=== PATIENT | male | born 1995 | race African-American/Black ===

== ENCOUNTER 2017-10-15 11:07 | Emergency (ER) | payer MEDICAID, SELFPAY ==
[2017-10-15 11:08] VITALS: BP 137/75; PULSE 69; RESP 17; TEMP 36.4; O2SAT 93; BMI 18.7
[2017-10-15] MEDS: 0.9% Normal Saline 1,000 ML 1000 ML IV (11:41)
[2017-10-15] MEDS: Ketorolac 30 MG/ML Syringe IV (11:41)
[2017-10-15] MEDS: Ondansetron 4 MG/2 ML Vial IV (11:42)
--- NOTE | 2017-10-15 13:01 | ED.VISSUMM ---
- ER Visit Summary Date of Service: 10/15/17 Chief Complaint: Vomiting and diarrhea History of Present Illness: The patient is a 22 M who does not remember his primary care physician's name. He reports he has vomiting and diarrhea that began 4-1/2 hours ago. Is vomited multiple times. No blood in his emesis. He has had 2-3 episodes of diarrhea. No blood in his stools or black tarry stools. He has sharp diffuse abdominal pain is 10 out of 10 at worst and currently. Is worsened by nothing relieved by nothing. He denies any dysuria frequency. Patient denies sick contacts. Has not been camping out of the country. No possible bad food exposure. Does drink well water. No recent antibiotic use. Physical Examination: Vitals: Stable. Afebrile. General: Well-nourished and well-developed. Head: Normocephalic atraumatic. Neck: Supple, no lymphadenopathy. No JVD. Nontender. Cardiovascular: Regular rate and rhythm. No murmurs. Respiratory: No respiratory distress. Clear to auscultation bilaterally. Abdominal: Soft, nontender, nondistended, normal bowel sounds. No guarding, rebound, or peritoneal signs. Back: Nontender. Extremities: Nontender, no edema. Skin: Normal color, no rash. Neurologic: Alert and oriented ?3. Cranial nerves II through XII are intact. Normal strength and sensation. Psych: Normal affect. Emergency Department Course and Treatment: Patient had an IV placed. He was given Toradol, Zofran, and Phenergan IV. He then developed hiccups and continued to complain of nausea. Because of this he was given a dose of Thorazine and Benadryl IV. His hiccups have resolved as has his nausea. He is resting comfortably. Treatment Plan: The patient will be discharged with Zofran. Instructed to follow-up with his primary care physician in 1-2 days if not improving. Return to the emergency department for any worsening symptoms. Disposition: To home in improved and stable condition. Impression:. Vomiting/diarrhea. This note was generated with [employer] dictation software. It may contain incorrect words, spelling, and punctuation that were not noted in review of the chart prior to signing ED Disposition - Plan for ED Patient: Chief Complaint: Abd Pain Instructions: ED Vomiting Diarrhea Nonspecific Ad Prescriptions: Ondansetron [Zofran Odt] 4 mg PO Q8H PRN PRN #10 tablet PRN Reason: Nausea Referrals: Doctor,Your [STAFF PHYSICIAN] - 1-2 Days if not improving
[2017-10-15] MEDS: Dicyclomine 20 MG/2 ML Vial IM (13:24)
[2017-10-15 13:52] VITALS: PULSE 80; RESP 14
== END 2017-10-15 13:53 | disposition home or self-care (01) ==
PROVIDERS: Emergency Provider Emergency Medicine
DX: R11.10 Vomiting, unspecified (principal); R19.7 Diarrhea, unspecified; R06.6 Hiccough
CPT/HCPCS: 96361; 96365; 96372; 96375; 99283; J7030; A4216; J2405; J3490

== ENCOUNTER 2018-12-26 15:17 | Emergency (ER) | payer MEDICAID, SELFPAY ==
[2018-12-26 15:17] VITALS: BP 141/91; PULSE 80; RESP 16; TEMP 36.6; O2SAT 100; BMI 18.5
[2018-12-26] MEDS: Ketorolac 30 MG/ML Syringe IV (15:48)
[2018-12-26] MEDS: 0.9% Normal Saline 1,000 ML 1000 ML IV ×2 (15:48→19:48)
[2018-12-26] MEDS: Ondansetron 4 MG/2 ML Vial IV ×2 (15:48→18:10)
--- NOTE | 2018-12-26 15:52 | ED.VISSUMM ---
- ER Visit Summary Date of Service: 12/26/18 Chief Complaint: Vomiting and diarrhea History of Present Illness: The patient is a 23 M with no primary care physician. He reports that he had vomiting and diarrhea since 830 this morning. He is vomited multiple times. No blood in his emesis. He said 5-6 episodes of diarrhea. No blood in his stools or black tarry stools. Reports that he has epigastric abdominal pain that he describes as nausea states is 9 out of 10 at worst and 7-10 currently. Is worsened by movement relieved by remaining still. Patient denies sick contacts. Has not been camping out of the country. Thinks this may be due to chicken nuggets that he ate at [employer] last night. He does drink well water, but others at home do as well and they are not ill. No recent antibiotic use. Physical Examination: Vitals: Stable. Afebrile. General: Well-nourished and well-developed. Head: Normocephalic atraumatic. Neck: Supple, no lymphadenopathy. No JVD. Nontender. Cardiovascular: Regular rate and rhythm. No murmurs. Respiratory: No respiratory distress. Clear to auscultation bilaterally. Abdominal: Soft, mild epigastric tenderness to palpation Er, nondistended, normal bowel sounds. No guarding, rebound, or peritoneal signs. Back: Nontender. Extremities: Nontender, no edema. Skin: Normal color, no rash. Neurologic: Alert and oriented ?3. Cranial nerves II through XII are intact. Normal strength and sensation. Psych: Normal affect. Test results: CBC shows a white count 21.6 with segmented neutrophils and 19 lymphocytes 3. Chem-7 shows potassium 3.4, glucose 170, creatinine 1.48. LFTs show total protein of 8.6, AST 13, lipase is 75. Hemoglobin A1c is normal. Clinical Impression(s) from Imaging Studies Abdomen/Pelvis CT 12/26/18 20:38 IMPRESSION: Evidence of diarrheal illness with prominent fluid in the bowel and little formed stool. Mild prominence of the colonic wall might represent a mild infectious or inflammatory colitis although this might also be due to underdistention. Individualized dose optimization techniques were used for this CT. at 2121 Reported and signed by: Brian Weir MD Electronically Signed: Brian Weir, at 21:19 EDT Tel , Service support , Emergency Department Course and Treatment: Patient had an IV placed. He was given 3 L of normal saline IV. He was given Toradol, Zofran, and morphine IV. He feels much improved. Treatment Plan: Patient will be discharged with Zofran. Instructed to follow-up with the [facility] in 1-2 days if not improving. Return to the emergency department for any worsening symptoms. Disposition: To home in improved and stable condition. Impression: 1. Vomiting/diarrhea. This note was generated with [employer] dictation software. It may contain incorrect words, spelling, and punctuation that were not noted in review of the chart prior to signing ED Disposition - Plan for ED Patient: Disposition: Home or Assisted Living Instructions: ED Vomiting Diarrhea Nonspecific Ad Prescriptions: Ondansetron [Zofran Odt] 4 mg PO Q8H PRN PRN #10 tablet PRN Reason: Nausea Referrals: Mariama Bernal [NON-STAFF] - 1-2 Days if not improving
[2018-12-26] MEDS: proMETHazine 25 MG/ML Syringe 6.25 MG IV ×2 (17:40→19:49)
[2018-12-26] MEDS: 0.9% Normal Saline 1,000 ML 999 ML IV (18:10)
[2018-12-26 18:53] VITALS: BP 134/78; PULSE 73; RESP 16; O2SAT 99
[2018-12-26] MEDS: Morphine 4 MG/ML Syringe IV (19:48)
[2018-12-26 19:55] LABS: Absolute Lymphocyte Count 0.57 X10^3/ul (0.83-4.51); Absolute Neutrophil Count 19.8 X10^3/uL (2.0-7.7); Basophil# 0.01 X10^3/uL; Differential Indicated SCAN CRITERIA MET; Hemoglobin 16.2 g/dl (13.0-16.5); Lymphocyte # 0.57 X10^3/ul (4.0); Lymphocyte % 2.6 % (19-41); Mean Corp Hgb Conc 35.2 g/gl (32-36); Mean Corpuscular Hgb 29.9 pg (27.0-32.0); Mean Corpuscular Volume 84.9 fL (80-94); Mean Platelet Vol. 11.5 fl (6.2-12.0); Monocyte# 1.19 X10^3/uL; Monocyte% 5.5 % (0-10); Neutrophil # 19.77 X10^3/uL (2.7-7.7); Neutrophil % 91.6 % (47-70); POSITIVE COUNT NO; POSITIVE DIFFERENTIAL YES; POSITIVE MORPHOLOGY NO; Platelet Count 213 K/mm3 (150-450); RBC Distribution Width CV 11.6 % (11.6-14.6); RBC Distribution Width SD 35.7 fl (35.1-43.9); Red Blood Count 5.42 M/mm3 (4.6-6.2); White Blood Count 21.6 K/mm3 (4.4-11.0)
[2018-12-26 20:15] LABS: Platelet Estimate ADEQUATE (ADEQ); Red Cell Morphology NORM C+C NORMAL (NORM C&C)
[2018-12-26 20:16] LABS: ALB/GLOB Ratio 1.4 RATIO (0.9-2.4); AST(SGOT) 13 U/L (15-37); Alanine Aminotransfer ALT/SGPT 24 U/L (16-61); Alkaline Phosphatase 58 U/L (45-117); Anion Gap 11 (5-15); BUN 10 mg/dL (7-18); BUN/Creat Ratio 6.8 RATIO (10-20); Calcium,Total 9.7 mg/dL (8.5-10.1); Chloride 101 mmol/L (98-107); Creatinine, Serum 1.48 mg/dL (0.70-1.30); EST Glomerular Filtration Rate 62 mL/min (>60); Est Glom Filt Rate - Afr Amer 75 mL/min (>60); Estimated Creatinine Clearance 61.92 ml/min; Globulin 3.6 g/dL (2.2-4.2); Glucose 170 mg/dL (74-106); Lipase 75 U/L (73-393); Potassium 3.4 mmol/L (3.5-5.1); Protein, Total 8.6 g/dL (6.4-8.2); Sodium Level 136 mmol/L (136-145)
--- NOTE | 2018-12-26 20:38 | CT_ITS ---
HISTORY: nausea,vomiting and diarrhea since 8 am today EXAMINATION: CT Abdomen And Pelvis W/O Contrast TECHNIQUE: Helically acquired images were obtained of the abdomen and pelvis without oral or IV contrast as per renal stone protocol. A radiation dose optimization technique was used for this scan. IV Contrast dosage and agent: None. Oral contrast: None. COMPARISON: None FINDINGS: LOWER CHEST: Lung bases are clear. No cardiomegaly or pericardial effusion observed. LIVER: Homogeneous. No focal mass. GALLBLADDER AND BILIARY TREE: No calcified gallstones. There is no gallbladder distension or wall edema. No intra- or extrahepatic biliary ductal dilation. KIDNEYS AND URETERS: Normal renal size and position. There is no hydronephrosis or nephrolithiasis. ADRENAL GLANDS: Non-enlarged. SPLEEN: Normal size without focal cystic or solid mass. PANCREAS: No focal cystic or solid mass. BOWEL: Partially visible appendix noninflamed. No evidence of acute appendicitis. No obstruction of the bowel. Little formed stool, and fluid in the bowel. Large bowel is mostly decompressed with mild prominence of its wall. LYMPH NODES: No enlarged mesenteric or retroperitoneal lymph nodes. PERITONEUM: No ascites or free air. No other fluid collection. VESSELS: Aorta is non-dilated. URINARY BLADDER: Unremarkable. REPRODUCTIVE ORGANS: No pelvic masses. ABDOMINAL WALL: No discrete abdominal or pelvic wall hernia observed. BONES: No lytic or blastic abnormality observed. Mild left scoliosis. Transitional lumbosacral anatomy with partial sacralization of the left transverse process of S1. CT/Abdomen/Pelvis without Cont IMPRESSION: Evidence of diarrheal illness with prominent fluid in the bowel and little formed stool. Mild prominence of the colonic wall might represent a mild infectious or inflammatory colitis although this might also be due to underdistention. Individualized dose optimization techniques were used for this CT. at 2121 Reported and signed by: Brian Weir MD Electronically Signed: Brian Weir, at 21:19 EDT Tel , Service support ,
[2018-12-26 21:17] LABS: Hemoglobin A1c 5.6 % (4.2-6.3)
[2018-12-26] MEDS: Ondansetron ODT 4 MG Tablet PO (22:18)
[2018-12-26 22:19] VITALS: BP 153/91; PULSE 83; RESP 16; O2SAT 100
[2018-12-27 12:17] LABS: Pathologist Review Reviewed
== END 2018-12-26 22:24 | disposition home or self-care (01) ==
PROVIDERS: Emergency Provider Emergency Medicine
DX: R11.10 Vomiting, unspecified (principal); R19.7 Diarrhea, unspecified
CPT/HCPCS: 74176; 80053; 83036; 83690; 85025; 96361; 96374; 96375; 96376; 99284; J7030; J2405

== ENCOUNTER → 2019-09-17 15:43 | Outpatient (CLI) | payer MEDICAID, SELFPAY ==
--- NOTE | 2019-09-17 13:30 | PHA_PTH ---
PATIENT: RD ANG LOC: [facility] U#:[id number] AGE/SX: 29/M ROOM: RE09/17/[address]: Dr. Margarito Etienne MD : 1995 BED: DIS: SPEC #: [id number] RECD: 09/17/19 15:17 STATUS: ALYSHA MARCIANO #: [id number] LUL: 09/17/19 13:[address]: Margarito Etienne DEPT: SURGICAL PATHOLOGY RECD BY: Douglas Sweeney ENTERED: 09/18/19 11:02 SP TYPE: PHARYNX BX OTHR DR: No Primary Care Phys [facility] Tissues: Pharynx, NOS Procedures: Surgery Specimen Level IV HEADER OPERATION: Excision oropharyngeal lesion PRE-OP DIAGNOSIS: Benign neoplasm of oropharynx TISSUE SUBMITTED: Oropharyngeal neoplasm MICROSCOPIC DIAGNOSIS Oropharyngeal neoplasm, excisional biopsy: Squamous papilloma. TAYLOR:lisa 09/20/19 MICROSCOPIC DESCRIPTION Slides are reviewed. GROSS DESCRIPTION Received is one container labeled with the patient's name and not further designated. The specimen consists of an irregular fragment of raisinoid light pink-giron tissue measuring 1 x 0.8 x 0.3 cm. The specimen is bisected and totally submitted in one cassette. / AM:lisa 09/18/19 TC:1 CPT: 55684
== END ==
PROVIDERS: Referring Provider Otolaryngology; Visit Provider Otolaryngology
DX: D10.5 Benign neoplasm of other parts of oropharynx (principal)
CPT/HCPCS: 88305

== ENCOUNTER 2020-02-11 01:48 | Emergency (ER) | payer MEDICAID, SELFPAY ==
[2020-02-11 01:50] VITALS: BP 126/110; PULSE 87; RESP 18; TEMP -17.7; TEMP 0; O2SAT 99; BMI 22.6
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
[2020-02-11 04:00] VITALS: BP 115/82; PULSE 102; RESP 15; O2SAT 100
[2020-02-11 04:28] VITALS: BP 115/82; PULSE 99; RESP 15; O2SAT 100
--- NOTE | 2020-02-11 04:32 | DCINST.ED_ITS ---
ED Disposition - Plan for ED Patient: Disposition: Home or Assisted Living Instructions: ED Head Injury Adult, ED Laceration Scalp Sutures or [place], ED INTOXICATION Alcohol Referrals: Michael Navas MD [STAFF PHYSICIAN] - Additional Instructions: Tylenol for any pain. Keep scalp clean. Tony can come out in 7 to 10 days. We can do it or you can do it at home. There are [address]
== END 2020-02-11 04:37 | disposition home or self-care (01) ==
PROVIDERS: Emergency Provider Emergency Medicine
DX: S01.01XA Laceration without foreign body of scalp, initial encounter (principal); F10.129 Alcohol abuse with intoxication, unspecified; W19.XXXA Unspecified fall, initial encounter
CPT/HCPCS: 12001; 70450; 72125; 80320; 99285; A4216; G0480

== ENCOUNTER 2020-08-04 16:22 | Emergency (ER) | payer MEDICAID, SELFPAY ==
[2020-08-04 16:23] VITALS: BP 134/85; PULSE 75; RESP 16; TEMP 36.2; O2SAT 99; BMI 19.9
[2020-08-04 16:51] LABS: Bacteria 0 SEEN /hpf (None Seen); Mucous, Urine 0 SEEN /hpf (<or=2+); Red Blood Cells-Urine 0 SEEN /hpf (0-5); Squamous Epithelial Cells - UA 0 SEEN /hpf (0-5); White Blood Cells 0 SEEN /hpf (0-5)
[2020-08-04 17:10] LABS: Color, Urine Straw (Yellow); Glucose, Dipstick Normal (Normal); Ketone-Dipstick Negative (Negative); Leukocyte Esterase-Dipstick Negative /ul (Negative); Nitrite-Dipstick Negative (Negative); Occult Blood-Urine Negative /ul (Negative); Protein-Dipstick Negative (Negative); Specific Gravity, Urine 1.005 (1.002-1.030); Urine Bilirubin Dipstick Negative (Negative); Urine Clarity Clear (Clear); Urine Urobilinogen Normal (Normal)
--- NOTE | 2020-08-04 17:43 | ED.VISSUMM ---
- ER Visit Summary Date of Service: 08/04/20 Chief Complaint: Exposure to gonorrhea History of Present Illness: The patient is a [address] Mills. He reports that 2 days ago he had unprotected intercourse with a woman and was told today that she had tested positive for gonorrhea. He denies any symptoms. No dysuria or frequency. No penile discharge. No fever or chills. He denies any lesions on his genitals. Physical Examination: Vitals: Stable. Afebrile. General: Well-nourished and well-developed. Head: Normocephalic atraumatic. Neck: Supple, no lymphadenopathy. No JVD. Nontender. Cardiovascular: Regular rate and rhythm. No murmurs. Respiratory: No respiratory distress. Clear to auscultation bilaterally. Abdominal: Soft, nontender, nondistended, normal bowel sounds. No guarding, rebound, or peritoneal signs. : Normal circumcised male. There is no discharge. No lesions on his penis. He does have a varicocele on the left. There is no testicular tenderness or masses. He has no hernia. He was examined while standing. Back: Nontender. Extremities: Nontender, no edema. Skin: Normal color, no rash. Neurologic: Alert and oriented ?3. Cranial nerves II through XII are intact. Normal strength and sensation. Psych: Normal affect. Test Results: Urinalysis is negative. Gonorrhea is positive. Emergency Department Course and Treatment: Patient was treated with Rocephin IM and Zithromax p.o. Treatment Plan: Patient is instructed not to have sexual activity with her again until she is treated. Follow-up with his primary care physician 1 week if not improving. Return to the emergency department for any worsening symptoms. Disposition: To home in improved and stable condition. Impression: 1. STD exposure. 2. Gonorrhea infection. This note was generated with [employer] dictation software. It may contain incorrect words, spelling, and punctuation that were not noted in review of the chart prior to signing ED Disposition - Plan for ED Patient: Disposition: Home or Assisted Living Instructions: ED STI Male Treated Referrals: Clayton Augustine NP, PRIVACY COMPLIANCE MANAGER-C [Primary Care Provider] - 1 Week if not improving
[2020-08-04] MEDS: Ceftriaxone 500 MG Vial 250 MG IM (18:02)
[2020-08-04] MEDS: Azithromycin 250 MG Tablet 1000 MG PO (18:02)
[2020-08-04 18:51] LABS: Chlamydia Trachomatis by PCR Negative (Negative); Probe Check PASS
[2020-08-04 18:54] LABS: Neisserai gonorrhoeae by PCR Positive (Negative)
== END 2020-08-04 18:09 | disposition home or self-care (01) ==
LOC: ED 17:40
PROVIDERS: Emergency Provider Emergency Medicine; PCP Nurse Practitioner Family
DX: Z20.2 Contact with and (suspected) exposure to infections with a predominantly sexual mode of transmission (principal); A54.9 Gonococcal infection, unspecified
CPT/HCPCS: 81001; 87491; 87591; 96372; 99282

== ENCOUNTER 2020-08-27 06:27 | Emergency (ER) | payer MEDICAID, SELFPAY ==
[2020-08-27 06:27] VITALS: BP 133/87; PULSE 77; RESP 15; TEMP 36.8; O2SAT 99; BMI 22.7
--- NOTE | 2020-08-27 07:13 | ED.DCSUM_ITS ---
History of Present Illness Chief Complaint: Male Pain/Injury Informant: Patient Onset: - - Overnight, about 10 hours ago Context: Gradual Onset Timing: Continuous Quality: Aching Location: Right testicle Current Severity: Resolved now Maximum Severity: Severe - While in the shower this morning Worsened by: Nothing in particular that he noticed Relieved by: Nothing in particular Associated Symptoms: None Narrative: Patient last had intercourse a month ago, and then he was told by that female to go get checked for STDs. He came to the ER, was treated for both gonorrhea and chlamydia, he tested positive for gonorrhea and negative for chlamydia according to his records. He has had no intercourse since. Overnight while sleeping his right testicle started hurting mildly, he has never had this before, while he was in the shower this morning it became severe. On the way to the hospital he quit hurting altogether. He had no other symptoms. Past Medical History - Allergies and Home Meds Allergies/Adverse Reactions: Allergies No Known Allergies Allergy (Verified 08/27/20 06:31) Primary Care Physician: Clayton Augustine NP, MEAT AND SEAFOOD CLERK-C [Primary Care Provider] - Smoking Status: Never smoker Review of Systems General: Denies: Chills, Fever, Sweats Gastrointestinal: Denies: Abdominal pain, Nausea, Vomiting, Diarrhea, Melena, Hematochezia Genitourinary: Reports: - - R testic pain. Denies: Dysuria, Hematuria, Frequen cy Musculoskeletal: Denies: Myalgias, Back pain, Extremity Pain Skin: Denies: Rash, Wounds Neurological: Denies: Headache, Weakness, Numbness Physical Exam Vital Signs/Narrative: Vital Signs Temp Pulse Resp BP Pulse Ox 08/27/20 06:27 98.2 F 77 15 133/87 H 99 Inital Vital Signs reviewed: Yes General: Well nourished, Well developed, No Acute Distress Head: Normocephalic, Atraumatic Abdomen: Soft, Nontender, Nondistended, Normal bowel sounds : - - Normal penis and testicles, no rash or lesions. Examined while standing, no hernia. Mild tenderness posterior aspect of the right hemiscrotum consistent with epididymis tenderness. Normal symmetric testicular lie. Intact cremasterics. No testicular tenderness. No blue dot sign. Extremities: Nontender, No edema Skin: Normal color, No rash, No Trauma Neurological: Alert, Oriented x3, Cranial nerves II-XII grossly intact, Normal Strength, Normal Sensation Psychological: Normal affect, Normal Mood Diagnostic/Tx/Re-eval - Medical Decision Making At this time he does have mild right epididymal tenderness with none on the left. This is consistent with epididymitis. At this time he does not have torsion, however I am not able to rule out the possibility of him having torsion earlier which is possible but unlikely. We discussed reasons to return to the hospital including an acute onset severe unilateral testicular pain. Right now he does not have torsion, will treat him for bacterial epididymitis and also cover gonorrhea again with Rocephin IM. Prescribe doxycycline given ibuprofen. ED Disposition - Plan for ED Patient: Disposition: Home or Assisted Living Diagnosis: Epididymitis, right Instructions: ED Epididymitis Prescriptions: Doxycycline 100 mg PO BID #20 cap Transmission Status: Pending to [id number] Referrals: Clayton Augustine NP, MEAT AND SEAFOOD CLERK-C [Primary Care Provider] - Shakeel Vega MD [STAFF PHYSICIAN] - 1 Week if not improving
[2020-08-27] MEDS: Ibuprofen 600 MG Tablet PO (07:55)
[2020-08-27] MEDS: Ceftriaxone 500 MG Vial 250 MG IM (08:46)
[2020-08-27 08:52] VITALS: BP 127/81; PULSE 81; RESP 16; O2SAT 99
== END 2020-08-27 08:52 | disposition home or self-care (01) ==
PROVIDERS: Emergency Provider Emergency Medicine; PCP Nurse Practitioner Family
DX: N45.1 Epididymitis (principal)
CPT/HCPCS: 96372; 99283

== ENCOUNTER 2020-11-03 07:08 | Emergency (ER) | payer BC, MEDICAID, SELFPAY ==
[2020-11-03 07:10] VITALS: BP 116/60; PULSE 79; RESP 17; TEMP 35; O2SAT 99; BMI 20.7
--- NOTE | 2020-11-03 07:42 | ED.VISSUMM ---
- ER Visit Summary Date of Service: 11/03/20 Chief Complaint: Vomiting History of Present Illness: The patient is a 25 M presenting with vomiting. Patient states this started this morning. He also complains of diarrhea. He denies bad food exposure or recent travel. Denies exposure to Covid. He does state he may have drank too much alcohol last night. Denies blood in his emesis. He complains of diffuse abdominal cramping. Denies other complaints. Physical Examination: Vitals are stable. Patient is afebrile. Alert no acute distress. HEENT exam is unremarkable. Neck is supple. Lungs are clear and equal bilaterally. Heart is regular rate and rhythm. Abdomen is soft mild epigastric tenderness with no guarding or rebound Extremities are unremarkable. Skin is warm and dry. Remainder of exam is unremarkable. Emergency Department Course and Treatment: Patient was given IV fluids, Zofran, morphine. CBC shows white count 14.9. Chemistries show potassium 3.1, glucose 182, creatinine 1.34. Liver lipase are normal. Patient continues to be nauseated and was given Reglan IV. He did have improvement on reevaluation. Patient then began to have vomiting and abdominal pain again. CT abdomen was obtained and shows no acute abnormality is seen. He was given Phenergan IM. Following fluids and medication patient is feeling improved. He is requesting discharge home. Advised to follow-up with his primary care physician. Advised return to ED for worsening complaints. Disposition: Discharge home Impression: Vomiting and diarrhea This note was generated with [employer] dictation software. It may contain incorrect words, spelling, and punctuation that were not noted in review of the chart prior to signing ED Disposition - Plan for ED Patient: Disposition: Home or Assisted Living Instructions: ED Diet for Vomiting or Diarrhea Adult Prescriptions: Ondansetron [Zofran Odt] 4 mg PO Q8H PRN PRN #10 tab PRN Reason: Nausea Prescription Printed Referrals: Clayton Augustine DIRECTOR OF ENVIRONMENTAL SERVICES, DIRECTOR OF ENVIRONMENTAL SERVICES-C [Primary Care Provider] -
[2020-11-03] MEDS: Ondansetron 4 MG/2 ML Vial IV (07:48)
[2020-11-03] MEDS: 0.9% Normal Saline 1,000 ML 1000 ML IV ×2 (07:49→08:46)
[2020-11-03 07:56] LABS: Absolute Lymphocyte Count 1.97 X10^3/uL (0.83-4.51); Absolute Neutrophil Count 11.9 X10^3/uL (2.0-7.7); Basophil# 0.05 X10^3/uL; Basophil% 0.3 % (0-1); Eosinophil# 0.18 X10^3/uL; Eosinophils% 1.2 % (0-5); Hematocrit 43.9 % (40-54); Lymphocyte # 1.97 X10^3/ul (4.0); Lymphocyte % 13.2 % (19-41); Mean Corp Hgb Conc 34.2 g/dL (32-36); Mean Corpuscular Hgb 29.8 pg (27.0-32.0); Mean Corpuscular Volume 87.1 fL (80-94); Mean Platelet Vol. 10.9 fl (6.2-12.0); Monocyte# 0.75 X10^3/uL; NRBC Flagged by Analyzer 0 % (0-5); Neutrophil # 11.85 X10^3/uL (2.7-7.7); Neutrophil % 79.6 % (47-70); Platelet Count 234 K/mm3 (150-450); RBC Distribution Width CV 11.5 % (11.6-14.6); Red Blood Count 5.04 M/mm3 (4.6-6.2); White Blood Count 14.9 K/mm3 (4.4-11.0)
[2020-11-03 08:11] LABS: ALB/GLOB Ratio 1.2 RATIO (0.9-2.4); AST(SGOT) 19 U/L (15-37); Alanine Aminotransfer ALT/SGPT 32 U/L (16-61); Albumin, Serum 4.2 g/dL (3.2-5.0); Alkaline Phosphatase 57 U/L (45-117); Anion Gap 11 (5-15); BUN 9 mg/dL (7-18); BUN/Creat Ratio 6.7 RATIO (10-20); Chloride 106 mmol/L (98-107); Creatinine, Serum 1.34 mg/dL (0.70-1.30); EST Glomerular Filtration Rate 68 mL/min (>60); Est Glom Filt Rate - Afr Amer 83 mL/min (>60); Estimated Creatinine Clearance 75.27 ml/min; Globulin 3.6 g/dL (2.2-4.2); Glucose 182 mg/dL (74-106); Lipase 253 U/L (73-393); Potassium 3.1 mmol/L (3.5-5.1); Protein, Total 7.8 g/dL (6.4-8.2); Sodium Level 139 mmol/L (136-145)
[2020-11-03] MEDS: Morphine 4 MG/ML Syringe IV ×2 (08:12→10:11)
[2020-11-03] MEDS: Metoclopramide 10 MG/2 ML Vial 5 MG IV (08:51)
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
[2020-11-03] MEDS: proMETHazine 25 MG/ML Syringe 12.5 MG IM (10:11)
--- NOTE | 2020-11-03 11:34 | ED.DEP ---
ED Disposition - Plan for ED Patient: Instructions: ED Diet for Vomiting or Diarrhea Adult Prescriptions: Ondansetron [Zofran Odt] 4 mg PO Q8H PRN PRN #10 tab PRN Reason: Nausea Prescription Printed Referrals: Clayton Augustine NP, ALLERGY NURSE-C [Primary Care Provider] -
== END 2020-11-03 11:52 | disposition home or self-care (01) ==
LOC: ED 08:19
PROVIDERS: Emergency Provider Emergency Medicine; PCP Nurse Practitioner Family
DX: R11.10 Vomiting, unspecified (principal); R19.7 Diarrhea, unspecified
CPT/HCPCS: 74177; 80053; 83690; 85025; 96361; 96372; 96374; 96375; 96376; 99285; J7030; A4216; J2405

== ENCOUNTER 2021-08-02 02:35 | Emergency (ER) | payer BC, MEDICAID, SELFPAY ==
[2021-08-02 02:36] VITALS: BP 118/74; PULSE 76; PULSE 77; RESP 18; TEMP 35.1; O2SAT 98; O2SAT 99; BMI 20.1
--- NOTE | 2021-08-02 02:50 | CT_ITS ---
STUDY: CT BRAIN WITHOUT CONTRAST REASON FOR EXAM: Male, 25 years old. Pain after trauma RADIATION DOSAGE (If Supplied By Facility): CTDIvol = ( 44.99 ) mGy, DLP = ( 779.24 ) mGycm TECHNIQUE: Transaxial CT imaging of the brain was performed without administration of intravenous contrast material. Individualized dose optimization techniques were used for this CT. COMPARISON: No relevant priors. FINDINGS: There is no intra-/extra-axial fluid collection, mass effect, or midline shift. The cowan/white matter junction is preserved. The basal cisterns are patent. Visualized paranasal sinuses and mastoid air cells are clear. The calvarium is intact. CT/Brain/Head without Contrast IMPRESSION: No acute intracranial finding. Electronically Signed: Roger De Jesus MD at 3:45 EST Tel , Service support ,
--- NOTE | 2021-08-02 02:50 | CT_ITS ---
STUDY: CT CERVICAL SPINE WITHOUT CONTRAST REASON FOR EXAM: Male, 25 years old. fall/injury RADIATION DOSAGE (If Supplied By Facility): CTDIvol = ( 20.66 ) mGy, DLP = ( 416.55 ) mGycm TECHNIQUE: High resolution transaxial imaging was performed without contrast material. Sagittal and coronal images were reconstructed. Individualized dose optimization techniques were used for this CT. COMPARISON: None FINDINGS: Normal craniovertebral junction. Normal anterior atlantoaxial articulation. Normal odontoid process. There is straightening of the normal cervical lordosis. Normal vertebral bodies and posterior osseous elements. C2-3: Normal endplates. Normal disc height and morphology. Normal central canal and intervertebral neuroforamina. C3-4: Normal endplates. Normal disc height and morphology. Normal central canal and intervertebral neuroforamina. C4-5: Normal endplates. Normal disc height and morphology. Normal central canal and intervertebral neuroforamina. C5-6: Normal endplates. Normal disc height and morphology. Normal central canal and intervertebral neuroforamina. C6-7: Normal endplates. Normal disc height and morphology. Normal central canal and intervertebral neuroforamina. C7-T1: Normal endplates. Normal disc height and morphology. Normal central canal and intervertebral neuroforamina. Normal visualized soft tissue structures. CT/Spine Cervical without Contras IMPRESSION: No acute traumatic findings of the C-spine Electronically Signed: Juan Ramon Smith DO at 3:49 EST Tel , Service support ,
--- NOTE | 2021-08-02 03:02 | EX.ED.DYSGE1 ---
HPI History of Present Illness Chief Complaint: ETOH Intox Narrative Narrative: Patient is a 25-year-old male who reports he was drinking tequila this evening. Reportedly mother found him on the ground and there was vomit around him. Reportedly he told his mother that he also fell and struck his head and she had concerned that his altered mental status and vomiting was from trauma and not the alcohol and therefore brings him in for evaluation. PFSH PFSH Home Medications fluoxetine 20 mg PO DAILY 02/11/20 [History Last Taken Unknown] doxycycline monohydrate 100 mg PO BID #20 cap 08/27/20 [Rx Last Taken Unknown] ondansetron 4 mg PO Q8H PRN PRN #10 tab 11/03/20 [Rx Last Taken Unknown] Allergy/AdvReac Type Severity Reaction Status Date / Time No Known Allergies Allergy Verified 08/27/20 06:31 Social History Smoking Status: Never smoker ROS ROS ED Review of Systems ROS Unobtainable: due to mental status EXAM Physical Exam Const Vital Signs: 08/02/21 02:36 08/02/21 04:57 08/02/21 05:51 Temperature 95.2 F L Temperature Source Temporal Pulse Rate 76 78 78 Respiratory Rate 18 16 Blood Pressure 118/74 107/56 L 126/71 H Blood Pressure Mean 88 73 89 Pulse Ox 98 98 97 Oxygen Delivery Method Room Air Room Air Room Air Positive well nourished and well developed General Appearance ED: well developed HEENT HEENT Narrative: No signs of depressed or basilar skull fracture Eyes Eyes Narrative: Pupils are dilated and slightly sluggish to respond with mild scleral injection consistent with alcohol use Neck supple Neck Narrative: No bony deformity or step-off of the cervical spine Chest Wall palpation of chest normal Chest Narrative: No bony deformity or crepitance Resp normal respiratory effort and clear to auscultation bilaterally Cardio regular rate and regular rhythm GI non-tender and non-distended GI Narrative: Bowel sounds are hyperactive Palpation: soft Back/Spine Back/Spine Narrative: No bony deformity or step-off of the thoracic or lumbar spine no midline pain with palpation Extremity normal to inspection Neuro CN's II-XII intact bilaterally Neuro Narrative: Patient's mental status is obtunded but he awakes to loud voice and is otherwise protecting his airway. Motor Exam: strength 5/5 throughout Psych Psych Narrative: Patient has a depressed/flat affect Skin no rashes or lesions noted Skin Narrative: No abrasions or ecchymosis noted MDM MDM MDM Narrative Medical decision making narrative: Patient presented to the ER with history and exam consistent with acute alcohol intoxication. However as there was report that he did strike his head and has been having bouts of vomiting there was concern for underlying intracranial injury. CTs of the head and cervical spine were obtained. These showed no acute traumatic finding. Patient was watched in the ER for multiple hours and his mental status did improve. He was able to ambulate to and from the bathroom and had improvement of his mental status. Therefore at this time as imaging reveals no acute traumatic finding and he has had improvement in his mental status he is safe for discharge. He will be in the care of his mother who agrees to accept responsibility for the patient at this time because he still has alcohol intoxication changes Radiography Diagnostic Testing: Clinical Impression(s) from Imaging Studies Brain CT 08/02/21 02:50 IMPRESSION: No acute intracranial finding. Electronically Signed: Roger De Jesus MD at 3:45 EST Tel , Service support , Cervical Spine CT 08/02/21 02:50 IMPRESSION: No acute traumatic findings of the C-spine Electronically Signed: Juan Ramon Smith DO at 3:49 EST Tel , Service support , Discharge Plan Triage Chief Complaint: ETOH Intox ED Provider: Charlie Harmon Dx/Rx/DC Orders Clinical Impression: Alcohol intoxication, Closed head injury Instructions: ED Alcohol Intoxication Prescriptions: No Action fluoxetine 20 MG capsule 20 mg PO DAILY RF: 0 doxycycline monohydrate 100 MG capsule 100 mg PO BID Qty: 20 RF: 0 ondansetron 4 MG tablet 4 mg PO Q8H PRN PRN (Reason: Nausea) Qty: 10 RF: 0 Primary Care Provider: Sallie Crowley NP Referrals: Sallie Crowley NP, [employer] [Primary Care Provider] - Disposition Disposition: Home, Self Care
[2021-08-02] MEDS: Ondansetron ODT 4 MG Tablet PO (03:13)
[2021-08-02 04:57] VITALS: BP 107/56; PULSE 78; O2SAT 98
[2021-08-02 05:51] VITALS: BP 126/71; PULSE 78; RESP 16; O2SAT 97
== END 2021-08-02 06:18 | disposition home or self-care (01) ==
PROVIDERS: Emergency Provider Emergency Medicine; PCP Registered Nurse
DX: F10.129 Alcohol abuse with intoxication, unspecified (principal); S09.90XA Unspecified injury of head, initial encounter; W19.XXXA Unspecified fall, initial encounter
CPT/HCPCS: 70450; 72125; 99283

== ENCOUNTER 2022-12-19 10:20 | Emergency (ER) | payer BC, MEDICAID, SELFPAY ==
[2022-12-19 10:21] VITALS: BP 143/87; PULSE 66; RESP 18; TEMP 35.5; O2SAT 96; BMI 20.7
--- NOTE | 2022-12-19 10:42 | EX.ED.DYSGE1 ---
HPI <TEJ Sousa - Last Filed: 12/19/22 16:10> History of Present Illness Chief Complaint: Abd Pain Narrative Narrative: Presenting today with nausea, vomiting, diarrhea that started around 8 AM this morning. He states he has had several episodes of vomiting and diarrhea. He is having generalized abdominal pain. His girlfriend, daughter, and mother have all had the same thing within the last week. He denies any fever, blood in his stool, hematemesis, urinary symptoms, history of abdominal surgery. PFSH <TEJ Sousa - Last Filed: 12/19/22 16:10> PFSH Medical History no medical history Home Medications fluoxetine 20 mg capsule 20 mg PO DAILY 02/11/20 [History Last Taken Unknown] doxycycline monohydrate 100 mg capsule 100 mg PO BID #20 caps 08/27/20 [Rx Last Taken Unknown] ondansetron 4 mg disintegrating tablet 4 mg PO Q8H PRN PRN Nausea #10 tabs 11/03/20 [Rx Last Taken Unknown] dicyclomine 20 mg tablet 20 mg PO BID #10 tabs 12/19/22 [Rx Last Taken Unknown] loperamide 2 mg capsule (Imodium A-D) 2 mg PO Q6H PRN loose stool #10 caps 12/19/22 [Rx Last Taken Unknown] ondansetron 4 mg disintegrating tablet 4 mg PO Q8H PRN PRN Nausea #12 tabs 12/19/22 [Rx Last Taken Unknown] Allergy/AdvReac Type Severity Reaction Status Date / Time No Known Allergies Allergy Verified 12/19/22 10:22 Surgical History no surgical history Social History Smoking Status: Never smoker ROS <TEJ Sousa - Last Filed: 12/19/22 16:10> ROS ED Constitutional Constitutional ED: Denies chills or fever(s) Cardiovascular Cardiovascular: Denies chest pain or palpitations Respiratory/Chest Respiratory/Chest: Denies cough or dyspnea Gastrointestinal Gastrointestinal: Reports abdominal pain, diarrhea, nausea and vomiting; Denies melena Genitourinary Genitourinary ED: Denies dysuria, hematuria or urinary urgency Musculoskeletal Musculoskeletal: Denies arthralgias or myalgias Integumentary Denies abscess, Abrasions or rash Neurologic Neurologic: Denies dizziness or weakness Psychiatric Psychiatric: Denies anxiety, depression, suicidal ideation or suicidal thoughts EXAM <TEJ Sousa - Last Filed: 12/19/22 16:10> Physical Exam Const Vital Signs: 12/19/22 10:21 12/19/22 12:53 12/19/22 15:11 Temperature 96 F L Temperature Source Temporal Pulse Rate 66 Respiratory Rate 18 Blood Pressure 143/87 H 176/107 H 140/90 H Blood Pressure Mean 105 130 106 Pulse Ox 96 Oxygen Delivery Method Room Air Positive well nourished, well developed and no apparent distress General Appearance ED: well developed HEENT Reports normocephalic and head/scalp atraumatic Mouth ED: Yes moist mucous membranes normal Eyes PERRL and EOMs intact bilaterally Neck full ROM and supple Chest Wall inspection of chest normal Resp normal respiratory effort and clear to auscultation bilaterally Cardio regular rate and regular rhythm GI soft to palpation, non-tender, non-distended and no masses Back/Spine normal ROM and normal to inspection Extremity normal to inspection and full ROM Neuro oriented x3, CN's II-XII intact bilaterally, moves all extremities, no focal motor deficits and no sensory deficits noted Sensorium / Orientation: awake and alert Psych mental status grossly normal and thought process normal Skin no rashes or lesions noted and no wounds <Dr. Silver Flores MD - Last Filed: 12/19/22 12:32> Physical Exam Const Vital Signs: 12/19/22 10:21 12/19/22 12:53 12/19/22 15:11 Temperature 96 F L Temperature Source Temporal Pulse Rate 66 Respiratory Rate 18 Blood Pressure 143/87 H 176/107 H 140/90 H Blood Pressure Mean 105 130 106 Pulse Ox 96 Oxygen Delivery Method Room Air MDM <TEJ Sousa - Last Filed: 12/19/22 16:10> [facility] Narrative Medical decision making narrative: Patient presenting today with nausea, vomiting, diarrhea, generalized abdominal pain that started this morning. 3 other members of his household have been sick with the same thing within the last week. Patient's symptoms are consistent with gastroenteritis. He has been given fluids, Zofran, Bentyl, Imodium. I do not feel that any labs are necessary. Patient's abdomen is soft and nontender I do not feel that any imaging is necessary. Reexamination patient states he still feeling nauseous has generalized abdominal pain. He has been given Phenergan and Toradol. Reexamination patient states he is still not any better and is actively vomiting. He does have heavy daily marijuana use, the cyclic vomiting protocol was used. Reexamination patient is feeling better and has not had any more vomiting. He has been given a p.o. challenge and was able to keep his fluids down. I have given him a prescription for Bentyl, Zofran, and Imodium. I have encouraged him to hold off on the marijuana use for the next few days as it might make his nausea and vomiting more difficult to control. Suspect that patient has gastroenteritis given his family has been sick with the same symptoms within the last week. Patient will be discharged home in stable condition and is comfortable with plan. He has been given return instructions. I have personally performed a face to face assessment of the patient and have reviewed the RUSSEL Note. I performed a substantive portion of the visit including all aspects of the following. My [place] findings include: History is remarkable for significant vomiting with diarrhea. Patient does smoke marijuana daily. He has no history of cyclic vomiting. He also presents with generalized abdominal pain. His symptoms started at 800 this morning. 3 other members are ill with similar symptoms. Their illness was last week. He does endorse dry mouth, thirst and lightheadedness. He does endorse decreased urine output. He denies history of diabetes. He denies blurred vision. He denies fever or chills. Exam is remarkable patient not appearing well. He is slightly pale. HEENT exam is remarkable dry mucosa and tongue. Heart is regular. There is no murmur, gallop or rub. Rate is normal. Lungs are clear to auscultation with symmetric breath sounds. Patient has mild diffuse generalized tenderness with slightly increased bowel sounds. There is no guarding or peritoneal findings. Neuro exam is nonfocal. Medical Decision Making since patient is 27 years of age with no history of kidney disease, diabetes, hypertension laboratory studies were not obtained nor they indicated per the literature. He received IV fluids. He reports no improvement after Zofran or Bentyl. He refused the Imodium. He was then given Phenergan. He is still actively vomiting. Because of his daily significant marijuana use we will use cyclic vomiting protocol since I suspect this is making his symptoms worse. Other additions or changes: [None] <Dr. Silver Flores MD - Last Filed: 12/19/22 12:32> [facility] Narrative Medical decision making narrative: Patient presenting today with nausea, vomiting, diarrhea, generalized abdominal pain that started this morning. 3 other members of his household have been sick with the same thing within the last week. Patient's symptoms are consistent with gastroenteritis. He has been given fluids, Zofran, Bentyl, Imodium. I do not feel that any labs are necessary. Patient's abdomen is soft and nontender I do not feel that any imaging is necessary. Reexamination patient states he still feeling nauseous has generalized abdominal pain. He has been given Phenergan and Toradol. I have personally performed a face to face assessment of the patient and have reviewed the RUSSEL Note. I performed a substantive portion of the visit including all aspects of the following. My [place] findings include: History is remarkable for significant vomiting with diarrhea. Patient does smoke marijuana daily. He has no history of cyclic vomiting. He also presents with generalized abdominal pain. His symptoms started at 800 this morning. 3 other members are ill with similar symptoms. Their illness was last week. He does endorse dry mouth, thirst and lightheadedness. He does endorse decreased urine output. He denies history of diabetes. He denies blurred vision. He denies fever or chills. Exam is remarkable patient not appearing well. He is slightly pale. HEENT exam is remarkable dry mucosa and tongue. Heart is regular. There is no murmur, gallop or rub. Rate is normal. Lungs are clear to auscultation with symmetric breath sounds. Patient has mild diffuse generalized tenderness with slightly increased bowel sounds. There is no guarding or peritoneal findings. Neuro exam is nonfocal. Medical Decision Making since patient is 27 years of age with no history of kidney disease, diabetes, hypertension laboratory studies were not obtained nor they indicated per the literature. He received IV fluids. He reports no improvement after Zofran or Bentyl. He refused the Imodium. He was then given Phenergan. He is still actively vomiting. Because of his daily significant marijuana use we will use cyclic vomiting protocol since I suspect this is making his symptoms worse. Other additions or changes: [None] Discharge Plan Triage Chief Complaint: Abd Pain ED Midlevel Provider: Michelle Vallejo ED Provider: Silver Flores Dx/Rx/DC Orders Clinical Impression: Gastroenteritis Instructions: ED Gastroenteritis, Viral (Adult) Prescriptions: New ondansetron 4 mg tablet,disintegrating 4 mg PO Q8H PRN PRN (Reason: Nausea) Qty: 12 0RF dicyclomine 20 mg tablet 20 mg PO BID Qty: 10 0RF loperamide [Imodium A-D] 2 mg capsule 2 mg PO Q6H PRN (Reason: loose stool) Qty: 10 0RF No Action fluoxetine 20 MG capsule 20 mg PO DAILY doxycycline monohydrate 100 MG capsule 100 mg PO BID Qty: 20 0RF ondansetron 4 MG tablet 4 mg PO Q8H PRN PRN (Reason: Nausea) Qty: 10 0RF Primary Care Provider: Sallie Crowley NP Referrals: Sallie Crowley NP, WELFARE DIRECTOR-C [Primary Care Provider] - 3-5 Days Activity Restrictions/Additional Instructions: Stay well-hydrated. Return for any worsening of symptoms. Disposition Disposition: Home, Self Care
[2022-12-19] MEDS: Ondansetron 4 MG/2 ML Vial IV ×2 (10:57→12:41)
[2022-12-19] MEDS: 0.9% Normal Saline 1,000 ML 999 ML IV (10:57)
[2022-12-19] MEDS: Dicyclomine 20 MG/2 ML Vial IM (10:58)
[2022-12-19] MEDS: Ketorolac 15 MG/ML Vial IV (11:38)
[2022-12-19] MEDS: proMETHazine 25 MG/ML Syringe 12.5 MG IM (11:38)
[2022-12-19] MEDS: LORazepam 2 MG/ML Syringe 0.5 MG IV (12:41)
[2022-12-19] MEDS: Famotidine 200 MG/20 ML MDV 20 MG in 0.9% Normal Saline (Pres. free 8 ML 300 MG IV (12:48)
[2022-12-19 12:53] VITALS: BP 176/107
[2022-12-19 15:11] VITALS: BP 140/90
[2022-12-19 16:10] VITALS: BP 138/84; PULSE 68; RESP 16; O2SAT 99
== END 2022-12-19 16:11 | disposition home or self-care (01) ==
PROVIDERS: Emergency Provider Emergency Medicine; PCP Registered Nurse; Visit Provider Emergency Medicine
DX: K52.9 Noninfective gastroenteritis and colitis, unspecified (principal); F12.90 Cannabis use, unspecified, uncomplicated
CPT/HCPCS: 96365; 96372; 96375; 96376; 99283; J7030; A4216; J2405; J3490

== ENCOUNTER 2025-04-01 16:13 | Emergency (ER) | payer OTHER, SELFPAY ==
[2025-04-01 16:14] VITALS: BP 128/62; PULSE 82; RESP 18; TEMP 36.9; O2SAT 99; BMI 18.4
--- NOTE | 2025-04-01 17:50 | ED.VIS.GI ---
HPI HPI - GI History of Present Illness Chief Complaint: Nausea/Vomiting/Diarrhea Informant: patient Abdominal Pain/Flank Pain Onset: Days (4) Context: Gradual Onset Timing: Continuous Location: RLQ and LLQ Worsened by: Nothing Relieved by: - (Capsaicin) Nausea/Vomiting/Emesis GI Symptom: Positive for Nausea and Vomiting Onset: Days (4) Quality: Positive for Nonbilious; Negative for Blood streaks, Coffee ground or Hematemesis Diarrhea/Melena/Hematochezia GI Symptom: Positive for Diarrhea; Negative for Melena or Hematochezia Associated Symptoms Associated Symptoms: Negative for Dysuria, Frequency or Hematuria Narrative Narrative: Patient presents with abdominal pain, nausea, vomiting, and diarrhea that has been constant for the past 4 days. Patient denies any hematemesis or coffee-ground emesis. Patient denies any melena or hematochezia. Patient states his pain is mainly over the lower abdomen. Patient describes as aching. Patient states it has been constant. Patient denies any dysuria, frequency, or hematuria. Patient states he started using capsaicin cream yesterday which has been helping. Patient denies any fevers or chills. Patient admits to a sore throat due to the vomiting. Patient also admits to using marijuana [address] [facility] Home Medications ?Medication ?Instructions ?Recorded ?Last Taken ?Type fluoxetine 20 mg capsule 20 mg PO DAILY 02/11/20 Unknown History doxycycline monohydrate 100 mg 100 mg PO BID #20 caps 08/27/20 Unknown Rx capsule ondansetron 4 mg disintegrating 4 mg PO Q8H PRN PRN Nausea #10 tabs 11/03/20 Unknown Rx tablet dicyclomine 20 mg tablet 20 mg PO BID #10 tabs 12/19/22 Unknown Rx loperamide 2 mg capsule (Imodium 2 mg PO Q6H PRN loose stool #10 12/19/22 Unknown Rx A-D) caps ondansetron 4 mg disintegrating 4 mg PO Q8H PRN PRN Nausea #12 tabs 04/01/25 Unknown Rx tablet Allergy/AdvReac Type Severity Reaction Status Date / Time No Known Allergies Allergy Verified 04/01/25 16:15 Surgical History no surgical history no surgical history Social History Smoking Status: Never smoker ROS ROS ED Constitutional Constitutional ED: Denies chills or fever(s) Eyes Eyes: Denies blurry vision or change in vision ENT ENT ED: Reports sore throat; Denies rhinorrhea Cardiovascular Cardiovascular: Denies chest pain or palpitations Respiratory/Chest Respiratory/Chest: Denies cough or dyspnea Gastrointestinal Gastrointestinal: Reports abdominal pain, diarrhea, nausea and vomiting; Denies melena Genitourinary Genitourinary ED: Denies dysuria or hematuria Musculoskeletal Musculoskeletal: Denies back pain or neck pain Integumentary Denies abscess or rash Neurologic Neurologic: Denies headache(s) or weakness Allergic/Immunologic Allergic/Immunologic ED: Denies mouth swelling or urticaria EXAM Physical Exam Const Vital Signs: 04/01/25 16:14 04/01/25 18:14 Temperature 98.4 F Temperature Source Oral Pulse Rate 82 92 Respiratory Rate 18 16 Blood Pressure 128/62 H 126/87 H Blood Pressure Mean 84 100 Pulse Ox 99 100 Oxygen Delivery Method Room Air Positive well nourished and well developed General Appearance ED: well developed and NAD HEENT Reports moist mucous membranes Neck supple and no JVD Resp normal respiratory effort and clear to auscultation bilaterally Cardio regular rate and regular rhythm GI non-distended Palpation: soft and tender LLQ, RLQ and suprapubic; Negative for guarding or rebound tenderness present Neuro CN's II-XII intact bilaterally, moves all extremities and no sensory deficits noted Sensorium / Orientation: alert Motor Exam: strength 5/5 throughout Psych mental status grossly normal MDM MDM MDM Narrative Medical decision making narrative: Differential diagnosis includes cannabis hyperemesis syndrome, gastroenteritis, dehydration, electrolyte abnormality, gastroesophageal reflux disease, and anxiety. CBC will be obtained to assess for leukocytosis and anemia. Comprehensive metabolic profile will be obtained to assess for hepatic function, renal function, and electrolyte abnormality. Lipase will be obtained to assess for pancreatitis. History & Record Review Additional record(s) reviewed:: Prior labs Lab Data Attestation: I reviewed the patient's lab results. Lab results narrative: CBC was reviewed. There is a mild leukocytosis of 16.6. This is consistent with previous results. Hemoglobin was concentrated at 19.3. Platelets were normal. Comprehensive metabolic profile was reviewed. BUN was slightly elevated at 22 and creatinine was slightly elevated at 1.35. These are consistent with previous results. CO2 was normal at 25.6. Chloride was slightly low at 86. Total bilirubin was mildly elevated at 2.59. The remainder was within normal limits. Lipase was reviewed and was normal at 41. Labs: Laboratory Results - last 24 hr 04/01/25 17:25 WBC 16.6 H RBC 6.38 H Hgb 19.3 H* Hct 54.0 MCV 84.6 MCH 30.3 MCHC 35.7 RDW Std Deviation 33.9 L RDW Coeff of Loulou 11.0 L Plt Count 256 MPV 11.8 Immature Gran % (Auto) 0.400 Neut % (Auto) 87.3 H Lymph % (Auto) 6.2 L [place] % (Auto) 5.9 Eos % (Auto) 0.0 Baso % (Auto) 0.2 Absolute Neuts (auto) 14.4 H Absolute Lymphs (auto) 1.03 Nucleated RBC % 0 Sodium 133 Potassium 3.7 Chloride 86 L Carbon Dioxide 25.6 Anion Gap 22 H BUN 22 H Creatinine 1.35 H Estim Creat Clear Calc 64.23 Est GFR (MDRD) Non-Af 72 BUN/Creatinine Ratio 16.6 Glucose 90 Calcium 10.6 Total Bilirubin 2.59 H AST 26 ALT 25 Alkaline Phosphatase 61 Total Protein 9.5 H Albumin 5.5 H Globulin 4.0 Albumin/Globulin Ratio 1.4 Lipase 41 Radiography Diagnostic Testing: Clinical Impression(s) from Imaging Studies Abdomen/Pelvis CT 04/01/25 19:06 IMPRESSION: No acute or active inflammatory intra-abdominal pathology. Reading Location: [facility] CT scan of the abdomen and pelvis was obtained. There is no acute intra-abdominal abnormality. There is no free air or free fluid. There is no evidence of cholelithiasis or cholecystitis. This was interpreted by the radiologist and was also independently reviewed by myself. Treatment and Re-Evaluation :: Patient was given IV fluids. Patient was given Pepcid and Zofran. Patient was given a GI cocktail. Patient was feeling somewhat better on reevaluation. Patient was given a dose of Benadryl and Thorazine. Patient feeling better after this. Patient was advised that this is most likely due to cannabis hyperemesis syndrome. Patient was instructed to start with a liquid diet and advance as tolerated. Patient was instructed to follow-up with his primary care physician in 5 to 7 days. Patient understood and was agreeable with the plan. All questions were answered. Discharge Plan Triage Chief Complaint: Nausea/Vomiting/Diarrhea ED Provider: Lyndon Leo Dx/Rx/DC Orders Clinical Impression: Nausea and vomiting, Dehydration, Marijuana use Instructions: Cannabis Hyperemesis Syndrome, ED Dehydration (Adult), ED Vomiting (Adult) Prescriptions: Continued ondansetron 4 mg tablet,disintegrating 4 mg PO Q8H PRN PRN (Reason: Nausea) Qty: 12 0RF No Action fluoxetine 20 MG capsule 20 mg PO DAILY doxycycline monohydrate 100 MG capsule 100 mg PO BID Qty: 20 0RF ondansetron 4 MG tablet 4 mg PO Q8H PRN PRN (Reason: Nausea) Qty: 10 0RF dicyclomine 20 mg tablet 20 mg PO BID Qty: 10 0RF loperamide [Imodium A-D] 2 mg capsule 2 mg PO Q6H PRN (Reason: loose stool) Qty: 10 0RF Primary Care Provider: Sallie Crowley NP Referrals: Sallie Crowley NP, PRODUCE SPECIALIST-C [Primary Care Provider] - 5-7 Days Print Language: Israeli Disposition Disposition: Home, Self Care
[2025-04-01] MEDS: Lorazepam 2 MG/ML WCH Syringe 0.5 MG IV (18:11)
[2025-04-01] MEDS: Lidocaine 2% Viscous15 ML UDC 15 ML PO (18:11)
[2025-04-01] MEDS: Famotidine 200 MG/20 ML MDV 20 MG in 0.9% Normal Saline (Pres. free 8 ML 300 MG IV (18:12)
[2025-04-01 18:14] VITALS: BP 126/87; PULSE 92; RESP 16; O2SAT 100
[2025-04-01 18:17] LABS: Hematocrit 54.0 % (40-54); Immature Granulocytes Count 0.070 X10^3/uL (0.0-0.0); Mean Corp Hgb Conc 35.7 g/dL (32-36); Mean Corpuscular Volume 84.6 fL (80-94); Mean Platelet Vol. 11.8 fl (6.2-12.0); NRBC Flagged by Analyzer 0 % (0-5); Platelet Count 256 K/mm3 (150-450); RBC Distribution Width CV 11.0 % (11.6-14.6); RBC Distribution Width SD 33.9 fl (35.1-43.9); Red Blood Count 6.38 M/mm3 (4.6-6.2); White Blood Count 16.6 K/mm3 (4.4-11.0)
[2025-04-01 18:28] LABS: Hemoglobin 19.3 g/dL (13.0-16.5)
[2025-04-01 18:37] LABS: Lipase 41 U/L (13-75)
[2025-04-01 18:40] LABS: AST(SGOT) 26 U/L (<=37); Alanine Aminotransfer ALT/SGPT 25 U/L (<=46); Albumin, Serum 5.5 g/dL (3.5-5.0); Alkaline Phosphatase 61 U/L (40-129); Anion Gap 22 (5-15); BUN 22 mg/dL (4-19); BUN/Creat Ratio 16.6 RATIO (10-20); Calcium,Total 10.6 mg/dL (7.6-11.0); Carbon Dioxide 25.6 mmol/L (21.0-32.0); Chloride 86 mmol/L (98-108); Estimated Creatinine Clearance 64.23 ml/min (50-250); Globulin 4.0 g/dL (2.2-4.2); Glucose 90 mg/dL (70-99); Potassium 3.7 mmol/L (3.3-5.1)
--- NOTE | 2025-04-01 19:06 | CT_ITS ---
PROCEDURE: ABDOMEN/PELVIS W IV CONT ONLY 04/01/2025 REASON FOR EXAM: NAUSEA AND VOMITING TECHNIQUE: ABDOMEN/PELVIS W IV CONT ONLY Coronal and Sagittal reconstruction series were provided. CONTRAST: Isovue 370 VOLUME: 95 mL One or more dose reduction techniques were used (e.g., Automated exposure control, adjustment of the mA and/or kV according to patient size, use of iterative reconstruction technique. RADIATION DOSE SUMMARY: CTDlvol: 25 mGy DLP: 277.4 mGycm COMPARISON: Abdominal CTs dated 11/03/2020, 12/26/2018. FINDINGS: Lung bases: Clear. Liver: No significant abnormality. Unchanged subcentimeter benign-appearing probable cyst or hemangioma in the right hepatic lobe (S2 image 22). Gallbladder: Unremarkable, no biliary ductal dilatation. Spleen: Normal size and morphology. Pancreas: Unremarkable. Adrenals: Unremarkable. Kidneys: Normal, symmetric enhancement. No urolithiasis or hydronephrosis. Bladder: Unremarkable. Reproductive Organs: Unremarkable, nonenlarged prostate. Bowel: Unremarkable, no obstruction or active inflammatory process. Normal appendix. Lymph nodes: No suspicious lymph node enlargement. Vasculature: The abdominal aorta and IVC are normal. Peritoneum / Retroperitoneum: No ascites or free air. Bones: Within normal limits. CT/Abdomen/Pelvis W IV Cont ONLY IMPRESSION: No acute or active inflammatory intra-abdominal pathology. Reading Location: [id number]
[2025-04-01] MEDS: DiphenhydrAMINE 25 MG, ChlorproMAZINE 25 MG in 0.9% Normal Saline (100mL Bag) 100 ML 203 MG IV (19:31)
[2025-04-01 21:25] VITALS: BP 127/74; PULSE 78; RESP 16; TEMP 37.2; O2SAT 100
== END 2025-04-01 21:27 | disposition home or self-care (01) ==
PROVIDERS: Emergency Provider Emergency Medicine; PCP Registered Nurse; Visit Provider Emergency Medicine
DX: E86.0 Dehydration (principal); R11.2 Nausea with vomiting, unspecified; R10.9 Unspecified abdominal pain; R19.7 Diarrhea, unspecified; F12.90 Cannabis use, unspecified, uncomplicated
CPT/HCPCS: 74177; 80053; 83690; 85025; 96365; 96366; 96375; 99283; Q9967; A4216; J2405

== ENCOUNTER 2025-04-02 12:05 | Emergency (ER) | payer OTHER, SELFPAY ==
[2025-04-02 12:05] VITALS: BP 136/97; PULSE 67; RESP 16; TEMP 36.6; O2SAT 97; BMI 18.4
[2025-04-02] MEDS: 0.9% Normal Saline (1000mL) 1,000 ML 1000 ML IV (13:22)
[2025-04-02 13:25] LABS: Mucous, Urine 0 SEEN /hpf (<or=2+); Red Blood Cells-Urine 0 SEEN /hpf (0-5)
[2025-04-02 13:31] LABS: Hematocrit 50.2 % (40-54); Hemoglobin 17.9 g/dL (13.0-16.5); Immature Granulocytes Count 0.040 X10^3/uL (0.0-0.0); Mean Corp Hgb Conc 35.7 g/dL (32-36); Mean Corpuscular Volume 85.2 fL (80-94); Mean Platelet Vol. 11.8 fl (6.2-12.0); NRBC Flagged by Analyzer 0 % (0-5); Platelet Count 223 K/mm3 (150-450); RBC Distribution Width CV 11.0 % (11.6-14.6); RBC Distribution Width SD 34.1 fl (35.1-43.9); Red Blood Count 5.89 M/mm3 (4.6-6.2); White Blood Count 10.0 K/mm3 (4.4-11.0)
[2025-04-02 13:32] LABS: Color, Urine Yellow (Yellow); Glucose, Dipstick Normal (Normal); Ketone-Dipstick 50 mg/dl (Negative); Leukocyte Esterase-Dipstick 25 /ul (Negative); Nitrite-Dipstick Negative (Negative); Occult Blood-Urine 10 /ul (Negative); Protein-Dipstick 30 mg/dl (Negative); Specific Gravity, Urine 1.015 (1.002-1.030); Urine Bilirubin Dipstick Negative (Negative)
[2025-04-02 13:40] LABS: Squamous Epithelial Cells - UA 0-5 SEEN /hpf (0-5)
[2025-04-02 13:43] LABS: AST(SGOT) 16 U/L (<=37); Alanine Aminotransfer ALT/SGPT 14 U/L (<=46); Albumin, Serum 4.5 g/dL (3.5-5.0); Alkaline Phosphatase 51 U/L (40-129); Anion Gap 18 (5-15); BUN 19 mg/dL (4-19); BUN/Creat Ratio 15.0 RATIO (10-20); Calcium,Total 9.4 mg/dL (7.6-11.0); Carbon Dioxide 23.3 mmol/L (21.0-32.0); Chloride 91 mmol/L (98-108); Estimated Creatinine Clearance 68.21 ml/min (50-250); Globulin 3.5 g/dL (2.2-4.2); Glucose 144 mg/dL (70-99); Lipase 33 U/L (13-75); Magnesium 2.9 mg/dL (1.5-2.2); Potassium 3.2 mmol/L (3.3-5.1)
[2025-04-02 14:05] VITALS: BP 120/70; PULSE 89; O2SAT 99
[2025-04-02 14:14] LABS: Barbiturate Urine NEGATIVE (< 200 ng/mL); Benzodiazepine Urine NEGATIVE (< 200 ng/mL); PCP Urine NEGATIVE (< 25 ng/mL); THC Urine PRESUMPTIVE POSITIVE (< 50 ng/mL)
--- NOTE | 2025-04-02 14:36 | EX.ED.GENINJ ---
HPI History of Present Illness Chief Complaint: Nausea/Vomiting Narrative Narrative: Chief complaint and HPI: Nausea, vomiting, abdominal pain. 29-year-old male with past medical history of GERD and marijuana abuse presents for evaluation of nausea, vomiting, abdominal pain. Onset of symptoms approximately 4 to 5 days. Patient was seen in our emergency department yesterday evening for same complaint. He states his symptoms improved in the emergency department but reoccurred at home. He denies any hematemesis or coffee-ground emesis. Denies any melena or hematochezia. Denies any fever, chills, shortness of breath, chest pain, URI symptoms, dysuria, hematuria. Has used some capsaicin cream which has helped. States that he has not used marijuana in the past 5 to 6 days. Endorses some mild diffuse abdominal pain due to the vomiting. Review of systems: See HPI Medications: As listed on the chart Allergies: As listed on the chart PFSH: Per chart Vital signs: As listed on the chart. Reviewed. Physical exam: Gen: A&O x3, NAD Head: Normocephalic, atraumatic Eyes: No sclera icterus, conjunctiva clear ENT: Mildly dry mucous membranes Neck: Trachea midline, No JVD CV: RRR, no murmurs, no peripheral edema Resp: Lungs CTA BL, no w/r/c GI: Abd soft, non-distended, non-tender, no r/r/g : No CVA tenderness Musc: Full ROM, no deformity Skin: Warm, dry Neuro: Alert, oriented, grossly intact, sensation intact Psych: Cooperative, appropriate mood and affect PFSH PFS Home Medications ?Medication ?Instructions ?Recorded ?Last Taken ?Type fluoxetine 20 mg capsule 20 mg PO DAILY 02/11/20 Unknown History doxycycline monohydrate 100 mg 100 mg PO BID #20 caps 08/27/20 Unknown Rx capsule dicyclomine 20 mg tablet 20 mg PO BID #10 tabs 12/19/22 Unknown Rx loperamide 2 mg capsule (Imodium 2 mg PO Q6H PRN loose stool #10 12/19/22 Unknown Rx A-D) caps metoclopramide HCl 5 mg tablet 5 mg PO Q8H PRN nausea and 04/02/25 Unknown Rx (Reglan) vomiting 3 days #9 tabs Allergy/AdvReac Type Severity Reaction Status Date / Time No Known Allergies Allergy Verified 04/01/25 16:15 Social History Smoking Status: Never smoker EXAM Physical Exam Const Vital Signs: 04/02/25 12:05 04/02/25 14:05 Temperature 97.9 F Temperature Source Temporal Pulse Rate 67 89 Respiratory Rate 16 Blood Pressure 136/97 H 120/70 Blood Pressure Mean 110 86 Pulse Ox 97 99 Oxygen Delivery Method Room Air MDM MDM MDM Narrative Medical decision making narrative: 29-year-old male with past medical history of GERD and marijuana abuse presents for evaluation of nausea, vomiting, abdominal pain. History taken by patient as well as medical record. Patient was seen in our emergency department yesterday for the same complaint. At that time he had basic labs performed consistent with dehydration. He did have a CT abdomen pelvis that showed no acute intra-abdominal abnormality. Patient was given Pepcid, Zofran, GI cocktail, Benadryl and Thorazine with improvement of symptoms. Concern was for cannabis hyperemesis syndrome. He was discharged home with a prescription for Zofran. Patient states that his nausea and vomiting has recurred. On presentation, patient no acute distress. His vitals are stable. Physical exam unremarkable except for mild dehydration. Differential diagnosis includes but is not limited to cannabis hyperemesis syndrome, viral illness, electrolyte abnormality, YARA, UTI, substance abuse. NS bolus, Reglan ordered for symptoms. Laboratory workup ordered. I do not think CT abdomen pelvis is at this time given patient had one performed yesterday and is nontender on physical exam. CBC unremarkable except for hemoconcentration of 17.9. Likely secondary to his mild dehydration. This is improving from 19.3 yesterday. Patient did have a leukocytosis yesterday that has resolved. CMP consistent with dehydration. Mild hyponatremia at 132 and hypokalemia of 3.2. P.o. potassium ordered. His creatinine is 1.27. However this is downtrending from yesterday at 1.35. Patient has had renal insufficiency on previous labs. His gap is improving from 22 to 18. Again suspect this is secondary to dehydration from nausea and vomiting. Total bilirubin 2.11, downtrending from yesterday at 2.59. No transaminitis. Lipase unremarkable. UA positive for ketones consistent with his dehydration. No UTI. Urine drug screen positive for cannabis. On reevaluation, patient is still nauseous. Concern is for cannabis hyperemesis syndrome. Benadryl and Thorazine ordered. Patient currently getting his medication. Patient signed out to oncoming provider. If symptoms improved and patient tolerates p.o. intake. Plan will be to discharge home. Patient feels that Zofran is not working and therefore will prescribe Reglan instead. Impression: 1. Nausea and vomiting, suspect cannabis hyperemesis syndrome 2. Dehydration Lab Data Labs: Laboratory Results - last 24 hr 04/02/25 04/02/25 12:17 13:14 WBC 10.0 RBC 5.89 Hgb 17.9 H Hct 50.2 MCV 85.2 MCH 30.4 MCHC 35.7 RDW Std Deviation 34.1 L RDW Coeff of Loulou 11.0 L Plt Count 223 MPV 11.8 Immature Gran % (Auto) 0.400 Neut % (Auto) 70.3 H Lymph % (Auto) 19.7 [place] % (Auto) 9.2 Eos % (Auto) 0.1 Baso % (Auto) 0.3 Absolute Neuts (auto) 7.0 Absolute Lymphs (auto) 1.96 Nucleated RBC % 0 Sodium 132 L Potassium 3.2 L Chloride 91 L Carbon Dioxide 23.3 Anion Gap 18 H BUN 19 Creatinine 1.27 H Estim Creat Clear Calc 68.21 Est GFR (MDRD) Non-Af 78 BUN/Creatinine Ratio 15.0 Glucose 144 H Calcium 9.4 Magnesium 2.9 H Total Bilirubin 2.11 H AST 16 ALT 14 Alkaline Phosphatase 51 Total Protein 8.0 Albumin 4.5 Globulin 3.5 Albumin/Globulin Ratio 1.3 Lipase 33 Urine Color Yellow Urine Clarity Clear Urine pH 6.0 Ur Specific [place] 1.015 Urine Protein 30 H Urine Glucose (UA) Normal Urine Ketones 50 H Urine Occult Blood 10 H Urine Nitrite Negative Urine Bilirubin Negative Urine Urobilinogen Normal Ur Leukocyte Esterase 25 H Urine RBC 0 SEEN Urine WBC 0-5 SEEN Ur Squamous Epith Cells 0-5 SEEN Urine Bacteria 0 SEEN Urine Mucus 0 SEEN Urine Opiates Screen NEGATIVE U Buprenorphine Qual NEGATIVE Ur Oxycodone Screen NEGATIVE Urine Methadone Screen NEGATIVE Urine Fentanyl Screen NEGATIVE Ur Barbiturates Screen NEGATIVE Ur Phencyclidine Scrn NEGATIVE Ur Amphetamines Screen NEGATIVE U Benzodiazepines Scrn NEGATIVE Urine Cocaine Screen NEGATIVE U Cannabinoids Screen PRESUMPTIVE POSITIVE Discharge Plan Triage Chief Complaint: Nausea/Vomiting Other Complaint: Abd Pain ED Provider: Js Perez Dx/Rx/DC Orders Clinical Impression: Cannabis hyperemesis syndrome concurrent with and due to cannabis abuse Instructions: ED Cyclic Vomiting Syndrome, ED Vomiting (Adult) Prescriptions: New metoclopramide HCl [Reglan] 5 mg tablet 5 mg PO Q8H PRN (Reason: nausea and vomiting) 3 Days Qty: 9 0RF Discontinued ondansetron 4 MG tablet 4 mg PO Q8H PRN PRN (Reason: Nausea) Qty: 10 0RF ondansetron 4 mg tablet,disintegrating 4 mg PO Q8H PRN PRN (Reason: Nausea) Qty: 12 0RF No Action fluoxetine 20 MG capsule 20 mg PO DAILY doxycycline monohydrate 100 MG capsule 100 mg PO BID Qty: 20 0RF dicyclomine 20 mg tablet 20 mg PO BID Qty: 10 0RF loperamide [Imodium A-D] 2 mg capsule 2 mg PO Q6H PRN (Reason: loose stool) Qty: 10 0RF Primary Care Provider: Sallie Crowley NP Referrals: Sallie Crowley NP, OPERATIONAL RISK CONSULTANT-C [Primary Care Provider] - 3-5 Days Activity Restrictions/Additional Instructions: Given that you felt that the Zofran was not working. Recommend stop taking Zofran. Will write for Reglan. Refrain from marijuana. Continue your capsaicin cream. Follow-up with your primary care physician. Return back to the ED if symptoms change or worsen. Recommend liquid diet for the next 24 to 48 hours. Print Language: Chinese Disposition Disposition: Home, Self Care
[2025-04-02] MEDS: DiphenhydrAMINE 25 MG, ChlorproMAZINE 25 MG in 0.9% Normal Saline (100mL Bag) 100 ML 203 MG IV (14:56)
[2025-04-02] MEDS: Potassium Chloride Oral Soln 20 MEQ/15 ML UDC 40 MEQ PO (15:05)
[2025-04-02 16:00] VITALS: BP 121/81
[2025-04-02 17:00] VITALS: BP 121/81; PULSE 80; RESP 19; TEMP 36.8; O2SAT 99
== END 2025-04-02 17:01 | disposition home or self-care (01) ==
PROVIDERS: Emergency Provider Surgery; PCP Registered Nurse; Visit Provider Surgery
DX: R11.2 Nausea with vomiting, unspecified (principal); F12.10 Cannabis abuse, uncomplicated; E86.0 Dehydration; E87.1 Hypo-osmolality and hyponatremia; E87.6 Hypokalemia; K21.9 Gastro-esophageal reflux disease without esophagitis
CPT/HCPCS: 80053; 80307; 81001; 83690; 83735; 85025; 87631; 96361; 96365; 96375; 99283; A4216; J2405

== ENCOUNTER 2025-04-03 05:55 | Emergency (ER) | payer OTHER, SELFPAY ==
[2025-04-03 05:57] VITALS: BP 130/87; PULSE 77; RESP 18; TEMP 36.4; O2SAT 100
--- OUTSIDE RECORDS SUMMARY | 2025-04-03 06:33 | XMS RPT_ITS | CCD ---
Author Organization [facility] Care Team Providers Care Branch Services Manager Name Role Phone ADAMARISYOSELINKACEY LACEY Unavailable Unavailable HAYDONHAN QUSACarmen Unavailable Unavailable Haagen APPLICATION PACKAGING SPECIALIST.HERMAN, Sallie Primary Care Provider Haagen APPLICATION PACKAGING SPECIALIST.HERMAN, Sallie Primary Care Provider Haagen APPLICATION PACKAGING SPECIALIST.HERMAN, Sallie Primary Care Provider Silver Flores Attending Unavailable Haagen LOW PRESSURE FIRER, Sallie Primary Care Unavailable Haagen APPLICATION PACKAGING SPECIALIST.HERMAN, Sallie Primary Care Provider Haagen APPLICATION PACKAGING SPECIALIST.HERMAN, Sallie Primary Care Provider Suppan APPLICATION PACKAGING SPECIALIST.Elena SUTTONline A Unavailable [phone] Messi Barry MD Unavailable Suppan APPLICATION PACKAGING SPECIALIST.HERMAN Janna A Unavailable Suppan APPLICATION PACKAGING SPECIALIST.HERMAN Janna A Unavailable [phone] GUILLERMOAGEN, SALLIE Primary Care Unavailable JANNA EASON Attending Unavailable SALLIE CROWLEY Referring Unavailable MESSI BARRY Referring Unavailable BRIAN, SALLIE Primary Care Unavailable BRIAN SALLIE Primary Care Unavailable MESSI BARRY Attending Unavailable Haagen LOW PRESSURE FIRER-C, Sallie Primary Care Provider [phone] Dr. Lyndon Leo DO Emergency Provider [phone] Dr. Js Perez DO Emergency Provider Medications Current Medications Medication Drug Class(es) Dates Sig (Normalized) Sig (Original) 24 hr desvenlafaxine succinate 50 mg extended release oral tablet (5 sources) Serotonin and Norepinephrine Reuptake Inhibitor Start: 10-01-2024 End: 11-02-2025 take 1 tablet by mouth once daily desvenlafaxine ER (PRISTIQ) 50 mg 24 hr tablet Indications: Anxiety , Chronic insomnia Take 1 tablet by mouth once daily. 90 tablet 3 11/02/2024 11/02/2025 Active dicyclomine hydrochloride 20 mg oral tablet (2 sources) Anticholinergic Start: 12-19-2022 take 1 tablet by mouth twice daily Dicyclomine 20 mg tablet Active 20 mg PO TWICE A DAY 10 December 19, 2022 12:00am doxycycline monohydrate 100 mg oral capsule (2 sources) Tetracycline-class Drug Start: 08-27-2020 take 1 capsule by mouth twice daily Doxycycline Monohydrate 100 MG capsule Active 100 mg PO TWICE A DAY August 27, 2020 1:00am FLUoxetine 20 mg oral capsule (10 sources) Serotonin Reuptake Inhibitor Start: 02-11-2020 End: 10-01-2024 take 1 capsule by mouth once daily Fluoxetine 20 MG capsule Active 20 mg PO DAILY February 11, 2020 12:00am Comment on above: Take 1 capsule by [facility] once daily. take 1 capsule by [facility] once daily loperamide hydrochloride 2 mg oral capsule (2 sources) Opioid Agonist Start: 12-19-2022 take 1 capsule by mouth every six hours as needed Loperamide (Imodium A-D) 2 mg capsule Active 2 mg PO EVERY 6 HOURS as needed for loose stool 10 December 19, 2022 12:00am metoclopramide 5 mg oral tablet (1 source) Dopamine-2 Receptor Antagonist Start: 04-02-2025 take 1 tablet by mouth every eight hours as needed for nausea and vomiting Metoclopramide Hcl (Reglan) 5 mg tablet Active 5 mg PO Q8H as needed for nausea and vomiting 9 3 April 02, 2025 3:02pm pantoprazole 40 mg delayed release oral tablet (8 sources) Proton Pump Inhibitor Start: 12-23-2020 take 1 tablet by mouth once daily, then take 6 tablets by mouth in the morning pantoprazole DR (PROTONIX) 40 mg tablet Take 1 tablet by mouth DAILY (6 AM). 30 tablet 2 12/23/2020 Active Comment on above: Take 1 tablet by [facility] DAILY (6 AM). Completed/Discontinued Medications Medication Drug Class(es) Dates Sig (Normalized) Sig (Original) cholecalciferol 1.25 mg oral capsule (4 sources) Vitamin D Start: 10-13-2018 End: 11-04-2023 take 1 capsule by mouth every week cholecalciferol, Vitamin D3, (VITAMIN D3) 50,000 unit cap capsule Indications: Vitamin D deficiency Take 1 capsule by mouth once each week. 12 capsule 0 10/13/2018 11/04/2023 Discontinued Comment on above: Take 1 capsule by [facility] once each week. ondansetron 4 mg disintegrating oral tablet (6 sources) Serotonin-3 Receptor Antagonist Start: 11-03-2020 End: 04-02-2025 take 1 tablet by mouth every eight hours as needed for nausea Ondansetron 4 mg tablet,disintegrat ing Discontinued 4 mg PO EVERY 8 HOURS NEEDED as needed for Nausea 12 0 April 01, 2025 9:10pm April 02, 2025 3:04pm Problems Active Problems Problem Classification Problem Date Documented Date Episodic/Chronic Alcohol-related disorders (2 sources) Alcohol intoxication; Translations: [Alcohol use, unspecified with intoxication, unspecified] 08-10-2021 Episodic Anxiety disorders (6 sources) Generalized anxiety disorder; Translations: [Generalized anxiety disorder] Onset: 10-01-2024 Chronic Attention-deficit, conduct, and disruptive behavior disorders (3 sources) Attention-deficit hyperactivity disorder, unspecified type; Translations: [Attention deficit disorder with hyperactivity] Onset: 09-15-2005 09-15-2005 Chronic Attention-deficit, conduct, and disruptive behavior disorders (6 sources) Attention deficit hyperactivity disorder; Translations: [Attention-deficit hyperactivity disorder, unspecified type] Onset: 09-15-2005 11-04-2023 Chronic Esophageal disorders (2 sources) Gastroesophageal reflux disease; Translations: [Gastro-esophageal reflux disease without esophagitis] 04-01-2025 Chronic Fluid and electrolyte disorders (19 sources) Hypokalemia; Translations: [Metabolic acidosis, increased anion gap (IAG)] Onset: 07-21-2017 07-21-2017 Episodic Immunizations and screening for infectious disease (1 source) Viral screening status; Translations: [Encounter for screening for other viral diseases] 11-04-2023 Episodic Inflammatory conditions of male genital organs (2 sources) Epididymitis; Translations: [Epididymitis] 08-28-2020 Episodic Miscellaneous mental health disorders (3 sources) Chronic insomnia; Translations: [Psychophysiologic insomnia] Onset: 10-01-2024 10-01-2024 Chronic Nausea and vomiting (20 sources) Intractable nausea and vomiting; Translations: [Nausea with vomiting, unspecified] Onset: 12-19-2020 12-22-2020 Episodic Noninfectious gastroenteritis (2 sources) Gastroenteritis; Translations: [Noninfective gastroenteritis and colitis, unspecified] 12-27-2022 Episodic Nutritional deficiencies (9 sources) Vitamin D deficiency; Translations: [Vitamin D deficiency, unspecified] 10-13-2018 Chronic Other injuries and conditions due to external causes (2 sources) Closed injury of head; Translations: [Unspecified injury of head, initial encounter] 08-10-2021 Episodic Substance-related disorders (1 source) Cannabis hyperemesis syndrome co-occurrent and due to cannabis abuse; Translations: [Cannabis abuse with other cannabis-induced disorder] 04-02-2025 Chronic Substance-related disorders (2 sources) Marijuana user; Translations: [Cannabis use, unspecified, uncomplicated] 04-01-2025 Episodic Unclassified (1 source) Unknown / UNK(Unknown) Onset: 07-21-2017 Past or Other Problems Problem Classification Problem Date Documented Da te Episodic/Chronic Abdominal pain (8 sources) Abdominal pain; Translations: [Unspecified abdominal pain] Onset: 07-22-2017 07-22-2017 Episodic Other lower respiratory disease (9 sources) Multiple nodules of lung; Translations: [Other nonspecific abnormal finding of lung field] Onset: 12-22-2020 12-22-2020 Episodic Other screening for suspected conditions (not mental disorders or infectious disease) (8 sources) Increased lactic acid level; Translations: [Other specified abnormal findings of blood chemistry] Onset: 07-22-2017 07-22-2017 Episodic Other skin disorders (8 sources) Acne; Translations: [Acne, unspecified] Onset: 08-27-2011 08-27-2011 Episodic Results Test Name Value Interpretation Reference Range Facility Absolute lymphocyte countOrd ered By: Js Perez on 04-02-2025 Lymphocytes Auto (Unsp spec) [#/Vol] 1.96 10*3/uL 0.83-4.51 [facility] Absolute neutrophil countOrd ered By: Js Perez on 04-02-2025 Neutrophils (Bld) [#/Vol] 7.0 10*3/uL 2.0-7.7 [facility] Amphetamine detection with 1 000 ng/mL as cutoffOrdered By: Js Perez on 04-02-2025 Amphetamines Screen method >1000 ng/mL Ql (U) Negative < 200 ng/mL [facility] Anion gap in Serum or Plasma Ordered By: Js Perez on 04-02-2025 Anion gap [Moles/Vol] 18 mmol/L High 5-15 [facility] Automated lymphocyte count a s percentage of total leukocytesOrdered By: Js Perez on 04-02-2025 Lymphocytes/100 WBC Auto (Unsp spec) 19.7 % 19-41 [facility] BUN/creatinine ratioOrdered By: Js Perez on 04-02-2025 Urea nitrogen/Creatinine [Mass ratio] 15.0 mg/mg 10-20 [facility] Basophil percentageOrdered B y: Js Perez on 04-02-2025 Basophils/100 WBC (Bld) 0.3 % 0-1 [facility] Bilirubin Test strip Ql (U)O rdered By: Js Perez on 04-02-2025 Bilirubin Ql (U) Negative Negative [facility] Bilirubin, totalOrdered By: Js Perez on 04-02-2025 Bilirubin [Mass/Vol] 2.11 mg/dL High 0.00-1.30 [facility] Carbon dioxide, total [Moles /volume] in Central venous bloodOrdered By: Js Perez on 04-02-2025 CO2 [Moles/Vol] 23.3 mmol/L 21.0-32.0 [facility] Chloride assayOrdered By: Sim Perez on 04-02-2025 Chloride [Moles/Vol] 91 mmol/L Low 98-108 [facility] Eosinophil percentageOrdered By: Js Perez on 04-02-2025 Eosinophils/100 WBC (Bld) 0.1 % 0-5 [facility] Erythrocyte distribution wid th ratioOrdered By: Js Perez on 04-02-2025 Erythrocyte distribution width (RBC) [Ratio] 11.0 % Low 11.6-14.6 [facility] Erythrocyte distribution wid th standard deviationOrdered By: Js Carreno on 04-02-2025 Erythrocyte distribution width (RBC) [Ratio] 34.1 fl Low 35.1-43.9 [facility] Glomerular filtration rate ( GFR) estimation/1.73 sq m using serum, plasma, or whole bOrdered By: Jsvito Perez on 04-02-2025 GFR/1.73 sq M.predicted among non-blacks MDRD (S/P/Bld) [Vol rate/Area] 78 mL/min/{1.73_m2} >60 [facility] Comment on above: mL/min/1.73m2 CKD-EP I Creatinine Equation (2020) Hematocrit Auto (Bld) [Volum e fraction]Ordered By: Js Chris on 04-02-2025 Hematocrit (Bld) [Volume fraction] 50.2 % 40-54 [facility] Hemoglobin measurementOrdere d By: Shenandoah Chris on 04-02-2025 Hemoglobin (Bld) [Mass/Vol] 17.9 g/dL High 13.0-16.5 [facility] Immature granulocytes/100 WB C Auto (Bld)Ordered By: Js Chris on 04-02-2025 Immature granulocytes/100 WBC (Bld) 0.400 % 0.0-0.9 [facility] Comment on above: IG% - Immature Granu locytes (promyelocytes, myelocytes and metamyelocytes) > 1% indicates that a LEFT SHIFT is Present. Influenza virus A and B and SARS-CoV-2 (COVID-19) and Respiratory syncytial virus RNAOrdered By: Js Perez on 04-02-2025 SARS-CoV-2 (COVID-19) RNA RADHA+probe Ql (Unsp spec) [facility] Ketones Test strip Ql (U)Ord ered By: Jsvito Perze on 04-02-2025 Ketones Ql (U) 50 mg/dl High Negative [facility] Laboratory - Chemistry and C hemistry - challengeOrdered By: Js Perez on 04-02-2025 AST [Catalytic activity/Vol] 16 U/L <38 [facility] Lipase measurementOrdered By : [place]ando[place] Chris on 04-02-2025 Lipase [Catalytic activity/Vol] 33 U/L 13-75 [facility] Comment on above: Please note:LIPASE r evised reference range effective 22. New Lipase methodology. Expected to produce lower values than the previous assay method. NEW Reference Range: 13 - 75 U/L MCV (mean corpuscular volume ) determinationOrdered By: Js Perez on 04-02-2025 MCV (RBC) [Entitic vol] 85.2 fL 80-94 [facility] Magnesium measurement (mass/ volume)Ordered By: Js Perez on 04-02-2025 Magnesium (Unsp spec) [Mass/Vol] 2.9 mg/dL High 1.5-2.2 [facility] Mean corpuscular hemoglobin (MCH) determinationOrdered By: [place]andoah Chris on 04-02-2025 MCH (RBC) [Entitic mass] 30.4 pg 27.0-32.0 [facility] Mean corpuscular hemoglobin concentration (MCHC) determinationOrdered By: Js Chris on 04-02-2025 MCHC (RBC) [Mass/Vol] 35.7 g/dL 32-36 [facility] Mean platelet volume determi nationOrdered By: Js Perez on 04-02-2025 Platelet mean volume (Bld) [Entitic vol] 11.8 fL 6.2-12.0 [facility] Microscopic analysis of urin e for red blood cells (RBC)Ordered By: Js Perez on 04-02-2025 Microscopic analysis of urine for red blood cells (RBC) 0 SEEN /hpf 0-5 [facility] Monocyte percentageOrdered B y: Js Perez on 04-02-2025 Monocytes/100 WBC (Bld) 9.2 % 0-10 [facility] Mucus LM Ql (Urine sed)Order ed By: Js Perez on 04-02-2025 Mucus Ql (Urine sed) 0 SEEN /hpf [facility] Neutrophil percentageOrdered By: Js Perez on 04-02-2025 Neutrophils/100 WBC (Bld) 70.3 % High 47-70 [facility] Nitrite Test strip Ql (U)Ord ered By: Js Perez on 04-02-2025 Nitrite Ql (U) Negative Negative [facility] No Panel InformationOrdered By: Js Perez on 04-02-2025 Urine Buprenorphine Qualitative Negative < 200 ng/mL [facility] Urine Oxycodone Screen Negative < 100 ng/mL [facility] Nucleated red blood cell per centageOrdered By: Js Perez on 04-02-2025 Nucleated RBC/100 WBC (Bld) [Ratio] 0 % 0-5 [facility] Platelet countOrdered By: Sim Perez on 04-02-2025 Platelets (Bld) [#/Vol] 223 10*3/uL 150-450 [facility] Potassium measurement (mass/ volume)Ordered By: Js Perez on 04-02-2025 Potassium (Unsp spec) [Mass/Vol] 3.2 mmol/L Low 3.3-5.1 [facility] Protein Test strip Ql (U)Ord ered By: Js Perez on 04-02-2025 Protein Ql (U) 30 mg/dl High Negative [facility] Quantitative urine opiates m easurementOrdered By: Js Perez on 04-02-2025 Opiates Ql (U) Negative < 300 ng/mL [facility] RBC Auto (Bld) [#/Vol]Ordere d By: Js Perez on 04-02-2025 RBC (Bld) [#/Vol] 5.89 10*6/uL 4.6-6.2 [facility] fentanyl brandy surementOrdered By: Js Perez on 04-02-2025 fentaNYL Screen Ql (U) Negative [facility] Serum creatinine measurement (mass/volume)Ordered By: Js Perez on 04-02-2025 Creatinine [Mass/Vol] 1.27 mg/dL High 0.70-1.20 [facility] Serum globulin measurementOr dered By: Js Perez on 04-02-2025 Globulin (S) [Mass/Vol] 3.5 g/dL 2.2-4.2 [facility] Serum glucose measurement (m ass/volume)Ordered By: Js Perez on 04-02-2025 Glucose [Mass/Vol] 144 mg/dL High 70-99 [facility] Serum or plasma alanine vela otransferase (ALT) measurementOrdered By: Js Perez on 04-02-2025 ALT [Catalytic activity/Vol] 14 U/L <47 [facility] Serum or plasma albumin guillermo urement (mass/volume)Ordered By: Js Carreno on 04-02-2025 Albumin [Mass/Vol] 4.5 g/dL 3.5-5.0 [facility] Serum or plasma albumin/glob ulin mass ratioOrdered By: Js Perez on 04-02-2025 Albumin/Globulin [Mass ratio] 1.3 {ratio} 0.9-2.4 [facility] Serum or plasma alkaline alan sphatase measurementOrdered By: Js Perez on 04-02-2025 ALP [Catalytic activity/Vol] 51 U/L 40-129 [facility] Serum or plasma calcium guillermo urement (mass/volume)Ordered By: Js Carreno on 04-02-2025 Calcium [Mass/Vol] 9.4 mg/dL 7.6-11.0 [facility] Serum or plasma urea nitroge n measurement (mass/volume)Ordered By: Js Perez on 04-02-2025 Urea nitrogen [Mass/Vol] 19 mg/dL 4-19 [facility] Sodium levelOrdered By: Daniel Perez on 04-02-2025 Sodium [Moles/Vol] 132 mmol/L Low 133-145 [facility] Squamous epithelial cells de tection in urine sediment by light microscopyOrdered By: Js Perez on 04-02-2025 Epithelial cells.squamous LM Ql (Urine sed) 0-5 SEEN /hpf 0-5 [facility] Total proteinOrdered By: Rafael Perez on 04-02-2025 Protein [Mass/Vol] 8.0 g/dL 5.9-8.4 [facility] Urine benzodiazepine levelOr dered By: Js Perez on 04-02-2025 Benzodiazepines Ql (U) Negative < 200 ng/mL [facility] Urine clarityOrdered By: Rafael Perez on 04-02-2025 Clarity (U) Clear Clear [facility] Urine cocaine levelOrdered B y: Js Perez on 04-02-2025 Cocaine Ql (U) Negative < 300 ng/mL [facility] Urine color determinationOrd ered By: Js Perez on 04-02-2025 Color (U) Yellow Yellow [facility] Urine [id number] abinol (THC) measurementOrdered By: Js Carreno on 04-02-2025 Cannabinoids Screen Ql (U) Positive < 50 ng/mL [facility] Comment on above: If confirmation test ing is needed, a separate order will be required to send out testing to the reference laboratory. Urine glucose detectionOrder ed By: Js Perez on 04-02-2025 Glucose Ql (U) Normal mg/dl Normal [facility] Urine leukocyte esterase det ection by dipstickOrdered By: Js Perez on 04-02-2025 Leukocyte esterase Test strip Ql (U) 25 /ul High Negative [facility] Urine pHOrdered By: Js Ayoub on 04-02-2025 pH (U) 6.0 [pH] 5.0 - 8.0 [facility] Urine phencyclidine (PCP) de tectionOrdered By: Js Perez on 04-02-2025 Phencyclidine Ql (U) Negative < 25 ng/mL [facility] Urine sediment bacteria coun t by microscopy (number/high power field)Ordered By: Js Perez on 04-02-2025 Bacteria LM.HPF (Urine sed) [#/Area] 0 /[HPF] None Seen [facility] Urine specific gravity measu rementOrdered By: [facility] Specific gravity (U) [Rel density] 1.015 1.002-1.030 [facility] Urine urobilinogen measureme ntOrdered By: [facility] on 04-02-2025 Urobilinogen Ql (U) Normal mg/dl Normal [facility] White blood cell (WBC) count Ordered By: Js DaveWai on 04-02-2025 WBC (Bld) [#/Vol] 10.0 10*3/uL 4.4-11.0 [facility] White blood cell countOrdere d By: Js Perez on 04-02-2025 White blood cell count 0-5 SEEN /hpf 0-5 [facility] Absolute lymphocyte countOrd ered By: Lyndon Leo on 04-01-2025 Lymphocytes Auto (Unsp spec) [#/Vol] 1.03 10*3/uL 0.83-4.51 [facility] Absolute neutrophil countOrd ered By: Lyndon Leo on 04-01-2025 Neutrophils (Bld) [#/Vol] 14.4 10*3/uL High 2.0-7.7 [facility] Anion gap in Serum or Plasma Ordered By: Lyndon Leo on 04-01-2025 Anion gap [Moles/Vol] 22 mmol/L High 5-15 [facility] Automated lymphocyte count a s percentage of total leukocytesOrdered By: Lyndon Leo on 04-01-2025 Lymphocytes/100 WBC Auto (Unsp spec) 6.2 % Low 19-41 [facility] BUN/creatinine ratioOrdered By: Lyndon Leo on 04-01-2025 Urea nitrogen/Creatinine [Mass ratio] 16.6 mg/mg 10-20 [facility] Basophil percentageOrdered B y: Lyndon Leo on 04-01-2025 Basophils/100 WBC (Bld) 0.2 % 0-1 [facility] Bilirubin, totalOrdered By: Lyndon Leo on 04-01-2025 Bilirubin [Mass/Vol] 2.59 mg/dL High 0.00-1.30 [facility] Carbon dioxide, total [Moles /volume] in Central venous bloodOrdered By: Lyndon Leo on 04-01-2025 CO2 [Moles/Vol] 25.6 mmol/L 21.0-32.0 [facility] Chloride assayOrdered By: Reyes Loe on 04-01-2025 Chloride [Moles/Vol] 86 mmol/L Low 98-108 [facility] Eosinophil percentageOrdered By: Lyndon Leo on 04-01-2025 Eosinophils/100 WBC (Bld) 0.0 % 0-5 [facility] Erythrocyte distribution wid th ratioOrdered By: Lyndon Leo on 04-01-2025 Erythrocyte distribution width (RBC) [Ratio] 11.0 % Low 11.6-14.6 [facility] Erythrocyte distribution wid th standard deviationOrdered By: Lyndon Leo on 04-01-2025 Erythrocyte distribution width (RBC) [Ratio] 33.9 fl Low 35.1-43.9 [facility] Glomerular filtration rate ( GFR) estimation/1.73 sq m using serum, plasma, or whole bOrdered By: Lyndon Leo on 04-01-2025 GFR/1.73 sq M.predicted among non-blacks MDRD (S/P/Bld) [Vol rate/Area] 72 mL/min/{1.73_m2} >60 [facility] Comment on above: mL/min/1.73m2 CKD-EP I Creatinine Equation (2020) Hematocrit Auto (Bld) [Volum e fraction]Ordered By: Lyndon Leo on 04-01-2025 Hematocrit (Bld) [Volume fraction] 54.0 % 40-54 [facility] Hemoglobin measurementOrdere d By: Lyndon Leo on 04-01-2025 Hemoglobin (Bld) [Mass/Vol] 19.3 g/dL High 13.0-16.5 [facility] Comment on above: CRITICAL VALUE MCMANUS D TO NUVIA CULLEN04/[id number] [place].RESULTS READ BACK BY SAME. Immature granulocytes/100 WB C Auto (Bld)Ordered By: Lyndon Leo on 04-01-2025 Immature granulocytes/100 WBC (Bld) 0.400 % 0.0-0.9 [facility] Comment on above: IG% - Immature Granu locytes (promyelocytes, myelocytes and metamyelocytes) > 1% indicates that a LEFT SHIFT is Present. Laboratory - Chemistry and C hemistry - challengeOrdered By: Lyndon Leo on 04-01-2025 AST [Catalytic activity/Vol] 26 U/L <38 [facility] Comment on above: Hemolysis present, R esults could be affected. Lipase measurementOrdered By : Lyndon Leo on 04-01-2025 Lipase [Catalytic activity/Vol] 41 U/L 13-75 [facility] Comment on above: Please note:LIPASE r evised reference range effective 22. New Lipase methodology. Expected to produce lower values than the previous assay method. NEW Reference Range: 13 - 75 U/L MCV (mean corpuscular volume ) determinationOrdered By: Lyndon Leo on 04-01-2025 MCV (RBC) [Entitic vol] 84.6 fL 80-94 [facility] Mean corpuscular hemoglobin (MCH) determinationOrdered By: Lyndon Leo on 04-01-2025 MCH (RBC) [Entitic mass] 30.3 pg 27.0-32.0 [facility] Mean corpuscular hemoglobin concentration (MCHC) determinationOrdered By: Lyndon Leo on 04-01-2025 MCHC (RBC) [Mass/Vol] 35.7 g/dL 32-36 [facility] Mean platelet volume determi nationOrdered By: Lyndon Leo on 04-01-2025 Platelet mean volume (Bld) [Entitic vol] 11.8 fL 6.2-12.0 [facility] Monocyte percentageOrdered B y: Lyndon Leo on 04-01-2025 Monocytes/100 WBC (Bld) 5.9 % 0-10 [facility] Neutrophil percentageOrdered By: Lyndon Leo on 04-01-2025 Neutrophils/100 WBC (Bld) 87.3 % High 47-70 [facility] Nucleated red blood cell per centageOrdered By: Lyndon Leo on 04-01-2025 Nucleated RBC/100 WBC (Bld) [Ratio] 0 % 0-5 [facility] Platelet countOrdered By: Reyes Leo on 04-01-2025 Platelets (Bld) [#/Vol] 256 10*3/uL 150-450 [facility] Potassium measurement (mass/ volume)Ordered By: Lyndon Leo on 04-01-2025 Potassium (Unsp spec) [Mass/Vol] 3.7 mmol/L 3.3-5.1 [facility] Comment on above: Hemolysis present, R esults could be affected. RBC Auto (Bld) [#/Vol]Ordere d By: Lyndon Leo on 04-01-2025 RBC (Bld) [#/Vol] 6.38 10*6/uL High 4.6-6.2 [facility] Serum creatinine measurement (mass/volume)Ordered By: Lyndon Leo on 04-01-2025 Creatinine [Mass/Vol] 1.35 mg/dL High 0.70-1.20 [facility] Serum globulin measurementOr dered By: Lyndon Leo on 04-01-2025 Globulin (S) [Mass/Vol] 4.0 g/dL 2.2-4.2 [facility] Serum glucose measurement (m ass/volume)Ordered By: Lyndon Leo on 04-01-2025 Glucose [Mass/Vol] 90 mg/dL 70-99 [facility] Serum or plasma alanine vela otransferase (ALT) measurementOrdered By: Lyndon Leo on 04-01-2025 ALT [Catalytic activity/Vol] 25 U/L <47 [facility] Serum or plasma albumin guillermo urement (mass/volume)Ordered By: Lyndon Leo on 04-01-2025 Albumin [Mass/Vol] 5.5 g/dL High 3.5-5.0 [facility] Serum or plasma albumin/glob ulin mass ratioOrdered By: Lyndon Leo on 04-01-2025 Albumin/Globulin [Mass ratio] 1.4 {ratio} 0.9-2.4 [facility] Serum or plasma alkaline alan sphatase measurementOrdered By: Lyndon Leo on 04-01-2025 ALP [Catalytic activity/Vol] 61 U/L 40-129 [facility] Serum or plasma calcium guillermo urement (mass/volume)Ordered By: Lyndon Leo on 04-01-2025 Calcium [Mass/Vol] 10.6 mg/dL 7.6-11.0 [facility] Serum or plasma urea nitroge n measurement (mass/volume)Ordered By: Lyndon Leo on 04-01-2025 Urea nitrogen [Mass/Vol] 22 mg/dL High 4-19 [facility] Sodium levelOrdered By: Lyndon Leo on 04-01-2025 Sodium [Moles/Vol] 133 mmol/L 133-145 [facility] Total proteinOrdered By: Keara Leo on 04-01-2025 Protein [Mass/Vol] 9.5 g/dL High 5.9-8.4 [facility] White blood cell (WBC) count Ordered By: Lyndon Leo on 04-01-2025 WBC (Bld) [#/Vol] 16.6 10*3/uL High 4.4-11.0 [facility] CNOVon 11-02-2024 CNOV Office Visit (FAMPWS ) -------- PHUONG GARCIA ([id number]) 1995 Date Time Provider Department 11/02/24 3:40 PM [facility]ANNA EASON [facility] During your visit today, we recorded the following information about you: Temperature Pulse Respiration Blood pressure 97.5 degrees 86/minute 16/minute 110/62 Weight 65.3 kg Janna Eason APRN.CAUSTIC OPERATOR 11/02/2024 4:33 PM Signed This is a 29 year old male who presents today with: Patient presents with: Anxiety: 4 week medication follow up HISTORY OF PRESENT ILLNESS: Lesliecarmen Jose is a 29 year old male. Patient presents with: Anxiety: 4 week medication follow up Anxiety medication is working well Sleep- using melatonin 5 mg - fals asleep and doesn't stay asleep Takes it only on the days he works. PAST MEDICAL HISTORY: PAST MEDICAL HISTORY Diagnosis Date ADD (attention deficit disorder) Asthma as child GERD (gastroesophageal reflux disease) PMH - PAST MEDICAL HISTORY OF Color Vision - Pass Varicella without mention of complication around age 2-4 years Vitamin D deficiency PAST SURGICAL HISTORY Procedure Laterality Date CIRCUMCISION ALLERGIES Patient has no known allergies. MEDICATIONS Current Outpatient Medications Medication Sig desvenlafaxine ER (PRISTIQ) 50 mg 24 hr tablet Take 1 tablet by mouth once daily. pantoprazole DR (PROTONIX) 40 mg tablet Take 1 tablet by mouth DAILY (6 AM). No current facility-administered medications for this visit. FAMILY HISTORY Problem Relation Age of Onset other (ADHD) Mother Asthma Father Diabetes Maternal Grandfather Hypertension Maternal Grandfather other (schizophrenia) Maternal Aunt other (depression) Maternal Aunt Mental illness Half-sister Social History Tobacco Use Smoking status: Never Smokeless tobacco: Never Vaping Use Vaping status: Former Start date: 09/03/2020 Quit date: 12/12/2020 Substances: THC, Purchased out of state. Devices: Disposable Substance Use Topics Alcohol use: Yes Comment: rarely Drug use: Yes Types: Marijuana Comment: Active smoker of 1 joint per day. Has been using since he was 17.. EXAM: BP 110/62 Pulse 86 Temp 36.4 ?C (97.5 ?F) (Right Tympanic) Resp 16 Wt 65.3 kg (144 lb) SpO2 98% BMI 21.27 kg/m? PHYSICAL EXAM: Physical Exam Vitals reviewed. Constitutional: Appearance: Normal appearance. Cardiovascular: Rate and Rhythm: Normal rate and regular rhythm. Pulses: Normal pulses. Heart sounds: Normal heart sounds. Pulmonary: Effort: Pulmonary effort is normal. Breath sounds: Normal breath sounds. Musculoskeletal: General: Normal range of motion. Comments: Moves all ext. Without difficulty Skin: General: Skin is warm and dry. Neurological: Mental Status: He is alert and oriented to person, place, and time. Psychiatric: Mood and Affect: Mood normal. Behavior: Behavior normal. LABS: ASSESSMENT/PLAN: 1. Anxiety - ICD9: 300.00, ICD10: F41.9 Stable on Pristiq - DESVENLAFAXINE SUCCINATE ER 50 MG TABLET,EXTENDED RELEASE 24 HR renewed 2. Chronic insomnia - ICD9: 780.52, ICD10: F51.04 Uses Melatonin - DESVENLAFAXINE SUCCINATE ER 50 MG TABLET,EXTENDED RELEASE 24 HR Discussed treatment plan and patient voices understanding. Patient's questions answered appropriately. Medications and potential side effects were discussed and patient voices understanding. Return to the office as scheduled or as needed for worsening/no improvement. LILY Singh Jacqueline A, APRN.CNP 11/02/2024 4:33 PM Signed 1) No change in medications 2) Physical in a year Referring Provider: SALLIE CROWLEY [[id number]] Allergies As of Date: 11/02/2024 (No Known Allergies) Date Reviewed: 11/02/2024 Reviewed by: Wendie Gallegos MA - Fully Assessed Reason for Visit: Anxiety [9] Cmt: 4 week medication follow up Visit Diagnoses:Anxiety [F41.9] Chronic insomnia [F51.04] Order(s):desvenlafaxine ER (PRISTIQ) 50 mg 24 hr tabletTake 1 tablet by mouth once daily.Disp: 90 tabletRfl: 3 Prescriptions as of 11/02/2024 - desvenlafaxine ER (PRISTIQ) 50 mg 24 hr tablet Take 1 tablet by mouth once daily. - pantoprazole DR (PROTONIX) 40 mg tablet Take 1 tablet by mouth DAILY (6 AM). Meds Comments as of 07/21/2017: Pt. states he currently isnt on any medications Problem List As Of Date 11/02/2024 Noted Resolved Attention deficit hyperactivity disorder (ADHD)*09/15/2005 Acne [L70.9] 08/27/2011 High anion gap metabolic acidosis [E87.29] 07/21/2017 Hypokalemia [E87.6] 07/22/2017 Abdominal pain [R10.9] 07/22/2017 Elevated lactic acid level [R79.89] 07/22/2017 Vitamin D deficiency [E55.9] Intractable nausea and vomiting [R11.2] 12/19/2020 Cannabinoid hyperemesis syndrome [R11.2, F12.90]12/19/2020 Pulmonary nodules [R91.8] 12/22/2020 Other instructions from your clinician: 1) No change in medicatio (more content not included)... Normal [facility] -------- PHUONG GARCIA ([id number]) 1995 M Date Time Provider Department 10/05/24 SALLIE CROWLEY [facility] During your visit today, we recorded the following information about you: Jennifer Mike LPN 10/05/2024 9:19 AM Signed Mother calling to let you know pt was seen on 10-01-24 for anxiety and put on Preistiq. Pt waited to start till last night because not sure how he was going to react to medication and he does not work the next couple days. Pt does not like the way he feels from the medication. It is making him nauseated. Mother asking if pt should try cutting this in half or switch to something else. Pt was on Prozac and in the past and did not like that medication. Please advise pt. MEGAN Fuchs William J, MD 10/05/2024 9:31 AM Signed Make sure taking with food. Usually will go away if continues on it. If continues, can cut in half for one week and then increase. Sergo Kohler LPN 10/05/2024 9:36 AM Signed Patient notified of results, verbalizes understanding of instructions. Sergo Kohler LPN Allergies As of Date: 10/05/2024 (No Known Allergies) Date Reviewed: 10/01/2024 Reviewed by: Mary Ann Galeas LPN - Fully Assessed Prescriptions as of 10/05/2024 - desvenlafaxine ER (PRISTIQ) 50 mg 24 hr tablet Take 1 tablet by mouth once daily. - pantoprazole DR (PROTONIX) 40 mg tablet Take 1 tablet by mouth DAILY (6 AM). Meds Comments as of 07/21/2017: Pt. states he currently isnt on any medications Problem List As Of Date 10/05/2024 Noted Resolved Attention deficit hyperactivity disorder (ADHD)*09/15/2005 Acne [L70.9] 08/27/2011 High anion gap metabolic acidosis [E87.29] 07/21/2017 Hypokalemia [E87.6] 07/22/2017 Abdominal pain [R10.9] 07/22/2017 Elevated lactic acid level [R79.89] 07/22/2017 Vitamin D deficiency [E55.9] Intractable nausea and vomiting [R11.2] 12/19/2020 Cannabinoid hyperemesis syndrome [R11.2, F12.90]12/19/2020 Pulmonary nodules [R91.8] 12/22/2020 Encounter Status:Closed by SERGO KOHLER on 10/05/24 Normal [facility] CBC W Auto Differential pane l (Bld)on 10-01-2024 Basophils (Bld) [#/Vol] 0.05 10*3/uL [facility] Basophils/100 WBC (Bld) 0.9 % [place] Differential cell count method Nom (Bld) Auto [facility] Eosinophils (Bld) [#/Vol] 0.17 10*3/uL [facility] Eosinophils/100 WBC (Bld) 2.9 % [facility] Erythrocyte distribution width (RBC) [Ratio] 11.5 % 11.5 - 15.0 % [facility] Hematocrit (Bld) [Volume fraction] 43.5 % 39.0 - 51.0 % [facility] Hemoglobin (Bld) [Mass/Vol] 14.8 g/dL 13.0 - 17.0 g/dL [facility] Immature granulocytes (Bld) [#/Vol] [facility] Immature granulocytes/100 WBC (Bld) 0.3 % [facility] Lymphocytes (Bld) [#/Vol] 1.89 10*3/uL [facility] Lymphocytes/100 WBC (Bld) 32.4 % [facility] MCH (RBC) [Entitic mass] 30.3 pg 26.0 - 34.0 pg [facility] MCHC (RBC) [Mass/Vol] 34.0 g/dL 30.5 - 36.0 g/dL [facility] MCV (RBC) [Entitic vol] 89.0 fL 80.0 - 100.0 fL [facility] Monocytes (Bld) [#/Vol] 0.34 10*3/uL [facility] Monocytes/100 WBC (Bld) 5.8 % [facility] Neutrophils (Bld) [#/Vol] 3.36 10*3/uL [facility] Neutrophils/100 WBC (Bld) 57.7 % [facility] Nucleated RBC (Bld) [#/Vol] NINF [facility] Nucleated RBC/100 WBC (Bld) [Ratio] 0.0 % /100 WBC [facility] Platelet mean volume (Bld) [Entitic vol] 11.3 fL 9.0 - 12.7 fL [facility] Platelets (Bld) [#/Vol] 214 10*3/uL [facility] RBC (Bld) [#/Vol] 4.89 10*6/uL 4.20 - 6.0 0 m/uL [facility] WBC (Bld) [#/Vol] 5.83 10*3/uL [facility] Basophils (Bld) [#/Vol] 0.05 10*3/uL Normal <0.11 [facility] Comment on above: Order Comment: Speci men Type: BLOOD SPECIMEN Ordering Facility: [facility] Address: [address] [place] [address] Performed By: #### 5 7021-8 #### [facility] CLIA [id number] [address] [place] [address] [place] Basophils/100 WBC (Bld) 0.9 % Normal C [facility] Comment on above: Order Comment: Speci men Type: BLOOD SPECIMEN Ordering Facility: [facility] Address: [address] [place] [address] Performed By: #### 5 7021-8 #### [facility] CLIA [id number] [address] [place] [address] [place] Differential cell count method Nom (Bld) Auto Normal [facility] Comment on above: Order Comment: Speci men Type: BLOOD SPECIMEN Ordering Facility: [facility] Address: [address] [place] [address] Performed By: #### 5 7021-8 #### [facility] CLIA [id number] [address] [place] [address] [place] Eosinophils (Bld) [#/Vol] 0.17 10*3/uL Normal <0.46 [facility] Comment on above: Order Comment: Speci men Type: BLOOD SPECIMEN Ordering Facility: [facility] Address: [address] [place] [address] Performed By: #### 5 7021-8 #### [facility] CLIA [id number] [address] [place] [address] [place] Eosinophils/100 WBC (Bld) 2.9 % Normal [facility] Comment on above: Order Comment: Speci men Type: BLOOD SPECIMEN Ordering Facility: [facility] Address: [address] [place] [address] Performed By: #### 5 7021-8 #### [facility] CLIA [id number] [address] [place] [address] [place] Erythrocyte distribution width (RBC) [Ratio] 11.5 % Normal 11.5-15.0 [facility] Comment on above: Order Comment: Speci men Type: BLOOD SPECIMEN Ordering Facility: [facility] Address: [address] [place] [address] Performed By: #### 5 7021-8 #### [facility] CLIA [id number] [address] [place] [address] [place] Hematocrit (Bld) [Volume fraction] 43.5 % Normal 39.0-51.0 [facility] Comment on above: Order Comment: Speci men Type: BLOOD SPECIMEN Ordering Facility: [facility] Address: [address] [place] [address] Performed By: #### 5 7021-8 #### [facility] CLIA [id number] [address] [id number] [address] [place] Hemoglobin (Bld) [Mass/Vol] 14.8 g/dL Normal 13.0-17.0 [facility] Comment on above: Order Comment: Speci men Type: BLOOD SPECIMEN Ordering Facility: [facility] Address: [address] [place] [address] Performed By: #### 5 7021-8 #### [facility] CLIA [id number] [address] [place] [address] [place] Immature granulocytes (Bld) [#/Vol] 10*3/uL Normal <0.10 [facility] Comment on above: Order Comment: Speci men Type: BLOOD SPECIMEN Ordering Facility: [facility] Address: [address] [place] [address] Performed By: #### 5 7021-8 #### [facility] CLIA [id number] [address] [place] [address] [place] Immature granulocytes/100 WBC (Bld) 0.3 % Normal [facility] Comment on above: Order Comment: Speci men Type: BLOOD SPECIMEN Ordering Facility: [facility] Address: [address] [place] [address] Performed By: #### 5 7021-8 #### [facility] CLIA [id number] [address] [place] [address] [place] Lymphocytes (Bld) [#/Vol] 1.89 10*3/uL Normal 1.00-4.00 [facility] Comment on above: Order Comment: Speci men Type: BLOOD SPECIMEN Ordering Facility: [facility] Address: [address] [place] [address] Performed By: #### 5 7021-8 #### [facility] CLIA [id number] [address] [place] [address] [place] Lymphocytes/100 WBC (Bld) 32.4 % Normal [facility] Comment on above: Order Comment: Speci men Type: BLOOD SPECIMEN Ordering Facility: [facility] Address: [address] [place] [address] Performed By: #### 5 7021-8 #### [facility] CLIA [id number] [address] [place] [address] [place] MCH (RBC) [Entitic mass] 30.3 pg Normal 26.0-34.0 [facility] Comment on above: Order Comment: Speci men Type: BLOOD SPECIMEN Ordering Facility: [facility] Address: [address] [place] [address] Performed By: #### 5 7021-8 #### [facility] CLIA [id number] [address] [place] [address] [place] MCHC (RBC) [Mass/Vol] 34.0 g/dL Normal 30.5-36.0 [facility] Comment on above: Order Comment: Speci men Type: BLOOD SPECIMEN Ordering Facility: [facility] Address: [address] [place] [address] Performed By: #### 5 7021-8 #### [facility] CLIA [id number] [address] [place] [address] [place] MCV (RBC) [Entitic vol] 89.0 fL Normal 80.0-100.0 C [facility] Comment on above: Order Comment: Speci men Type: BLOOD SPECIMEN Ordering Facility: [facility] Address: [address] [place] [address] Performed By: #### 5 7021-8 #### [facility] CLIA [id number] [address] [place] [address] [place] Monocytes (Bld) [#/Vol] 0.34 10*3/uL Normal <0.87 [facility] Comment on above: Order Comment: Speci men Type: BLOOD SPECIMEN Ordering Facility: [facility] Address: [address] [place] [address] Performed By: #### 5 7021-8 #### [facility] CLIA [id number] [address] [place] [address] [place] Monocytes/100 WBC (Bld) 5.8 % Normal [facility] Comment on above: Order Comment: Speci men Type: BLOOD SPECIMEN Ordering Facility: [facility] Address: [address] [place] [address] Performed By: #### 5 7021-8 #### [facility] CLIA [id number] [address] [place] [address] [place] Neutrophils (Bld) [#/Vol] 3.36 10*3/uL Normal 1.45-7.50 [facility] Comment on above: Order Comment: Speci men Type: BLOOD SPECIMEN Ordering Facility: [facility] Address: [address] [place] [address] Performed By: #### 5 7021-8 #### [facility] CLIA [id number] [address] [place] [address] [place] Neutrophils/100 WBC (Bld) 57.7 % Normal [facility] Comment on above: Order Comment: Speci men Type: BLOOD SPECIMEN Ordering Facility: [facility] Address: [address] [place] [address] Performed By: #### 5 7021-8 #### [facility] CLIA [id number] [address] [place] [address] [place] Nucleated RBC (Bld) [#/Vol] 10*3/uL Normal <0.01 [facility] Comment on above: Order Comment: Speci men Type: BLOOD SPECIMEN Ordering Facility: [facility] Address: [address] [place] [address] Performed By: #### 5 7021-8 #### [facility] CLIA [id number] [address] [place] [address] [place] Nucleated RBC/100 WBC (Bld) [Ratio] 0.0 /100 WBC Normal [facility] Comment on above: Order Comment: Speci men Type: BLOOD SPECIMEN Ordering Facility: [facility] Address: [address] [place] [address] Performed By: #### 5 7021-8 #### [facility] CLIA [id number] [address] [place] [address] [place] Platelet mean volume (Bld) [Entitic vol] 11.3 fL Normal 9.0-12.7 [facility] Comment on above: Order Comment: Speci men Type: BLOOD SPECIMEN Ordering Facility: [facility] Address: [address] [place] [address] Performed By: #### 5 7021-8 #### [facility] CLIA [id number] [address] [place] [address] [place] Platelets (Bld) [#/Vol] 214 10*3/uL Normal 150-400 [facility] Comment on above: Order Comment: Speci men Type: BLOOD SPECIMEN Ordering Facility: [facility] Address: [address] [place] [address] Performed By: #### 5 7021-8 #### [facility] CLIA [id number] [address] [place] [address] [place] RBC (Bld) [#/Vol] 4.89 10*6/uL Normal 4.20-6.00 [facility] Comment on above: Order Comment: Speci men Type: BLOOD SPECIMEN Ordering Facility: [facility] Address: [address] [place] [address] Performed By: #### 5 7021-8 #### [facility] CLIA [id number] [address] [place] [address] [place] WBC (Bld) [#/Vol] 5.83 10*3/uL Normal 3.70-11.00 [facility] Comment on above: Order Comment: Speci men Type: BLOOD SPECIMEN Ordering Facility: [facility] Address: [address] [place] [address] Performed By: #### 5 7021-8 #### [facility] JULIANNAIA [id number] [address] [place] [address] [place] CNOVon 10-01-2024 CNOV Office Visit (FAMPWS ) -------- PHUONG GARCIA ([id number]) 1995 M Date Time Provider Department 10/01/24 2:00 PM MESSI BARRYWS During your visit today, we recorded the following information about you: Pulse Blood pressure Weight 88/minute 112/82 67.1 kg Messi Barry MD 10/01/2024 2:53 PM Signed No chief complaint on file. HPI: Patient presents today for office visit for follow up. Trouble with sleep for about 6 months. Feels like maybe 2 hours of good sleep. Goes to bed 7:30-8:00 then will wake up 12:30-1:30 and can't go back to sleep. Effecting his work. Hasn't tried any OTC sleep aids. Uses the TV when trying to fall asleep. Has been told he snores but not all the time or terrible. No witnessed apnea. Not taking prozac regularly. Only taking it once or twice a week. Wakes up thinking about things. Discussed med compliance as part of the issues. Does admit to some anxiety. Wanted to try something else. No suicidal ideation. No chest pain or shortness of breath. No weight loss or changes in hair or skin. MEDICATIONS: Current Outpatient Medications Medication Sig FLUoxetine (PROZAC) 20 mg capsule Take 1 capsule by mouth once daily. pantoprazole DR (PROTONIX) 40 mg tablet Take 1 tablet by mouth DAILY (6 AM). (Patient taking differently: Take 40 mg by mouth. Taking as needed) No current facility-administered medications for this visit. ALLERGIES: ALLERGIES No Known Allergies PAST MEDICAL HISTORY Diagnosis Date ADD (attention deficit disorder) Asthma as child GERD (gastroesophageal reflux disease) PMH - PAST MEDICAL HISTORY OF Color Vision - Pass Varicella without mention of complication around age 2-4 years Vitamin D deficiency PAST SURGICAL HISTORY Procedure Laterality Date CIRCUMCISION FAMILY HISTORY Problem Relation Age of Onset other (ADHD) Mother Asthma Father Diabetes Maternal Grandfather Hypertension Maternal Grandfather other (schizophrenia) Maternal Aunt other (depression) Maternal Aunt Mental illness Half-sister Social History Tobacco Use Smoking status: Never Smokeless tobacco: Never Vaping Use Vaping status: Former Start date: 09/03/2020 Quit date: 12/12/2020 Substances: THC, Purchased out of state. Devices: Disposable Substance Use Topics Alcohol use: Yes Comment: rarely Drug use: Yes Types: Marijuana Comment: Active smoker of 1 joint per day. Has been using since he was 17.. Reviewed current medications, allergies, past medical history, surgical history, family history and social history today. REVIEW OF SYSTEMS All other reviewed and negative other than HPI. VITALS: BP 112/82 Pulse 88 Wt 67.1 kg (148 lb) SpO2 97% BMI 21.86 kg/m? Last 4 Encounter Wt Readings: Date: Wt: 11/04/2023 62.6 kg (138 lb) 09/25/2021 64.4 kg (142 lb) 06/22/2021 64.4 kg (142 lb) 01/09/2021 59 kg (130 lb) PHYSICAL EXAMINATION: General appearance: Well appearing, alert, in no acute distress, well-hydrated, well nourished. Skin: Skin color, texture, turgor normal, no suspicious rashes or lesions Lungs: Lungs clear to auscultation. No wheezing, rhonchi, rales Heart: RRR without murmur, gallop, or rubs. No ectopy Abdomen: Normal abdominal exam, Abdomen soft, non-tender. Bowel sounds normal. No masses, organomegaly Extremities: No deformities, edema, skin discoloration, clubbing or cyanosis. Good capillary refill. ASSESSMENT/PLAN: 1. Anxiety - ICD9: 300.00, ICD10: F41.9 (primary diagnosis) - discussed med compliance. Stop prozac. Discussed risks and benefits of new medication with the patient. Advised them to call if any side effects or questions. - can use melatonin prn. - DESVENLAFAXINE SUCCINATE ER 50 MG TABLET,EXTENDED RELEASE 24 HR - COMPLETE BLOOD COUNT AND DIFFERENTIAL - COMPREHENSIVE METABOLIC PANEL - THYROID STIMULATING HORMONE 2. Chronic insomnia - ICD9: 780.52, ICD10: F51.04 - DESVENLAFAXINE SUCCINATE ER 50 MG TABLET,EXTENDED RELEASE 24 HR - COMPLETE BLOOD COUNT AND DIFFERENTIAL - COMPREHENSIVE METABOLIC PANEL - THYROID STIMULATING HORMONE Messi Barry MD RTO in four weeks or Messi Dinero MD 10/01/2024 2:26 PM Signed Melatonin 3 mg at bedtime as needed for sleep. Allergies As of Date: 10/01/2024 (No Known Allergies) Date Reviewed: 10/01/2024 Reviewed by: Mary Ann Galeas LPN - Fully Assessed Reason for Visit: Sleep Problem [100] Primary Visit Diagnosis:Anxiety [F41.9] Other Visit Diagnosis:Chronic insomnia [F51.04] Order(s):desvenlafaxine ER (PRISTIQ) 50 mg 24 hr tabletTake 1 tablet by mouth once daily.Disp: 30 tabletRfl: 11 COMPLETE BLOOD COUNT AND DIFFERENTIAL [SQCBCDIF] Order #: [id number] FUTURE COMPREHENSIVE METABOLIC PANEL [SQCMP] Order #: [id number] FUTURE THYROID STIMULATING HORMONE [SQTSH] Order #: [id number] FUTURE Prescriptions as of 10/01/2024 - de (more content not included)... Normal [facility] 10-01-20[facility] -------- PHUONG GARCIA ([id number]) 1995 M Date Time Provider Department 10/01[facility] During your visit today, we recorded the following information about you: Nilson Rasmussen RN 10/01/2024 3:16 PM Signed Patient calls to request PA for [employer]. Prior Auth is pending. JUDD Handley [place], MA 10/02/2024 4:28 PM Signed PA approved: Authorized from September 02, 2024 to October 02, 2025 Information received electronically from payer Patient was notified Xuan Skinner MA Allergies As of Date: 10/01/2024 (No Known Allergies) Date Reviewed: 10/01/2024 Reviewed by: Mary Ann Galeas LPN - Fully Assessed Reason for Visit: Insurance Authorization [[id number]] Prescriptions as of 10/02/2024 - desvenlafaxine ER (PRISTIQ) 50 mg 24 hr tablet Take 1 tablet by mouth once daily. - pantoprazole DR (PROTONIX) 40 mg tablet Take 1 tablet by mouth DAILY (6 AM). Meds Comments as of 07/21/2017: Pt. states he currently isnt on any medications Problem List As Of Date 10/01/2024 Noted Resolved Attention deficit hyperactivity disorder (ADHD)*09/15/2005 Acne [L70.9] 08/27/2011 High anion gap metabolic acidosis [E87.29] 07/21/2017 Hypokalemia [E87.6] 07/22/2017 Abdominal pain [R10.9] 07/22/2017 Elevated lactic acid level [R79.89] 07/22/2017 Vitamin D deficiency [E55.9] Intractable nausea and vomiting [R11.2] 12/19/2020 Cannabinoid hyperemesis syndrome [R11.2, F12.90]12/19/2020 Pulmonary nodules [R91.8] 12/22/2020 Encounter Status:Closed by NILSON RASMUSSEN on 10/01/24 Normal [facility] Comprehensive metabolic 2000 panelon 10-01-2024 Albumin [Mass/Vol] 4.5 g/dL Normal 3.9-4.9 [facility] [place] Comment on above: Order Comment: Speci men Type: BLOOD SPECIMEN Ordering Facility: [facility] Address: [address] [place] [address] Performed By: #### 3 016-3, 35424-7 #### [facility] CLIA [id number] [address] [place] [address] [place] [address] [place] ALP [Catalytic activity/Vol] 49 U/L Normal 38-113 [facility] Comment on above: Order Comment: Speci men Type: BLOOD SPECIMEN Ordering Facility: [facility] Address: [address] [place] [address] Performed By: #### 3 016-3, 89651-9 #### [facility] CLIA [id number] [address] [place] [address] [place] ALT [Catalytic activity/Vol] 19 U/L Normal 10-54 [facility] Comment on above: Order Comment: Speci men Type: BLOOD SPECIMEN Ordering Facility: [facility] Address: [address] [place] [address] Performed By: #### 3 016-3, 44817-7 #### [facility] CLIA [id number] [address] [place] [address] [place] Anion gap [Moles/Vol] 12 mmol/L Normal 8-15 [facility] Comment on above: Order Comment: Speci men Type: BLOOD SPECIMEN Ordering Facility: [facility] Address: [address] [place] [address] Performed By: #### 3 016-3, 31897-6 #### [facility] CLIA [id number] [address] [place] [address] [place] AST [Catalytic activity/Vol] 17 U/L Normal 14-40 [facility] Comment on above: Order Comment: Speci men Type: BLOOD SPECIMEN Ordering Facility: [facility] Address: [address] [place] [address] Performed By: #### 3 016-3, 46284-3 #### [facility] CLIA [id number] [address] [place] [address] [place] Bilirubin [Mass/Vol] 0.6 mg/dL Normal 0.2-1.3 [facility] Comment on above: Order Comment: Speci men Type: BLOOD SPECIMEN Ordering Facility: [facility] Address: [address] [place] [address] Performed By: #### 3 0163, #### [facility] CLIA [id number] [address] [place] [address] [place] Calcium [Mass/Vol] 9.4 mg/dL Normal 8.5-10.2 [facility] [place] Comment on above: Order Comment: Speci men Type: BLOOD SPECIMEN Ordering Facility: [facility] Address: [address] [place] [address] Performed By: #### 3 016-3, #### [facility] CLIA [id number] [address] [place] [address] [place] Chloride [Moles/Vol] 106 mmol/L Normal 98-107 [facility] Comment on above: Order Comment: Speci men Type: BLOOD SPECIMEN Ordering Facility: [facility] Address: [address] [place] [address] Performed By: #### 3 , #### [facility] CLIA [id number] [address] [place] [address] [place] CO2 [Moles/Vol] 22 mmol/L Normal 22-30 [facility] Comment on above: Order Comment: Speci men Type: BLOOD SPECIMEN Ordering Facility: [facility] Address: [address] [place] [address] Performed By: #### 3 0163, #### [facility] CLIA [id number] [address] [place] [address] [place] Creatinine [Mass/Vol] 1.01 mg/dL Normal 0.73-1.22 [facility] Comment on above: Order Comment: Speci men Type: BLOOD SPECIMEN Ordering Facility: [facility] Address: [address] [place] [address] Performed By: #### 3 016-3, #### [facility] CLIA [id number] [address] [place] [address] [place] Creatinine and Glomerular filtration rate.predicted panel (S/P/Bld) 103 mL/min/1.73m??? Normal >=60 [facility] Comment on above: Order Comment: [place] nuñez Type: BLOOD SPECIMEN Ordering Facility: [facility] Address: [address] [place] [address] Result Comment: Thea mated Glomerular Filtration Rate (eGFR) is calculated using the 2020 CKD-EPI creatinine equation. This equation utilizes serum creatinine, sex, and age as parameters. The creatinine assay has traceable calibration to isotope dilution-mass spectrometry. Refer to KDIGO guidelines for clinical interpretation. In patients with unstable renal function, e.g. those with acute kidney injury, the eGFR may not accurately reflect actual GFR. Performed By: #### 3 016-3, 81463-3 #### [facility] CLIA [id number] [address] [place] [address] [place] Glucose [Mass/Vol] 95 mg/dL Normal 74-99 [facility] Comment on above: Order Comment: [place] nuñez Type: BLOOD SPECIMEN Ordering Facility: [facility] Address: [address] [place] [address] Result Comment: The [place] Diabetes Association (ADA) provides guidance for cutoff values for fasting glucose and random glucose. The ADA defines fasting as no caloric intake for at least 8 hours. Fasting plasma glucose results between 100 to 125 mg/dL indicate increased risk for diabetes (prediabetes). Fasting plasma glucose results greater than or equal to 126 mg/dL meet the criteria for diagnosis of diabetes. In the absence of unequivocal hyperglycemia, results should be confirmed by repeat testing. In a patient with classic symptoms of hyperglycemia or hyperglycemic crisis, random plasma glucose results greater than or equal to 200 mg/dL meet the criteria for diagnosis of diabetes. Reference: Standards of Medical Care in Diabetes 2016, [place] [employer] Association. Diabetes Care. 2016.39(Suppl 1). Performed By: #### 3 016-3, 16593-8 #### [facility] CLIA [id number] [address] [place] [address] [place] Potassium [Moles/Vol] 4.0 mmol/L Normal 3.7-5.1 [facility] Comment on above: Order Comment: Speci men Type: BLOOD SPECIMEN Ordering Facility: [facility] Address: [address] [place] [address] Performed By: #### 3 016-3, 00790-4 #### [facility] CLIA [id number] [address] [place] [address] [place] Protein [Mass/Vol] 7.3 g/dL Normal 6.3-8.0 [facility] Comment on above: Order Comment: Speci men Type: BLOOD SPECIMEN Ordering Facility: [facility] Address: [address] [place] [address] Performed By: #### 3 016-3, 86555-6 #### [facility] CLIA [id number] [address] [place] [address] [place] Sodium [Moles/Vol] 140 mmol/L Normal 136-144 [facility] Comment on above: Order Comment: Speci men Type: BLOOD SPECIMEN Ordering Facility: [facility] Address: [address] [place] [address] Performed By: #### 3 016-3, 03602-2 #### [facility] CLIA [id number] [address] [place] [address] [place] Urea nitrogen [Mass/Vol] 6 mg/dL Low 9-24 [facility] Comment on above: Order Comment: Speci men Type: BLOOD SPECIMEN Ordering Facility: [facility] Address: [address] [place] [address] Performed By: #### 3 016-3, 40384-3 #### [facility] CLIA [id number] [address] [place] [address] [place] TSH SerPl-aCncon 10-01-2024 TSH Qn 1.090 m[IU]/L Normal 0.270-4.200 [facility] Comment on above: Order Comment: Speci men Type: BLOOD SPECIMEN Ordering Facility: [facility] Address: [address] [place] [id number] Performed By: #### 3 016-3, 23249-5 #### [facility] CLIA [id number] [address] [place] [address] [id number] [id number] [place] Emergency Department Summary on 12-19-2022 Emergency Department Summary [facility] Medical Records Department [address] [place] [address] Emergency Department Summary 12/19/22 MR#: [id number] Acct: [id number] Name: PHUONG GARCIA Rep #: [id number] : 1995 27 From: Michelle BURNHAM PCP: VIVIANA Loomis Status:REG ER Location: ED HPI History of Present Illness Chief Complaint: Abd Pain Narrative Narrative: Presenting today with nausea, vomiting, diarrhea that started around 8 AM this morning. He states he has had several episodes of vomiting and diarrhea. He is having generalized abdominal pain. His girlfriend, daughter, and mother have all had the same thing within the last week. He denies any fever, blood in his stool, hematemesis, urinary symptoms, history of abdominal surgery. PFSH PFSH Medical History no medical history Home Medications fluoxetine 20 mg capsule 20 mg PO DAILY 02/11/20 [History Last Taken Unknown] doxycycline monohydrate 100 mg capsule 100 mg PO BID #20 caps 08/27/20 [Rx Last Taken Unknown] ondansetron 4 mg disintegrating tablet 4 mg PO Q8H PRN PRN Nausea #10 tabs 11/03/20 [Rx Last Taken Unknown] dicyclomine 20 mg tablet 20 mg PO BID #10 tabs 12/19/22 [Rx Last Taken Unknown] loperamide 2 mg capsule (Imodium A-D) 2 mg PO Q6H PRN loose stool #10 caps 12/19/22 [Rx Last Taken Unknown] ondansetron 4 mg disintegrating tablet 4 mg PO Q8H PRN PRN Nausea #12 tabs 12/19/22 [Rx Last Taken Unknown] Allergy/AdvReac Type Severity Reaction Status Date / Time No Known Allergies Allergy Verified 12/19/22 10:22 Surgical History no surgical history Social History Smoking Status: Never smoker ROS ROS ED Constitutional Constitutional ED: Denies chills or fever(s) Cardiovascular Cardiovascular: Denies chest pain or palpitations Respiratory/Chest Respiratory/Chest: Denies cough or dyspnea Gastrointestinal Gastrointestinal: Reports abdominal pain, diarrhea, nausea and vomiting; Denies melena Genitourinary Genitourinary ED: Denies dysuria, hematuria or urinary urgency Musculoskeletal Musculoskeletal: Denies arthralgias or myalgias Integumentary Denies abscess, Abrasions or rash Neurologic Neurologic: Denies dizziness or weakness Psychiatric Psychiatric: Denies anxiety, depression, suicidal ideation or suicidal thoughts EXAM Physical Exam Const Vital Signs: 12/19/22 10:21 12/19/22 12:53 12/19/22 15:11 Temperature 96 F L Temperature Source Temporal Pulse Rate 66 Respiratory Rate 18 Blood Pressure 143/87 H 176/107 H 140/90 H Blood Pressure Mean 105 130 106 Pulse Ox 96 Oxygen Delivery Method Room Air Positive well nourished, well developed and no apparent distress General Appearance ED: well developed HEENT Reports normocephalic and head/scalp atraumatic Mouth ED: Yes moist mucous membranes normal Eyes PERRL and EOMs intact bilaterally Neck full ROM and supple Chest Wall inspection of chest normal Resp normal respiratory effort and clear to auscultation bilaterally Cardio regular rate and regular rhythm GI soft to palpation, non-tender, non-distended and no masses Back/Spine normal ROM and normal to inspection Extremity normal to inspection and full ROM Neuro oriented x3, CN's II-XII intact bilaterally, moves all extremities, no focal motor deficits and no sensory deficits noted Sensorium / Orientation: awake and alert Psych mental status grossly normal and thought process normal Skin no rashes or lesions noted and no wounds Physical Exam Const Vital Signs: 12/19/22 10:21 12/19/22 12:53 12/19/22 15:11 Temperature 96 F L Temperature Source Temporal Pulse Rate 66 Respiratory Rate 18 Blood Pressure 143/87 H 176/107 H 140/90 H Blood Pressure Mean 105 130 106 Pulse Ox 96 Oxygen Delivery Method Room Air MDM MDM MDM Narrative Medical decision making narrative: Patient presenting today with nausea, vomiting, diarrhea, generalized abdominal pain that started this morning. 3 other members of his household have been sick with the same thing within the last week. Patient's symptoms are consistent with gastroenteritis. He has been given fluids, Zofran, Bentyl, Imodium. I do not feel that any labs are necessary. Patient's abdomen is soft and nontender I do not feel that any imaging is necessary. Reexamination patient states he still feeling nauseous has generalized abdominal pain. He has been given Phenergan and Toradol. Reexamination patient states he is still not any better and is actively vomiting. He does have heavy daily marijuana use, the cyclic vomiting protocol was used. Reexamination patient is feeling better and has not had any more vomiting. He has been given a p.o. challenge and was (more content not included)... Normal [facility] CBCon 12-22-2020 Absolute nRBC <0.01 Normal <0.01 [facility] Comment on above: Performed By: #### C SRUTHI ROWLEY MG1 #### [facility] [address] [place], [place] [id number] Erythrocyte distribution width (RBC) [Ratio] 11.5 % Normal 11.5-15.0 [facility] Comment on above: Performed By: #### C SRUTHI ROWLEY, MG1 #### [facility] [address] [place], [place] [id number] Hematocrit (Bld) [Volume fraction] 39.3 % Normal 39.0-51.0 [facility] Comment on above: Performed By: #### C SRUTHI ROWLEY, MG1 #### [facility] [address] [place], [place] [phone] Hemoglobin (Bld) [Mass/Vol] 13.3 g/dL Normal 13.0-17.0 [facility] Comment on above: Performed By: #### C SRUTHI ROWLEY, MG1 #### [facility] [address] [place], [place] [phone] MCH 29.6 pG Normal 26.0-34.0 [facility] Comment on above: Performed By: #### C SRUTHI ROWLEY, MG1 #### [facility] [address] [place], [place] [phone] MCHC (RBC) [Mass/Vol] 33.8 g/dL Normal 30.5-36.0 [facility] Comment on above: Performed By: #### C SRUTHI ROWLEY, MG1 #### [facility] [address] [place], [place] [phone] MCV (RBC) [Entitic vol] 87.3 fL Normal 80.0-100.0 M [facility] Comment on above: Performed By: #### Vargas ROWLEY CMP, MG1 #### [facility] [address] [facility] [phone] Platelet mean volume (Bld) [Entitic vol] 11.6 fL Normal 9.0-12.7 [facility] Comment on above: Performed By: #### Vargas ROWLEY CMP, MG1 #### [facility] [address] [facility] [phone] Platelets (Bld) [#/Vol] 177 10*3/uL Normal 150-400 [facility] Comment on above: Performed By: #### Vargas ROWLEY CMP MG1 #### [facility] [address] [facility] [phone] RBC (Bld) [#/Vol] 4.50 10*6/uL Normal 4.20-6.00 [facility] Comment on above: Performed By: #### Vargas ROWLEY CMP, MG1 #### [facility] [address] [place] [address] WBC (Bld) [#/Vol] 8.68 10*3/uL Normal 3.70-11.00 [facility] Comment on above: Performed By: #### Vargas ROWLEY CMP, MG1 #### [facility] [address] [place] [phone] CNCOon 12-22-2020 CNCO Letter Text Normal [facility] CNDSon 12-22-2020 CNDS HNO ID: [id number] Author: Tess Espino Service: Hospital Medicine Author Type: Nurse Practitioner Type: Discharge Summary Filed: 12/22/2020 3:53 PM Note Text: -------- Attestation signed by Champ Irizarry at 01/06/2021 4:43 PM I reviewed the plan of care and reviewed the note. Plan of care discussed with the LOW PRESSURE FIRER in detail and I agree with it. Champ Irizarry MD -------- DISCHARGE SUMMARY PATIENT NAME: Phuong Garcia ADMISSION DATE: 12/18/2020 DISCHARGE DATE: 12/22/2020 ATTENDING PHYSICIAN: Champ Irizarry Code Status: Not on file Highest Readmission Risk Score: 9 The 30 day readmissions risk score is derived from an internally validated risk model which evaluates patient level characteristics, utilization history, medication orders and lab results up until the day of discharge. Patients with a score of 40 or above are considered highest risk for readmission. Specific patient level drivers will be listed at the bottom of the summary. Treatment Team: [facility]ending [facility] Nurse Practitioner: Tess Lino) [facility] medicine Consulting: Aashish Rincon- Gastroenterology REASON FOR HOSPITALIZATION: Intractable nausea and vomiting DIAGNOSIS: Active Problems: Intractable nausea and vomiting Cannabinoid hyperemesis syndrome Pulmonary nodules OPERATIONS DURING HOSPITALIZATION: None PROCEDURES DURING HOSPITALIZATION: HIDA scan, RUQ US HOSPITAL COURSE: Phuong Garcia is a 25 year old male with a past medical history of cannabinoid hyperemesis syndrome, GERD and ADD who presented on 12/19 for evaluation of intractable nausea and vomiting. Last usage of THC was on 12/17. CT A+P completed on admission showing no acute abnormality. CT chest also completed showing incidental pulmonary nodules measuring less that 6mm but otherwise unremarkable. Patient admitted and placed on bowel rest, IVF, electrolyte replacement, and PRN antiemetics. Diet was advanced and nausea and vomiting persisted. RUQ US obtained showing a gallbladder polyp but otherwise unremarkable. GI consulted for further evaluation. He underwent HIDA scan on 12/22 that was normal. Diet advanced and he was able to tolerate GI soft diet without nausea nausea, vomiting or abdominal discomfort. Suspect symptoms are related to cannabinoid hyperemesis syndrome. Counseled on absolute cessation of THC. He remained hemodynamically stable on room air and was eager for discharge home. Advised to follow up with GI office in 2 weeks. HIV test obtained due to weight loss and results are pending, will call patient with results when they return. He was also noted to have pulmonary nodules incidentally for which he should have repeat CT chest in 2-3 months as outpatient for further evaluation. Transitions of Care Critical Issues: PCP in 1-2 weeks, GI clinic in 2 weeks, CT chest in 2-3 months LABS AND PROCEDURES PENDING AT DISCHARGE: No pending results. INCIDENTAL OR ACTIONABLE FINDING: Pulmonary nodules on CT chest, needs f/u CT chest in 2-3 months PATIENT CONDITION AT DISCHARGE: Stable DISCHARGE DISPOSITION: Home/Self Care Discharge Physical Exam: VITAL SIGNS: BP 116/87 Pulse (!) 54 Temp 36.7 ?C (98.1 ?F) (Oral) Resp 18 Ht 175.3 cm (5' 9) Wt 58.9 kg (129 lb 12.8 oz) SpO2 98% BMI 19.17 kg/m? GENERAL: Alert, no distress, cooperative. He is thin SKIN: Skin color, texture, turgor normal. No rashes or lesions. HEAD/SINUSES: No significant findings. AT/NC EYES: Anicteric, EOMI OROPHARYNX: MMM no oral thrush noted LUNGS: Lungs clear to auscultation, good diaphragmatic excursion CARDIAC: Normal S1 and S2; no rubs, murmurs, or gallops ABDOMEN: Abdomen soft, non-tender, BS present EXTREMITIES: Extremities normal, no deformities, edema, clubbing or skin discoloration. WOUND/SURGICAL SITE CARE: None DIET: Resume pre-hospital diet ACTIVITY: Resume pre-hospital activity ALLERGIES No Known Allergies DISCHARGE MEDICATION: Current Discharge Medication List START taking these medications pantoprazole DR (PROTONIX) 40 mg Take 40 mg by mouth DAILY (6 AM). Qty: 30 tablet Refills: 2 CONTINUE these medications which have NOT CHANGED ondansetron orally disintegrating (ZOFRAN ODT) 4 mg Take 4 mg by mouth every 4 hours as needed for Nausea/Vomiting. Qty: 8 tablet Refills: 0 ondansetron (ZOFRAN) 4 mg Take 4 mg by mouth every 8 hours as needed. cholecalciferol (Vitamin D3) (VITAMIN D3) 50,000 Units Take 50,000 Units by mouth one time a week. Qty: 12 capsule Refills: 0 Associated Diagnoses:Vitamin D deficiency FLUoxetine (PROzac) 20 mg Take 20 mg by mouth once daily. For anxiety Qty: 90 capsule Refills: 1 Associated Diagnoses:АЛЕКСАНДР (generalized anxiety disorder) STOP taking these medications famot (more content not included)... Normal [facility] CONSULT PROGon 12-22-2020 CONSULT PROG HNO ID: [id number] Author: Faye Jain Service: Gastroenterology Author Type: Physician Type: Consult Progress Note Filed: 12/22/2020 3:20 PM Note Text: GASTROENTEROLOGY CONSULT PROGRESS NOTE Patient Name: Phuong Garcia SERVICE DATE: December 22, 2020 SERVICE TIME: 12:58 PM ASSESSMENT 1. Recurrent nausea and vomiting - possible causes would include cannabinoid hyperemesis syndrome, biliary versus other 2. Leukocytosis -?resolved. Possibly reactive. 3.?Abnormal weight loss 4.?Small hiatal hernia ? PLAN - Advance to low fat, GI soft diet - F/U results of HIDA scan w/ CCK completed this am - Protonix 40 mg po daily - Discussed continued THC cessation - Monitor CBC, CMP - F/U HIV - Await EGD path?from?outpatient?EGD Patient seen and examined. Discussed with mid level provider. [place] findings confirmed. Plan as outlined. Doing ok. Has been ambulating hallway. Ate 10 [place] without any abd pain, nausea or vomiting. HIDA scan was normal with EF 92%. Feels wells to go home. Again advised complete THC cessation. F/up in office. Faye Jain MD December 22, 2020 3:17 PM INTERVAL HPI: States is hungry for rwandan fries this am. Denies abdominal pain, n/v. Last emesis was on Tuesday. Tolerating [place]. Passed mushy stool this am. Had HIDA scan this am- results pending. PHYSICAL EXAM: Patient Vitals for the past 24 hrs: BP Temp Temp src Pulse Resp SpO2 12/22/20 0725 116/87 36.7 ?C (98.1 ?F) Oral (!) 54 18 98 % 12/22/20 0133 127/81 36.7 ?C (98.1 ?F) Oral 66 18 99 % 12/21/20 1513 122/73 36.3 ?C (97.3 ?F) Oral 67 16 98 % GENERAL: Alert and oriented x 3. Appears comfortable. NAD HEENT: No pallor. No scleral icterus LUNGS: Clear to auscultation anteriorly CARDIAC: RRR ABDOMEN: Soft. Non distended. Non tender. Bowel sounds normal. No guarding or rebound tenderness. EXTREMITIES: No edema to HEATHER lower extremities ? LABS: CBC, Coags, BMP, Mg, Phos Recent Labs 12/22/2051112/21/2052312/20/20 0642 WBC 8.68 10.98 8.99 HB 13.3 13.0 12.9* HCT 39.3 38.3* 38.1* PLT 177 180 185 NA 141 138 140 K 3.9 3.2* 3.6* CHLOR 106* 104 107* CO2 27 22 24 BUN 7* 8* 11 CREAT 1.12 1.04 1.07 GLUC 89 84 85 CA 8.7 8.7 8.8 MG 1.8 1.7 1.8 Liver Function, Amylase, AND Lipase Recent Labs 12/22/20 0512/21/20 0512/20/20 0642 TPROT 6.3 6.3 6.5 ALB 4.0 4.1 4.2 ALT 8* 10 11 AST 8* 10* 12* ALKPHOS 38 33* 36* TBILI 1.3 1.1 1.0 MEDICATIONS: Current Facility-Administered Medications Medication Dose Route Frequency - FLUoxetine 20 mg cap(s) (PROzac) 20 mg ORAL DAILY - sodium chloride 0.9 % (flush) 3-5 mL (BD POSIFLUSH) 3-5 mL INTRAVENOUS q 12 H - pantoprazole DR 40 mg tab(s) (PROTONIX) 40 mg ORAL DAILY (6 AM) - melatonin 6 mg tab(s) 6 mg ORAL HS PRN - prochlorperazine 10 mg injection (COMPAZINE) 10 mg INTRAVENOUS q 6 H PRN - diphenhydrAMINE 25 mg injection (BENADRYL) 25 mg INTRAVENOUS q 6 H PRN - NaCl 0.9% iv infusion 75 mL/hr INTRAVENOUS CONTINUOUS ? MISC LABS Component Latest Ref Rng AND Units 11/05/2020 Phencyclidine Negative Negative Benzodiazepines Urine Negative Negative Cocaine Urine Negative Negative Amphetamines Negative Negative THC Negative Preliminary positive. (A) Opiates Negative Negative Barbiturates Negative Negative Oxycodone, Urine Negative Negative Hemoglobin A1C 4.3 - 5.6 % 5.5 Estimated Average Glucose mg/dL 111 Troponin T 0.000 - 0.029 ng/mL <0.010 NT Pro BNP <125 pg/mL 29 ? Component Latest Ref Rng AND Units 12/20/2020 Phencyclidine Negative Negative Benzodiazepines Urine Negative Negative Cocaine Urine Negative Negative Amphetamines Negative Negative THC Negative Preliminary positive. (A) Opiates Negative Negative Barbiturates Negative Negative Oxycodone, Urine Negative Negative ? RADIOLOGY? 11/05/20 CT A/P IMPRESSION:? 1. No?acute process within the abdomen or pelvis.? 2.?Note is made of prominent vessels within the inguinal canals extending into the scrotum, varicoceles considered. Further evaluation with ultrasound may be obtained as clinically indicated. 3.?Low-attenuation lesion within the liver measuring 3 mm, benign etiology suspected. 4.?Small hiatal hernia.? ? 12/19/20 CT A/P IMPRESSION: No acute abnormality ? 12/19/20 RUQ US 1. 2 mm gallbladder polyp 2. Otherwise normal GB, biliary tree, liver ? MOST RECENT EGD: 12/18/20 (Becka Jain MD). N/V, weight loss, early satiety 1. 1 cm hiatal hernia 2. Irregular Z-line Bx: pending ? MOST RECENT COLONOSCOPY No previous ? SIGNATURE: Chacha Smith APRN.CAUSTIC OPERATOR DATE: December 22, 2020 TIME: 12:58 PM Normal [facility] Comp Metabolic Panelon 12-22 Albumin [Mass/Vol] 4.0 g/dL Normal 3.9-4.9 [facility] Comment on above: Performed By: #### C BC, CMP, MG1 #### [facility] [address] [place] [address] ALP [Catalytic activity/Vol] 38 U/L Normal 38-113 [facility] Comment on above: Performed By: #### C BC, CMP, MG1 #### [facility] [address] ALT [Catalytic activity/Vol] 8 U/L Low 10-54 [facility] Comment on above: Performed By: #### C BC, CMP, MG1 #### [facility] [address] [place] [address] Anion gap [Moles/Vol] 8 mmol/L Low 9-18 [facility] Comment on above: Performed By: #### C BC, CMP, MG1 #### [facility] [address] [place] [address] AST [Catalytic activity/Vol] 8 U/L Low 14-40 [facility] Comment on above: Performed By: #### C BC, CMP, MG1 #### [facility] [address] [place] [address] Bilirubin [Mass/Vol] 1.3 mg/dL Normal 0.2-1.3 [facility] Comment on above: Performed By: #### C BC, CMP, MG1 #### [facility] [address] [place] [address] Calcium [Mass/Vol] 8.7 mg/dL Normal 8.5-10.2 [facility] Comment on above: Performed By: #### C BC, CMP, MG1 #### [facility] [address] [place] [address] Chloride [Moles/Vol] 106 mmol/L High 97-105 [facility] Comment on above: Performed By: #### C BC, CMP, MG1 #### [facility] [address] [place] [address] CO2 [Moles/Vol] 27 mmol/L Normal 22-30 [facility] Comment on above: Performed By: #### C BC, CMP, MG1 #### [facility] [address] [place] [address] Creatinine [Mass/Vol] 1.12 mg/dL Normal 0.73-1.22 [facility] Comment on above: Performed By: #### C BC, CMP, MG1 #### [facility] [address] [place] [address] eGFR- Amer. >60 Normal [facility] Comment on above: Performed By: #### C BC, CMP, MG1 #### [facility] [address] [facility] [phone] eGFR-All Other Races >[address] [facility] Comment on above: Result Comment: eGFR (Estimated GFR) Units of measure: mL/min/1.73 meters squared eGFR is derived from the reexpressed MDRD Study equation using the following parameters: serum creatinine, age, gender and race. The creatinine assay has been calibrated to be traceable to IDMS. An eGFR <60 mL/min/1.73m2 for >3 months is consistent with chronic kidney disease. Refer to KDOQI guidelines for clinical interpretation. In patients with unstable renal function, e.g. those with acute kidney injury, the eGFR may not accurately reflect actual GFR. Performed By: #### C SRUTHI ROWLEY MG1 #### [facility] [address] [facility] [phone] Glucose [Mass/Vol] 89 mg/dL Normal 74-99 [facility] Comment on above: Result Comment: The [place] Diabetes [employer] (ADA) provides guidance for cutoff values for fasting glucose and random glucose. The ADA defines fasting as no caloric intake for at least 8 hours. Fasting plasma glucose results between 100 to 125 mg/dL indicate increased risk for diabetes (prediabetes). Fasting plasma glucose results greater than or equal to 126 mg/dL meet the criteria for diagnosis of diabetes. In the absence of unequivocal hyperglycemia, results should be confirmed by repeat testing. In a patient with classic symptoms of hyperglycemia or hyperglycemic crisis, random plasma glucose results greater than or equal to 200 mg/dL meet the criteria for diagnosis of diabetes. Reference: Standards of Medical Care in Diabetes 2016, [place] [employer]. Diabetes Care. 2016.39(Suppl 1). Performed By: #### C SRUTHI ROWLEY, MG1 #### [facility] [address] [facility] [phone] Potassium [Moles/Vol] 3.9 mmol/L Normal 3.7-5.1 [facility] Comment on above: Performed By: #### C SRUTHI ROWLEY, MG1 #### [facility] [address] [facility] [phone] Protein [Mass/Vol] 6.3 g/dL Normal 6.3-8.0 [facility] Comment on above: Performed By: #### C BC, CMP, MG1 #### [facility] [address] [facility] [phone] Sodium [Moles/Vol] 141 mmol/L Normal 136-144 [facility] Comment on above: Performed By: #### C AMRIK CMP, MG1 #### [facility] [address] [place] [phone] Urea nitrogen [Mass/Vol] 7 mg/dL Low 9-24 [facility] Comment on above: Performed By: #### Vargas ROWLEY CMP, MG1 #### [facility] [address] [place] [phone] [id number] Ag +[id number] Abon 12-22 HIV 12 Ag/Ab Non-Reactive Normal Non Reactive [facility] Comment on above: Performed By: #### C SRUTHI ROWLEY, MG1 #### [facility] [address] [place] [phone] HIV-1/2 Antibody Normal [facility] Comment on above: Result Comment: Test Not Indicated Negative No evidence of HIV-1 or HIV-2 infection. Should recent infection be suspected, repeat testing may be considered 2-3 weeks after this draw. HIV Information: [place] Rev. Code 3701.243(E): This information has been disclosed to you from confidential records protected from disclosure by state law. You shall make no further disclosure of this information without the specific, written, and informed release of the individual to whom it pertains or as otherwise permitted by state law. A general authorization for the release of medical or other information is not sufficient for the purpose of the release of HIV test results or diagnoses. Performed By: #### C SRUTHI ROWLEY, MG1 #### [facility] [address] [place] [phone] Magnesiumon 12-22-2020 Magnesium [Mass/Vol] 1.8 mg/dL Normal 1.7-2.3 [facility] Comment on above: Performed By: #### C AMRIK CMP, MG1 #### [facility] [address] [place] [phone] NM HEPATOBILIARY W EF AND/OR RXon 12-22-2020 NM HEPATOBILIARY W EF AND/OR RX * * *Final Report* * * DATE OF EXAM: Dec 22 2020 12:50PM MDN [id number] - NM HEPATOBILIARY W EF AND/OR RX / PROCEDURE REASON: Nausea, vomiting * * * * Physician Interpretation * * * * HEPATOBILIARY SCAN WITH POST-CCK GALLBLADDER EJECTION FRACTION: HISTORY: Nausea. Vomiting. TECHNIQUE: 5.7 mCi Tc-99m Choletec IV, followed by 60 minutes of dynamic imaging of the abdomen. 60 minutes after the radiotracer injection, the patient received 1.18 micrograms Sincalide (CCK) IV, followed by approximately 30 minutes of additional dynamic imaging. RESULT: There is prompt uptake and clearance of activity by the liver, which is normal in configuration. Major intra- and extrahepatic biliary ducts are visualized. Gallbladder activity is visualized by 21 minutes post injection, indicating cystic duct patency. Proximal small bowel activity is noted by 5 minutes post injection, indicating biliary patency. After CCK was administered IV, the calculated gallbladder ejection fraction was 92% (normal range, >35%). There is no evidence for duodenogastric reflux of biliary activity. IMPRESSION: Normal gallbladder response to CCK. No scintigraphic evidence to support the diagnosis of either acute or chronic cholecystitis. No evidence for duodenogastric biliary reflux. Wad Blanking Press Adjuster: [facility] Transcribe Date/Time: Dec 22 2020 1:53P Dictated by : FLORES HANLEY MD This examination was interpreted and the report reviewed and electronically signed by: FLORES HANLEY MD on Dec 22 2020 1:54PM EST [id number] Normal [facility] CBCon 12-21-2020 Absolute nRBC <0.01 Normal <0.01 [facility] Comment on above: Performed By: #### C SRUTHI ROWLEY MG1 #### [facility] [address] [place], [place] [phone] Erythrocyte distribution width (RBC) [Ratio] 11.5 % Normal 11.5-15.0 [facility] Comment on above: Performed By: #### C SRUTHI ROWLEY MG1 #### [facility] [address] [place] [address] Hematocrit (Bld) [Volume fraction] 38.3 % Low 39.0-51.0 [facility] Comment on above: Performed By: #### C SRUTHI ROWLEY MG1 #### [facility] [address] [place] [phone] Hemoglobin (Bld) [Mass/Vol] 13.0 g/dL Normal 13.0-17.0 [facility] Comment on above: Performed By: #### Vargas BC CMP, MG1 #### [facility] [address] [place] [phone] MCH 29.6 pG Normal 26.0-34.0 [facility] Comment on above: Performed By: #### Vargas BC CMP, MG1 #### [facility] [address] [place] [phone] MCHC (RBC) [Mass/Vol] 33.9 g/dL Normal 30.5-36.0 [facility] Comment on above: Performed By: #### Vargas BC CMP, MG1 #### [facility] [address] [place] [address] MCV (RBC) [Entitic vol] 87.2 fL Normal 80.0-100.0 [facility] Comment on above: Performed By: #### Vargas BC CMP, MG1 #### [facility] [address] [place] [address] Platelet mean volume (Bld) [Entitic vol] 11.3 fL Normal 9.0-12.7 [facility] Comment on above: Performed By: #### Vargas BC CMP, MG1 #### [facility] [address] [place], [place] [phone] Platelets (Bld) [#/Vol] 180 10*3/uL Normal 150-400 [facility] Comment on above: Performed By: #### Vargas BC, CMP, MG1 #### [facility] [address] [place] [phone] RBC (Bld) [#/Vol] 4.39 10*6/uL Normal 4.20-6.00 [facility] Comment on above: Performed By: #### Vargas BC, CMP, MG1 #### [facility] [address] [place], [place] [phone] WBC (Bld) [#/Vol] 10.98 10*3/uL Normal 3.70-11.00 [facility] Comment on above: Performed By: #### Vargas BC, CMP, MG1 #### [facility] [address] CONSULT PROGon 12-21-2020 CONSULT PROG HNO ID: [id number] Author: Faye Jain Service: Gastroenterology Author Type: Physician Type: Consult Progress Note Filed: 12/21/2020 6:30 PM Note Text: GASTROENTEROLOGY CONSULT PROGRESS NOTE Patient Name: Phuong Garcia SERVICE DATE: December 21, 2020 SERVICE TIME: 12:18 PM ASSESSMENT 1. Recurrent nausea and vomiting - possible causes would include cannabinoid hyperemesis syndrome, biliary versus other 2. Leukocytosis - resolved. Possibly reactive 3.?Abnormal weight loss 4.?Small hiatal hernia ? PLAN - Protonix 40 mg po daily - Advance to full liquids - HIDA scan w/ CCK in am - Discussed continued THC cessation - Monitor CBC, CMP - Check HIV - Await EGD path?from?outpatient?EGD Discussed with mid level provider. [place] findings confirmed. Plan as outlined. Faye Jain MD December 21, 2020 6:30 PM INTERVAL HPI: Mother at bedside. Patient with recurrent vomiting with chicken noodle soup yesterday for lunch and had issues with N/V, diffuse abdominal cramping for at least 4-5 hours thereafter. It finally subsided and he hasn't had any more N/V since that time. Is tolerating clears at this point. He now admits to having marijuana this past Tuesday and mother does confirm he smokes it daily. PHYSICAL EXAM: Patient Vitals for the past 24 hrs: BP Temp Temp src Pulse Resp SpO2 12/21/20 0756 124/78 36.9 ?C (98.4 ?F) Oral 60 16 97 % 12/21/20 0458 122/74 37.1 ?C (98.8 ?F) Oral 77 17 97 % 12/20/20 2325 109/66 37.2 ?C (99 ?F) Oral 72 18 98 % GENERAL: Alert and oriented x 3. Appears comfortable. NAD HEENT: No pallor. No scleral icterus LUNGS: Clear to auscultation anteriorly CARDIAC: RRR ABDOMEN: Soft. Non distended. Non tender. Bowel sounds normal. No guarding or rebound tenderness. EXTREMITIES: No edema to HEATHER lower extremities MEDICATIONS: Current Facility-Administered Medications Medication Dose Route Frequency - FLUoxetine 20 mg cap(s) (PROzac) 20 mg ORAL DAILY - sodium chloride 0.9 % (flush) 3-5 mL (BD POSIFLUSH) 3-5 mL INTRAVENOUS q 12 H - pantoprazole DR 40 mg tab(s) (PROTONIX) 40 mg ORAL DAILY (6 AM) - melatonin 6 mg tab(s) 6 mg ORAL HS PRN - prochlorperazine 10 mg injection (COMPAZINE) 10 mg INTRAVENOUS q 6 H PRN - diphenhydrAMINE 25 mg injection (BENADRYL) 25 mg INTRAVENOUS q 6 H PRN - NaCl 0.9% iv infusion 75 mL/hr INTRAVENOUS CONTINUOUS - potassium chloride iv piggyback 20 mEq/100 mL 20 mEq INTRAVENOUS ONCE LABS: CBC, Coags, BMP, Mg, Phos Recent Labs 12/21/20 0524 12/20/20 0642 12/19/20 0434 WBC 10.98 8.99 11.68* HB 13.0 12.9* 13.7 HCT 38.3* 38.1* 39.8 PLT 180 185 192 NA 138 140 138 K 3.2* 3.6* 3.6* CHLOR 104 107* 104 CO2 22 24 23 BUN 8* 11 8* CREAT 1.04 1.07 0.99 GLUC 84 85 108* CA 8.7 8.8 8.9 MG 1.7 1.8 1.7 Liver Function, Amylase, AND Lipase Recent Labs 12/21/20 0524 12/20/20 0642 12/19/20 0434 12/18/20 2330 12/18/20 2330 TPROT 6.3 6.5 7.2 < > 8.3* ALB 4.1 4.2 4.5 < > 5.4* ALT 10 11 12 < > 14 AST 10* 12* 11* < > 14 ALKPHOS 33* 36* 40 < > 45 TBILI 1.1 1.0 1.0 < > 1.1 LIPASE -- -- -- -- 23 < > = values in this interval not displayed. MISC LABS Component Latest Ref Rng AND Units 11/05/2020 Phencyclidine Negative Negative Benzodiazepines Urine Negative Negative Cocaine Urine Negative Negative Amphetamines Negative Negative THC Negative Preliminary positive. (A) Opiates Negative Negative Barbiturates Negative Negative Oxycodone, Urine Negative Negative Hemoglobin A1C 4.3 - 5.6 % 5.5 Estimated Average Glucose mg/dL 111 Troponin T 0.000 - 0.029 ng/mL <0.010 NT Pro BNP <125 pg/mL 29 ? Component Latest Ref Rng AND Units 12/20/2020 Phencyclidine Negative Negative Benzodiazepines Urine Negative Negative Cocaine Urine Negative Negative Amphetamines Negative Negative THC Negative Preliminary positive. (A) Opiates Negative Negative Barbiturates Negative Negative Oxycodone, Urine Negative Negative ? RADIOLOGY? 11/05/20 CT A/P IMPRESSION:? 1. No?acute process within the abdomen or pelvis.? 2.?Note is made of prominent vessels within the inguinal canals extending into the scrotum, varicoceles considered. Further evaluation with ultrasound may be obtained as clinically indicated. 3.?Low-attenuation lesion within the liver measuring 3 mm, benign etiology suspected. 4.?Small hiatal hernia.? ? 12/19/20 CT A/P IMPRESSION: No acute abnormality ? 12/19/20 RUQ US 1. 2 mm gallbladder polyp 2. Otherwise normal GB, biliary tree, liver ? MOST RECENT EGD: 12/18/20 (Becka Jain MD). N/V, weight loss, early satiety 1. 1 cm hiatal hernia 2. Irregular Z-line ? MOST RECENT COLONOSCOPY No previous SIGNATURE: Peggy Mayes, APPLICATION PACKAGING SPECIALIST DATE: December 21, 2020 TIME: 12:18 PM [facility] CONSULT PROG HNO ID: [id number] Author: Tess Espino Service: Hospital Medicine Author Type: Nurse Practitioner Type: Consult Progress Note Filed: 12/21/2020 10:47 AM Note Text: DEPARTMENT OF HOSPITAL MEDICINE PROGRESS NOTE SERVICE DATE: 12/21/2020 SERVICE TIME: 10:42 AM Hospital Medicine/Primary Attending: Zenia Ch NIGHT AND WEEKEND COVERAGE: [place] COVERAGE: Days: [phone], please page attending physician. Nights: [phone], please page [place] Hospitalist Night coverage pager [phone]. Subjective CC: Intractable nausea and vomiting INTERVAL HPI: Reports nausea this morning without emesis. Nausea resolved after antiemetics administered. Denies any abdominal pain. Has not had anything to eat or drink yet today. Encouraged to try clear liquids and will advance diet as tolerated. Denies any fever or chills. No chest pain or shortness of breath. Current Facility-Administered Medications Medication Dose Route Frequency - FLUoxetine 20 mg cap(s) (PROzac) 20 mg ORAL DAILY - sodium chloride 0.9 % (flush) 3-5 mL (BD POSIFLUSH) 3-5 mL INTRAVENOUS q 12 H - pantoprazole DR 40 mg tab(s) (PROTONIX) 40 mg ORAL DAILY (6 AM) - melatonin 6 mg tab(s) 6 mg ORAL HS PRN - prochlorperazine 10 mg injection (COMPAZINE) 10 mg INTRAVENOUS q 6 H PRN - diphenhydrAMINE 25 mg injection (BENADRYL) 25 mg INTRAVENOUS q 6 H PRN - NaCl 0.9% iv infusion 75 mL/hr INTRAVENOUS CONTINUOUS - potassium chloride iv piggyback 20 mEq/100 mL 20 mEq INTRAVENOUS ONCE - potassium chloride ER 40 mEq tab(s) (K-DUR, KLOR-CON) 40 mEq ORAL ONCE Objective PHYSICAL EXAM: BP 124/78 Pulse 60 Temp (Src) 98.4 (Oral) Resp 16 Ht 5' 9 (1.75m) Wt 129 lb 12.8 oz (58.9kg) SpO2 97% BMI 19.16 kg/(m2). O2 Therapy: Room Air Physical Exam Performed GENERAL: Alert, no distress, cooperative. He is thin SKIN: Skin color, texture, turgor normal. No rashes or lesions. HEAD/SINUSES: No significant findings. AT/NC EYES: Anicteric sclera, EOMI OROPHARYNX: MMM, no oral thrush or lesions noted LUNGS: Lungs clear to auscultation, good diaphragmatic excursion CARDIAC: Normal S1 and S2; no rubs, murmurs, or gallops ABDOMEN: Abdomen soft, non-tender, BS present EXTREMITIES: Extremities normal, no deformities, edema, clubbing or skin discoloration. Lines, Drains, and Airways Line Peripheral 12/19/20 1530 Left Forearm 20 Gauge 1 day Reviewed lines and needs to be continued: REASONS: Intravenous fluids DATA: Diagnostic tests reviewed for today's visit: Most recent labs Most recent imaging Most recent EKG Recent Labs 12/21/20 0524 12/20/20 0642 12/19/20 0434 WBC 10.98 8.99 11.68* HB 13.0 12.9* 13.7 PLT 180 185 192 NA 138 140 138 K 3.2* 3.6* 3.6* CO2 22 24 23 BUN 8* 11 8* CREAT 1.04 1.07 0.99 AST 10* 12* 11* ALT 10 11 12 TBILI 1.1 1.0 1.0 ALKPHOS 33* 36* 40 Problem List: Intractable nausea and vomiting Cannabinoid hyperemesis syndrome -- Presented for evaluation of intractable nausea and vomiting over the past few weeks -- Evaluated by GI as outpatient, underwent EGD 12/17 that was unremarkable -- Had CT A+P on admission that showed no acute abnormality -- RUQ US done showing tiny gallbladder polyp -- Known history of smoking/vaping THC -- Suspect intractable N/V is secondary to CHS -- PRN antiemetics -- Gentle IVF -- Did not tolerate GI soft diet yesterday, continue CLD and advance as tolerated -- GI team following, appreciate input and recommendations -- Continue PPI -- If symptoms persist, will obtain HIDA scan w/ CKK Hypokalemia -- K 3.2, secondary to GI losses -- Replaced orally and IV -- Check potassium level in am Solid lung nodules -- CT chest showing solid pulmonary nodules measuring less that 6mm -- Needs repeat CT chest in 2-3 months as outpatient either by PCP or Pulm clinic -- Counseled regarding vaping and THC cessation Medication and Non-Pharmacologic VTE Prophylaxis/Anticoagulan ts 12/19/20 0430 pneumatic compression stockings (ms,nh) 12/19/20 0430 activity - mobilize patient ([place]) VTE Prophylaxis: VTE prophylaxis appropriate Disposition: To be determined Plan of care discussed with Provider, RN, Patient, and Dr. Ch Plan communicated to: Documentation from previous visit 12/20 has been copied from myself and pasted. Documentation has been reviewed and edited as necessary for today's visit. SIGNATURE: Tess Espino APRN.CNP PATIENT NAME: Phuong Garcia DATE: December 21, 2020 TIME: 10:47 AM [facility] Comp Metabolic Panelon 12-21 Albumin [Mass/Vol] 4.1 g/dL Normal 3.9-4.9 [facility] Comment on above: Performed By: #### C BC, CMP, MG1 #### [facility] [address] [place] [address] ALP [Catalytic activity/Vol] 33 U/L Low 38-113 [facility] Comment on above: Performed By: #### C BC, CMP, MG1 #### [facility] [address] [place] [address] ALT [Catalytic activity/Vol] 10 U/L Normal 10-54 [facility] Comment on above: Performed By: #### C BC, CMP, MG1 #### [facility] [address] [place] [address] Anion gap [Moles/Vol] 12 mmol/L Normal 9-18 [facility] Comment on above: Performed By: #### C BC, CMP, MG1 #### [facility] [address] [place] [address] AST [Catalytic activity/Vol] 10 U/L Low 14-40 [facility] Comment on above: Performed By: #### C BC, CMP, MG1 #### [facility] [address] [place] [address] Bilirubin [Mass/Vol] 1.1 mg/dL Normal 0.2-1.3 [facility] Comment on above: Performed By: #### C BC, CMP, MG1 #### [facility] [address] [place] [address] Calcium [Mass/Vol] 8.7 mg/dL Normal 8.5-10.2 [facility] Comment on above: Performed By: #### C BC, CMP, MG1 #### [facility] [address] [place] [address] Chloride [Moles/Vol] 104 mmol/L Normal 97-105 [facility] Comment on above: Performed By: #### C BC, CMP, MG1 #### [facility] [address] [place] [address] CO2 [Moles/Vol] 22 mmol/L Normal 22-30 [facility] Comment on above: Performed By: #### C BC, CMP, MG1 #### [facility] [address] [facility] [phone] Creatinine [Mass/Vol] 1.04 mg/dL Normal 0.73-1.22 [facility] Comment on above: Performed By: #### C SRUTHI ROWLEY, MG1 #### [facility] [address] [place] [phone] eGFR- Amer. >60 Normal [facility] Comment on above: Performed By: #### C SRUTHI ROWLEY, MG1 #### [facility] [address] eGFR-All Other Races >[address] [facility] Comment on above: Result Comment: eGFR (Estimated GFR) Units of measure: mL/min/1.73 meters squared eGFR is derived from the reexpressed MDRD Study equation using the following parameters: serum creatinine, age, gender and race. The creatinine assay has been calibrated to be traceable to IDMS. An eGFR <60 mL/min/1.73m2 for >3 months is consistent with chronic kidney disease. Refer to KDOQI guidelines for clinical interpretation. In patients with unstable renal function, e.g. those with acute kidney injury, the eGFR may not accurately reflect actual GFR. Performed By: #### C SRUTHI ROWLEY, MG1 #### [facility] [address] [place] [phone] Glucose [Mass/Vol] 84 mg/dL Normal 74-99 [facility] Comment on above: Result Comment: The [place] Diabetes Association (ADA) provides guidance for cutoff values for fasting glucose and random glucose. The ADA defines fasting as no caloric intake for at least 8 hours. Fasting plasma glucose results between 100 to 125 mg/dL indicate increased risk for diabetes (prediabetes). Fasting plasma glucose results greater than or equal to 126 mg/dL meet the criteria for diagnosis of diabetes. In the absence of unequivocal hyperglycemia, results should be confirmed by repeat testing. In a patient with classic symptoms of hyperglycemia or hyperglycemic crisis, random plasma glucose results greater than or equal to 200 mg/dL meet the criteria for diagnosis of diabetes. Reference: Standards of Medical Care in Diabetes 2016, [place] [employer] Association. Diabetes Care. 2016.39(Suppl 1). Performed By: #### C SRUTHI ROWLEY, MG1 #### [facility] [address] [place] [address] Potassium [Moles/Vol] 3.2 mmol/L Low 3.7-5.1 [facility] Comment on above: Performed By: #### C BC CMP, MG1 #### [facility] [address] [place] [address] Protein [Mass/Vol] 6.3 g/dL Normal 6.3-8.0 [facility] Comment on above: Performed By: #### C BC CMP, MG1 #### [facility] [address] [place] [address] Sodium [Moles/Vol] 138 mmol/L Normal 136-144 [facility] Comment on above: Performed By: #### C BC CMP, MG1 #### [facility] [address] [place] [address] Urea nitrogen [Mass/Vol] 8 mg/dL Low 9-24 [facility] Comment on above: Performed By: #### C BC CMP, MG1 #### [facility] [address] [place] [address] Magnesiumon 12-21-2020 Magnesium [Mass/Vol] 1.7 mg/dL Normal 1.7-2.3 [facility] Comment on above: Performed By: #### C BC CMP, MG1 #### [facility] [address] [place] [address] CBCon 12-20-2020 Absolute nRBC <0.01 Normal <0.01 [facility] Comment on above: Performed By: #### C BC CMP, MG1 #### [facility] [address] [place] [address] Erythrocyte distribution width (RBC) [Ratio] 11.6 % Normal 11.5-15.0 [facility] Comment on above: Performed By: #### C BC, CMP, MG1 #### [facility] [address] [place] [address] Hematocrit (Bld) [Volume fraction] 38.1 % Low 39.0-51.0 [facility] Comment on above: Performed By: #### C BC, CMP, MG1 #### [facility] [address] [place] [address] Hemoglobin (Bld) [Mass/Vol] 12.9 g/dL Low 13.0-17.0 [facility] Comment on above: Performed By: #### C BC, CMP, MG1 #### [facility] [address] [facility] [phone] MCH 30.1 pG Normal 26.0-34.0 [facility] Comment on above: Performed By: #### C BC, CMP, MG1 #### [facility] [address] [facility] [phone] MCHC (RBC) [Mass/Vol] 33.9 g/dL Normal 30.5-36.0 [facility] Comment on above: Performed By: #### C BC, CMP, MG1 #### [facility] [address] [place] [phone] MCV (RBC) [Entitic vol] 89.0 fL Normal 80.0-100.0 [facility] Comment on above: Performed By: #### C BC, CMP, MG1 #### [facility] [address] [place] [phone] Platelet mean volume (Bld) [Entitic vol] 11.1 fL Normal 9.0-12.7 [facility] Comment on above: Performed By: #### C BC, CMP, MG1 #### [facility] [address] [place] [phone] Platelets (Bld) [#/Vol] 185 10*3/uL Normal 150-400 [facility] Comment on above: Performed By: #### C BC, CMP, MG1 #### [facility] [address] [facility] [phone] RBC (Bld) [#/Vol] 4.28 10*6/uL Normal 4.20-6.00 [facility] Comment on above: Performed By: #### C BC, CMP, MG1 #### [facility] [address] [facility] [phone] WBC (Bld) [#/Vol] 8.99 10*3/uL Normal 3.70-11.00 [facility] Comment on above: Performed By: #### C BC, CMP, MG1 #### [facility] [address] [facility] [phone] CONSULT PROGon 12-20-2020 CONSULT PROG HNO ID: [id number] Author: Tess Espino Service: Hospital Medicine Author Type: Nurse Practitioner Type: Consult Progress Note Filed: 12/20/2020 3:32 PM Note Text: -------- Attestation signed by Zenia Ch at 12/20/2020 11:01 PM [facility] STAFF PHYSICIAN NOTE OF PERSONAL INVOLVEMENT IN CARE I have reviewed the progress note obtained and documented by the nurse practitioner and I personally participated in the walton components. I have discussed the case and management of the patient's care. The following comments revise or confirm relevant walton components of the note. Patient and mother were explained patient will need close follow up with PCP/Pulmonary for Pulmonary nodules. PCP/Pulmonary will need to repeat CT chest outpatient in 2-3 months. STAFF SIGNATURE: [place] [phone] 12/20/2020 11:01 PM -------- DEPARTMENT OF HOSPITAL MEDICINE PROGRESS NOTE SERVICE DATE: 12/20/2020 SERVICE TIME: 10:58 AM Hospital Medicine/Primary Attending: Zenia Ch NIGHT AND WEEKEND COVERAGE: [place] COVERAGE: Days: [phone], please page attending physician. Nights: [phone], please page [place] Hospitalist Night coverage pager [phone]. Subjective CC: Intractable nausea and vomiting INTERVAL HPI: Patient seen and evaluated around 11am, he was feeling well without any nausea, vomiting or abdominal discomfort. Hoping for discharge later this afternoon. Diet was advanced from full liquids to GI soft and unfortunately around 1:00pm he began to experience nausea with large volume bilious emesis witnessed by myself. Discussed with GI team, will revert back to clear liquid diet and monitor overnight. PRN antiemetics placed (Compazine + diphenhydramine) as patient states zofran does not work for him. Current Facility-Administered Medications Medication Dose Route Frequency - FLUoxetine 20 mg cap(s) (PROzac) 20 mg ORAL DAILY - sodium chloride 0.9 % (flush) 3-5 mL (BD POSIFLUSH) 3-5 mL INTRAVENOUS q 12 H - pantoprazole DR 40 mg tab(s) (PROTONIX) 40 mg ORAL DAILY (6 AM) - melatonin 6 mg tab(s) 6 mg ORAL HS PRN - prochlorperazine 10 mg injection (COMPAZINE) 10 mg INTRAVENOUS q 6 H PRN - diphenhydrAMINE 25 mg injection (BENADRYL) 25 mg INTRAVENOUS q 6 H PRN - NaCl 0.9% iv infusion 75 mL/hr INTRAVENOUS CONTINUOUS Objective PHYSICAL EXAM: BP 138/88 Pulse 63 Temp (Src) 98.4 (Oral) Resp 18 Ht 5' 9 (1.75m) Wt 129 lb 12.8 oz (58.9kg) SpO2 97% BMI 19.16 kg/(m2). O2 Therapy: Room Air Physical Exam Performed GENERAL: Alert, no distress, cooperative on initial exam. Heaving/vomiting on re-evaluation. He is thin SKIN: Skin color, texture, turgor normal. No rashes or lesions. HEAD/SINUSES: No significant findings. AT/NC EYES: Anicteric sclera, EOMI OROPHARYNX: MMM, no oral thrush or lesions noted LUNGS: Lungs clear to auscultation, good diaphragmatic excursion CARDIAC: Normal S1 and S2; no rubs, murmurs, or gallops ABDOMEN: Abdomen soft, non-tender, BS present EXTREMITIES: Extremities normal, no deformities, edema, clubbing or skin discoloration. Lines, Drains, and Airways Line Peripheral 12/19/20 1530 Left Forearm 20 Gauge <1 day Reviewed lines and needs to be continued: REASONS: Intravenous fluids DATA: Diagnostic tests reviewed for today's visit: Most recent labs Most recent imaging Most recent EKG Recent Labs 12/20/20 0642 12/19/20 0434 12/18/20 2330 WBC 8.99 11.68* 13.45* HB 12.9* 13.7 14.7 PLT 185 192 212 NA 140 138 136 K 3.6* 3.6* 3.7 CO2 24 23 22 BUN 11 8* 10 CREAT 1.07 0.99 0.93 AST 12* 11* 14 ALT 11 12 14 TBILI 1.0 1.0 1.1 ALKPHOS 36* 40 45 Problem List: Intractable nausea and vomiting Cannabinoid hyperemesis syndrome -- Presented for evaluation of intractable nausea and vomiting over the past few weeks -- Evaluated by GI as outpatient, underwent EGD 12/17 that was unremarkable -- Had CT A+P on admission that showed no acute abnormality -- Known history of smoking/vaping THC -- Suspect intractable N/V is secondary to CHS -- PRN antiemetics -- Gentle IVF -- Did not tolerate GI soft diet, will revert back to clear liquids -- Monitor overnight -- GI team following, appreciate input and recommendations -- Continue PPI Solid lung nodules -- CT chest showing solid pulmonary nodules measuring less that 6mm -- Needs repeat CT chest in 12 months -- Counseled regarding vaping and THC cessation Medication and Non-Pharmacologic VTE Prophylaxis/Anticoagulan ts 12/19/20 0430 pneumatic compression stockings ([place] 12/19/20 0430 activity - mobilize patient ([place] VTE Prophylaxis: VTE prophylaxis appropriate Disposition: To be determined Plan of care discussed with Provider, RN, Patient, Consultants: GI team and Dr. Ch Plan communicated to: Famil (more content not included)... [facility] CONSULT PROG HNO ID: [id number] Author: Faye Jain Service: Gastroenterology Author Type: Physician Type: Consult Progress Note Filed: 12/20/2020 1:08 PM Note Text: GASTROENTEROLOGY CONSULT PROGRESS NOTE Patient Name: Phuong Garcia SERVICE DATE: December 20, 2020 SERVICE TIME: 10:52 AM ASSESSMENT 1. Recurrent nausea and vomiting - possible causes would include cannabinoid hyperemesis syndrome, biliary versus other 2. Leukocytosis - resolved. Possibly reactive 3. Abnormal weight loss 4. Small hiatal hernia ? PLAN - Protonix 40 mg po daily - Re-trial GI soft diet - Discussed continued THC cessation - If symptoms fail to resolve despite cessation of THC then should undertake HIDA scan w/ CCK - Monitor CBC, CMP - Check HIV - Await EGD path from outpatient EGD Patient seen and examined. Discussed with mid level provider. Walton findings confirmed. Plan as outlined. Reports feeling much better. Tolerating diet without any difficulties. Mother at bedside. Feels well to go home. F/up in office as outpatient. Strongly encouraged marijuana cessation. Faye Jain MD December 20, 2020 1:07 PM INTERVAL HPI: RUQ US with tiny GB polyp but o/w normal. Patient had episode of N/V after eating eggs yesterday am so was reverted to full liquids. Since that time he has had no further N/V. Has been tolerating full liquids w/o issue. Denies abdominal pain. Had a normal BM this am. PHYSICAL EXAM: Patient Vitals for the past 24 hrs: BP Temp Temp src Pulse Resp SpO2 12/20/20 0714 125/79 37.2 ?C (99 ?F) Oral (!) 55 18 100 % 12/20/20 0415 123/70 36.9 ?C (98.4 ?F) Oral (!) 57 18 96 % 12/20/20 0040 123/67 36.6 ?C (97.9 ?F) Oral (!) 55 16 98 % 12/19/20 2107 128/80 37 ?C (98.6 ?F) Oral (!) 55 18 99 % 12/19/20 1408 122/71 37.2 ?C (99 ?F) Oral 75 16 95 % GENERAL: Alert and oriented x 3. Appears comfortable. NAD HEENT: No pallor. No scleral icterus LUNGS: Clear to auscultation anteriorly CARDIAC: RRR ABDOMEN: Soft. Non distended. Non tender. Bowel sounds normal. No guarding or rebound tenderness. EXTREMITIES: No edema to HEATHER lower extremities MEDICATIONS: Current Facility-Administered Medications Medication Dose Route Frequency - FLUoxetine 20 mg cap(s) (PROzac) 20 mg ORAL DAILY - sodium chloride 0.9 % (flush) 3-5 mL (BD POSIFLUSH) 3-5 mL INTRAVENOUS q 12 H - pantoprazole DR 40 mg tab(s) (PROTONIX) 40 mg ORAL DAILY (6 AM) - NaCl 0.9% iv infusion 75 mL/hr INTRAVENOUS CONTINUOUS - melatonin 6 mg tab(s) 6 mg ORAL HS PRN LABS: CBC, Coags, BMP, Mg, Phos Recent Labs 12/20/20 0642 12/19/2043312/18/20 2330 WBC 8.99 11.68* 13.45* HB 12.9* 13.7 14.7 HCT 38.1* 39.8 41.8 PLT 185 192 212 NA 140 138 136 K 3.6* 3.6* 3.7 CHLOR 107* 104 96* CO2 24 23 22 BUN 11 8* 10 CREAT 1.07 0.99 0.93 GLUC 85 108* 126* CA 8.8 8.9 9.8 MG 1.8 1.7 -- Liver Function, Amylase, AND Lipase Recent Labs 12/20/2064112/19/2043312/18/20 2330 TPROT 6.5 7.2 8.3* ALB 4.2 4.5 5.4* ALT 11 12 14 AST 12* 11* 14 ALKPHOS 36* 40 45 TBILI 1.0 1.0 1.1 LIPASE -- -- 23 MISC LABS Component Latest Ref Rng AND Units 11/05/2020 Phencyclidine Negative Negative Benzodiazepines Urine Negative Negative Cocaine Urine Negative Negative Amphetamines Negative Negative THC Negative Preliminary positive. (A) Opiates Negative Negative Barbiturates Negative Negative Oxycodone, Urine Negative Negative Hemoglobin A1C 4.3 - 5.6 % 5.5 Estimated Average Glucose mg/dL 111 Troponin T 0.000 - 0.029 ng/mL <0.010 NT Pro BNP <125 pg/mL 29 ? Component Latest Ref Rng AND Units 12/20/2020 Phencyclidine Negative Negative Benzodiazepines Urine Negative Negative Cocaine Urine Negative Negative Amphetamines Negative Negative THC Negative Preliminary positive. (A) Opiates Negative Negative Barbiturates Negative Negative Oxycodone, Urine Negative Negative RADIOLOGY 11/05/20 CT A/P IMPRESSION: 1. No acute process within the abdomen or pelvis. 2. Note is made of prominent vessels within the inguinal canals extending into the scrotum, varicoceles considered. Further evaluation with ultrasound may be obtained as clinically indicated. 3. Low-attenuation lesion within the liver measuring 3 mm, benign etiology suspected. 4. Small hiatal hernia. ? 12/19/20 CT A/P IMPRESSION: No acute abnormality 12/19/20 RUQ US 1. 2 mm gallbladder polyp 2. Otherwise normal GB, biliary tree, liver ? MOST RECENT EGD: 12/18/20 (Becka Jain MD). N/V, weight loss, early satiety 1. 1 cm hiatal hernia 2. Irregular Z-line ? MOST RECENT COLONOSCOPY No previous SIGNATURE: Peggy Mayes, APPLICATION PACKAGING SPECIALIST DATE: December 20, 2020 TIME: 10:52 AM Normal [facility] Metabolic Panelon 12-20 Albumin [Mass/Vol] 4.2 g/dL Normal 3.9-4.9 [facility] Comment on above: Performed By: #### C BC, CMP, MG1 #### [facility] [address] [place] [address] ALP [Catalytic activity/Vol] 36 U/L Low 38-113 [facility] Comment on above: Performed By: #### C BC, CMP, MG1 #### [facility] [address] [place] [address] ALT [Catalytic activity/Vol] 11 U/L Normal 10-54 [facility] Comment on above: Performed By: #### C BC, CMP, MG1 #### [facility] [address] [place] [address] Anion gap [Moles/Vol] 9 mmol/L Normal 9-18 [facility] Comment on above: Performed By: #### C BC, CMP, MG1 #### [facility] [address] [place] [address] AST [Catalytic activity/Vol] 12 U/L Low 14-40 [facility] Comment on above: Performed By: #### C BC, CMP, MG1 #### [facility] [address] [place] [address] Bilirubin [Mass/Vol] 1.0 mg/dL Normal 0.2-1.3 [facility] Comment on above: Performed By: #### C BC, CMP, MG1 #### [facility] [address] [place] [address] Calcium [Mass/Vol] 8.8 mg/dL Normal 8.5-10.2 [facility] Comment on above: Performed By: #### C BC, CMP, MG1 #### [facility] [address] [place] [phone] Chloride [Moles/Vol] 107 mmol/L High 97-105 [facility] Comment on above: Performed By: #### C BC, CMP, MG1 #### [facility] [address] CO2 [Moles/Vol] 24 mmol/L Normal 22-30 [facility] Comment on above: Performed By: #### C BC, CMP, MG1 #### [facility] [address] Creatinine [Mass/Vol] 1.07 mg/dL Normal 0.73-1.22 [facility] Comment on above: Performed By: #### C BC, CMP, MG1 #### [facility] [address] [place] [address] eGFR- Amer. >60 Normal [facility] Comment on above: Performed By: #### C BC, CMP, MG1 #### [facility] [address] [place] [address] eGFR-All Other Races >[address] [facility] Comment on above: Result Comment: eGFR (Estimated GFR) Units of measure: mL/min/1.73 meters squared eGFR is derived from the reexpressed MDRD Study equation using the following parameters: serum creatinine, age, gender and race. The creatinine assay has been calibrated to be traceable to IDMS. An eGFR <60 mL/min/1.73m2 for >3 months is consistent with chronic kidney disease. Refer to KDOQI guidelines for clinical interpretation. In patients with unstable renal function, e.g. those with acute kidney injury, the eGFR may not accurately reflect actual GFR. Performed By: #### C BC, CMP, MG1 #### [facility] [address] [place] [phone] Glucose [Mass/Vol] 85 mg/dL Normal 74-99 [facility] Comment on above: Result Comment: The [place] Diabetes Association (ADA) provides guidance for cutoff values for fasting glucose and random glucose. The ADA defines fasting as no caloric intake for at least 8 hours. Fasting plasma glucose results between 100 to 125 mg/dL indicate increased risk for diabetes (prediabetes). Fasting plasma glucose results greater than or equal to 126 mg/dL meet the criteria for diagnosis of diabetes. In the absence of unequivocal hyperglycemia, results should be confirmed by repeat testing. In a patient with classic symptoms of hyperglycemia or hyperglycemic crisis, random plasma glucose results greater than or equal to 200 mg/dL meet the criteria for diagnosis of diabetes. Reference: Standards of Medical Care in Diabetes 2016, [place] [employer]. Diabetes Care. 2016.39(Suppl 1). Performed By: #### C AMRIK CMP, MG1 #### [facility] [address] [place] [address] Potassium [Moles/Vol] 3.6 mmol/L Low 3.7-5.1 [facility] Comment on above: Performed By: #### C AMRIK CMP, MG1 #### [facility] [address] [place] [address] Protein [Mass/Vol] 6.5 g/dL Normal 6.3-8.0 [facility] Comment on above: Performed By: #### C AMRIK CMP, MG1 #### [facility] [address] [place] [address] Sodium [Moles/Vol] 140 mmol/L Normal 136-144 [facility] Comment on above: Performed By: #### C AMRIK CMP, MG1 #### [facility] [address] [place] [address] Urea nitrogen [Mass/Vol] 11 mg/dL Normal 9-24 [facility] Comment on above: Performed By: #### Vargas ROWLEY CMP, MG1 #### [facility] [address] [place] [address] Magnesiumon 12-20-2020 Magnesium [Mass/Vol] 1.8 mg/dL Normal 1.7-2.3 [facility] Comment on above: Performed By: #### Vargas ROWLEY CMP, MG1 #### [facility] [address] [place] [address] Toxicology Screen,Uron 12-20 Amphetamines, Urine Negative Normal Negative [facility] Comment on above: Result Comment: Cuto ff threshold at 1000 ng/mL. Performed By: #### C BC, CMP, MG1 #### [facility] [address] [facility] [phone] Barbiturates, Urine Negative Normal Negative [facility] Comment on above: Result Comment: Cuto ff threshold at 200 ng/mL. Performed By: #### C BC, CMP, MG1 #### [facility] [address] [facility] [phone] Benzodiazepines, Ur Negative Normal Negative [facility] Comment on above: Result Comment: Cuto ff threshold at 200 ng/mL. Performed By: #### C BC, CMP, MG1 #### [facility] [address] [facility] [phone] Cannabinoids, Urine Positive Critically abnormal Negative [facility] Comment on above: Result Comment: Cuto ff threshold at 50 ng/mL. Performed By: #### C BC, CMP, MG1 #### [facility] [address] [facility] [phone] Cocaine, Urine Negative Normal Negative [facility] Comment on above: Result Comment: Cuto ff threshold at 300 ng/mL. Performed By: #### C BC, CMP, MG1 #### [facility] [address] [facility] [phone] Opiates, Urine Negative Normal Negative [facility] Comment on above: Result Comment: Cuto ff threshold at 300 ng/mL. Performed By: #### C BC, CMP, MG1 #### [facility] [address] [facility] [phone] Oxycodone, Urine Negative Normal Negative [facility] Comment on above: Result Comment: Cuto ff threshold at 100 ng/mL. Comment: Immunoassay screen only. Cross reactivity with other substances can occur with immunoassay screening. Detection of any drug(s) in this urine toxicology panel is presumptive only. These tests are for medical purposes only and should not be used for compliance monitoring, legal, or forensic use. Samples should be within normal physiological conditions (e.g. pH). This assay does not include adulteration/specimen validity testing. In clinical settings, confirmatory testing is at the practitioner's discretion [1]. If clinically indicated, confirmation by high specificity, quantitative methodology, which includes adulteration/specimen validity testing, may be requested on the same specimen through Client Services ([phone]) if contacted within 48 hours of initial testing. [1]Substance Abuse and Mental Health Services Administration (2012). Clinical Drug Testing in Primary Care Technical Assistance Publication Series 32. Department of Health and Human Services, [place], p.10. Performed By: #### C SRUTHI ROWLEY, MG1 #### [facility] [address] [facility] [phone] Phencyclidine, Urine Negative Normal Negative [facility] Comment on above: Result Comment: Cuto ff threshold at 25 ng/mL. Performed By: #### C SRUTHI ROWLEY, MG1 #### [facility] [address] [facility] [phone] ALLIED HEALTHon 12-19-2020 ALLIED HEALTH HNO ID: [id number] Author: Sammi Medina) SORAYA Clay Service: Radiology Author Type: Clinical Bioinformatics Research Technician Type: Allied Health Filed: 12/19/2020 12:02 AM Note Text: Radiology Service Progress Note DATE OF SERVICE: December 19, 2020 TIME: 12:01 AM PATIENT IDENTITY VERIFICATION COMPLETED USING TWO (2) STANDARD IDENTIFIERS: Name and Date of confirmed by patient verbally and Name and Date of confirmed by identification band. FALL SCREENING: Has the patient had 2 falls in the last year or 1 fall with injury or currently using an Ambulatory Assistive Device (Walker, Cane, Wheelchair, Crutches, etc.)? Inpatient: Screened on floor PATIENT GENDER DATA: Male PATIENT RELEVANT IMPLANT DATA REVIEWED: Not Applicable ALLERGIES: Reviewed and unchanged CONTRAST ALLERGY: NO. EXAM: CT -CONTRAST INDUCED NEPHROPATHY RISK FACTORS: Not applicable CREATININE: Creatinine Date Value Ref Range Status 12/18/2020 0.93 0.73 - 1.22 mg/dL Final 12/17/2020 1.06 0.73 - 1.22 mg/dL Final 11/05/2020 1.05 0.73 - 1.22 mg/dL Final eGFR-All Other Races Date Value Ref Range Status 12/18/2020 >60 . Final Comment: eGFR (Estimated GFR) Units of measure: mL/min/1.73 meters squared eGFR is derived from the reexpressed MDRD Study equation using the following parameters: serum creatinine, age, gender and race. The creatinine assay has been calibrated to be traceable to IDMS. An eGFR <60 mL/min/1.73m2 for >3 months is consistent with chronic kidney disease. Refer to KDOQI guidelines for clinical interpretation. In patients with unstable renal function, e.g. those with acute kidney injury, the eGFR may not accurately reflect actual GFR. eGFR- Date Value Ref Range Status 12/18/2020 >60 Final P.O.C.T. RESULTS: POC done: Yes, See Lab Tab December 19, 2020 TREATMENT: N/A PERIPHERAL IV DATA: Inpatient - refer to LDA documentation RADIOLOGY DEPARTMENT: CT; Exam(s) Completed: Chest Abdomen Pelvis SIGNATURE: Sammi Clay, SORAYA PATIENT NAME: Phuong Garcia DATE: December 19, 2020 TIME: 12:01 AM [facility] CASE MGT INIT [facility] 2020 CASE MGT INIT [facility] HNO ID: [id number] Author: Shaina Woodruff ([place]) Service: Case Management Author Type: Window Clerk Type: Care Mgt Initial Assessment Filed: 12/19/2020 12:45 PM Note Text: CARE MANAGEMENT: ASSESSMENT AND DISCHARGE PLAN SERVICE DATE: December 19, 2020 SERVICE TIME: 12:44 PM PRIMARY CARE PHYSICIAN: Sallie Crowley APRN.CAUSTIC OPERATOR ADMISSION STATUS: Observation Needs Prior to Discharge: To Be Determined MEDICAL: BLUE CARD PPO Patient/Orthopedics Pediatric Physician Stated Goals: To return home to life as it was Health Insurance: [employer] Issues Impacting Discharge Plan: Chronic Chronic: marijuana use, GERD Last Discharge Date: 11/05/20 Is this Within the Past 30 days? Last discharge within 30 days: No Advance Directive: Current Advance Directive: None Sales And Marketing Assistant Attempted to Assist with AD Completion: Yes Action: Education Provided Health LiteracyHow often do you need to have someone help you when you read instructions, pamphlets, or other written material from your doctor or pharmacy? : 1 - Never How confident are you filling out medical forms by yourself?: 1 - Extremely Baseline Mental Status Prior to this Illness what was the patient's Baseline Mental Status?: Alert AND Oriented Prior to this illness, has anyone described the patient having any of the following behaviors?: Not Applicable Relationship of the informant to the patient:: Self Functional Status: Independent Does Patient Currently Receive Any Community Services or Home Care?: None Equipment Prior to Admission: None Has the Patient Been in a Snf Facility in the Past 30 days?: No SOCIAL: Living Arrangements: Home Lives With: Parent(s) Financial Resources: Employed Primary Contact: Extended Emergency Contact Information Primary Emergency Contact: Mell Kebede Address: [address] [place] [address] [place] [address] [facility] Mobile Relation: Grandparent Secondary Emergency Contact: Simran Disla Address: [address] [place] [address] [place] [address] [facility] Mobile Relation: Mother Caregiver AssessmentCaregiver is ready, willing and able to meet the patient's needs as recommended by the inter-professional team:: No Caregiver needed Does the patient have an acute stroke diagnosis, or has the patient had a stroke during this admission?: No Patient's perception of need for this admission: Medication Adherance I am convinced of the importance of my prescription medication: 0 - Agree Completely I worry that my prescription medication will do more harm than good to me : 0 - Disagree Completely I feel financially burdened by my [id number] expenses for my prescription medication:: 0 - Disagree Completely Risk Score: 0 Patient is categorized as: Low risk < 2 Are you interested in bedside delivery of your medications? No Is Patient Psychosocially Complex?: Yes, refer to Social Work ASSESSMENT AND PLAN: Medical Needs: Medical Needs: None Psychosocial Needs: Psychosocial Needs: Chemical Dependency Drug of Choice: marijuana FREEDOM OF CHOICE EXPLAINED: [place] of Choice Given: No Reason Not Given: No placements necessary POTENTIAL TRANSITION PLANS Home;To Be Determined CM met with patient to complete assessment. EGD outpatient on 12/18. Still vomiting. GI on consult. Declines resources for marijuana use. From home with mom. IPTA. Anticipate HNN. Mom to transport. CM to follow. SIGNATURE: ARACELI Castro PATIENT NAME: Phuong Garcia DATE: December 19, 2020 TIME: 12:44 PM PAGER/CONTACT #: [phone] Normal [facility] CBCon 12-19-2020 Absolute nRBC <0.01 Normal <0.01 [facility] Comment on above: Performed By: #### C BC, CMP, MG1 #### [facility] [address] [place] [address] Erythrocyte distribution width (RBC) [Ratio] 11.3 % Low 11.5-15.0 [facility] Comment on above: Performed By: #### C BC, CMP, MG1 #### [facility] [address] [address] Hematocrit (Bld) [Volume fraction] 39.8 % Normal 39.0-51.0 [facility] Comment on above: Performed By: #### C BC, CMP, MG1 #### [facility] [address] Hemoglobin (Bld) [Mass/Vol] 13.7 g/dL Normal 13.0-17.0 [facility] Comment on above: Performed By: #### C BC, CMP, MG1 #### [facility] [address] [address] MCH 30.0 pG Normal 26.0-34.0 [facility] Comment on above: Performed By: #### C BC, CMP, MG1 #### [facility] [address] [address] MCHC (RBC) [Mass/Vol] 34.4 g/dL Normal 30.5-36.0 [facility] Comment on above: Performed By: #### C BC, CMP, MG1 #### [facility] [address] [address] MCV (RBC) [Entitic vol] 87.1 fL Normal 80.0-100.0 [facility] Comment on above: Performed By: #### C BC, CMP, MG1 #### [facility] [address] [phone] Platelet mean volume (Bld) [Entitic vol] 11.6 fL Normal 9.0-12.7 [facility] Comment on above: Performed By: #### C BC, CMP, MG1 #### [facility] [address] [address] [phone] Platelets (Bld) [#/Vol] 192 10*3/uL Normal 150-400 [facility] Comment on above: Performed By: #### C BC, CMP, MG1 #### [facility] [address] [phone] RBC (Bld) [#/Vol] 4.57 10*6/uL Normal 4.20-6.00 [facility] Comment on above: Performed By: #### C BC, CMP, MG1 #### [facility] [address] [address] WBC (Bld) [#/Vol] 11.68 10*3/uL High 3.70-11.00 [facility] Comment on above: Performed By: #### C BC, CMP, MG1 #### [facility] [address] [address] CBC and Differentialon 12-19 Abs Baso <0.03 Normal <0.11 [facility] Comment on above: Performed By: #### C BC, CMP, MG1 #### [facility] [address] [place] [address] Abs Eosin <0.03 Normal <0.46 [facility] Comment on above: Performed By: #### C BC, CMP, MG1 #### [facility] [address] [place] [address] Abs [place] 0.39 k/uL Normal <0.87 [facility] Comment on above: Performed By: #### C BC, CMP, MG1 #### [facility] [address] [address] Abs Neut 12.39 k/uL High 1.45-7.50 [facility] Comment on above: Performed By: #### C BC, CMP, MG1 #### [facility] [address] [place] [address] Absolute nRBC <0.01 Normal <0.01 [facility] Comment on above: Performed By: #### C BC, CMP, MG1 #### [facility] [address] [place] [address] Basophils/100 WBC (Bld) 0.1 % Normal [facility] Comment on above: Performed By: #### C BC, CMP, MG1 #### [facility] [address] [place] [address] DTYPE Auto Diff [facility] Comment on above: Performed By: #### C BC, CMP, MG1 #### [facility] [address] [place] [address] Eosinophils/100 WBC (Bld) 0.0 % [facility] Comment on above: Performed By: #### C BC, CMP, MG1 #### [facility] [address] [place] [phone] Erythrocyte distribution width (RBC) [Ratio] 11.0 % Low 11.5-15.0 [facility] Comment on above: Performed By: #### C BC, CMP, MG1 #### [facility] [address] [phone] Hematocrit (Bld) [Volume fraction] 41.8 % Normal 39.0-51.0 [facility] Comment on above: Performed By: #### C BC, CMP, MG1 #### [facility] [address] [phone] Hemoglobin (Bld) [Mass/Vol] 14.7 g/dL Normal 13.0-17.0 [facility] Comment on above: Performed By: #### C BC, CMP, MG1 #### [facility] [address] [phone] Lymphocytes (Bld) [#/Vol] 0.65 10*3/uL Low 1.00-4.00 [facility] Comment on above: Performed By: #### C BC, CMP, MG1 #### [facility] [address] [address] Lymphocytes/100 WBC (Bld) 4.8 % Normal [facility] Comment on above: Performed By: #### C BC, CMP, MG1 #### [facility] [address] [place] [phone] MCH 30.2 pG Normal 26.0-34.0 [facility] Comment on above: Performed By: #### C BC, CMP, MG1 #### [facility] [address] [place] [phone] MCHC (RBC) [Mass/Vol] 35.2 g/dL Normal 30.5-36.0 [facility] Comment on above: Performed By: #### C BC, CMP, MG1 #### [facility] [address] [place] [address] MCV (RBC) [Entitic vol] 86.0 fL Normal 80.0-100.0 [facility] Comment on above: Performed By: #### C BC, CMP, MG1 #### [facility] [address] [facility] [phone] Monocytes/100 WBC (Bld) 2.9 % Normal [facility] Comment on above: Performed By: #### C BC, CMP, MG1 #### [facility] [address] [phone] Neutrophils/100 WBC (Bld) 92.2 % Normal [facility] Comment on above: Performed By: #### C BC, CMP, MG1 #### [facility] [address] [facility] [phone] NRBCs 0.0 /100 WBC Normal 0 [facility] Comment on above: Performed By: #### C BC, CMP, MG1 #### [facility] [address] Platelet mean volume (Bld) [Entitic vol] 11.3 fL Normal 9.0-12.7 [facility] Comment on above: Performed By: #### C BC, CMP, MG1 #### [facility] [address] Platelets (Bld) [#/Vol] 212 10*3/uL Normal 150-400 [facility] Comment on above: Performed By: #### C BC, CMP, MG1 #### [facility] [address] RBC (Bld) [#/Vol] 4.86 10*6/uL Normal 4.20-6.00 [facility] Comment on above: Performed By: #### C BC, CMP, MG1 #### [facility] [address] [phone] WBC (Bld) [#/Vol] 13.45 10*3/uL High 3.70-11.00 [facility] Comment on above: Performed By: #### C BC, CMP, MG1 #### [facility] [address] [phone] CONSULTon 12-19-2020 CONSULT HNO ID: [id number] Author: Faye Jain Service: Gastroenterology Author Type: Physician Type: Consults Filed: 12/19/2020 11:04 AM Note Text: GASTROENTEROLOGY CONSULT NOTE PATIENT NAME: Phuong Garcia SERVICE DATE: December 19, 2020 SERVICE TIME: 8:05 AM PRIMARY CARE PHYSICIAN: Sallie Crowley APRN.CAUSTIC OPERATOR ATTENDING PHYSICIAN: Roberta Ch MD REASON FOR ADMISSION/CONSULTATION: Intractable nausea and vomiting HPI: This is a 25 year old male with a past medical history significant for GERD, ADD who presents with recurrent nausea and vomiting. Had presented to ED in mid-October for abdominal pain, nausea, vomiting. Had CT A/P at that with possible scrotal varicoceles but no acute findings. Labs with leukocytosis and electrolyte imbalance. He was treated symptomatically and referred to GI and urology for outpatient follow-up. Was seen on 12/17/20 by myself as an outpatient. He underwent EGD yesterday which was unremarkable other than small hiatal hernia. He was recommended Pepcid 20 mg twice daily which he started yesterday. He felt well when discharged but then had recurrent vomiting not controlled with Zofran and thus re-presented to ED. CT A/P/Chest with no acute findings. Labs unremarkable other than mild leukocytosis (13,000). He was given Reglan, Compazine, Benadryl, Zofran, and Haldol in ED. Patient reports > 1 month hx of progressive nausea and vomiting. No hematemesis. No abdominal pain but some early satiety. Has had issues with heartburn, acid reflux over this period of time. No dysphagia. No change in bowel habit. BM once daily. No BRB, melena. He has lost ~ 12 lbs over the last month. No aspirin, NSAIDs. No fever or chills, headaches, visual changes, dyspnea, chest pain. He was using marijuana daily over the last month but reports quitting last Tuesday. Of note patient was seen by urology and future scrotal US is planned. At this time patient's symptoms have resolved. ALLERGIES: ALLERGIES No Known Allergies PAST MEDICAL HISTORY: ADD GERD PAST SURGICAL HISTORY: None MEDICATIONS: Prior to Admission Medications: ondansetron orally disintegrating (ZOFRAN ODT) 4 mg disintegrating tablet, Take 1 tablet by mouth every 4 hours as needed for Nausea/Vomiting., Disp: 8 tablet, Rfl: 0, 12/19/2020 at Unknown time famotidine (PEPCID AC) 20 mg tablet, Take 20 mg by mouth twice daily., Disp: , Rfl: , 12/18/2020 at Unknown time ondansetron (ZOFRAN) 4 mg tablet, Take 4 mg by mouth every 8 hours as needed., Disp: , Rfl: , 12/19/2020 at Unknown time cholecalciferol, Vitamin D3, (VITAMIN D3) 50,000 unit cap capsule, Take 1 capsule by mouth once each week., Disp: 12 capsule, Rfl: 0, Past Week at Unknown time ranitidine (ZANTAC) 150 mg tablet, Take 150 mg by mouth as needed. , Disp: , Rfl: , 12/19/2020 at Unknown time FLUoxetine (PROZAC) 20 mg capsule, take 1 capsule by mouth once daily for anxiety, Disp: 90 capsule, Rfl: 1 Current Hospital Medications: Current Facility-Administered Medications Medication Dose Route Frequency - FLUoxetine 20 mg cap(s) (PROzac) 20 mg ORAL DAILY - sodium chloride 0.9 % (flush) 3-5 mL (BD POSIFLUSH) 3-5 mL INTRAVENOUS q 12 H - NaCl 0.9% iv infusion 100 mL/hr INTRAVENOUS CONTINUOUS - pantoprazole 40 mg injection (PROTONIX) 40 mg INTRAVENOUS DAILY (6 AM) FAMILY HISTORY: No GI malignancies or disorders SOCIAL HISTORY: Alcohol use: Quit last Tuesday but denied daily use Tobacco use: Smoked and vaped marijuana over the last month + but quit last Tuesday PHYSICAL EXAM: Patient Vitals for the past 24 hrs: BP Temp Temp src Pulse Resp SpO2 Height Weight 12/19/20 0718 116/58 37.2 ?C (99 ?F) Oral 71 16 97 % ? ? 12/19/20 0354 ? 175.3 cm (5' 9) ? 12/19/20 0345 107/58 36.8 ?C (98.2 ?F) Oral 75 18 98 % ? 58.9 kg (129 lb 12.8 oz) 12/19/20 0158 107/69 ? ? 86 18 98 % ? ? 12/19/20 0100 164/86 ? ? 84 ? 100 % ? ? 12/19/20 0000 137/81 ? ? 90 ? 100 % ? ? 12/18/20 2252 130/73 36.8 ?C (98.3 ?F) Oral 75 16 100 % ? 57.2 kg (126 lb) Body mass index is 19.17 kg/m?. GENERAL: Alert AND oriented x 3. Cooperative. NAD EYES: No scleral icterus SKIN: [place] in color. No jaundice LUNGS: Clear to auscultation posteriorly CARDIAC: RRR ABDOMEN: BS x 4. Abdomen soft, non tender, non distended, no palpable masses or organomegaly. No guarding or rebound tenderness elicited EXTREMITIES: No upper or lower extremity edema LABS: Diagnostic tests reviewed for today's visit: CBC, Coags, BMP, Mg, Phos Recent Labs 12/19/2043312/18/20232912/17/20 1006 WBC 11.68* 13.45* 8.13 HB 13.7 14.7 15.2 HCT 39.8 41.8 45.6 PLT 192 212 214 NA 138 136 140 K 3.6* 3.7 3.8 CHLOR 104 96* 101 CO2 23 22 26 BUN 8* 10 14 CREAT 0.99 0.93 1.06 GLUC 108* 126* 116* CA 8.9 9.8 9.8 MG 1.7 -- -- Liver Function, Amylase, AND Lipase Recent Labs 12/19/2043312/18/20232912/17/20 1006 TPROT 7.2 8.3* 7.9 ALB 4.5 5.4* 5.0* ALT 12 1 (more content not included)... Normal [facility] CT ABD/PEL W IVCONon 021 CT ABD/PEL W IVCON * * *Final Report* * * DATE OF EXAM: Dec 19 2020 12:01AM [facility] [place] ABD/PEL W IVCON / PROCEDURE REASON: Post operative complication suspected * * * * Physician Interpretation * * * * EXAMINATION: CT ABDOMEN AND PELVIS WITH IV CONTRAST CLINICAL HISTORY: Post operative complication suspected PAIN AND VOMITING/IV CONTRAST ONLY, recent endoscopy. TECHNIQUE: CT of the abdomen and pelvis was performed using standard technique, scanning from just above the dome of the diaphragm to the symphysis pubis. Technical difficulties resulted in a delayed interpretation. MQ: CTAP_3 Contrast: IV: 100 ml of Omnipaque 300 : ml of CT Radiation dose: Integrated Dose-length product (DLP) for this visit = 347 mGy*cm. CT Dose Reduction Employed: mAs-kVp adjusted based on patient size-age COMPARISON: 11/05/2020. RESULT: Lower Thorax: No consolidations Liver: Stable subcentimeter too small to characterize hypodensity. Gallbladder/Biliary: Unremarkable. No biliary ductal dilatation. Spleen: Not enlarged. Pancreas: Unremarkable. Adrenals: No nodules Kidneys: No suspicious masses. No hydronephrosis. Vasculature: Unremarkable. GI Tract: Small bowel and colon are predominantly decompressed. No evidence of wall thickening, obstruction or appendicitis. Pelvis: Reproductive organs and bladder are unremarkable. Mesentery/Peritoneum/Ret roperitoneum: No free air or fluid Lymph Nodes: No abdominopelvic lymphadenopathy. Bones and soft tissues: No suspicious bone lesions. No acute findings. Infant Toddler Lead Teacher (topogram) images: No additional findings. IMPRESSION: No acute abnormality. Wad Blanking Press Adjuster: DARLENE Transcribe Date/Time: Dec 19 2020 1:53A Dictated by : ARCENIO DAVIS MD This examination was interpreted and the report reviewed and electronically signed by: ARCENIO DAVIS MD on Dec 19 2020 2:02AM EST [id number] [facility] CT CHEST W IVCONon CT CHEST W IVCON * * *Final Report* * * DATE OF EXAM: Dec 19 2020 12:01AM [facility] [place] - CT CHEST W IVCON / PROCEDURE REASON: Post operative complication suspected * * * * Physician Interpretation * * * * EXAMINATION: CHEST CT WITH CONTRAST CLINICAL HISTORY: Adult ER patient presented with pain and vomiting. Post operative complication suspected Technique: Spiral CT acquisition of the chest from the thoracic inlet to the upper abdomen following IV contrast. MQ: CTCW_6 Contrast: 100 mL Omnipaque [address] Radiation dose: Integrated Dose-length product (DLP) for this visit = 347 mGy*cm CT Dose Reduction Employed: mAs-kVp adjusted based on patient size-age Comparison: 10/21/2016 chest x-ray. RESULT: Limitations: Mild motion artifacts. Lines, tubes, and devices: None. Lung parenchyma and airways: No consolidation. Fissure based, right lower lobe pulmonary nodule measuring 4.6 cm (image 106/series 4) pleural-based, 5.6 mm, right lower lobe, solid pulmonary nodule (image 127/series 4). Fissure based, right lower lobe, solid, 3.5 mm, pulmonary nodule (image 122/series 4). Fissure based, 3 mm, solid, right middle lobe pulmonary nodule (image 122/series 4). The central airways are patent. Pleural space: No pleural effusion. No pleural thickening. No pneumothorax. Lower neck, lymph nodes, and mediastinum: The imaged thyroid gland is normal. No lymphadenopathy in the supraclavicular, axillary, mediastinal, or hilar regions. Heart, pericardium, and thoracic vessels: The thoracic aorta and main pulmonary artery are normal in caliber. The cardiac chambers are normal in size. No coronary artery atherosclerotic calcifications are noted, although the study is not optimized for coronary assessment. No pericardial effusion or thickening. Bones and soft tissues: No destructive bone lesion. Chest wall is unremarkable. Upper abdomen: Please review the concurrent abdominal CT. Infant Toddler Lead Teacher (topogram) images: No additional findings. IMPRESSION: No CT evidence of acute abnormality in the chest. Solid pulmonary nodules measuring less than 6 mm. No stricture guidelines are available for patient's age. Study 5 years or older patients with no known cancer the recommended follow-up as below. Acuity: Incidental Finding: Solid: <6 mm (solitary or multiple) Routing Code: N/A Recommendation: No imaging follow-up is recommended Time Frame: N/A Comments: If there are risk factors for lung malignancy, a follow-up chest CT exam could be obtained in 12 months Wad Blanking Press Adjuster: DARLENE Transcribe Date/Time: Dec 19 2020 12:30A Dictated by : JABARI TOUSSAINT MD This examination was interpreted and the report reviewed and electronically signed by: JABARI TOUSSAINT MD on Dec 19 2020 12:36AM EST [id number] Normal [facility] Comp Metabolic Panelon 12-19 Albumin [Mass/Vol] 4.5 g/dL Normal 3.9-4.9 [facility] Comment on above: Performed By: #### C BC, CMP, MG1 #### [facility] [address] [place] [address] ALP [Catalytic activity/Vol] 40 U/L Normal 38-113 [facility] Comment on above: Performed By: #### C BC, CMP, MG1 #### [facility] [address] [place] [address] ALT [Catalytic activity/Vol] 12 U/L Normal 10-54 [facility] Comment on above: Performed By: #### C BC, CMP, MG1 #### [facility] [address] Anion gap [Moles/Vol] 11 mmol/L Normal 9-18 [facility] Comment on above: Performed By: #### C BC, CMP, MG1 #### [facility] [address] [address] AST [Catalytic activity/Vol] 11 U/L Low 14-40 [facility] Comment on above: Performed By: #### C BC, CMP, MG1 #### [facility] [address] Bilirubin [Mass/Vol] 1.0 mg/dL Normal 0.2-1.3 [facility] Comment on above: Performed By: #### C BC, CMP, MG1 #### [facility] [address] [address] Calcium [Mass/Vol] 8.9 mg/dL Normal 8.5-10.2 [facility] Comment on above: Performed By: #### C BC, CMP, MG1 #### [facility] [address] Chloride [Moles/Vol] 104 mmol/L Normal 97-105 [facility] Comment on above: Performed By: #### C BC, CMP, MG1 #### [facility] [address] CO2 [Moles/Vol] 23 mmol/L Normal 22-30 [facility] Comment on above: Performed By: #### C BC, CMP, MG1 #### [facility] [address] Creatinine [Mass/Vol] 0.99 mg/dL Normal 0.73-1.22 [facility] Comment on above: Performed By: #### C BC, CMP, MG1 #### [facility] [address] eGFR- Amer. >60 Normal [facility] Comment on above: Performed By: #### C BC, CMP, MG1 #### [facility] [address] eGFR-All Other Races >[address] [facility] Comment on above: Result Comment: eGFR (Estimated GFR) Units of measure: mL/min/1.73 meters squared eGFR is derived from the reexpressed MDRD Study equation using the following parameters: serum creatinine, age, gender and race. The creatinine assay has been calibrated to be traceable to IDMS. An eGFR <60 mL/min/1.73m2 for >3 months is consistent with chronic kidney disease. Refer to KDOQI guidelines for clinical interpretation. In patients with unstable renal function, e.g. those with acute kidney injury, the eGFR may not accurately reflect actual GFR. Performed By: #### C SRUTHI ROWLEY, MG1 #### [facility] [address] [place] [address] Glucose [Mass/Vol] 108 mg/dL High 74-99 [facility] Comment on above: Result Comment: The [place] Diabetes Association (ADA) provides guidance for cutoff values for fasting glucose and random glucose. The ADA defines fasting as no caloric intake for at least 8 hours. Fasting plasma glucose results between 100 to 125 mg/dL indicate increased risk for diabetes (prediabetes). Fasting plasma glucose results greater than or equal to 126 mg/dL meet the criteria for diagnosis of diabetes. In the absence of unequivocal hyperglycemia, results should be confirmed by repeat testing. In a patient with classic symptoms of hyperglycemia or hyperglycemic crisis, random plasma glucose results greater than or equal to 200 mg/dL meet the criteria for diagnosis of diabetes. Reference: Standards of Medical Care in Diabetes 2016, [place] [employer] Association. Diabetes Care. 2016.39(Suppl 1). Performed By: #### C SRUTHI ROWLEY, MG1 #### [facility] [address] [place] [address] Potassium [Moles/Vol] 3.6 mmol/L Low 3.7-5.1 [facility] Comment on above: Performed By: #### C SRUTHI ROWLEY, MG1 #### [facility] [address] [place] [address] Protein [Mass/Vol] 7.2 g/dL Normal 6.3-8.0 [facility] Comment on above: Performed By: #### C SRUTHI ROWLEY, MG1 #### [facility] [address] [place] [address] Sodium [Moles/Vol] 138 mmol/L Normal 136-144 [facility] Comment on above: Performed By: #### C BC, CMP, MG1 #### [facility] [address] [address] Urea nitrogen [Mass/Vol] 8 mg/dL Low 9-24 [facility] Comment on above: Performed By: #### C BC, CMP, MG1 #### [facility] [address] [address] Albumin [Mass/Vol] 5.4 g/dL High 3.9-4.9 [facility] Comment on above: Performed By: #### C BC, CMP, MG1 #### [facility] [address] [address] ALP [Catalytic activity/Vol] 45 U/L Normal 38-113 [facility] Comment on above: Performed By: #### C BC, CMP, MG1 #### [facility] [address] [address] ALT [Catalytic activity/Vol] 14 U/L Normal 10-54 [facility] Comment on above: Performed By: #### C BC, CMP, MG1 #### [facility] [address] [address] Anion gap [Moles/Vol] 18 mmol/L Normal 9-18 [facility] Comment on above: Performed By: #### C BC, CMP, MG1 #### [facility] [address] [place] [address] AST [Catalytic activity/Vol] 14 U/L Normal 14-40 [facility] Comment on above: Performed By: #### C BC, CMP, MG1 #### [facility] [address] Bilirubin [Mass/Vol] 1.1 mg/dL Normal 0.2-1.3 [facility] Comment on above: Performed By: #### C BC, CMP, MG1 #### [facility] [address] Calcium [Mass/Vol] 9.8 mg/dL Normal 8.5-10.2 [facility] Comment on above: Performed By: #### C BC, CMP, MG1 #### [facility] [address] [place] [address] Chloride [Moles/Vol] 96 mmol/L Low 97-105 [facility] Comment on above: Performed By: #### C BC, CMP, MG1 #### [facility] [address] [phone] CO2 [Moles/Vol] 22 mmol/L Normal 22-30 [facility] Comment on above: Performed By: #### C BC, CMP, MG1 #### [facility] [address] Creatinine [Mass/Vol] 0.93 mg/dL Normal 0.73-1.22 [facility] Comment on above: Performed By: #### C BC, CMP, MG1 #### [facility] [address] eGFR- Amer. >60 Normal [facility] Comment on above: Performed By: #### C BC, CMP, MG1 #### [facility] [address] eGFR-All Other Races >[address] [facility] Comment on above: Result Comment: eGFR (Estimated GFR) Units of measure: mL/min/1.73 meters squared eGFR is derived from the reexpressed MDRD Study equation using the following parameters: serum creatinine, age, gender and race. The creatinine assay has been calibrated to be traceable to IDMS. An eGFR <60 mL/min/1.73m2 for >3 months is consistent with chronic kidney disease. Refer to KDOQI guidelines for clinical interpretation. In patients with unstable renal function, e.g. those with acute kidney injury, the eGFR may not accurately reflect actual GFR. Performed By: #### C BC, CMP, MG1 #### [facility] [address] [facility] [phone] Glucose [Mass/Vol] 126 mg/dL High 74-99 [facility] Comment on above: Result Comment: The [place] Diabetes Association (ADA) provides guidance for cutoff values for fasting glucose and random glucose. The ADA defines fasting as no caloric intake for at least 8 hours. Fasting plasma glucose results between 100 to 125 mg/dL indicate increased risk for diabetes (prediabetes). Fasting plasma glucose results greater than or equal to 126 mg/dL meet the criteria for diagnosis of diabetes. In the absence of unequivocal hyperglycemia, results should be confirmed by repeat testing. In a patient with classic symptoms of hyperglycemia or hyperglycemic crisis, random plasma glucose results greater than or equal to 200 mg/dL meet the criteria for diagnosis of diabetes. Reference: Standards of Medical Care in Diabetes 2016, [place] [employer]. Diabetes Care. 2016.39(Suppl 1). Performed By: #### C SRUTHI ROWLEY, MG1 #### [facility] [address] [facility] [phone] Potassium [Moles/Vol] 3.7 mmol/L Normal 3.7-5.1 [facility] Comment on above: Performed By: #### C AMRIK CMP, MG1 #### [facility] [address] [place], [place] [phone] Protein [Mass/Vol] 8.3 g/dL High 6.3-8.0 [facility] Comment on above: Performed By: #### C AMRIK CMP, MG1 #### [facility] [address] [place], [place] [phone] Sodium [Moles/Vol] 136 mmol/L Normal 136-144 [facility] Comment on above: Performed By: #### C AMRIK, CMP, MG1 #### [facility] [address] [place], [place] [phone] Urea nitrogen [Mass/Vol] 10 mg/dL Normal 9-24 [facility] Comment on above: Performed By: #### C AMRIK CMP, MG1 #### [facility] [address] [place], [place] [phone] Coronavirus 2019on 1 SARS-CoV-2 (COVID-19) RNA RADHA+probe Ql (Unsp spec) UPPER RESPIRATORY TRACT SWAB Normal [facility] Comment on above: Performed By: #### C BC CMP, MG1 #### [facility] [address] [place], [place] [phone] SARS-CoV-2 (COVID-19) RNA RADHA+probe Ql (Unsp spec) Negative Normal Negative for COVID19 (SARS CoV2) by PCR. [facility] Comment on above: Result Comment: This test was developed and its performance characteristics determined by [facility]'s Yayo Sabillon [facility] [place]. This test has been authorized by FDA under an Emergency Use Authorization (EUA). This test has been validated in accordance with the FDA's Guidance Document Policy for Diagnostics Testing in Laboratories Certified to Perform High Complexity Testing under CLIA prior to Emergency use Authorization for Coronavirus Disease 2019 during the Public Health Emergency issued on November 17, 2019. Test performed by [facility], [facility] Pace [facility] [place], [address] [address]. Performed By: #### C BC, CMP, MG1 #### [facility] [address] [facility] [phone] ED NOTEon 12-19-2020 ED NOTE HNO ID: [id number] Author: Chacha CarusoRn) JUDD Overton Service: ? Author Type: Registered Nurse Type: ED Notes Filed: 12/19/2020 2:57 AM Note Text: Covid swab done and sent to lab. [facility] [place] [facility] ED NOTE HNO ID: [id number] Author: Chacha Gillespie) JUDD Overton Service: ? Author Type: Registered Nurse Type: ED Notes Filed: 12/19/2020 2:12 AM Note Text: dr in room to talk with pt. [facility] [place] [facility] ED NOTE HNO ID: [id number] Author: Chacha CarusoRn) JUDD Overton Service: ? Author Type: Registered Nurse Type: ED Notes Filed: 12/19/2020 1:46 AM Note Text: pt vomited large amt of yellow bile, bed and sheets changed, dr clark. [facility] [place] [facility] ED NOTE HNO ID: [id number] Author: Chacha Gillespie) JUDD Overton Service: ? Author Type: Registered Nurse Type: ED Notes Filed: 12/19/2020 1:40 AM Note Text: mom came up to desk saying pt is vomiting.informed her I let the dr know. [facility] [place] [facility] ED NOTE HNO ID: [id number] Author: Chacha Gillespie) JUDD Overton Service: ? Author Type: Registered Nurse Type: ED Notes Filed: 12/19/2020 1:40 AM Note Text: called to room by mom she is concerned about pt feeling nauseated. and she states pt is jumpy in bed. pt laying still in bed. dr LEO clark. [facility] [place] [facility] ED NOTE HNO ID: [id number] Author: Martina CarusoRn) JUDD Samuel Service: Nursing Author Type: Registered Nurse Type: ED Notes Filed: 12/18/2020 10:55 PM Note Text: Patient has been having abdominal pain since October. 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 Has been vaping THC (last use was last Tuesday) and has been smoking marijuana (last use last night). He had upper GI scope this morning and has been vomiting since. [facility] [place] [facility] ED PROV NOTEon 12-19-2020 ED PROV NOTE HNO ID: [id number] Author: Jimbo Choi MD Service: ? Author Type: Physician Type: ED Provider Notes Filed: 12/19/2020 2:44 AM Note Text: ED Provider Note Patient Name: Phuong Garcia SERVICE DATE: 12/18/20 History Patient presents with: Nausea AND Vomiting: has been vomiting since 10am, had endoscopy this morning Abdominal Pain 25-year-old male, with a history of hyperemesis from marijuana abuse, GERD, ADD, presents to the ED with abdominal pain and vomiting. The patient had EGD this morning due to his amount of vomiting. Per mom the EGD looked normal. However when he woke up from anesthesia he had excessive vomiting. He has tried Zofran at home several times as well without relief. He states he has lost 10 pounds in the last week or so. He has been vomiting almost daily. Nonbloody. He states that when he was only smoking marijuana he was doing okay however when he started doing a vape with marijuana in September that this is when his problem started. Last marijuana intake was last night. He has not used the vape since last week History provided by: Parent PAST MEDICAL HISTORY Diagnosis Date - ADD (attention deficit disorder) - GERD (gastroesophageal reflux disease) - PMH - PAST MEDICAL HISTORY OF Color Vision - Pass - Varicella without mention of complication around age 2-4 years - Vitamin D deficiency PAST SURGICAL HISTORY Procedure Laterality Date - CIRCUMCISION,OTHR,NEWBOR N FAMILY HISTORY Problem Relation Age of Onset - other (ADHD) Mother - Asthma Father - Diabetes Maternal Grandfather - Hypertension Maternal Grandfather - other (schizophrenia) Maternal Aunt - other (depression) Maternal Aunt Social History Tobacco Use - Smoking status: Never Smoker - Smokeless tobacco: Never Used Vaping Use - Vaping Use: Some days - Substances: THC Substance and Sexual Activity - Alcohol use: Yes Comment: rarely - Drug use: Yes Types: Marijuana - Sexual activity: Not on file ALLERGIES No Known Allergies Review of Systems Constitutional: Positive for activity change, appetite change and unexpected weight change. Negative for chills and fever. HENT: Negative. Eyes: Negative for photophobia and visual disturbance. Respiratory: Negative for cough and shortness of breath. Cardiovascular: Negative for chest pain. Gastrointestinal: Positive for abdominal pain, nausea and vomiting. Negative for constipation and diarrhea. Genitourinary: Negative for difficulty urinating and dysuria. Musculoskeletal: Negative for back pain. Skin: Negative for rash and wound. Neurological: Negative for dizziness, weakness, light-headedness, numbness and headaches. Hematological: Negative. Psychiatric/Behavioral: Negative. Physical Exam BP 130/73 Pulse 75 Temp (Src) 98.3 (Oral) Resp 16 Wt 126 lb (57.2kg) SpO2 100% O2 Therapy: Room Air Physical Exam Vitals and nursing note reviewed. Constitutional: General: He is not in acute distress. Appearance: He is ill-appearing (appears to not feel well, however non toxic). HENT: Head: Normocephalic and atraumatic. Nose: Nose normal. Mouth/Throat: Mouth: Mucous membranes are moist. Pharynx: Oropharynx is clear. Eyes: Extraocular Movements: Extraocular movements intact. Conjunctiva/sclera: Conjunctivae normal. Cardiovascular: Rate and Rhythm: Normal rate and regular rhythm. Pulmonary: Effort: Pulmonary effort is normal. No respiratory distress. Breath sounds: Normal breath sounds. No wheezing or rhonchi. Abdominal: General: There is no distension. Palpations: Abdomen is soft. Tenderness: There is no abdominal tenderness. There is no guarding. Comments: Without abdominal tenderness Musculoskeletal: General: Normal range of motion. Cervical back: Normal range of motion and neck supple. Skin: General: Skin is warm and dry. Neurological: General: No focal deficit present. Mental Status: He is alert and oriented to person, place, and time. Cranial Nerves: No cranial nerve deficit. Psychiatric: Mood and Affect: Mood normal. Diagnostic Testing ED Labs Ordered and Reviewed CBC + DIFF - Abnormal; Notable for the following components: Result Value Ref Range WBC 13.45 (*) 3.70 - 11.00 k/uL RDW-CV 11.0 (*) 11.5 - 15.0 % Abs Neut (ANC) 12.39 (*) 1.45 - 7.50 k/uL Abs Lymph 0.65 (*) 1.00 - 4.00 k/uL All other components within normal limits COMP METABOLIC PANEL - Abnormal; Notable for the following components: Protein, Total 8.3 (*) 6.3 - 8.0 g/dL Albumin 5.4 (*) 3.9 - 4.9 g/dL Glucose 126 (*) 74 - 99 mg/dL Chloride 96 (*) 97 - 105 mmol/L All other components within normal limits LIPASE BLD CT CHEST W IVCON Final Result IMPRESSION: No CT evidence of acute abnormality in the chest. Solid pulmonary nodules measuring less than 6 mm. No stricture guidelines are available for patient's age. Study 5 years or older patients with (more content not included)... Normal [facility] HISTORY PHYSICALon HISTORY PHYSICAL HNO ID: [id number] Author: Sujatha Hylton ([place]) Service: Hospital Medicine Author Type: Physician Corn Cutter Operator Type: HANDP Filed: 12/19/2020 4:13 AM Note Text: -------- Attestation signed by Champ Irizarry at 12/19/2020 5:22 AM I reviewed the plan of care and reviewed the note. Plan of care discussed with the TEJ in detail and I agree with it. Champ Irizarry MD -------- DEPARTMENT OF HOSPITAL MEDICINE HISTORY AND PHYSICAL EXAM SERVICE DATE: 12/19/2020 Code Status: Not on file SERVICE TIME: 2:42 AM Primary Care Physician: Sallie Crowley APRN.CAUSTIC OPERATOR NIGHT AND WEEKEND COVERAGE: [place] COVERAGE: Days: [phone], please page attending physician. Nights: [phone], please page [place] Hospitalist Night coverage pager [phone]. Subjective CHIEF COMPLAINT: Nausea and vomiting HPI: This is a 25 year old male with a PMH significant for Cannabinoid Hyperemesis Syndrome, GERD, and ADD who presents today for evaluation of nausea and vomiting. The patient has been having ongoing issues with nausea and vomiting for the last few weeks. He recently started smoking marijuana about a month ago and switched to vaping marijuana a few weeks ago. He reportedly quit smoking marijuana altogether last Tuesday. He was seen by a GI specialist as an outpatient and had an EGD completed yesterday which was normal per the patient and nothing was seen during the procedure. He was feeling good when he returned home after the procedure but then developed nausea and vomiting that was not controlled with Zofran at home. He has reportedly lost a total of 12 pounds over the last month secondary to his symptoms. He denies fever/chills, SOLOMON, visual changes, URI symptoms, chest pain, palpitations, SOB, wheezing, cough, abdominal pain, melena, hematochezia, diarrhea or constipation, urinary symptoms, or paresthesias/paralysis. ED Course: - Vital Signs: Temp 98.3F, BP 130/73, HR 75, RR 16, O2 100% on RA. - COVID pending - CBC: WBC 13.45, Hgb 14.7, Hct 41.7, Platelets 212, ANC 12.39 - CMP: Glucose 126, TB and LFT's normal, Na 136, K+ 3.7 - Renal Function: BUN 10 and 0.93 at baseline - Lipase within normal limits - CT Chest and AP did note stable solitary lung nodules (outpatient follow up recommended) otherwise unremarkable for acute findings. PAST MEDICAL HISTORY Diagnosis Date - ADD (attention deficit disorder) - GERD (gastroesophageal reflux disease) - PMH - PAST MEDICAL HISTORY OF Color Vision - Pass - Varicella without mention of complication around age 2-4 years - Vitamin D deficiency PAST SURGICAL HISTORY Procedure Laterality Date - CIRCUMCISION,OTHR,NEWBOR N FAMILY HISTORY Problem Relation Age of Onset - other (ADHD) Mother - Asthma Father - Diabetes Maternal Grandfather - Hypertension Maternal Grandfather - other (schizophrenia) Maternal Aunt - other (depression) Maternal Aunt Social History Tobacco Use - Smoking status: Never Smoker - Smokeless tobacco: Never Used Vaping Use - Vaping Use: Some days - Substances: THC Substance Use Topics - Alcohol use: Yes Comment: rarely - Drug use: Yes Types: Marijuana PRIOR TO ADMISSION MEDICATIONS: ondansetron orally disintegrating (ZOFRAN ODT) 4 mg disintegrating tablet, Take 1 tablet by mouth every 4 hours as needed for Nausea/Vomiting., Disp: 8 tablet, Rfl: 0, 12/19/2020 at Unknown time famotidine (PEPCID AC) 20 mg tablet, Take 20 mg by mouth twice daily., Disp: , Rfl: , 12/18/2020 at Unknown time ondansetron (ZOFRAN) 4 mg tablet, Take 4 mg by mouth every 8 hours as needed., Disp: , Rfl: , 12/19/2020 at Unknown time cholecalciferol, Vitamin D3, (VITAMIN D3) 50,000 unit cap capsule, Take 1 capsule by mouth once each week., Disp: 12 capsule, Rfl: 0, Past Week at Unknown time ranitidine (ZANTAC) 150 mg tablet, Take 150 mg by mouth as needed. , Disp: , Rfl: , 12/19/2020 at Unknown time FLUoxetine (PROZAC) 20 mg capsule, take 1 capsule by mouth once daily for anxiety, Disp: 90 capsule, Rfl: 1 ALLERGIES No Known Allergies REVIEW OF SYSTEM: GENERAL: No weight loss, malaise or fevers HEENT: Negative for frequent or significant headaches, No changes in hearing or vision, no nose bleeds or other nasal problems NECK: Negative for lumps, goiter, pain and significant neck swelling RESPIRATORY: Negative for cough, hemoptysis, wheezing, COPD, dyspnea or shortness of breath CARDIOVASCULAR: Negative for chest pain, leg swelling, hypertension, CHF or palpitations GI: See HPI : No history of dysuria, frequency or incontinence MUSCULOSKELETAL: Negative for joint pain or swelling, back pain or muscle pain SKIN: Negative for lesions, rash, and itching PSYCH: Negative for sleep disturbance, mood disorder and recent psychosocial stressors HEMATOLOGY/LYMPHOLOGY: Negative for prolonged b (more content not included)... Normal [facility] Lipaseon 12-19-2020 Lipase [Catalytic activity/Vol] 23 U/L Normal 16-61 [facility] Comment on above: Performed By: #### C BC, CMP, MG1 #### [facility] [address] [facility] [phone] Magnesiumon 12-19-2020 Magnesium [Mass/Vol] 1.7 mg/dL Normal 1.7-2.3 [facility] Comment on above: Performed By: #### C BC, CMP, MG1 #### [facility] [address] [facility] [phone] NURSING PROGon 12-19-2020 NURSING PROG HNO ID: [id number] Author: Gloria (Rn) JUDD Garg Service: Nursing Author Type: Registered Nurse Type: Nursing Progress Note Filed: 12/19/2020 5:13 AM Note Text: Nursing Progress Note Patient Name: Phuong Garcia Patient Location: [place] [id number]- admission/assessment complete and documented. VSS. Pt drowsy but responds to name, drifts back to sleep, denies c/o pain or discomfort. No nausea. Rtn safety/fall risk measures maintained, instructed to call for assist. This note was completed by: Gloria Garg RN Normal [facility] US ABD RIGHT UPPER QUADRANTo n 12-19-2020 US ABD RIGHT UPPER QUADRANT * * *Final Report* * * DATE OF EXAM: Dec 19 2020 9:46AM MDU 1032 - US ABD RIGHT UPPER QUADRANT / PROCEDURE REASON: Nausea, vomiting * * * * Physician Interpretation * * * * EXAMINATION: RIGHT UPPER QUADRANT ULTRASOUND CLINICAL HISTORY: Nausea and vomiting TECHNIQUE: Sonography of the right upper quadrant was performed. Images were obtained and stored in a permanent archive. MQ: [id number] COMPARISON: None. RESULT: Pancreas: Normal sonographic appearance. Portions obscured: tail Liver: Echotexture: Normal, homogeneous. Echogenicity: Normal Surface contour: Smooth Lesions: None. Biliary: No intrahepatic biliary duct dilation. CBD: 0.2 cm at the hilum. Gallbladder: Normal caliber -Contents: No cholelithiasis . Tiny, 2 mm gallbladder polyp -Wall: Normal -Other: No pericholecystic fluid. Right Kidney: No hydronephrosis. Ascites: None. 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 Blanking Press Adjuster: DARLENE Transcribe Date/Time: Dec 19 2020 10:29A Dictated by : DALILA MORIN MD This examination was interpreted and the report reviewed and electronically signed by: DALILA MORIN MD on Dec 19 2020 10:30AM EST [id number] Normal [facility] CBCon 12-18-2020 Absolute nRBC <0.01 Normal <0.01 [facility] Comment on above: Performed By: #### C MP, CBC #### [facility] [address] [place], [place] [address] Erythrocyte distribution width (RBC) [Ratio] 11.6 % Normal 11.5-15.0 [facility] Comment on above: Performed By: #### C MP, CBC #### [facility] [address] [place], [place] [address] Hematocrit (Bld) [Volume fraction] 45.6 % Normal 39.0-51.0 [facility] Comment on above: Performed By: #### C MP, CBC #### [facility] [address] [place], [place] [address] Hemoglobin (Bld) [Mass/Vol] 15.2 g/dL Normal 13.0-17.0 [facility] Comment on above: Performed By: #### C MP, CBC #### [facility] [address] [place], [place] [address] MCH (RBC) [Entitic mass] 29.9 pG Normal 26.0-34.0 [facility] Comment on above: Performed By: #### C MP, CBC #### [facility] [address] [place], [place] [address] MCHC (RBC) [Mass/Vol] 33.3 g/dL Normal 30.5-36.0 [facility] Comment on above: Performed By: #### C MP, CBC #### [facility] [address] [place], [place] [address] MCV (RBC) [Entitic vol] 89.8 fL Normal 80.0-100.0 [place] [facility] Comment on above: Performed By: #### C MP, CBC #### [facility] [address] [place], [place] [address] Platelet mean volume (Bld) [Entitic vol] 12.2 fL Normal 9.0-12.7 [facility] Comment on above: Performed By: #### C MP, CBC #### [facility] [address] [place], [place] [address] Platelets (Bld) [#/Vol] 214 10*3/uL Normal 150-400 [facility] Comment on above: Performed By: #### C MP, CBC #### [facility] Routine Lab [address] [place], [place] [address] RBC (Bld) [#/Vol] 5.08 10*6/uL Normal 4.20-6.00 [facility] Reference Lab Comment on above: Performed By: #### C MP, CBC #### [facility] Routine Lab [address] [place], [place] [address] WBC (Bld) [#/Vol] 8.13 10*3/uL Normal 3.70-11.00 [facility] Reference Lab Comment on above: Performed By: #### C MP, CBC #### [facility] Routine Lab [address] [place], [place] [address] Comp Metabolic Panelon 12-18 Albumin [Mass/Vol] 5.0 g/dL High 3.9-4.9 [facility] Reference Lab Comment on above: Performed By: #### C MP, CBC #### [facility] Routine Lab [address] [place], [place] [address] ALP [Catalytic activity/Vol] 39 U/L Normal 38-113 [facility] Reference Lab Comment on above: Performed By: #### C MP, CBC #### [facility] Routine Lab [address] [place], [place] [address] ALT [Catalytic activity/Vol] 16 U/L Normal 10-54 [facility] Reference Lab Comment on above: Performed By: #### C MP, CBC #### [facility] Routine Lab [address] [place], [place] [address] Anion gap [Moles/Vol] 13 mmol/L Normal 9-18 [facility] Reference Lab Comment on above: Performed By: #### C MP, CBC #### [facility] Routine Lab [address] [place], [place] [address] AST [Catalytic activity/Vol] 19 U/L Normal 14-40 [facility] Reference Lab Comment on above: Performed By: #### C MP, CBC #### [facility] Routine Lab [address] [place], [place] [address] Bilirubin Ql (U) 0.8 mg/dL Normal 0.2-1.3 [facility] Reference Lab Comment on above: Performed By: #### C MP, CBC #### [facility] Routine Lab [address] [place], [place] [address] Calcium [Mass/Vol] 9.8 mg/dL Normal 8.5-10.2 [facility] Reference Lab Comment on above: Performed By: #### C MP, CBC #### [facility] Routine Lab [address] [place], [place] [address] Chloride [Moles/Vol] 101 mmol/L Normal 97-105 [facility] Reference Lab Comment on above: Performed By: #### C MP, CBC #### [facility] Routine Lab [address] [place], [place] [address] CO2 [Moles/Vol] 26 mmol/L Normal 22-30 [facility] Reference Lab Comment on above: Performed By: #### C MP, CBC #### [facility] Routine Lab [address] [place], [place] [address] Creatinine [Mass/Vol] 1.06 mg/dL Normal 0.73-1.22 [facility] Reference Lab Comment on above: Performed By: #### C MP, CBC #### [facility] Routine Lab [address] [place], [place] [address] eGFR- Amer. >60 Normal [facility] Reference Lab Comment on above: Performed By: #### C MP, CBC #### [facility] Routine Lab [address] [place], [place] [address] GFR/1.73 sq M predicted among non-blacks MDRD (S/P/Bld) [Vol rate/Area] mL/min/{1.73_m2} Normal [facility] Reference Lab Comment on above: Performed By: #### C MP, CBC #### [facility] Routine Lab [address] [place], [place] [address] Glucose [Mass/Vol] 116 mg/dL High 74-99 [facility] Reference Lab Comment on above: Performed By: #### C MP, CBC #### [facility] Routine Lab [address] [place], [place] [address] Potassium [Moles/Vol] 3.8 mmol/L Normal 3.7-5.1 [facility] Reference Lab Comment on above: Performed By: #### C MP, CBC #### [facility] Routine Lab [address] [place], [place] [address] Protein [Mass/Vol] 7.9 g/dL Normal 6.3-8.0 [facility] Reference Lab Comment on above: Performed By: #### C MP, CBC #### [facility] Routine Lab [address] [place], [place] [address] Sodium [Moles/Vol] 140 mmol/L Normal 136-144 [facility] Reference Lab Comment on above: Performed By: #### C MP, CBC #### [facility] Routine Lab [address] [place], [place] [id number] Urea nitrogen [Mass/Vol] 14 mg/dL Normal 9-24 [facility] Reference Lab Comment on above: Performed By: #### C MP, CBC #### [facility] Routine Lab [address] [place], [place] [id number] CNPNon 11-07-2020 CNPN Telephone (AKURFL) -------- PHUONG GARCIA ([id number]) 1995 Date Time Provider Department 11/07/20 [place] SHAH AKSHRUTI During your visit today, we recorded the following information about you: Marjan Israel 11/07/2020 8:23 AM Signed Patients mom Simran called stating patient was in ER and needs to follow up with you. Please advise where to schedule. Motnana Shah MD 11/07/2020 8:33 AM Signed Anytime next few weeks Marjan Israel 11/07/2020 8:50 AM Signed Spoke to patients mother, patient is scheduled for 11-14-20 Vero Soto RN 11/07/2020 10:28 AM Signed Patient's mother calling and he has an appointment next Tuesday with you and is worried with the CT Results below, because now patient is unable to get an erection at all and wants to make sure not a blood flow issue that is OK to wait. Would you like to have him get a Scrotal US prior to appt? Pelvis: There is vascular prominence within the inguinal regions extending into the scrotum, greater on the left. Possibility of varicocele considered. Scrotal ultrasound a be obtained as clinically indicated. Focal calcification noted in the left inguinal region, possibly phleboliths. No mass, ascites or fluid collection. Laurence Clements MD 11/07/2020 10:38 AM Signed Addended by: LAURENCE CLEMENTS MD on: 11/07/2020 10:38 AM Modules accepted: Orders Laurence Clements MD 11/07/2020 10:38 AM Signed Yes, I ordered GORDON Soto RN 11/07/2020 3:14 PM Signed Patient made aware of message. Aware of plan of care. No other questions. Encounter closed. Spoke with patient and let him know that he can get this scheduled at [phone]. 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] Order(s):US SCROTUM AND CONTENTS [[id number]] Order #: [id number] FUTURE US DOPPLER COMPLETE [[id number]] Order #: [id number] FUTURE Prescriptions as of 11/07/2020 Sig: ONDANSETRON 4 MG DISINTEGRATI* Take 1 tablet by mouth every * FLUOXETINE 20 MG CAPSULE take 1 capsule by mouth once * FAMOTIDINE 20 MG TABLET Take 20 mg by mouth twice concepción* ONDANSETRON HCL 4 MG TABLET Take 4 mg by mouth every 8 ho* CHOLECALCIFEROL (VITAMIN D3) * Take 1 capsule by mouth once * RANITIDINE 150 MG TABLET Take 150 mg by mouth as neede* Problem List As Of Date 11/07/2020 Noted Resolved ATTN DEFICIT W HYPERACT [F90.9] 09/15/2005 Acne [L70.9] 08/27/2011 High anion gap metabolic acidosis [E87.2] 07/21/2017 Hypokalemia [E87.6] 07/22/2017 Abdominal pain [R10.9] 07/22/2017 Elevated lactic acid level [R79.89] 07/22/2017 Vitamin D deficiency [E55.9] Encounter Status:Closed by MARJAN MICHELE on 11/07/20 Normal [facility] Basic Panelon 07-22-2017 Creatinine 1.11 mg/dL Normal 0.67-1.17 [facility] Comment on above: Performed By: #### P 14 ####[facility] [place], [place] [address] Calcium 8.7 mg/dL Normal 8.5-10.1 [facility] Comment on above: Performed By: #### P 14 ####[facility] [place], [place] [address] Glucose mass conc 94 mg/dL Normal 70-99 [facility] Comment on above: Performed By: #### P 14 ####[facility] [place], [place] [address] Urea nitrogen 9 mg/dL Normal 7-18 [facility] Comment on above: Performed By: #### P 14 ####[address] [address] Anion gap 9 mmol/L Normal 8-16 [facility] Comment on above: Performed By: #### P 14 ####[address] [address] CO2 26 mmol/L Normal 21-32 [facility] Comment on above: Performed By: #### P 14 ####[address] [address] Chloride 110 mmol/L High 98-107 [facility] Comment on above: Performed By: #### P 14 ####[address] [address] Potassium molar conc 3.6 mmol/L Normal 3.5-5.1 [facility] Comment on above: Performed By: #### P 14 ####[address] [address] Sodium 141 mmol/L Normal 136-145 [facility] Comment on above: Performed By: #### P 14 ####[address] [address] CPKon 07-22-2017 Creatine kinase (CK) 110 U/L Normal 39-308 [facility] Comment on above: Performed By: #### P 14 ####[place] [address] Hemogramon 07-22-2017 Erythrocyte distribution width Auto Ratio (RBC) 11.8 % Normal 11.6-14.4 [facility] Comment on above: Performed By: #### P 14 ####[facility] [place] [address] Erythrocytes (RBC) 4.66 mil/cmm Normal 4.63-6.08 [facility] Comment on above: Performed By: #### P 14 ####[place] [address] Hematocrit (HCT) 40.1 % Normal 40.1-51.0 [facility] Comment on above: Performed By: #### P 14 ####[place] [address] Hemoglobin mass conc (Bld) 13.9 g/dL Normal 13.7-17.5 [facility] Comment on above: Performed By: #### P 14 ####[place] [address] MCH 29.8 pg Normal 25.7-32.2 [facility] Comment on above: Performed By: #### P 14 ####[place] [address] MCHC mass conc (RBC) 34.7 % Normal 32.3-36.5 [facility] Comment on above: Performed By: #### P 14 ####[place] [address] MCV 86.1 fL Normal 83.2-95.6 [facility] Comment on above: Performed By: #### P 14 ####[place] [address] Platelet mean volume (PMV) 11.1 fL Normal 8.7-12.0 [facility] Comment on above: Performed By: #### P 14 ####[place] [address] Platelets 159 thou/cmm Normal 141-365 [facility] Comment on above: Performed By: #### P 14 ####[place] [address] RDW SD 36.8 fl Normal 36.1-45.8 [facility] Comment on above: Performed By: #### P 14 ####[facility] [place], [place] [address] WBC (Leukocytes) 10.66 thou/cmm High 4.23-9.07 [facility] Comment on above: Performed By: #### P 14 ####[address] [address] MDRD GFRon 07-22-2017 eGFR (non-black) mL/min/{1.73_m2} Normal >60mL/m in/1 .73m2 [facility] Comment on above: Result Comment: If t he patient is , multiply the result by 1.210. Performed By: #### L IP ####[place] [address] Magnesium Bloodon 07-22-2017 Magnesium 1.8 mg/dL Normal 1.6-2.6 [facility] Comment on above: Performed By: #### P 14 ####[address] [address] Procalcitoninon 07-22-2017 Procalcitonin 0.11 ng/mL Normal [facility] Comment on above: Result Comment: Leve ls <0.50 ng/mL represent a low risk of severe sepsis and/orseptic shock, while levels >2.00 ng/mL represent an elevatedrisk of severe sepsis and/or septic shock. Levels <0.50 ng/mLdo not exclude infection, as infections or systemic infectionsin early stages (<6hrs) can be associated with lowconcentrations. Levels between 0.50-2.00 ng/mL should beinterpreted in the clinical context of the patient, as a varietyof conditions such as olivo, trauma, surgery and severecardiogenic shock can cause procalcitonin elevations. Performed By: #### P 14 ####[address] [address] Alcohol, Serumon 07-21-2017 Alcohol, Serum < 3 Normal [facility] Comment on above: Result Comment: TEST CREDITED-DUPLICATE ORDER-SEE DRUG SCREEN Performed By: #### P 14 ####[facility] [place], [place] [address] CHEST 2 VIEWSon 07-21-2017 CHEST 2 VIEWS Performed at [facility] APPROVED BY: Artemio Schuler MD EXAMINATION: CHEST RADIOGRAPH (2 VIEW FRONTAL & LATERAL) Clinical History: Vomiting, leukocytosis.M: XC2_3Comparison: None RESULT: Lines, tubes, and devices: None. Lungs and pleura: No consolidation. No lung mass. No pleural effusion. Cardiomediastinal silhouette: Normal cardiomediastinal silhouette. Other: None IMPRESSION: No acute radiographic abnormality. Normal [facility] CT ABDOMEN AND PELVIS WITH C ONTRASTon 07-21-2017 CT ABDOMEN AND PELVIS WITH CONTRAST Performed at [facility] APPROVED BY: Artemio Schuler MD EXAM TITLE:CT ABDOMEN AND PELVIS WITH CONTRAST DATE:07/21/2017 14:57 COMPARISON: None. CLINICAL INDICATION/HISTORY: Abdominal pain TECHNIQUE: CT examination of the abdomen and pelvis was performed following the administration of intravenous contrast. Sagittal and coronal reconstruction images were generated. CT Radiation dose: Integrated Dose-length product (DLP) for this visit = 151.05 mGy*cm.CT Dose Reduction Employed: 1IV contrast: [address] ABDOMEN WITH INTRAVENOUS CONTRAST:Visualized lung bases are clear. There is a normal appearance of the visceral organs. No abdominal mass, free fluid, or lymphadenopathy. The appendix is normal. No bowel dilatation or wall thickening. No free fluid is depicted. The vasculature appears normal. CT PELVIS WITH INTRAVENOUS CONTRAST:There is no pelvic mass, free fluid or lymphadenopathy. IMPRESSION:Normal CT examination of the abdomen and pelvis. Normal [facility] Comprehensive Panelon 2016 Alkaline phosphatase (ALP) 48 U/L Normal 46-116 [facility] Comment on above: Performed By: #### P 14 ####[facility] [place], [place] [address] Bilirubin Ql (U) 0.7 mg/dL Normal 0.2-1.0 [facility] Comment on above: Performed By: #### P 14 ####[facility] [place], [place] [address] Protein 7.7 g/dL Normal 6.4-8.2 [facility] Comment on above: Performed By: #### P 14 ####[facility] [place], [place] [address] Creatinine 1.02 mg/dL Normal 0.67-1.17 [facility] Comment on above: Performed By: #### P 14 ####[facility] [place], [place] [address] Alanine aminotransferase (ALT) 26 U/L Normal 12-78 [facility] Comment on above: Performed By: #### P 14 ####[facility] [place], [place] [address] Aspartate aminotransferase (AST) 13 U/L Normal 9-37 [facility] Comment on above: Performed By: #### P 14 ####[address] [address] Albumin 4.3 g/dL Normal 3.4-5.0 [facility] Comment on above: Performed By: #### P 14 ####[address] [address] Glucose mass conc 159 mg/dL High 70-99 [facility] Comment on above: Performed By: #### P 14 ####[address] [address] Urea nitrogen 11 mg/dL Normal 7-18 [facility] Comment on above: Performed By: #### P 14 ####[address] [address] Anion gap 18 mmol/L High 8-16 [facility] Comment on above: Performed By: #### P 14 ####[address] [address] Calcium 9.0 mg/dL Normal 8.5-10.1 [facility] Comment on above: Performed By: #### P 14 ####[address] [address] CO2 19 mmol/L Low 21-32 [facility] Comment on above: Performed By: #### P 14 ####[place] [address] Chloride 105 mmol/L Normal 98-107 [facility] Comment on above: Performed By: #### P 14 ####[facility] [place], [place] [address] Potassium molar conc 4.7 mmol/L Normal 3.5-5.1 [facility] Comment on above: Performed By: #### P 14 ####[facility] [place], [place] [address] Sodium 137 mmol/L Normal 136-145 [facility] Comment on above: Performed By: #### P 14 ####[facility] [place], [place] [address] Alkaline phosphatase (ALP) 55 U/L Normal 46-116 [facility] Comment on above: Performed By: #### P 14 ####[address] [address] Alanine aminotransferase (ALT) 28 U/L Normal 12-78 [facility] Comment on above: Performed By: #### P 14 ####[address] [address] Bilirubin Ql (U) 0.6 mg/dL Normal 0.2-1.0 [facility] Comment on above: Performed By: #### P 14 ####[address] [address] Protein 8.4 g/dL High 6.4-8.2 [facility] Comment on above: Performed By: #### P 14 ####[address] [address] Aspartate aminotransferase (AST) 19 U/L Normal 9-37 [facility] Comment on above: Performed By: #### P 14 ####[address] [address] Creatinine 1.11 mg/dL Normal 0.67-1.17 [facility] Comment on above: Performed By: #### P 14 ####[address] [address] Albumin 4.8 g/dL Normal 3.4-5.0 [facility] Comment on above: Performed By: #### P 14 ####[address] [address] Anion gap 19 mmol/L High 8-16 [facility] Comment on above: Performed By: #### P 14 ####[place] [address] CO2 22 mmol/L Normal 21-32 [facility] Comment on above: Performed By: #### P 14 ####[address] [address] Glucose mass conc 158 mg/dL High 70-99 [facility] Comment on above: Performed By: #### P 14 ####[place] [address] Urea nitrogen 12 mg/dL Normal 7-18 [facility] Comment on above: Performed By: #### P 14 ####[place] [address] Calcium 9.5 mg/dL Normal 8.5-10.1 [facility] Comment on above: Performed By: #### P 14 ####[place] [address] Chloride 102 mmol/L Normal 98-107 [facility] Comment on above: Performed By: #### P 14 ####[place] [address] Potassium molar conc 2.8 mmol/L Low 3.5-5.1 [facility] Comment on above: Performed By: #### P 14 ####[place] [address] Sodium 140 mmol/L Normal 136-145 [facility] Comment on above: Performed By: #### P 14 ####[address] [address] Hemogram/Diffon 07-21-2017 Basophils Auto #/vol (Bld) 0.07 thou/cmm Normal 0.01-0.08 [facility] Comment on above: Result Comment: Smea r scanned; tech agrees with automated differential Performed By: #### C BCD1 ####[place] [address] Basophils/100 WBC Auto (Bld) 0.3 % Normal [facility] Comment on above: Performed By: #### C BCD1 ####[facility] [place], [place] [address] Eosinophils 0.00 thou/cmm Low 0.04-0.54 [facility] Comment on above: Performed By: #### C BCD1 ####[address] [address] Eosinophils/100 leukocytes 0.0 % Normal [facility] Comment on above: Performed By: #### C BCD1 ####[address] [address] Immature Grans 0.80 % Normal [facility] Comment on above: Performed By: #### C BCD1 ####[address] [address] Immature Grans # 0.18 thou/cmm High 0.00-0.05 [facility] Comment on above: Performed By: #### C BCD1 ####[address] [address] Lymphocytes 1.51 thou/cmm Normal 0.84-2.85 [facility] Comment on above: Performed By: #### C BCD1 ####[address] [address] Lymphocytes/100 leukocytes 6.7 % Normal [facility] Comment on above: Performed By: #### C BCD1 ####[address] [address] Monocytes 1.28 thou/cmm High 0.30-0.82 [facility] Comment on above: Performed By: #### C BCD1 ####[address] [address] Monocytes/100 leukocytes 5.7 % Normal [facility] Comment on above: Performed By: #### C BCD1 ####[address] [address] Seg Neutrophil 86.5 % Normal [facility] Comment on above: Performed By: #### C BCD1 ####[address] [address] Seg. Neut.# 19.48 thou/cmm High 1.78-5.38 [facility] Comment on above: Performed By: #### C BCD1 ####[place] [address] Erythrocyte distribution width Auto Ratio (RBC) 11.5 % Low 11.6-14.4 [facility] Comment on above: Performed By: #### C BCD1 ####[place] [address] Erythrocytes (RBC) 5.39 mil/cmm Normal 4.63-6.08 [facility] Comment on above: Performed By: #### C BCD1 ####[place] [address] Hematocrit (HCT) 45.2 % Normal 40.1-51.0 [facility] Comment on above: Performed By: #### C BCD1 ####[place] [address] Hemoglobin mass conc (Bld) 16.2 g/dL Normal 13.7-17.5 [facility] Comment on above: Performed By: #### C BCD1 ####[place] [address] MCH 30.1 pg Normal 25.7-32.2 [facility] Comment on above: Performed By: #### C BCD1 ####[place] [address] MCHC mass conc (RBC) 35.8 % Normal 32.3-36.5 [facility] Comment on above: Performed By: #### C BCD1 ####[place] [address] MCV 83.9 fL Normal 83.2-95.6 [facility] Comment on above: Performed By: #### C BCD1 ####[place] [address] Platelet mean volume (PMV) 11.1 fL Normal 8.7-12.0 [facility] Comment on above: Performed By: #### C BCD1 ####[facility] [place] [address] Platelets 247 thou/cmm Normal 141-365 [facility] Comment on above: Performed By: #### C BCD1 ####[address] [address] RDW SD 34.9 fl Low 36.1-45.8 [facility] Comment on above: Performed By: #### C BCD1 ####[place] [address] WBC (Leukocytes) 22.52 thou/cmm High 4.23-9.07 [facility] Comment on above: Performed By: #### C BCD1 ####[place] [address] Lactic Acidon 07-21-2017 Lactate 2.2 mmol/L Critically high 0.4-2.0 [facility] Comment on above: Performed By: #### P 14 ####[place] [address] Lactate 5.8 mmol/L Critically high 0.4-2.0 [facility] Comment on above: Performed By: #### P 14 ####[place] [address] Lactate 7.5 mmol/L Critically high 0.4-2.0 [facility] Comment on above: Performed By: #### L AC ####[address] [address] Lipase Bloodon 07-21-2017 Lipase Blood 175 U/L Normal 73-393 [facility] Comment on above: Performed By: #### L IP ####[address] [address] MDRD GFRon 07-21-2017 eGFR (non-black) mL/min/{1.73_m2} Normal >60mL/m in/1 .73m2 [facility] Comment on above: Result Comment: If t he patient is , multiply the result by 1.210. Performed By: #### G FR ####[place] [address] eGFR (non-black) mL/min/{1.73_m2} Normal >60mL/m in/1 .73m2 [facility] Comment on above: Result Comment: If t he patient is , multiply the result by 1.210. Performed By: #### G FR ####[address] [address] Osmolality Serumon 7 Osmolality 300 mOsm/kg High 276-298 [facility] Comment on above: Performed By: #### P 14 ####[place] [address] Ur/Serum Drug Screenon 07-21 Acetaminophen mass conc <2.0 Low 10.0-30.0 [facility] Comment on above: Performed By: #### P 14 ####[place] [address] Serum Alcohol < 3 Normal [facility] Comment on above: Performed By: #### P 14 ####[place] [address] Serum Salicylate < 1.7 Low 2.8-20.0 [facility] Comment on above: Performed By: #### P 14 ####[place] [address] Urine Amphetamine Non-detected Normal Non-Detect e d [facility] Comment on above: Performed By: #### P 14 ####[place] [address] Urine Barbiturates Non-detected Normal Non-Detec te d [facility] Comment on above: Performed By: #### P 14 ####[place] [address] Urine Benzodiazepine Non-detected Normal Non-Det ecte d [facility] Comment on above: Performed By: #### P 14 ####[place] [address] Urine Cocaine Metab Non-detected Normal Non-Dete cte d [facility] Comment on above: Performed By: #### P 14 ####[address] [place] [address] Urine Opiate see below Normal Non-Detecte d [facility] Comment on above: Result Comment: Dete cted (unconfirmed) Performed By: #### P 14 ####[address] [address] Urine PCP Non-detected Normal Non-Detecte d [facility] Comment on above: Performed By: #### P 14 ####[place] [address] Urine THC see below Normal Non-Detecte d [facility] Comment on above: Result Comment: Dete cted (unconfirmed) Urine Drug Cutoff LevelsUrine Amphetamine 500 ng/mLUrine Barbituate 200 ng/mLUrine Benzodiazepines 200 ng/mLUrine Cocaine 150 ng/mLUrine Phencyclidine (PCP) 25 ng/mLUrine Opiates 300 ng/mLUrine THC 50 ng/mLThe results of these analytes are unconfirmed and reportedqualitatively as detected or non-detected relative to the cutoff value.Detected results indicate the sample is likely to contain the analyte.Non-detected results indicate that either the sample does notcontain the analyte or it is present in concentrations belowthe cutoff level. This drug screen should be used for medical diagnosticpurposes only. Performed By: #### P 14 ####[place] [address] Urinalysis Routineon 017 Bilirubin Urine Negative Normal Negative [facility] Comment on above: Performed By: #### U RIN2 ####[place] [address] Ep Cells Urine 0.3 /hpf Normal 0.0-5.0 [facility] Comment on above: Performed By: #### U RIN2 ####[place] [address] Hemoglobin,Urine Negative Normal Negative [facility] Comment on above: Performed By: #### U RIN2 ####[address] [address] Hyaline Cast 0.0 /lpf Normal 0.0-1.0 [facility] Comment on above: Performed By: #### U RIN2 ####[facility] [place], [place] [address] Ketone Urine 15 mg/dL Abnormal Negative [facility] Comment on above: Performed By: #### U RIN2 ####[facility] [place], [place] [address] Nitrites Urine Negative Normal Negative [facility] Comment on above: Performed By: #### U RIN2 ####[place] [address] Protein Urine TRACE Abnormal Negative [facility] Comment on above: Performed By: #### U RIN2 ####[place] [address] Specific [place], Ur >1.045 Abnormal 1.005-1.030 [facility] Comment on above: Performed By: #### U RIN2 ####[place] [address] Urine, appearance CLEAR Normal [facility] Comment on above: Performed By: #### U RIN2 ####[place] [address] Urine, bacteria in sediment NONE Normal None [facility] Comment on above: Performed By: #### U RIN2 ####[address] [address] Urine, color YELLOW Normal [facility] Comment on above: Performed By: #### U RIN2 ####[address] [address] Urine, erythrocytes in sediment by area 0.5 /[HPF] Normal 0.0-5.0 [facility] Comment on above: Performed By: #### U RIN2 ####[address] [address] Urine, glucose presence 100 mg/dL Abnormal Negative [facility] Comment on above: Performed By: #### U RIN2 ####[place] [address] Urine, leukocytes in sedmiment 1.0 /[HPF] Normal 0.0-5.0 [facility] Comment on above: Performed By: #### U RIN2 ####[facility] [place], [place] [address] Urine, pH 7.5 [pH] Normal 5.0-8.0 [facility] Comment on above: Performed By: #### U RIN2 ####[facility] [place], [place] [address] Urobilinogen,Ur 0.2 EU/dL Normal 0.0-1.0 [facility] Comment on above: Performed By: #### U RIN2 ####[facility] [place], [place] [address] WBC (Leukocytes) Negative Normal Negative [facility] Comment on above: Performed By: #### U RIN2 ####[address] [address] Vital Signs Date Time Vital Sign Value Performing Clinician Zehrai shelley 04-02-2025 17:00-0400 Body temperature 98.3 [degF] Sallie Crowley LOW PRESSURE FIRER-C Work Phone: 5(378)[phone] [place] [address] 04-02-2025 17:00-0400 Diastolic blood pressure 81 mm[Hg] Sallie Crowley LOW PRESSURE FIRER-C Work Phone: 3(787)655-787201 [place] [address] 04-02-2025 17:00-0400 Heart rate 80 /min Sallie Crowley L[employer] PRESSURE FIRER-C Work Phone: 5(350)927-249101 [place] [address] 04-02-2025 17:00-0400 Respiratory rate 19 /min Sallie Crowley LOW PRESSURE FIRER-C Work Phone: 1(388)848-828901 [place] [address] 04-02-2025 17:00-0400 SaO2% (BldA) [Mass fraction] 99 % Sallie Crowley LOW PRESSURE FIRER-C Work Phone: 7(451)795-617301 [place] [address] 04-02-2025 17:00-0400 Systolic blood pressure 121 mm[Hg] Sallie Crowley LOW PRESSURE FIRER-C Work Phone: 0(010)972-231201 [place] [address] 04-02-2025 12:05-0400 Body height 175.26 cm Sallie Crowley LOW PRESSURE FIRER-C Work Phone: 5(193)997-254404 [place] [address] 04-02-2025 12:05-0400 Body mass index (BMI) [Ratio] 18.4 kg/m2 Sallie Haagen LOW PRESSURE FIRER-C Work Phone: 5(668)585-811601 [place] [address] 04-02-2025 12:05-0400 Body weight 56.69 kg Sallie Haagen LOW PRESSURE FIRER-C Work Phone: 5(530)773-427601 [place] [address] 04-01-2025 21:25-0400 Body temperature 98.9 [degF] Sallie Haagen LOW PRESSURE FIRER-C Work Phone: 8(698)732-274101 [place] [address] 04-01-2025 21:25-0400 Diastolic blood pressure 74 mm[Hg] Sallie Haagen LOW PRESSURE FIRER-C Work Phone: 6(156)310-956301 [place] [address] 04-01-2025 21:25-0400 Heart rate 78 /min Sallie Haagen LOW PRESSURE FIRER-C Work Phone: 8(949)226-748901 [place] [address] 04-01-2025 21:25-0400 Respiratory rate 16 /min Sallie Haagen LOW PRESSURE FIRER-C Work Phone: 1(446)793-558901 [place] [address] 04-01-2025 21:25-0400 SaO2% (BldA) [Mass fraction] 100 % Sallie Haagen LOW PRESSURE FIRER-C Work Phone: 4(581)666-143101 [place] [address] 04-01-2025 21:25-0400 Systolic blood pressure 127 mm[Hg] Sallie Haagen LOW PRESSURE FIRER-C Work Phone: 4(481)822-421701 [place] [address] 04-01-2025 16:14-0400 Body height 175.26 cm Sallie Haagen LOW PRESSURE FIRER-C Work Phone: 1(599)856-768701 [place] [address] 04-01-2025 16:14-0400 Body mass index (BMI) [Ratio] 18.4 kg/m2 Sallie Haagen LOW PRESSURE FIRER-C Work Phone: 3(303)954-176504 [place] [address] 04-01-2025 16:14-0400 Body weight 56.75 kg Sallie Haagen LOW PRESSURE FIRER-C Work Phone: 4(634)335-089101 [place] [address] 11-02-2024 16:05-0500 Body mass index (BMI) [Ratio] 21.27 kg/m2 Janna Eason APRN.CAUSTIC OPERATOR Work Phone: 2(244)944-478612 [place] [address] 11-02-2024 16:05-0500 Body temperature 97.5 [degF] Janna Suppan APPLICATION PACKAGING SPECIALIST.CAUSTIC OPERATOR Work Phone: [facility] 11-02-2024 16:05-0500 Body weight 65.32 kg Janna Suppan APPLICATION PACKAGING SPECIALIST.CAUSTIC OPERATOR Work Phone: [facility] 11-02-2024 16:05-0500 Diastolic blood pressure 62 mm[Hg] Janna Suppan APPLICATION PACKAGING SPECIALIST.CAUSTIC OPERATOR Work Phone: [facility] 11-02-2024 16:05-0500 Heart rate 86 /min Janna Suppan APPLICATION PACKAGING SPECIALIST.CAUSTIC OPERATOR Work Phone: [facility] 11-02-2024 16:05-0500 Respiratory rate 16 /min Janna Suppan APPLICATION PACKAGING SPECIALIST.CAUSTIC OPERATOR Work Phone: [facility] 11-02-2024 16:05-0500 SaO2% (BldA) [Mass fraction] 98 % Janna Suppan APPLICATION PACKAGING SPECIALIST.CAUSTIC OPERATOR Work Phone: [facility] 11-02-2024 16:05-0500 Systolic blood pressure 110 mm[Hg] Janna Suppan APPLICATION PACKAGING SPECIALIST.CAUSTIC OPERATOR Work Phone: [facility] 10-01-2024 14:06-0500 Body mass index (BMI) [Ratio] 21.86 kg/m2 Messi Barry MD Work Phone: [facility] 10-01-2024 14:06-0500 Body weight 67.13 kg Messi Barry MD Work Phone: [facility] 10-01-2024 14:06-0500 Diastolic blood pressure 82 mm[Hg] Messi Barry MD Work Phone: [facility] 10-01-2024 14:06-0500 Heart rate 88 /min Messi Barry MD Work Phone: [facility] 10-01-2024 14:06-0500 SaO2% (BldA) [Mass fraction] 97 % Messi Barry MD Work Phone: [facility] 10-01-2024 14:06-0500 Systolic blood pressure 112 mm[Hg] Messi Barry MD Work Phone: [facility] 11-04-2023 13:06-0500 Body weight 62.6 kg Messi Barry MD Work Phone: [facility] 11-04-2023 13:06-0500 Diastolic blood pressure 62 mm[Hg] Messi Barry MD Work Phone: [facility] 11-04-2023 13:06-0500 Heart rate 59 /min Messi Barry MD Work Phone: [facility] 11-04-2023 13:06-0500 SaO2% (BldA) [Mass fraction] 96 % Messi Barry MD Work Phone: [facility] 11-04-2023 13:06-0500 Systolic blood pressure 102 mm[Hg] Messi Barry MD Work Phone: [facility] Encounters Encounter Date Encounter Type Care Provider Facility Start: 04-02-2025 End: 04-02-2025 Emergency department patient visit Sallie Solomonmazin LOW PRESSURE FIRER-C Work Phone: -Emergency Department Work Phone: Start: 04-01-2025 End: 04-01-2025 Emergency department patient visit Sallie Crowley LOW PRESSURE FIRER-C Work Phone: -Emergency Department Work Phone: Start: 11-02-2024 End: 11-02-2024 ambulatory [facility] Facility:[facility] Start: 11-02-2024 End: 11-02-2024 Office outpatient visit 15 minutes Janna Eason APPLICATION PACKAGING SPECIALIST.CAUSTIC OPERATOR Work Phone: [facility] [place] Comment on above: Anxiety; Chronic insomnia Start: 10-05-2024 End: 10-05-2024 Telephone encounter Sallie Crowley APRN.CAUSTIC OPERATOR Work Phone: [facility] [place] Start: 10-01-2024 End: 10-01-2024 Patient encounter procedure Messi Barry MD Work Phone: [facility] Comment on above: Anxiety (Primary Dx) ; Chronic insomnia Start: 10-01-2024 End: 10-01-2024 Telephone encounter Messi Barry MD Work Phone: [facility] Comment on above: Insurance Authorizat ion Start: 10-01-2024 End: 10-01-2024 ambulatory [facility] Facility:[facility] Start: 11-04-2023 End: 11-04-2023 Patient encounter procedure Messi Barry MD Work Phone: [facility] Comment on above: Well adult exam (Yesenia da Dx); АЛЕКСАНДР (generalized anxiety disorder); Pulmonary nodules; Cannabinoid hyperemesis syndrome; Attention deficit hyperactivity disorder (ADHD), unspecified ADHD type; Vitamin D deficiency; Need for hepatitis C screening test Start: 11-04-2023 End: 11-04-2023 Patient encounter status Messi Barry MD Work Phone: [facility] Work Phone: Start: 12-19-2022 End: 12-19-2022 Emergency department patient visit [facility] Facility:[facility] Start: 08-03-2022 Refill Clayton KLEIN RN.RASHEED SUTTON Work Phone: [facility] Comment on above: Refill Request; Refi ll Request Start: 04-28-2022 Refill Clayton KLEIN RN.RASHEED SUTTON Work Phone: [facility] Comment on above: Refill Request Start: 04-20-2022 Telephone encounter Sallie retana APRN.CAUSTIC OPERATOR Work Phone: [facility] Comment on above: COVID question Start: 07-21-2017 End: 07-22-2017 Evaluation and management of inpatient EH[facility] Facility:[facility] Procedures Date Procedure Procedure Detail Performing Clinician Start: 04-02-2025 SARS-CoV-2, Influenz a & RSV (PCR) Sallie Crowley LOW PRESSURE FIRER-C Work Phone: Start: 04-02-2025 Methadone measuremen t, urine aSllie Crowley LOW PRESSURE FIRER-C Work Phone: Start: 04-02-2025 Urnls dip stick/tabl et reagent auto microscopy Sallie Crowley LOW PRESSURE FIRER-C Work Phone: Start: 04-02-2025 Estimated creatinine clearance Sallie Crowley LOW PRESSURE FIRER-C Work Phone: Start: 04-01-2025 Computed tomography of abdomen and pelvis with intravenous contrast Sallie Crowley LOW PRESSURE FIRER-C Work Phone: Start: 04-01-2025 Estimated creatinine clearance Sallie Crowley LOW PRESSURE FIRER-C Work Phone: Start: 12-27-2018 Adult depression scr eening assessment Sallie Crowley APPLICATION PACKAGING SPECIALIST.CAUSTIC OPERATOR Work Phone: Plan of Treatment Date Care Activity Detail Author Start: 07-18-2030 Urine microalbumin profile [facility] Start: 11-02-2025 Covid-19 Vaccine () Covid-19 Vaccine () [facility] Comment on above: Postponed from 05/20 (Declined at this time) Start: 11-01-2025 End: 11-01-2025 Patient encounter procedure 11/01/2025 2:20 PM EST Office Visit [facility] [place] [address] [place], [place] [id number] Sallie Crowley APRN.CAUSTIC OPERATOR [address] [place], [place] [phone] physical [facility] [place] Comment on above: physical Start: 04-02-2025 [facility] Start: 04-01-2025 End: 04-01-2025 [facility] Start: 03-18-2025 Influenza vaccination Influenza Vacc ine (#1) [facility] Comment on above: Postponed from 05/20 (Declined at this time) Start: 11-04-2024 Covid-19 Vaccine (#1) Covid-19 Vacci ne (#1) [facility] Comment on above: Postponed from 03/26 (Declined at this time) Start: 10-26-2024 End: 10-26-2024 Patient encounter procedure 10/26/2024 1:00 PM EST Office Visit [facility] [place] [address] [facility] [place] [address] Sallie Crowley APRN.CAUSTIC OPERATOR [address] [place] [address] 4 week follow up. Insomnia. Started on Prist[employer] [facility] Comment on above: 4 week follow up. In somnia. Started on Pristiq Start: 10-01-2024 End: 12-31-2024 Comprehensive metabolic 2000 panel - Serum or Plasma [facility] Work Phone: Comment on above: Expected: 10/01/2024 , Expires: 12/31/2024 Start: 10-01-2024 End: 12-31-2024 Thyrotropin [Units/volume] in Serum or Plasma [facility] Comment on above: Expected: 10/01/2024 , Expires: 12/31/2024 Start: 09-18-2024 Depression Assessment Depression Ass essment [facility] Comment on above: Postponed from 09/19 (Declined at this time) Start: 05-20-2024 Covid-19 Vaccine ( season) Covid-19 Vaccine ( season) [facility] Start: 05-20-2024 Influenza vaccination Influenza Vacc ine (#1) [facility] Start: 03-18-2024 Influenza vaccination Influenza Vacc ine (#1) [facility] Comment on above: Postponed from 05/20 (Declined at this time) Start: 11-04-2023 End: 02-03-2024 25-hydroxyvitamin D3 [Mass/volume] in Serum or Plasma VITAMIN D 25 HYDROXY Lab Routine Vitamin D deficiency Expected: 11/04/2023, Expires: 02/03/2024 [facility] Work Phone: Comment on above: Expected: 11/04/2023 , Expires: 02/03/2024 Start: 11-04-2023 End: 02-03-2024 CBC W Auto Differential panel - Blood CBC + DIFF Lab Routine АЛЕКСАНДР (generalized anxiety disorder) Well adult exam Expected: 11/04/2023, Expires: 02/03/2024 [facility] Work Phone: Comment on above: Expected: 11/04/2023 , Expires: 02/03/2024 Start: 11-04-2023 End: 02-03-2024 Comprehensive metabolic 2000 panel - Serum or Plasma COMP METABOLIC PANEL Lab Routine АЛЕКСАНДР (generalized anxiety disorder) Well adult exam Expected: 11/04/2023, Expires: 02/03/2024 [facility] Work Phone: Comment on above: Expected: 11/04/2023 , Expires: 02/03/2024 Start: 11-04-2023 End: 02-03-2024 Hepatitis C virus Ab [Presence] in Serum HEPATITIS C ANTIBODY IA WITH CONFIRMATION Lab Routine Need for hepatitis C screening test Expected: 11/04/2023, Expires: 02/03/2024 [facility] Work Phone: Comment on above: Expected: 11/04/2023 , Expires: 02/03/2024 Start: 11-04-2023 End: 02-03-2024 Lipid 1996 panel - Serum or Plasma LIPID PANEL BASIC Lab Routine Well adult exam Expected: 11/04/2023, Expires: 02/03/2024 [facility] Work Phone: Comment on above: Expected: 11/04/2023 , Expires: 02/03/2024 Start: 05-20-2022 Influenza vaccination INFLUENZA (#1) [facility] Start: 09-19-2021 DEPRESSION ASSESSMENT DEPRESSION ASS ESSMENT [facility] Start: 12-28-2019 Adult depression screening assessment DEPRESSION SCREENING [facility] Start: 2012 Anxiety Screening Anxiety Screening [facility] Start: 2012 Depression Screening Depression Scre ening [facility] Start: 2012 HEPATITIS C SCREENING HEPATITIS C [facility] Start: 2012 Hepatitis C screening Hepatitis C [facility] Start: 03-26-1995 COVID-19 VACCINE (#1) COVID-19 VACCI NE (#1) [facility] Patient Education [facility] Work Phone: Immunizations Immunization Date Immunization Notes Care Provider Jenn more 06-03-2021 influenza, seasonal, injectable Sallie Haagen APPLICATION PACKAGING SPECIALIST.CAUSTIC OPERATOR Work Phone: [facility] 06-03-2021 influenza virus vacc ine, unspecified formulation Messi Barry MD Work Phone: [facility] 09-19-2020 influenza, seasonal, injectable Sallie Haagen APPLICATION PACKAGING SPECIALIST.CAUSTIC OPERATOR Work Phone: [facility] 07-18-2020 tetanus toxoid, redu maria elena diphtheria toxoid, and acellular pertussis vaccine, adsorbed Salile Haagen APPLICATION PACKAGING SPECIALIST.CAUSTIC OPERATOR Work Phone: [facility] 06-14-2019 influenza, injectabl e, quadrivalent, contains preservative Sallie Haagen APPLICATION PACKAGING SPECIALIST.CAUSTIC OPERATOR Work Phone: [facility] 04-12-2019 Human Papillomavirus 9-valent vaccine Sallie Haagen APPLICATION PACKAGING SPECIALIST.CAUSTIC OPERATOR Work Phone: [facility] Work Phone: 10-11-2018 human papilloma viru s vaccine, quadrivalent Sallie Haagen APPLICATION PACKAGING SPECIALIST.CAUSTIC OPERATOR Work Phone: [facility] 10-11-2018 influenza, injectabl e, quadrivalent, contains preservative Sallie Haagen APPLICATION PACKAGING SPECIALIST.CAUSTIC OPERATOR Work Phone: [facility] 10-11-2018 tetanus toxoid, redu maria elena diphtheria toxoid, and acellular pertussis vaccine, adsorbed Sallie Haagen APPLICATION PACKAGING SPECIALIST.CAUSTIC OPERATOR Work Phone: [facility] 12-09-2010 hepatitis A vaccine, unspecified formulation Sallie Haagen APPLICATION PACKAGING SPECIALIST.CAUSTIC OPERATOR Work Phone: [facility] 12-09-2010 human papilloma viru s vaccine, quadrivalent Sallie Haagen APPLICATION PACKAGING SPECIALIST.CAUSTIC OPERATOR Work Phone: [facility] 12-09-2010 Meningococcal, MCV4, unspecified conjugate formulation(groups A, C, Y and W-135) Sallie Hamazin APPLICATION PACKAGING SPECIALIST.CAUSTIC OPERATOR Work Phone: [facility] 12-09-2010 poliovirus vaccine, inactivated Sallie Haagen APPLICATION PACKAGING SPECIALIST.CAUSTIC OPERATOR Work Phone: [facility] 05-08-2008 measles, mumps and rubella virus vaccine Sallie Haagen APPLICATION PACKAGING SPECIALIST.CAUSTIC OPERATOR Work Phone: [facility] Work Phone: 05-08-2008 tetanus toxoid, redu maria elena diphtheria toxoid, and acellular pertussis vaccine, adsorbed Sallie Haagen APPLICATION PACKAGING SPECIALIST.CAUSTIC OPERATOR Work Phone: [facility] Work Phone: 05-19-1998 diphtheria, tetanus toxoids and acellular pertussis vaccine Sallie Haagen APPLICATION PACKAGING SPECIALIST.CAUSTIC OPERATOR Work Phone: [facility] 05-19-1998 haemophilus influenz ae type b vaccine, HbOC conjugate Sallie Haagen APPLICATION PACKAGING SPECIALIST.CAUSTIC OPERATOR Work Phone: [facility] 01-18-1996 diphtheria, tetanus toxoids and acellular pertussis vaccine Sallie Haagen APPLICATION PACKAGING SPECIALIST.CAUSTIC OPERATOR Work Phone: [facility] 01-18-1996 haemophilus influenz ae type b vaccine, HbOC conjugate Sallie Haagen APPLICATION PACKAGING SPECIALIST.CAUSTIC OPERATOR Work Phone: [facility] 01-18-1996 measles, mumps and rubella virus vaccine Sallie Haagen APPLICATION PACKAGING SPECIALIST.CAUSTIC OPERATOR Work Phone: [facility] 01-18-1996 trivalent poliovirus vaccine, live, oral Sallie Haagen APPLICATION PACKAGING SPECIALIST.CAUSTIC OPERATOR Work Phone: [facility] Work Phone: 07-26-1995 diphtheria, tetanus toxoids and pertussis vaccine Sallie Haagen APPLICATION PACKAGING SPECIALIST.CAUSTIC OPERATOR Work Phone: [facility] Work Phone: 07-26-1995 haemophilus influenz ae type b vaccine, HbOC conjugate Sallie Haagen APPLICATION PACKAGING SPECIALIST.CAUSTIC OPERATOR Work Phone: [facility] 07-26-1995 hepatitis B vaccine, pediatric or pediatric/adolescent dosage Sallie Haagen APPLICATION PACKAGING SPECIALIST.CAUSTIC OPERATOR Work Phone: [facility] 07-26-1995 trivalent poliovirus vaccine, live, oral Sallie Haagen APPLICATION PACKAGING SPECIALIST.CAUSTIC OPERATOR Work Phone: [facility] Work Phone: 01-24-1995 diphtheria, tetanus toxoids and pertussis vaccine Sallie Crowley APPLICATION PACKAGING SPECIALIST.CAUSTIC OPERATOR Work Phone: [facility] Work Phone: 01-24-1995 haemophilus influenz ae type b vaccine, HbOC conjugate Sallie Crowley APPLICATION PACKAGING SPECIALIST.CAUSTIC OPERATOR Work Phone: [facility] 01-24-1995 hepatitis B vaccine, pediatric or pediatric/adolescent dosage Sallie Crowley APPLICATION PACKAGING SPECIALIST.CAUSTIC OPERATOR Work Phone: [facility] 01-24-1995 trivalent poliovirus vaccine, live, oral Salliecarmen Crowley APPLICATION PACKAGING SPECIALIST.CAUSTIC OPERATOR Work Phone: [facility] Work Phone: 1994 hepatitis B vaccine, pediatric or pediatric/adolescent dosage Salliecarmen Crowley APPLICATION PACKAGING SPECIALIST.CAUSTIC OPERATOR Work Phone: [facility] Payers Date Payer Category Payer Private Health Insurance MMO [employer] PPO [id number] 2023 Unknown [id number] 2022 Self-pay 2022 Unknown [id number] 2022 Unknown [id number] 2020 Unknown [employer] PPO OOS [id number] 2020-Present [phone] [address] [place] [address] PPO [id number] 2020 Unknown [id number] Medicaid [id number] Unknown [id number] Social History Date Type Detail Facility Start: 06-02-2012 End: 04-02-2025 Tobacco smoking status NHIS Never smoked tobacco [facility] Start: 06-02-2012 End: 10-01-2024 Tobacco use and exposure Smokeless tobacco non-user [facility] Start: 09-25-2021 End: 10-01-2024 Alcohol intake Current drinker of alcohol (finding) [facility] Start: 10-11-2018 History SDOH Alcohol Comment rarely [facility] Start: 1994 Sex Assigned At Not on file [facility] Start: 09-25-2021 End: 11-02-2024 History of Social function [facility] Start: 09-25-2021 End: 11-02-2024 Tobacco use panel [facility] PHQ2 Score 0 [facility] Start: 1994 Sex Assigned At Male [facility] Functional Status Date Assessment Result Facility 12-22-2020 Are you deaf, or do you have serious difficulty hearing No 12/22/2020 3:40 PM Brianna Mccullough RN No [facility] 12-22-2020 Are you blind, or do you have serious difficulty seeing, even when wearing glasses No 12/22/2020 3:40 PM Brianna Mccullough RN No [facility] 12-22-2020 Do you have serious difficulty walking or climbing stairs No 12/22/2020 3:40 PM Brianna Mccullough RN No [facility] 12-22-2020 Do you have difficul ty dressing or bathing No 12/22/2020 3:40 PM Brianna Mccullough RN No [facility] 12-22-2020 Because of a physica l, mental, or emotional condition, do you have difficulty doing errands alone such as visiting a physician's office or shopping No 12/22/2020 3:40 PM Brianna Mccullough RN No [facility] Mental Status Date Assessment Result Facility 12-22-2020 Because of a physica l, mental, or emotional condition, do you have serious difficulty concentrating, remembering, or making decisions No 12/22/2020 3:40 PM EDT Brianna Das RN No [facility] Clinical Notes 12-19-2020 to 04-02-2025 Note Date & Type Note Facility 04-02-2025 Discharge summary [facility] 04-02-2025 Discharge summary Note Date/Time April 02, 2025 4:59pm [facility] Medical Records Department [address] [place] [address] Emergency Department Summary 04/02/25 MR#: [id number] Acct: [id number] Name: PHUONG GARCIA Rep #:[id number] : 1995 29 From: Js khan DO PCP: VIVIANA Loomis Status:REG E R Location: ED ADDENDUM by Dr. Lyndon Leo DO on 04/02/25 at 1659 Care of the patient was turned over to me pending reevaluation after medication. Patient was still feeling nauseated after Thorazine and Benadryl. Patient was given a dose of Zofran. Patient felt better after. Patient wanted to go home. Patient was given his instructions. Patient was instructed to follow-up with his primary care physician in 3 to 5 days. Patient was instructed to stop smokingmarijuana. Patient understood and was agreeable with the plan. All questions were answered. 04/02/25 [id number]<Electronically signed by Lyndon Leo DO> Cosigner Signature (if applicable): cc: LOW PRESSURE FIRER-C Sallie Crowley ~* Signed HPI History of Present Illness Chief Complaint: Nausea/Vomiting Narrative Narrative: Chief complaint and HPI: Nausea, vomiting, abdominal pain. 29-year-old male with past medical history of GERD and marijuana abuse presents for evaluation ofnausea, vomiting, abdominal pain. Onset of symptoms approximately 4 to 5 days. Patient was seen in our emergency department yesterday evening for same complaint. He states his symptoms improved in the emergency department but reoccurred at home. He denies any hematemesis or coffee-ground emesis. Denies any melena or hematochezia. Denies any fever, chills, shortness of breath, chest pain, URI symptoms, dysuria, hematuria. Has used some capsaicin cream which has helped. States that he has not used marijuana in the past 5 to 6 days. Endorses some mild diffuse abdominal pain due to the vomiting. Review of systems: See HPI Medications: As listed on the chart Allergies: As listed on the chart PFSH: Per chart Vital signs: As listed on the chart. Reviewed. Physical exam: Gen: A&O x3, NAD Head: Normocephalic, atraumatic Eyes: No sclera icterus, conjunctiva clear ENT: Mildly dry mucous membranes Neck: Trachea midline, No JVD CV: RRR, no murmurs, no peripheral edema Resp: Lungs CTA BL, no w/r/c GI: Abd soft, non-distended, non-tender, no r/r/g : No CVA tenderness Musc: Full ROM, no deformity Skin: Warm, dry Neuro: Alert, oriented, grossly intact, sensation intact Psych: Cooperative, appropriate mood and affect [facility] Medications ?Medication ?Instructions ?Recorded ?Last Taken ?Type fluoxetine 20 mg capsule 20 mg PO DAILY 02/11/20 Unkn own History doxycycline monohydrate 100 mg 100 mg PO BID #20 caps 08/27/20 Unknown Rx capsule dicyclomine 20 mg tablet 20 mg PO BID #10 tabs Unknown Rx loperamide 2 mg capsule (Imodium 2 mg PO Q6H PRN loose stool #10 12/19/22 Unknown Rx A-D) caps metoclopramide HCl 5 mg tablet 5 mg PO Q8H PRN nausea and 04/02/25 Unknown Rx (Reglan) vomiting 3 days #9 tabs Allergy/AdvReac Type Severity Reaction Status Date / Time No Known Allergies Allergy Verified 04/01/25 16:15 Social History Smoking Status: Never smoker EXAM Physical Exam Const Vital Signs: 04/02/25 12:05 04/02/25 14:05 Temperature 97.9 F Temperature Source Temporal Pulse Rate 67 89 Respiratory Rate 16 Blood Pressure 136/97 H 120/70 Blood Pressure Mean 110 86 Pulse Ox 97 99 Oxygen Delivery Method Room Air MDM MDM MDM Narrative Medical decision making narrative: 29-year-old male with past medical history of GERD and marijuana abuse presents for evaluation of nausea, vomiting, abdominal pain. History taken by patient as well as medical record. Patient was seen in our emergency department yesterday for the same complaint. At that time he had basic labs performed consistent with dehydration. He did have a CT abdomen pelvis that showed no acute intra-abdominal abnormality. Patient was given Pepcid, Zofran, GI cocktail, Benadryl and Thorazine with improvement of symptoms. Concern was for cannabis hyperemesis syndrome. He was discharged home with a prescription for Zofran. Patient states that his nausea and vomiting has recurred. On presentation, patient no acute distress. His vitals are stable. Physical exam unremarkable except for mild dehydration. Differential diagnosis includes but is not limited to cannabis hyperemesis syndrome, viral illness, electrolyte abnormality, YARA, UTI, substance abuse. NS bolus, Reglan ordered for symptoms. Laboratory workupordered. I do not think CT abdomen pelvis is at this time given patient had oneperformed yesterday and is nontender on physical exam. CBC unremarkable except for hemoconcentration of 17.9. Likely secondary to his mild dehydration. This is improving from 19.3 yesterday. Patient did have a leukocytosis yesterday thathas resolved. CMP consistent with dehydration. Mild hyponatremia at 132 and hypokalemia of 3.2. P.o. potassium ordered. His creatinine is 1.27. However this is downtrending from yesterday at 1.35. Patient has had renal insufficiency on previous labs. His gap is improving from 22 to 18. Again suspect this is secondary to dehydration from nausea and vomiting. Total bilirubin 2.11, downtrending from yesterday at 2.59. No transaminitis. Lipase unremarkable. UA positive for ketones consistent with his dehydration. No UTI. Urine drug screen positive for cannabis. On reevaluation, patient is still nauseous. Concern is for cannabis hyperemesis syndrome. Benadryl and Thorazineordered. Patient currently getting his medication. Patient signed out to oncoming provider. If symptoms improved and patient tolerates p.o. intake. Plan will be to discharge home. Patient feels that Zofran is not working and therefore will prescribe Reglan instead. Impression: 1. Nausea and vomiting, suspect cannabis hyperemesis syndrome 2. Dehydration Lab Data Labs: Laboratory Results - last 24 hr 04/02/25 04/02/25 12:17 13:14 WBC 10.0 RBC 5.89 Hgb 17.9 H Hct 50.2 MCV 85.2 MCH 30.4 MCHC 35.7 RDW Std Deviation 34.1 L RDW Coeff of Loulou 11.0 L Plt Count 223 MPV 11.8 Immature Gran % (Auto) 0.400 Neut % (Auto) 70.3 H Lymph % (Auto) 19.7 [place] % (Auto) 9.2 Eos % (Auto) 0.1 Baso % (Auto) 0.3 Absolute Neuts (auto) 7.0 Absolute Lymphs (auto) 1.96 Nucleated RBC % 0 Sodium 132 L Potassium 3.2 L Chloride 91 L Carbon Dioxide 23.3 Anion Gap 18 H BUN 19 Creatinine 1.27 H Estim Creat Clear Calc 68.21 Est GFR (MDRD) Non-Af 78 BUN/Creatinine Ratio 15.0 Glucose 144 H Calcium 9.4 Magnesium 2.9 H Total Bilirubin 2.11 H AST 16 ALT 14 Alkaline Phosphatase 51 Total Protein 8.0 Albumin 4.5 Globulin 3.5 Albumin/Globulin Ratio 1.3 Lipase 33 Urine Color Yellow Urine Clarity Clear Urine pH 6.0 Ur Specific [place] 1.015 Urine Protein 30 H Urine Glucose (UA) Normal Urine Ketones 50 H Urine Occult Blood 10 H Urine Nitrite Negative Urine Bilirubin Negative Urine Urobilinogen Normal Ur Leukocyte Esterase 25 H Urine RBC 0 SEEN Urine WBC 0-5 SEEN Ur Squamous Epith Cells 0-5 SEEN Urine Bacteria 0 SEEN Urine Mucus 0 SEEN Urine Opiates Screen NEGATIVE U Buprenorphine Qual NEGATIVE Ur Oxycodone Screen NEGATIVE Urine Methadone Screen NEGATIVE Urine Fentanyl Screen NEGATIVE Ur Barbiturates Screen NEGATIVE Ur Phencyclidine Scrn NEGATIVE Ur Amphetamines Screen NEGATIVE U Benzodiazepines Scrn NEGATIVE Urine Cocaine Screen NEGATIVE U Cannabinoids Screen PRESUMPTIVE POSITIVE Discharge Plan Triage Chief Complaint: Nausea/Vomiting Other Complaint: Abd Pain ED Provider: Js Perez Dx/Rx/DC Orders Clinical Impression: Cannabis hyperemesis syndrome concurrent with and due to cannabis abuse Instructions: ED Cyclic Vomiting Syndrome, ED Vomiting (Adult) Prescriptions: New metoclopramide HCl [Reglan] 5 mg tablet 5 mg PO Q8H PRN (Reason: nausea and vomiting) 3 Days Qty: 9 0RF Discontinued ondansetron 4 MG tablet 4 mg PO Q8H PRN PRN (Reason: Nausea) Qty: 10 0RF ondansetron 4 mg tablet,disintegrating 4 mg PO Q8H PRN PRN (Reason: Nausea) Qty: 12 0RF No Action fluoxetine 20 MG capsule 20 mg PO DAILY doxycycline monohydrate 100 MG capsule 100 mg PO BID Qty: 20 0RF dicyclomine 20 mg tablet 20 mg PO BID Qty: 10 0RF loperamide [Imodium A-D] 2 mg capsule 2 mg PO Q6H PRN (Reason: loose stool) Qty: 10 0RF Primary Care Provider: Sallie Crowley NP Referrals: Sallie Crowley LOW PRESSURE FIRER, LOW PRESSURE FIRER-C [Primary Care Provider] - 3-5 Days Activity Restrictions/Additional Instructions: Given that you felt that the Zofran was not working. Recommend stop taking Zofran. Will write for Reglan. Refrain from marijuana. Continue your capsaicin cream. Follow-up with your primary care physician. Return back to the ED if symptoms change or worsen. Recommend liquid diet for the next 24 to 48 hours. Print Language: Upper Sorbian Disposition Disposition: Home, Self Care What to do if you have Problems For any increased pain, shortness of breath, bleeding, nausea or vomiting, chestpain, or any unexpected problems, contact your Primary Care Provider. Call [facility] ([phone]) or report to the closest Emergency Room. Call 911 if necessary. 04/02/25 1529 <Electronically signed by sJ Perez DO> Cosigner Signature (if applicable): CC: LOW PRESSURE FIRER-C Sallie Crowley ~ Signed [facility] Work Phone: [phone] 497-774207-14-2025 Radiology Diagnostic study note [facility] Imaging Services [address] [place], [place] [id number] Abdomen/Pelvis W IV Cont ONLY MR#: [id number] Acct: [id number] Name: PHUONG GARCIA Rep #: [id number] : 1995 M 29 From: Rashid Calix MD PCP: VIVIANA Loomis Status: REG E R Study:Abdomen/Pelvis W IV Cont ONLY Date of E xam: 04/01/25 Exam# [id number] Ordering Dr: Lyndon Leo DO PROCEDURE: ABDOMEN/PELVIS W IV CONT ONLY 04/01/2025 REASON FOR EXAM: NAUSEA AND VOMITING TECHNIQUE: ABDOMEN/PELVIS W IV CONT ONLY Coronal and Sagittal reconstruction series were provided. CONTRAST: Isovue 370 VOLUME: 95 mL One or more dose reduction techniques were used (e.g., Automated exposure control, adjustment of the mA and/or kV according to patient size, use of iterative reconstruction technique. RADIATION DOSE SUMMARY: CTDlvol: 25 mGy DLP: 277.4 mGycm COMPARISON: Abdominal CTs dated 11/03/2020, 12/26/2018. FINDINGS: Lung bases: Clear. Liver: No significant abnormality. Unchanged subcentimeter benign-appearing probable cyst or hemangioma in the right hepatic lobe (S2 image 22). Gallbladder: Unremarkable, no biliary ductal dilatation. Spleen: Normal size and morphology. Pancreas: Unremarkable. Adrenals: Unremarkable. Kidneys: Normal, symmetric enhancement. No urolithiasis or hydronephrosis. Bladder: Unremarkable. Reproductive Organs: Unremarkable, nonenlarged prostate. Bowel: Unremarkable, no obstruction or active inflammatory process. Normal appendix. Lymph nodes: No suspicious lymph node enlargement. Vasculature: The abdominal aorta and IVC are normal. Peritoneum / Retroperitoneum: No ascites or free air. Bones: Within normal limits. CT/Abdomen/Pelvis W IV Cont ONLY IMPRESSION: No acute or active inflammatory intra-abdominal pathology. Reading Location: [facility] CC: VIVIANA Crowley; Dr. Lyndon Leo, ~ Wad Blanking Press Adjuster: Signed [facility]02-14-2025 Instructions* Patient Instructions* Janna Eason APRN.CNP - 11/02/2024 4:33 PM EST 1) No change in medications 2) Physical in a year [facility] NoteHNO ID: [id number] Author: JANNA EASON APRN.CNP Service: ? Author Type: Nurse Practitioner Type: Progress Notes Filed: 11/02/2024 16:33 Note Text: This is a 29 year old male who presents today with: Patient presents with: Anxiety: 4 week medication follow up HISTORY OF PRESENT ILLNESS: Phuong Garcia is a 29 year old male. Patient presents with: Anxiety: 4 week medication follow up Anxiety medication is working well Sleep- using melatonin 5 mg - fals asleep and doesn't stay asleep Takes it only on the days he works. PAST MEDICAL HISTORY: PAST MEDICAL HISTORY Diagnosis Date ADD (attention deficit disorder) Asthma as child GERD (gastroesophageal reflux disease) PMH - PAST MEDICAL HISTORY OF Color Vision - Pass Varicella without mention of complication around age 2-4 years Vitamin D deficiency PAST SURGICAL HISTORY Procedure Laterality Date CIRCUMCISION ALLERGIES Patient has no known allergies. MEDICATIONS Current Outpatient Medications Medication Sig desvenlafaxine ER (PRISTIQ) 50 mg 24 hr tablet Take 1 tablet by mouth once daily. pantoprazole DR (PROTONIX) 40 mg tablet Take 1 tablet by mouth DAILY (6 AM). No current facility-administered medications for this visit. FAMILY HISTORY Problem Relation Age of Onset other (ADHD) Mother Asthma Father Diabetes Maternal Grandfather Hypertension Maternal Grandfather other (schizophrenia) Maternal Aunt other (depression) Maternal Aunt Mental illness Half-sister Social History Tobacco Use Smoking status: Never Smokeless tobacco: Never Vaping Use Vaping status: Former Start date: 09/03/2020 Quit date: 12/12/2020 Substances: THC, Purchased out of state. Devices: Disposable Substance Use Topics Alcohol use: Yes Comment: rarely Drug use: Yes Types: Marijuana Comment: Active smoker of 1 joint per day. Has been using since he was 17.. EXAM: BP 110/62 Pulse 86 Temp 36.4 ?C (97.5 ?F) (Right Tympanic) Resp 16 Wt 65.3 kg (144 lb) SpO2 98% BMI 21.27 kg/m? PHYSICAL EXAM: Physical Exam Vitals reviewed. Constitutional: Appearance: Normal appearance. Cardiovascular: Rate and Rhythm: Normal rate and regular rhythm. Pulses: Normal pulses. Heart sounds: Normal heart sounds. Pulmonary: Effort: Pulmonary effort is normal. Breath sounds: Normal breath sounds. Musculoskeletal: General: Normal range of motion. Comments: Moves all ext. Without difficulty Skin: General: Skin is warm and dry. Neurological: Mental Status: He is alert and oriented to person, place, and time. Psychiatric: Mood and Affect: Mood normal. Behavior: Behavior normal. LABS: ASSESSMENT/PLAN: 1. Anxiety - ICD9: 300.00, ICD10: F41.9 Stable on Pristiq - DESVENLAFAXINE SUCCINATE ER 50 MG TABLET,EXTENDED RELEASE 24 HR renewed 2. Chronic insomnia - ICD9: 780.52, ICD10: F51.04 Uses Melatonin - DESVENLAFAXINE SUCCINATE ER 50 MG TABLET,EXTENDED RELEASE 24 HR Discussed treatment plan and patient voices understanding. Patient's questions answered appropriately. Medications and potential side effects were discussed and patient voices understanding. Return to the office as scheduled or as needed for worsening/no improvement. Janna Eason APRN.[facility]02-14-2025 History of Present illness Narrative* Janna Eason APRN.CAUSTIC OPERATOR - 11/02/2024 4:27 PM EST This is a 29 year old male who presents today with: Patient presents with: Anxiety: 4 week medication follow up HISTORY OF PRESENT ILLNESS: Phuong Garcia is a 29 year old male. Patient presents with: Anxiety: 4 week medication follow up Anxiety medication is working well Sleep- using melatonin 5 mg - fals asleep and doesn't stay asleep Takes it only on the days he works. PAST MEDICAL HISTORY: PAST MEDICAL HISTORY Diagnosis Date ADD (attention deficit disorder) Asthma as child GERD (gastroesophageal reflux disease) PMH - PAST MEDICAL HISTORY OF Color Vision - Pass Varicella without mention of complication around age 2-4 years Vitamin D deficiency PAST SURGICAL HISTORY Procedure Laterality Date CIRCUMCISION ALLERGIES Patient has no known allergies. MEDICATIONS Current Outpatient Medications Medication Sig desvenlafaxine ER (PRISTIQ) 50 mg 24 hr tablet Take 1 tablet by mouth once daily. pantoprazole DR (PROTONIX) 40 mg tablet Take 1 tablet by mouth DAILY (6 AM). No current facility-administered medications for this visit. FAMILY HISTORY Problem Relation Age of Onset other (ADHD) Mother Asthma Father Diabetes Maternal Grandfather Hypertension Maternal Grandfather other (schizophrenia) Maternal Aunt other (depression) Maternal Aunt Mental illness Half-sister Social History Tobacco Use Smoking status: Never Smokeless tobacco: Never Vaping Use Vaping status: Former Start date: 09/03/2020 Quit date: 12/12/2020 Substances: THC, Purchased out of state. Devices: Disposable Substance Use Topics Alcohol use: Yes Comment: rarely Drug use: Yes Types: Marijuana Comment: Active smoker of 1 joint per day. Has been using since he was 17.. EXAM: BP 110/62 Pulse 86 Temp 36.4 C (97.5 F) (Right Tympanic) Resp 16 Wt 65.3 kg (144 lb) [id number]% BMI 21.27 kg/m PHYSICAL EXAM: Physical Exam Vitals reviewed. Constitutional: Appearance: Normal appearance. Cardiovascular: Rate and Rhythm: Normal rate and regular rhythm. Pulses: Normal pulses. Heart sounds: Normal heart sounds. Pulmonary: Effort: Pulmonary effort is normal. Breath sounds: Normal breath sounds. Musculoskeletal: General: Normal range of motion. Comments: Moves all ext. Without difficulty Skin: General: Skin is warm and dry. Neurological: Mental Status: He is alert and oriented to person, place, and time. Psychiatric: Mood and Affect: Mood normal. Behavior: Behavior normal. LABS: ASSESSMENT/PLAN: 1. Anxiety - ICD9: 300.00, ICD10: F41.9 Stable on Pristiq - DESVENLAFAXINE SUCCINATE ER 50 MG TABLET,EXTENDED RELEASE 24 HR renewed 2. Chronic insomnia - ICD9: 780.52, ICD10: F51.04 Uses Melatonin - DESVENLAFAXINE SUCCINATE ER 50 MG TABLET,EXTENDED RELEASE 24 HR Discussed treatment plan and patient voices understanding. Patient's questions answered appropriately. Medications and potential side effects were discussed and patient voices understanding. Return to the office as scheduled or as needed for worsening/no improvement. Janna Eason APRN.HERMAN documented in [facility] Telephone encounter Note * Telephone Encounter - Sergo Kohler LPN - 10/05/2024 9:36 AM EST Patient notified of results, verbalizes understanding of instructions. Sergo Kohler LPN [facility]01-17-2025 Miscellaneous Notes* Telephone Encounter - Sergo Kohler LPN - 10/05/2024 9:36 AM EST Patient notified of results, verbalizes understanding of instructions. Sergo Kohler LPN * Telephone Encounter - Messi Barry MD - 10/05/2024 9:31 AM EST Make sure taking with food. Usually will go away if continues on it. If continues, can cut in half for one week and then increase. * Telephone Encounter - Jennifer Mike LPN - 10/05/2024 9:14 AM EST Mother calling to let you know pt was seen on 10-01-24 for anxiety and put on Preistiq. Pt waited tostart till last night because not sure how he was going to react to medication and he does not workthe next couple days. Pt does not like the way he feels from the medication. It is making him nauseated. Mother asking if pt should try cutting this in half or switch to something else. Pt was on Prozac and in the past and did not like that medication. Please advise pt. Jennifer Mike LPN documented in this encounterB[facility]01-[facility] Telephone encounter Note * Telephone Encounter - Messi Barry MD - 10/05/2024 9:31 AM EST Make sure taking with food. Usually will go away if continues on it. If continues, can cut in half for one week and then increase. [facility]01-17-2025 Telephone encounter Note* Telephone Encounter - Jennifer Mike LPN - 10/05/2024 9:14 AM EST Mother calling to let you know pt was seen on 10-01-24 for anxiety and put on Preistiq. Pt waited tostart till last night because not sure how he was going to react to medication and he does not workthe next couple days. Pt does not like the way he feels from the medication. It is making him nauseated. Mother asking if pt should try cutting this in half or switch to something else. Pt was on Prozac and in the past and did not like that medication. Please advise pt. Jennifer Mike LPN [facility]01-13-2025 Telephone encounter Note* Telephone Encounter - Nilson Rasmussen RN - 10/01/2024 3:11 PM EST Patient calls to request PA for Prestiq. Prior Auth is pending. Nilson Rasmussen RN [facility]01-13-2025 Miscellaneous Notes* Telephone Encounter - Nilson Rasmussen RN - 10/01/2024 3:11 PM EST Patient calls to request PA for Prestiq. Prior Auth is pending. Nilson Rasmussen RN documented in this encounterBrec[facility]ville [facility]01-13-[facility] Instructions* Patient Instructions* Messi Barry MD - 10/01/2024 2:26 PM EST Melatonin 3 mg at bedtime as needed for sleep. documented in this encounterBrecksville [facility]01-13-2025 NoteHNO ID: [id number] Author: MESSI BARRY MD Service: ? Author Type: Physician Type: Progress Notes Filed: 10/01/2024 14:53 Note Text: No chief complaint on file. HPI: Patient presents today for office visit for follow up. Trouble with sleep for about 6 months. Feels like maybe 2 hours of good sleep. Goes to bed 7:30-8:00 then will wake up 12:30-1:30 and can't go back to sleep. Effecting his work. Hasn't tried any OTC sleep aids. Uses the TV when trying to fall asleep. Has been told he snores but not all the time or terrible. No witnessed apnea. Not taking prozac regularly. Only taking it once or twice a week. Wakes up thinking about things. Discussed med compliance as part of the issues. Does admit to some anxiety. Wanted to try something else. No suicidal ideation. No chest pain or shortness of breath. No weight loss or changes in hair or skin. MEDICATIONS: Current Outpatient Medications Medication Sig FLUoxetine (PROZAC) 20 mg capsule Take 1 capsule by mouth once daily. pantoprazole DR (PROTONIX) 40 mg tablet Take 1 tablet by mouth DAILY (6 AM). (Patient taking differently: Take 40 mg by mouth. Taking as needed) No current facility-administered medications for this visit. ALLERGIES: ALLERGIES No Known Allergies PAST MEDICAL HISTORY Diagnosis Date ADD (attention deficit disorder) Asthma as child GERD (gastroesophageal reflux disease) PMH - PAST MEDICAL HISTORY OF Color Vision - Pass Varicella without mention of complication around age 2-4 years Vitamin D deficiency PAST SURGICAL HISTORY Procedure Laterality Date CIRCUMCISION FAMILY HISTORY Problem Relation Age of Onset other (ADHD) Mother Asthma Father Diabetes Maternal Grandfather Hypertension Maternal Grandfather other (schizophrenia) Maternal Aunt other (depression) Maternal Aunt Mental illness Half-sister Social History Tobacco Use Smoking status: Never Smokeless tobacco: Never Vaping Use Vaping status: Former Start date: 09/03/2020 Quit date: 12/12/2020 Substances: THC, Purchased out of state. Devices: Disposable Substance Use Topics Alcohol use: Yes Comment: rarely Drug use: Yes Types: Marijuana Comment: Active smoker of 1 joint per day. Has been using since he was 17.. Reviewed current medications, allergies, past medical history, surgical history, family history and social history today. REVIEW OF SYSTEMS All other reviewed and negative other than HPI. VITALS: BP 112/82 Pulse 88 Wt 67.1 kg (148 lb) SpO2 97% BMI 21.86 kg/m? Last 4 Encounter Wt Readings: Date: Wt: 11/04/2023 62.6 kg (138 lb) 09/25/2021 64.4 kg (142 lb) 06/22/2021 64.4 kg (142 lb) 01/09/2021 59 kg (130 lb) PHYSICAL EXAMINATION: General appearance: Well appearing, alert, in no acute distress, well-hydrated, well nourished. Skin: Skin color, texture, turgor normal, no suspicious rashes or lesions Lungs: Lungs clear to auscultation. No wheezing, rhonchi, rales Heart: RRR without murmur, gallop, or rubs. No ectopy Abdomen: Normal abdominal exam, Abdomen soft, non-tender. Bowel sounds normal. No masses, organomegaly Extremities: No deformities, edema, skin discoloration, clubbing or cyanosis. Good capillary refill. ASSESSMENT/PLAN: 1. Anxiety - ICD9: 300.00, ICD10: F41.9 (primary diagnosis) - discussed med compliance. Stop prozac. Discussed risks and benefits of new medication with the patient. Advised them to call if any side effects or questions. - can use melatonin prn. - DESVENLAFAXINE SUCCINATE ER 50 MG TABLET,EXTENDED RELEASE 24 HR - COMPLETE BLOOD COUNT AND DIFFERENTIAL - COMPREHENSIVE METABOLIC PANEL - THYROID STIMULATING HORMONE 2. Chronic insomnia - ICD9: 780.52, ICD10: F51.04 - DESVENLAFAXINE SUCCINATE ER 50 MG TABLET,EXTENDED RELEASE 24 HR - COMPLETE BLOOD COUNT AND DIFFERENTIAL - COMPREHENSIVE METABOLIC PANEL - THYROID STIMULATING HORMONE Messi Barry MD RTO in four weeks or [facility]01-13-2025 History of Present illness Narrative* Messi Barry MD - 10/01/2024 2:02 PM EST No chief complaint on file. HPI: Patient presents today for office visit for follow up. Trouble with sleep for about 6 months. Feels like maybe 2 hours of good sleep. Goes to bed 7:30-8:00 then will wake up 12:30-1:30 and can't go back to sleep. Effecting his work. Hasn't tried any OTC sleep aids. Uses the TV when trying to fall asleep. Has been told he snores but not all the time or terrible. No witnessed apnea. Not taking prozac regularly. Only taking it once or twice a week. Wakes up thinking about things. Discussed med compliance as part of the issues. Does admit to some anxiety. Wanted to try something else. No suicidal ideation. No chest pain or shortness of breath. No weight loss or changes in hair or skin. MEDICATIONS: Current Outpatient Medications Medication Sig FLUoxetine (PROZAC) 20 mg capsule Take 1 capsule by mouth once daily. pantoprazole DR (PROTONIX) 40 mg tablet Take 1 tablet by mouth DAILY (6 AM). (Patient taking differently: Take 40 mg by mouth. Taking as needed) No current facility-administered medications for this visit. ALLERGIES: ALLERGIES No Known Allergies PAST MEDICAL HISTORY Diagnosis Date ADD (attention deficit disorder) Asthma as child GERD (gastroesophageal reflux disease) PMH - PAST MEDICAL HISTORY OF Color Vision - Pass Varicella without mention of complication around age 2-4 years Vitamin D deficiency PAST SURGICAL HISTORY Procedure Laterality Date CIRCUMCISION FAMILY HISTORY Problem Relation Age of Onset other (ADHD) Mother Asthma Father Diabetes Maternal Grandfather Hypertension Maternal Grandfather other (schizophrenia) Maternal Aunt other (depression) Maternal Aunt Mental illness Half-sister Social History Tobacco Use Smoking status: Never Smokeless tobacco: Never Vaping Use Vaping status: Former Start date: 09/03/2020 Quit date: 12/12/2020 Substances: THC, Purchased out of state. Devices: Disposable Substance Use Topics Alcohol use: Yes Comment: rarely Drug use: Yes Types: Marijuana Comment: Active smoker of 1 joint per day. Has been using since he was 17.. Reviewed current medications, allergies, past medical history, surgical history, family history andsocial history today. REVIEW OF SYSTEMS All other reviewed and negative other than HPI. VITALS: BP 112/82 Pulse 88 Wt 67.1 kg (148 lb) SpO2 97% BMI 21.86 kg/m Last 4 Encounter Wt Readings: Date: Wt: 11/04/2023 62.6 kg (138 lb) 09/25/2021 64.4 kg (142 lb) 06/22/2021 64.4 kg (142 lb) 01/09/2021 59 kg (130 lb) PHYSICAL EXAMINATION: General appearance: Well appearing, alert, in no acute distress, well-hydrated, well nourished. Skin: Skin color, texture, turgor normal, no suspicious rashes or lesions Lungs: Lungs clear to auscultation. No wheezing, rhonchi, rales Heart: RRR without murmur, gallop, or rubs. No ectopy Abdomen: Normal abdominal exam, Abdomen soft, non-tender. Bowel sounds normal. No masses, organomegaly Extremities: No deformities, edema, skin discoloration, clubbing or cyanosis. Good capillary refill. ASSESSMENT/PLAN: 1. Anxiety - ICD9: 300.00, ICD10: F41.9 (primary diagnosis) - discussed med compliance. Stop prozac. Discussed risks and benefits of new medication with the patient. Advised them to call if any side effects or questions. - can use melatonin prn. - DESVENLAFAXINE SUCCINATE ER 50 MG TABLET,EXTENDED RELEASE 24 HR - COMPLETE BLOOD COUNT AND DIFFERENTIAL - COMPREHENSIVE METABOLIC PANEL - THYROID STIMULATING HORMONE 2. Chronic insomnia - ICD9: 780.52, ICD10: F51.04 - DESVENLAFAXINE SUCCINATE ER 50 MG TABLET,EXTENDED RELEASE 24 HR - COMPLETE BLOOD COUNT AND DIFFERENTIAL - COMPREHENSIVE METABOLIC PANEL - THYROID STIMULATING HORMONE Messi Barry MD RTO in four weeks or prn [facility] History of Present illness Narrative* Messi Barry MD - 11/04/2023 1:15 PM EST Patient presents with: Physical HPI: Patient presents today for office visit for well check Emotionally is doing well. No issues with meds. Would like to see Faviola. Sleep is sometimes poor. Does not feel refreshed. No current gi issues. MEDICATIONS: Current Outpatient Medications Medication Sig FLUoxetine (PROZAC) 20 mg capsule Take 1 capsule by mouth once daily. pantoprazole DR (PROTONIX) 40 mg tablet Take 1 tablet by mouth DAILY (6 AM). (Patient taking differently: Take 40 mg by mouth. Taking as needed) cholecalciferol, Vitamin D3, (VITAMIN D3) 50,000 unit cap capsule Take 1 capsule by mouth once eachweek. No current facility-administered medications for this visit. ALLERGIES: ALLERGIES No Known Allergies PAST MEDICAL HISTORY Diagnosis Date ADD (attention deficit disorder) Asthma as child GERD (gastroesophageal reflux disease) PMH - PAST MEDICAL HISTORY OF Color Vision - Pass Varicella without mention of complication around age 2-4 years Vitamin D deficiency PAST SURGICAL HISTORY Procedure Laterality Date CIRCUMCISION FAMILY HISTORY Problem Relation Age of Onset other (ADHD) Mother Asthma Father Diabetes Maternal Grandfather Hypertension Maternal Grandfather other (schizophrenia) Maternal Aunt other (depression) Maternal Aunt Mental illness Half-sister Social History Tobacco Use Smoking status: Never Smokeless tobacco: Never Vaping Use Vaping Use: Former Start date: 09/03/2020 Quit date: 12/12/2020 Substances: THC, Purchased out of state. Devices: Disposable Substance Use Topics Alcohol use: Yes Comment: rarely Drug use: Yes Types: Marijuana Comment: Active smoker of 1 joint per day. Has been using since he was 17.. Reviewed current medications, allergies, past medical history, surgical history, family history andsocial history today. REVIEW OF SYSTEMS GENERAL: No weight loss, malaise or fevers HEENT: Negative for frequent or significant headaches, No changes in hearing or vision, no nose bleeds or other nasal problems RESPIRATORY: Negative for cough, hemoptysis, wheezing, COPD, dyspnea or shortness of breath CARDIOVASCULAR: Negative for chest pain, leg swelling, hypertension, CHF or palpitations GI: No nausea, vomiting, or diarrhea : No history of dysuria, frequency or incontinence SKIN: Negative for lesions, rash, and itching All other reviewed and negative other than HPI. HEALTH MAINTENANCE: Reviewed health maintenance issues today and recommended the following in detail. Covid-19 Vaccine(1) Never done Hepatitis C Screening Never done Influenza Vaccine(1) due on 05/20/2023 Depression Assessment Never done VITALS: BP 102/62 Pulse (!) 59 Wt 62.6 kg (138 lb) SpO2 96% BMI 20.38 kg/m Last 4 Encounter Wt Readings: Date: Wt: 11/04/2023 62.6 kg (138 lb) 09/25/2021 64.4 kg (142 lb) 06/22/2021 64.4 kg (142 lb) 01/09/2021 59 kg (130 lb) PHYSICAL EXAMINATION: General appearance: Well appearing, alert, in no acute distress, well-hydrated, well nourished. Skin: Skin color, texture, turgor normal, no suspicious rashes or lesions Head: Normocephalic, no masses, lesions, tenderness or abnormalities Eyes: Anicteric sclera. Pupils are equally round and reactive to light. Extraocular movements are intact. Ears: External ears normal, canals clear Nose/Sinuses: Nares normal, septum midline, mucosa normal, no drainage or sinus tenderness Oropharynx: Lips, mucosa, and tongue normal, teeth and gums normal, oropharynx normal Neck: Supple, no adenopathy; thyroid symmetric, normal size, no bruits Back: Normal exam Lungs: Lungs clear to auscultation. No wheezing, rhonchi, rales Heart: RRR without murmur, gallop, or rubs. No ectopy Abdomen: Normal abdominal exam, Abdomen soft, non-tender. Bowel sounds normal. No masses, organomegaly Extremities: No deformities, edema, skin discoloration, clubbing or cyanosis. Good capillary refill. Musculoskeletal: No joint swelling, deformity, or tenderness Peripheral pulses: Normal Neuro: Negative. ASSESSMENT/PLAN: 1. Well adult exam - ICD9: V70.0, ICD10: Z00.00 (primary diagnosis) - check labs. - CBC + DIFF - COMP METABOLIC PANEL - LIPID PANEL BASIC 2. АЛЕКСАНДР (generalized anxiety disorder) - ICD9: 300.02, ICD10: F41.1 - stable. - FLUOXETINE 20 MG CAPSULE - CBC + DIFF - COMP METABOLIC PANEL - CONSULT TO [facility] ADULT-wants to see Faviola 3. Pulmonary nodules - ICD9: 793.19, ICD10: R91.8 - does not require follow up per pulmonary 4. Cannabinoid hyperemesis syndrome - ICD9: 536.2, 305.20, ICD10: R11.2, F12.90 - resolved. 5. Attention deficit hyperactivity disorder (ADHD), unspecified ADHD type - ICD9: 314.01, ICD10: F90.9 -stable 6. Vitamin D deficiency - ICD9: 268.9, ICD10: E55.9 - VITAMIN D 25 HYDROXY 7. Need for hepatitis C screening test - ICD9: V73.89, ICD10: Z11.59 - HEPATITIS C ANTIBODY IA WITH CONFIRMATION Messi Barry RTO in one year. and prn. documented in this encounterB[facility] Miscellaneous Notes* Telephone Encounter - Jennifer Mike LPN - 08/04/2022 9:10 AM EST Left a message with pt's mother for pt to call the office to schedule apt. Jennifer Mike LPN * Telephone Encounter - Sallie Crowley APRN.CNP - 08/03/2022 6:28 PM EST Script sent. Due for an appointment. Please let patient know. Sallie Crowley APRN.CNP * Telephone Encounter - Kary Thompson Ma - 08/03/2022 11:55 AM EST Last office visit: 09/25/21 F/u scheduled: none Kary Thompson Ma documented in this encounterBrec[facility]08-[facility] Miscellaneous Notes* Telephone Encounter - Wendie Gallegos Ma - 04/29/2022 9:52 AM EDT Attempted to reach patient. No answer, voice mailbox full. Letter sent to pt. * Telephone Encounter - Sallie Crowley APRN.CNP - 04/28/2022 5:40 PM EDT Script sent. Due for an appointment. Please let patient know. Sallie Crowley APRN.CNP * Telephone Encounter - Sandro Kang LPN - 04/28/2022 10:05 AM EDT Patient phones requesting refills as follows: Requested Prescriptions Pending Prescriptions Disp Refills FLUoxetine (PROZAC) 20 mg capsule [Pharmacy Med Name: FLUOXETINE HCL 20 MG CAPSULE] 90 capsule 1 Sig: take 1 capsule by mouth once daily NERY 09/25/21 NOV no upcoming appt Please review and advise. Sandro Kang LPN documented in this encounterBrec[facility]08-02-2022 Miscellaneous Notes* Telephone Encounter - Sandro Kang LPN - 04/20/2022 2:33 PM EDT TC to pt mother, Simran, notified of provider response. She verbalized understanding. Sandro Kang LPN * Telephone Encounter - Sallie Crowley APRN.HERMAN - 04/20/2022 2:10 PM EDT If the tests are still positive, then he probably is still shedding the virus despite having his symptoms resolve. * Telephone Encounter - Jennifer Mike LPN - 04/20/2022 1:44 PM EDT Pt's mother calling for pt. [facility] states pt tested positive for COVID with a home test on 04-12-22.Pt was put off work for 5 days. Pt needs a negative test to return to work. Pt did a home test on Tuesday04-18-22 and today 04-20-22 and both are still positive. Mother asking the question could the home tests be bad? Mother states pt's symptoms have all resolved. Please advise mother. Jennifer Mike LPN documented in this encounterBrec[facility]ville [facility]04-05-[facility]21 NoteHNO ID: [id number] Author: María Cuevas (Msw) Service: Care Management Author Type: Window Clerk Type: Care Mgt Progress Note Filed: 12/22/2020 3:53 PM Note Text: CARE MANAGEMENT DISCHARGE NOTE SERVICE DATE: 12/22/2020 SERVICE TIME: 3:53 PM LOS: 0 days Admission Date: 12/18/2020 DISCHARGE ARRANGEMENT (list agency and phone number) Discharge Arrangement: Home Provider Name: n/a Phone: n/a CAREGIVER ASSESSMENT: Caregiver is ready, willing and able to meet the patient's needs as recommended by the inter-professional team:: No Caregiver needed Does the patient have an acute stroke diagnosis, or has the patient had a stroke during this admission?: No Patient's transition needs and plan for meeting these needs: return home self care HANDOFF COMMUNICATION: TRANSPORTATION ARRANGEMENTS: Transportation Arrangements: Car ADDITIONAL CONTACT RESOURCES: pt declined resources for THC cessation Needs Prior to Discharge: None;Ready for Discharge CMSW notified of dc orders. Rn states pt ready to go and no needs identified. Mom is transporting home. SIGNATURE: María Cuevas, MEAT CURER, RATING EXAMINER, CCM PATIENT NAME: Phuong Garcia DATE: December 22, 2020 TIME: 3:53 PM PAGER/CONTACT #: [phone] NoteHNO ID: [id number] Author: Makenzie Lange Service: Hospital Medicine Author Type: Nurse Practitioner Type: Plan of Care Filed: 12/19/2020 9:21 PM Note Text: SHORT HOSPITALIST PROGRESS NOTE Name: Phuong Garcia SERVICE DATE: 12/19/2020 SERVICE TIME: 9:03 PM Hospital Medicine/Primary Attending: Zenia Ch NIGHT COVERAGE BETWEEN 5.30P-7.30A Page [phone] Patient seen and evaluated. Reviewed orders and HANDP from this AM. ASSESSMENT: Phuong Garcia is a 25 year old male with a PMHx significant for Cannabinoid Hyperemesis Syndrome, GERD, and ADD who presented to [place] ED on 12/18 for evaluation of intractable nausea and vomiting. The patient has been having ongoing issues with nausea and vomiting for the last few weeks. He recently started smoking marijuana about a month ago and switched to vaping marijuana a few weeks ago. He reportedly quit smoking marijuana altogether on 12/12. He was seen by GI as an outpatient on 12/17 and underwent an EGD which was unremarkable. He had been feeling well when he returned home after the procedure but then developed nausea and vomiting that was not controlled with Zofran at home prompting his ED visit. He has reportedly lost a total of 12 pounds over the last month secondary to his symptoms. He remained afebrile and hemodynamically stable while in the ED. Covid negative. Lab work significant for WBC 13.45, Cl 96, BG 126. Renal function and lipase WNL. A CT Chest and A/P were pursued and did note stable solitary lung nodules (outpatient follow up recommended) but was otherwise unremarkable for acute findings. He received IV benadryl, haldol, reglan, zofran, compazine, and a 1L NS fluid bolus and was admitted to medicine under observation with GI consultation for further evaluation and management. He is drowsy on exam but wakens easily to verbal stimuli. He had felt well through the night, sleeping primarily, but had large volume emesis after trying eggs this AM. RUQ US noted a tiny gallbladder polyp. PLAN: -- Follow up Utox -- Revert back to full liquid diet -- Continue with gentle IV hydration -- Antiemetics to be ordered on an as needed basis if symptoms return -- Will need follow up with PCP for pulmonary nodules with repeat CT in 12 months Tess Espino CNP to resume care tomorrow 12/20. DATA: Diagnostic tests reviewed for today's visit: Most recent labs CBC: WBC 11.68 12/19/2020 HGB 13.7 12/19/2020 Hematocrit 39.8 12/19/2020 Platelet Count 192 12/19/2020 CMP: Sodium 138 12/19/2020 Potassium 3.6 12/19/2020 BUN 8 12/19/2020 Creatinine 0.99 12/19/2020 Glucose 108 12/19/2020 Chloride 104 12/19/2020 CO2 23 12/19/2020 Plan of care discussed with: Patient, RN, CM and Dr. Ch SIGNATURE: Makenzie Lange APRN.CNP DATE: December 19, 2020 TIME: 9:03 PMKettering Health [facility] [id number] NoteHNO ID: [id number] Author: Chacha (Rn) JUDD Overton Service: ? Author Type: Registered Nurse Type: ED Notes Filed: 12/19/2020 1:59 AM Note Text: pt and mom updated on plan of careK[facility] MemorialEvaluation note* Diagnosis АЛЕКСАНДР (generalized anxiety disorder) Generalized anxiety disorder [facility] Diagnosis АЛЕКСАНДР (generalized anxiety disorder) Generalized anxiety disorder documented in this encounter [facility] note* Diagnosis Well adult exam- Primary Routine general medical examination at a health care facility АЛЕКСАНДР (generalized anxiety disorder) Generalized anxiety disorder Pulmonary nodules Other nonspecific abnormal finding of lung field Cannabinoid hyperemesis syndrome Attention deficit hyperactivity disorder (ADHD), unspecified ADHD type Vitamin D deficiency Unspecified vitamin D deficiency Need for hepatitis C screening test Special screening examination for other specified viral diseases documented in this encounter [facility] note* Diagnosis Anxiety- Primary Anxiety state, unspecified Chronic insomnia Insomnia, unspecified documented in this encounter [facility] note* Diagnosis Anxiety Anxiety state, unspecified Chronic insomnia Insomnia, unspecified documented in this encounter [facility] noteNo assessment information availableWOhioHealth [facility]ering[facility] Work Phone: Hospital Discharge instructionsAdditional Instructions Given that you felt that the Zofran was not working. Recommend stop taking Zofran. Will write for Reglan. Refrain from marijuana. Continue your capsaicin cream. Follow-up with your primary care physician. Return back to the ED if symptoms change or worsen. Recommend liquid diet for the next 24 to 48 hours.[facility] Work Phone: Reason for referral (narrative)No reason for referral information availableWOhioHealth [facility]ering[facility] Work Phone: Summary Purpose Family History No Family History Records FoundNo Family History Records FoundNo Family History Records FoundNo Family History Records FoundNo Family History Records FoundNo Family History Records Found Advance Directives Documents on File Type Date Recorded Patient Orthopedics Pediatric Physician Expl anation Advance Directive(s) 12/18/2020 11:04 PM Advance Directive(s) 11/05/2020 8:02 AM Advance Directive(s) 12/27/2018 7:15 PM Advance Directive(s) 07/21/2017 2:06 PM Advance Directive Response Recorded Date/ Time Do you have a Healthcare Power of Brake Repair Supervisor? No April 01, 2025 5:55pm Advance Directive Response Recorded Date/ Time Do you have a Healthcare Power of Brake Repair Supervisor? No April 01, 2025 5:55pm Do you have a Healthcare Power of Brake Repair Supervisor? No April 02, 2025 12:10pm Reason for Referral Specialty Diagnoses / Procedures Referred By Stefan muñoz Referred To Contact Diagnoses АЛЕКСАНДР (generalized anxiety disorder) Procedures CONSULT TO [facility] ADULT OFFICE/OUTPATIENT [facility] MDM 60 MINUTES Messi Barry MD [address] [place] [address] Referral ID Status Reason Start Date Expiration Date Visits Requested Visits Authorized [id number] Pending Review PCP Requested Referral 11/04/2023 02/02/2024 1 1 Specialty Diagnoses / Procedures Referred By Contac t Referred To Contact Diagnoses Anxiety Chronic insomnia Messi Barry MD [address] [place] [address] Referral ID Status Reason Start Date Expiration Date V isits Requested Visits Authorized [id number] Pending Review 1 1 Chief Complaint and Reason for Visit Chief Complaint Admit Date N/V/D April 01, 2025 4:13 pm Chief Complaint Admit Date N/V/D April 01, 2025 4:13 pm N/V April 02, 2025 12:0 5pm Additional Source Comments (unrecognized sect ion and content) No Status Records FoundNo Status Records FoundNo Status Records FoundNo Status Records FoundNo Status Records FoundNo Status Records Found INFORMATION SOURCE (unrecogn ized section and content) DATE CREATED AUTHOR 03/17/2018 [facility] DATE CREATED AUTHOR AUTHOR'S ORGANIZ ATION 11/09/2020 [facility] DATE CREATED AUTHOR AUTHOR'S ORGANIZ ATION 12/19/2020 [facility] DATE CREATED AUTHOR AUTHOR'S ORGANIZ ATION 12/10/2021 [facility] DATE CREATED AUTHOR AUTHOR'S ORGANIZ ATION 03/29/2023 [facility] DATE CREATED AUTHOR AUTHOR'S ORGANIZ ATION 11/05/2024 [facility] Source Comments (unrecognize d section and content) In the event this informatio n is protected by the Federal Confidentiality of Alcohol and Drug Abuse Patient Records regulations: The Federal rules restrict any use of the information to criminally investigate or prosecute any alcohol or drug abuse patient.[facility] HospitalIn the event this information is protected by the Federal Confidentiality of Alcohol and Drug Abuse Patient Records regulations: The Federal rules restrict any use of the information to criminally investigate or prosecute any alcohol or drug abuse patient.[facility] HospitalIn the event this information is protected by the Federal Confidentiality of Alcohol and Drug Abuse Patient Records regulations: The Federal rules restrict any use of the information to criminally investigate or prosecute any alcohol or drug abuse patient.[facility] HospitalIn the event this information is protected by the Federal Confidentiality of Alcohol and Drug Abuse Patient Records regulations: The Federal rules restrict any use of the information to criminally investigate or prosecute any alcohol or drug abuse patient.[facility] HospitalIn the event this information is protected by the Federal Confidentiality of Alcohol and Drug Abuse Patient Records regulations: The Federal rules restrict any use of the information to criminally investigate or prosecute any alcohol or drug abuse patient.[facility] HospitalIn the event this information is protected by the Federal Confidentiality of Alcohol and Drug Abuse Patient Records regulations: The Federal rules restrict any use of the information to criminally investigate or prosecute any alcohol or drug abuse patient.[facility] HospitalIn the event this information is protected by the Federal Confidentiality of Alcohol and Drug Abuse Patient Records regulations: The Federal rules restrict any use of the information to criminally investigate or prosecute any alcohol or drug abuse patient.[facility] HospitalIn the event this information is protected by the Federal Confidentiality of Alcohol and Drug Abuse Patient Records regulations: The Federal rules restrict any use of the information to criminally investigate or prosecute any alcohol or drug abuse patient.[facility] Reason for Visit (unrecogniz ed section and content) Reason Comments COVID question Reason Comments Refill Request Reason Onset Date Comments Refill Request Refill Request 08/03/2022 Reason Comments Physical Reason Comments Sleep Problem Reason Comments Insurance Authorization Reason Comments Anxiety 4 week medication fo llow up Care Teams (unrecognized sec tion and content) Branch Services Manager Relationship Specialty Start Date End Date Sallie Crowley, APPLICATION PACKAGING SPECIALIST.CAUSTIC OPERATOR [address] [place] [address] PCP - General Family Practice 12/26/20 Branch Services Manager Relationship Specialty Start Date End Date Sallie Crowley, APPLICATION PACKAGING SPECIALIST.CAUSTIC OPERATOR [address] [place] [address] PCP - General Family Practice 12/26/20 Branch Services Manager Relationship Specialty Start Date End Date Sallie Crowley, APPLICATION PACKAGING SPECIALIST.CAUSTIC OPERATOR [address] [place] [address] PCP - General Family Medicine 12/26/20 Branch Services Manager Relationship Specialty Start Date End Date Sallie Crowley, APPLICATION PACKAGING SPECIALIST.CAUSTIC OPERATOR [address] [place] [address] PCP - General Family Medicine 12/26/20 Branch Services Manager Relationship Specialty Start Date End Date Sallie Crowley, APPLICATION PACKAGING SPECIALIST.CAUSTIC OPERATOR [address] [place] [address] PCP - General Family Medicine 12/26/20 Janna Eason, APPLICATION PACKAGING SPECIALIST.CAUSTIC OPERATOR [address] [facility] [place] [address] [employer] Family Medicine 08/26/24 Messi Barry MD [address] [facility] [place] [address] [employer] Family Medicine 08/26/24 Branch Services Manager Relationship Specialty Start Date End Date Sallie Crowley, APPLICATION PACKAGING SPECIALIST.CAUSTIC OPERATOR [address] [place] [address] PCP - General Family Medicine 12/26/20 Janna Eason, APPLICATION PACKAGING SPECIALIST.CAUSTIC OPERATOR [address] [place], [place] [id number] [facility] 08/26/24 Messi Barry MD [address] [facility], [place] [id number] [facility] 08/26/24 Branch Services Manager Relationship Specialty Start Date End Date Sallie Crowley APRN.CAUSTIC OPERATOR [address] [place], [place] [id number] PCP - [facility] 12/26/20 Janna Eason, APPLICATION PACKAGING SPECIALIST.CAUSTIC OPERATOR [address] [place], [place] [address] [facility] 08/26/24 Messi Barry MD [address] [place], [place] [id number] [facility] 08/26/24 Team Status: Active Member Role/Relationship Status Dates Sallie Crowley NP, LOW PRESSURE FIRER-C Primary Care Provider Active Team Status: Inactive Member Role/Relationship Status Dates Sallie Crowley LOW PRESSURE FIRER, LOW PRESSURE FIRER-C Primary Care Provider Active Start: April 01, 2025 End: April 01, 2025 Dr. Lyndon Leo , DO Emergency Provider Active Start: April 01, 2025 End: April 01, 2025 Team Status: Inactive Member Role/Relationship Status Dates Sallie Crowley LOW PRESSURE FIRER, LOW PRESSURE FIRER-C Primary Care Provider Active Start: April 02, 2025 End: April 02, 2025 Dr. Js Perez , DO Emergency Provider Activ e Start: April 02, 2025 End: April 02, 2025 Goals (unrecognized section and content) Goals may be documented in a n alternate sectionGoals may be documented in an alternate section FOR RECORDS PERTAINING TO PATIENTS WHO ARE OR HAVE BEEN ENROLLED IN A CHEMICAL DEPENDENCY/SUBSTANCEABUSE PROGRAM, SOME INFORMATION MAY BE OMITTED. This clinical summary was aggregated from multiple sources. Caution should be exercised in using it in the provision of clinical care. This summary normalizes information from multiple sources, and as a consequence, information in this document may materially change the coding, format and clinical context of patient data. In addition, data may be omitted in some cases. CLINICAL DECISIONS SHOULD BE BASED ON THE PRIMARY CLINICAL RECORDS. [facility] provides no warranty or guarantee of the accuracy or completeness of information in this document.
[2025-04-03 06:43] LABS: Hematocrit 44.3 % (40-54); Hemoglobin 15.8 g/dL (13.0-16.5); Immature Granulocytes Count 0.040 X10^3/uL (0.0-0.0); Mean Corp Hgb Conc 35.7 g/dL (32-36); Mean Corpuscular Volume 84.9 fL (80-94); Mean Platelet Vol. 11.1 fl (6.2-12.0); NRBC Flagged by Analyzer 0 % (0-5); Platelet Count 212 K/mm3 (150-450); RBC Distribution Width CV 10.9 % (11.6-14.6); RBC Distribution Width SD 33.6 fl (35.1-43.9); Red Blood Count 5.22 M/mm3 (4.6-6.2); White Blood Count 11.8 K/mm3 (4.4-11.0)
[2025-04-03] MEDS: 0.9% Normal Saline (1000mL) 1,000 ML 999 ML IV (06:54)
[2025-04-03] MEDS: DiphenhydrAMINE 50 MG, ChlorproMAZINE 50 MG in 0.9% Normal Saline (250mL Bag) 247 ML 250 MG IV (06:55)
[2025-04-03 07:30] LABS: AST(SGOT) 13 U/L (<=37); Alanine Aminotransfer ALT/SGPT 14 U/L (<=46); Albumin, Serum 4.4 g/dL (3.5-5.0); Alkaline Phosphatase 44 U/L (40-129); Anion Gap 16 (5-15); BUN 16 mg/dL (4-19); BUN/Creat Ratio 13.3 RATIO (10-20); Bilirubin, Direct 0.74 mg/dL (0.00-0.30); Calcium,Total 9.3 mg/dL (7.6-11.0); Carbon Dioxide 23.3 mmol/L (21.0-32.0); Chloride 92 mmol/L (98-108); Globulin 3.0 g/dL (2.2-4.2); Glucose 97 mg/dL (70-99); Lipase 58 U/L (13-75); Magnesium 2.4 mg/dL (1.5-2.2); Potassium 3.0 mmol/L (3.3-5.1)
--- NOTE | 2025-04-03 07:58 | EDS_ITS ---
HPI History of Present Illness Chief Complaint: Nausea/Vomiting Informant: patient Narrative Narrative: Patient is a 29-year-old male with history of anxiety who also states that he smokes marijuana daily. He states that he has been to the ER multiple times ready secondary to bouts of nausea and vomiting. He states he awoke initially Tuesday morning with generalized abdominal discomfort and bouts of nausea vomiting diarrhea. He states there was no sick contacts prior to symptoms beginning and he denies any recent travel outside the country or livestock exposure. He states that he cannot keep any food or fluid down and therefore presented to the ER. He states that in the ER he was hydrated and got a cocktail which helped resolve his symptoms. However he states when he returns home after being discharged he begins having bouts of vomiting once again. And as he cannot keep food or fluid down presents for reevaluation. [facility] Medical History Anxiety Marijuana smoker Home Medications ?Medication ?Instructions ?Recorded ?Last Taken ?Type dicyclomine 20 mg tablet 20 mg PO BID #10 tabs Unknown Rx desvenlafaxine succinate 50 mg 50 mg PO DAILY 04/03/25 03/28/25 History tablet,extended release 24 hr haloperidol 5 mg tablet 5 mg PO TID PRN nausea and 0 04/03/25 04/03/25 17:30 Rx vomiting 5 days #15 tabs 5 mg potassium chloride 10 mEq 10 meq PO BID 5 days #10 tab s 04/03/25 04/03/25 10:00 Rx tablet,extended release(part/cryst) 10 mEq promethazine 12.5 mg tablet 12.5 mg PO TID PRN nausea and 04/03/25 04/03/25 17:30 Rx vomiting #21 tabs 12.5 mg Allergy/AdvReac Type Severity Reaction Status Date / Time No Known Allergies Allergy Verified 04/03/25 20:43 Social History Smoking Status: Current every day smoker tobacco type: e-cigarettes ROS ROS ED Constitutional Constitutional ED: Denies chills or fever(s) Eyes Eyes: Denies blurry vision or change in vision ENT ENT ED: Denies sore throat Cardiovascular Cardiovascular: Denies chest pain Respiratory/Chest Respiratory/Chest: Denies cough or dyspnea Gastrointestinal Gastrointestinal: Reports abdominal pain, nausea and vomiting; Denies diarrhea Musculoskeletal Musculoskeletal: Denies myalgias Integumentary Denies rash Neurologic Neurologic: Denies headache(s) Psychiatric Psychiatric: Reports anxiety Hematologic/Lymphatic Hematologic/Lymphatic: Denies easy bleeding or easy bruising Allergic/Immunologic Allergic/Immunologic ED: Denies mouth swelling or tongue swelling EXAM Physical Exam Const Vital Signs: 04/03/25 05:57 04/03/25 08:32 04/03/25 09:29 Temperature 97.6 F L 97.8 F Temperature Source Oral Pulse Rate 77 74 77 Respiratory Rate 18 15 16 Blood Pressure 130/87 H 132/78 H 132/78 H Blood Pressure Mean 101 96 96 Pulse Ox 100 97 99 Oxygen Delivery Method Room Air Positive well nourished and well developed General Appearance ED: well developed; Negative for pallor HEENT HEENT Narrative: Mucous membranes are slightly dry and tacky No tongue or lip swelling no oral lesions no airway edema or compromise; no signs of infection in the posterior pharynx Eyes PERRL and EOMs intact bilaterally General Eye ED: Negative for scleral icterus Neck supple Neck Narrative: No crepitance or subcutaneous emphysema noted Resp normal respiratory effort and clear to auscultation bilaterally Cardio regular rate and regular rhythm GI non-tender, non-distended and no masses GI Narrative: Abdomen is soft nontender nondistended with hyperactive bowel sounds. No voluntary guarding or rigidity or pulsatile mass Auscultation: hyperactive bowel sounds Palpation: soft Extremity normal to inspection Neuro oriented x3, CN's II-XII intact bilaterally and no sensory deficits noted Sensorium / Orientation: alert Motor Exam: strength 5/5 throughout Psych Mood & Affect: anxious Skin no rashes or lesions noted, no wounds and No skin turgor normal Skin Narrative: Skin turgor is slightly increased General Skin Exam: Negative for jaundice or pallor MDM MDM MDM Narrative Medical decision making narrative: Patient presented to the ER with stable vitals. Chart review reveals that he has been to the ER 3 times in the last 3 days all for the same complaint of nausea and vomiting. In order to ensure that his physical exam with mild dehydration is not severe causing acute kidney injury or clinically significant electrolyte abnormality I did elect to perform basic laboratory studies. Chart review reveals that he had a CT scan just roughly 24 hours ago which revealed no acute inflammatory or obstructive process and based on his exam today I feel no need for repeat imaging. Patient's lab work shows just slight leukocytosis which is most likely stress response from his bouts of vomiting. His total bilirubin is elevated but it was elevated the other day and is actually improved and his CT scan did not reveal any gallbladder or liver dysfunction. His sodium is slightly low at 132 and his potassium is also slightly low at 3.0 consistent with bouts of nausea and vomiting. However these are not clinically significant. Lipase is normal going against acute pancreatitis. I felt no need to check a talk screen as this was done the other day and is positive and the patient readily admits to smoking marijuana daily. In the ER he was given 2 L of fluid and treated with Thorazine and Benadryl. After receiving medication he had no further bouts of vomiting and vitals were stable. As I feel this is all related to his cannabis use and he does not have significant dehydration causing YARA or electrolyte abnormality there is no need for admission and he can be discharged home. I do feel that he would do better with atypical treatment for his nausea based on the fact it is from cannabis hyperemesis syndrome and therefore he will prescribe Haldol and Phenergan. Plan of care was discussed with the patient who is agreeable to it and is otherwise safe for discharge History & Record Review Discussion w/independent historian: Patient Lab Data Attestation: I reviewed the patient's lab results. Labs: Laboratory Results - last 24 hr 04/03/25 06:35 WBC 11.8 H RBC 5.22 Hgb 15.8 Hct 44.3 MCV 84.9 MCH 30.3 MCHC 35.7 RDW Std Deviation 33.6 L RDW Coeff of Loulou 10.9 L Plt Count 212 MPV 11.1 Immature Gran % (Auto) 0.300 Neut % (Auto) 81.4 H Lymph % (Auto) 10.1 L [place] % (Auto) 7.7 Eos % (Auto) 0.1 Baso % (Auto) 0.4 Absolute Neuts (auto) 9.6 H Absolute Lymphs (auto) 1.19 Nucleated RBC % 0 Sodium 132 L Potassium 3.0 L Chloride 92 L Carbon Dioxide 23.3 Anion Gap 16 H BUN 16 Creatinine 1.20 Est GFR (MDRD) Non-Af 83 BUN/Creatinine Ratio 13.3 Glucose 97 Calcium 9.3 Magnesium 2.4 H Total Bilirubin 2.02 H Direct Bilirubin 0.74 H AST 13 ALT 14 Alkaline Phosphatase 44 Total Protein 7.4 Albumin 4.4 Globulin 3.0 Lipase 58 Discharge Plan Triage Chief Complaint: Nausea/Vomiting ED Provider: Charlie Harmon Dx/Rx/DC Orders Clinical Impression: Dehydration, Cannabis hyperemesis syndrome concurrent with and due to cannabis abuse, Hypokalemia Instructions: ED Cyclic Vomiting Syndrome, ED Dehydration (Adult), ED Hypokalemia Prescriptions: New potassium chloride 10 mEq tablet,ER particles/crystals 10 meq PO BID 5 Days Qty: 10 0RF promethazine 12.5 mg tablet 12.5 mg PO TID PRN (Reason: nausea and vomiting) Qty: 21 0RF haloperidol 5 mg tablet 5 mg PO TID PRN (Reason: nausea and vomiting) 5 Days Qty: 15 0RF No Action dicyclomine 20 mg tablet 20 mg PO BID Qty: 10 0RF desvenlafaxine succinate 50 mg tablet extended release 24 hr 50 mg PO DAILY Primary Care Provider: Sallie Crowley NP Referrals: Sallie Crowley NP, GENERAL HARDWARE SALESPERSON-C [Primary Care Provider] - Activity Restrictions/Additional Instructions: Please stop the Reglan and begin taking the Haldol and add the promethazine if needed for further nausea/vomit control. Add the potassium as directed as well. Please refrain from marijuana use as this could worsen symptoms. Return to the ER should you have any further concerns Print Language: Upper Sorbian Disposition Disposition: Home, Self Care Discharge Date/Time: 04/03/25 09:30
[2025-04-03 08:32] VITALS: BP 132/78; PULSE 74; RESP 15; O2SAT 97
[2025-04-03 09:29] VITALS: BP 132/78; PULSE 77; RESP 16; TEMP 36.6; O2SAT 99
== END 2025-04-03 09:30 | disposition home or self-care (01) ==
PROVIDERS: Emergency Provider Emergency Medicine; PCP Registered Nurse; Visit Provider Emergency Medicine
DX: E86.0 Dehydration (principal); E87.6 Hypokalemia; R11.2 Nausea with vomiting, unspecified; F12.10 Cannabis abuse, uncomplicated; F41.9 Anxiety disorder, unspecified; Z79.899 Other long term (current) drug therapy; F17.290 Nicotine dependence, other tobacco product, uncomplicated
CPT/HCPCS: 80048; 80076; 83690; 83735; 85025; 96361; 96365; 96366; 99282; A4216

== ENCOUNTER 2025-04-03 13:58 | Emergency (ER) | payer OTHER, SELFPAY ==
[2025-04-03 13:58] VITALS: BP 141/93; PULSE 83; RESP 18; TEMP 36.6; O2SAT 98; BMI 19.3
--- NOTE | 2025-04-03 14:18 | ED.VIS.GI ---
HPI HPI - GI History of Present Illness Chief Complaint: Nausea/Vomiting Informant: patient Nausea/Vomiting/Emesis GI Symptom: Positive for Nausea and Vomiting Onset: Days Severity: Moderate Diarrhea/Melena/Hematochezia GI Symptom: Positive for Diarrhea (Resolved last several days.) Associated Symptoms Associated Symptoms: Negative for Dysuria, Frequency, Hematuria or Urgency Narrative Narrative: 29-year-old male no seen past medical history. Does smoke marijuana last use was on Tuesday. He said since Tuesday has had nausea vomiting diarrhea and the diarrhea is since resolved. States he is thrown up 10 times last 24 hours. Denies any hematemesis. No coffee-ground emesis. No melena. Denies any abdominal pain. No fever. No dysuria. Prior similar symptoms: Yes Recent Illness/Hospitalization: [facility] Medical History (Updated 04/03/25 @ 15:[address] Pancho Negro MD) Anxiety Marijuana smoker Home Medications ?Medication ?Instructions ?Recorded ?Last Taken ?Type dicyclomine 20 mg tablet 20 mg PO BID #10 tabs 12/19/22 Unknown Rx desvenlafaxine succinate 50 mg 50 mg PO DAILY 04/03/25 Unknown History tablet,extended release 24 hr haloperidol 5 mg tablet 5 mg PO TID PRN nausea and 04/03/25 Unknown Rx vomiting 5 days #15 tabs potassium chloride 10 mEq 10 meq PO BID 5 days #10 tabs 04/03/25 Unknown Rx tablet,extended release(part/cryst) promethazine 12.5 mg tablet 12.5 mg PO TID PRN nausea and 04/03/25 Unknown Rx vomiting #21 tabs Allergy/AdvReac Type Severity Reaction Status Date / Time No Known Allergies Allergy Verified 04/03/25 13:59 Social History Smoking Status: Current every day smoker tobacco type: e-cigarettes ROS ROS ED ROS Narrative Nausea vomiting diarrhea diarrhea is resolved. Constitutional Constitutional ED: Denies chills or fever(s) ENT ENT ED: Denies ear pain Cardiovascular Cardiovascular: Denies chest pain Respiratory/Chest Respiratory/Chest: Denies cough or dyspnea Gastrointestinal Gastrointestinal: Reports diarrhea, nausea and vomiting; Denies abdominal pain or constipation Genitourinary Genitourinary ED: Denies dysuria or hematuria Musculoskeletal Musculoskeletal: Denies arthralgias Integumentary Denies abscess Neurologic Neurologic: Denies headache(s) Psychiatric Psychiatric: Denies anxiety Endocrine Endocrinology: Denies polydipsia Hematologic/Lymphatic Hematologic/Lymphatic: Denies easy bleeding Allergic/Immunologic Allergic/Immunologic ED: Denies mouth swelling EXAM Physical Exam Narrative Exam Narrative: 29-year-old male with no signs stable afebrile. Does not look septic or toxic. No acute distress. H EENT exam pupils round react to light. No trauma. Nontender. Moist pink membranes. Neck nontender no lymphadenopathy. Lungs clear to auscultation bilaterally. Heart regular rhythm no murmur. Abdomen is soft, nontender, nondistended, normal bowel sounds without peritoneal signs. Patient moving all 4 extremities. Normal range of motion. Normal strength. Nontender no deformity. No edema. Back nontender. Skin no rashes. Neurologically he is awake alert. Answering questions following commands. NIH 0. Const Vital Signs: 04/03/25 13:58 Temperature 97.8 F Temperature Source Oral Pulse Rate 83 Respiratory Rate 18 Blood Pressure 141/93 H Blood Pressure Mean 109 Pulse Ox 98 Oxygen Delivery Method Room Air Positive well nourished and well developed; Negative for obese, cachectic, contractures or unkempt General Appearance ED: well developed and NAD; Negative for unkempt, cachectic, contractures or pallor Nutritional Appearance: Negative for cachectic or obese HEENT Reports moist mucous membranes normocephalic and atraumatic Eyes PERRL and EOMs intact bilaterally Neck no lymphadenopathy, supple and no JVD General: Negative for tenderness Lymph Lymphatic: Negative for other Resp normal respiratory effort and clear to auscultation bilaterally Effort and Inspection: Negative for respiratory distress Auscultation: Negative for rales, rhonchi or wheezes Cardio regular rate, regular rhythm, S1 normal heart sound, S2 normal heart sound and no murmurs GI non-tender, non-distended and no masses Auscultation: normoactive bowel sounds Palpation: soft and rebound tenderness present; Negative for tender or guarding Back/Spine no CVA tenderness Extremity full ROM General Extremety ED: Negative for edema or tenderness General Extremity: Negative for edema Neuro CN's II-XII intact bilaterally, moves all extremities and no sensory deficits noted Sensorium / Orientation: alert, oriented to person, oriented to place and oriented to time Motor Exam: strength 5/5 throughout Psych mental status grossly normal and thought process normal Appearance: Negative for unkempt Skin no wounds General Skin Exam: Negative for jaundice or pallor Lesions: no lesions Rashes: no rashes MDM MDM MDM Narrative Medical decision making narrative: 29-year-old male nausea vomiting for last 5 days. Cyclic vomiting consistent with his marijuana use. His abdomen is benign. He has had recent workups has been here 3 out of the last 5 days. His labs and CAT scan of his abdomen been unremarkable. Will be treated with IV fluids, Protonix, lorazepam and antinausea medication. Reassess. I do not think he needs any imaging. Refusing if he is doing better at 3:40 PM. He is improved. He did drink water held down. He wanted additional Zofran for nausea. His abdomen is benign. We discharged home. Treat his cyclic vomiting. He has Zofran at home. From prior prescriptions. He was instructed not to use marijuana. History & Record Review Discussion w/independent historian: Patient Additional record(s) reviewed:: Prior inpatient record, Prior outpatient record, Prior ED visit, Prior labs and No prior records Discharge Plan Triage Chief Complaint: Nausea/Vomiting ED Provider: Pancho Negro Dx/Rx/DC Orders Clinical Impression: Cyclical vomiting, Cannabis hyperemesis syndrome concurrent with and due to cannabis abuse Instructions: ED Cyclic Vomiting Syndrome Prescriptions: No Action dicyclomine 20 mg tablet 20 mg PO BID Qty: 10 0RF potassium chloride 10 mEq tablet,ER particles/crystals 10 meq PO BID 5 Days Qty: 10 0RF promethazine 12.5 mg tablet 12.5 mg PO TID PRN (Reason: nausea and vomiting) Qty: 21 0RF haloperidol 5 mg tablet 5 mg PO TID PRN (Reason: nausea and vomiting) 5 Days Qty: 15 0RF desvenlafaxine succinate 50 mg tablet extended release 24 hr 50 mg PO DAILY Primary Care Provider: Sallie Crowley NP Referrals: Sallie Crowley NP, CABLE TESTERS HELPER-C [Primary Care Provider] - 3-5 Days if not improving Activity Restrictions/Additional Instructions: Your home Zofran medication for nausea. You can swallow it or let dissolve under your tongue. Plenty of fluids and rest. Slowly increase your diet as tolerated. The most important thing is fluids. Start with water, 7-Up Gatorade and slowly increase as tolerated. Follow-up with your primary care provider if not improving or return if worse. Long-term use to stop using marijuana and/or cannabis. That can cause this which is called cyclic vomiting. It may take weeks or months for it to resolve even though he stopped using on Tuesday. Print Language: Yakut Disposition Disposition: Home, Self Care
[2025-04-03] MEDS: Lorazepam 2 MG/ML WCH Syringe 0.5 MG IV (14:35)
[2025-04-03] MEDS: Famotidine 200 MG/20 ML MDV 20 MG in 0.9% Normal Saline (Pres. free 8 ML 300 MG IV (14:35)
[2025-04-03] MEDS: 0.9% Normal Saline (1000mL) 1,000 ML 999 ML IV (14:35)
[2025-04-03 15:49] VITALS: BP 165/97; PULSE 94; RESP 14; TEMP 37.1; O2SAT 100
[2025-04-03 16:05] VITALS: BP 122/52; PULSE 66; RESP 12; TEMP 37.1; O2SAT 100
== END 2025-04-03 16:16 | disposition home or self-care (01) ==
PROVIDERS: Emergency Provider Emergency Medicine; PCP Registered Nurse; Visit Provider Emergency Medicine
DX: R11.15 Cyclical vomiting syndrome unrelated to migraine (principal); F12.10 Cannabis abuse, uncomplicated; F41.9 Anxiety disorder, unspecified; Z79.899 Other long term (current) drug therapy; F17.290 Nicotine dependence, other tobacco product, uncomplicated
CPT/HCPCS: 96361; 96365; 96375; 96376; 99282; A4216; J2405

== ENCOUNTER 2025-04-03 20:42 | Observation (INO) | payer OTHER, SELFPAY ==
[2025-04-03 20:43] VITALS: BP 150/99; PULSE 80; RESP 18; TEMP 36.8; O2SAT 98; BMI 19.4
--- NOTE | 2025-04-03 20:56 | ED.VIS.GI ---
HPI HPI - GI History of Present Illness Chief Complaint: Nausea/Vomiting/Diarrhea Informant: patient Nausea/Vomiting/Emesis GI Symptom: Positive for Nausea and Vomiting Onset: Days Severity: Moderate Diarrhea/Melena/Hematochezia GI Symptom: Positive for Diarrhea and - (Resolved.) Severity: Mild Associated Symptoms Associated Symptoms: Negative for Dysuria, Frequency, Hematuria or Urgency Narrative Narrative: 29-year-old male no significant past medical history has been seen multiple times over the last several days. Has a history of cannabis use. He said he stopped using on Tuesday. He has had nausea and vomiting since that time. He had diarrhea originally that resolved. He really denies any abdominal pain. He denies any fever. He had significant recent workup with labs and a CAT scan of his abdomen and pelvis which were really unremarkable. He did similar episode of this several years ago he did had to be admitted at that time at another facility. No prior abdominal surgeries. Currently other than meds for the vomiting he is on no other medications. Prior similar symptoms: Yes Recent Illness/Hospitalization: No PFSH PFS Medical History Anxiety Marijuana smoker Home Medications Medication Instructions Recorded Last Taken Type dicyclomine 20 mg tablet 20 mg PO BID #10 tabs 12/19/22 Unknown Rx desvenlafaxine succinate 50 mg 50 mg PO DAILY 04/03/25 Unknown History tablet,extended release 24 hr haloperidol 5 mg tablet 5 mg PO TID PRN nausea and 04/03/25 04/03/25 Rx vomiting 5 days #15 tabs potassium chloride 10 mEq 10 meq PO BID 5 days #10 tabs 04/03/25 Unknown Rx tablet,extended release(part/cryst) promethazine 12.5 mg tablet 12.5 mg PO TID PRN nausea and 04/03/25 Unknown Rx vomiting #21 tabs Allergy/AdvReac Type Severity Reaction Status Date / Time No Known Allergies Allergy Verified 04/03/25 20:43 Social History Smoking Status: Current every day smoker tobacco type: e-cigarettes ROS ROS ED ROS Narrative Nausea, vomiting and diarrhea. Diarrhea is resolved. Constitutional Constitutional ED: Denies chills or fever(s) ENT ENT ED: Denies ear pain Cardiovascular Cardiovascular: Denies chest pain Respiratory/Chest Respiratory/Chest: Denies cough or dyspnea Gastrointestinal Gastrointestinal: Reports diarrhea, nausea and vomiting; Denies abdominal pain, constipation or melena Genitourinary Genitourinary ED: Denies dysuria or hematuria Musculoskeletal Musculoskeletal: Denies arthralgias, back pain or myalgias Integumentary Denies abscess or Abrasions Neurologic Neurologic: Denies headache(s) Psychiatric Psychiatric: Denies anxiety or depression Endocrine Endocrinology: Denies polydipsia, polyphagia or polyuria Hematologic/Lymphatic Hematologic/Lymphatic: Denies easy bleeding, easy bruising or lymphadenopathy Allergic/Immunologic Allergic/Immunologic ED: Denies mouth swelling, tongue swelling or urticaria EXAM Physical Exam Narrative Exam Narrative: 29-year-old male standing up in the room. I believe his mom is with him. Vital signs are stable afebrile. He does not look septic or toxic. He does not look significantly dehydrated. He is in no distress. He is holding an emesis bag but currently not vomiting. H EENT exam appears Ramming Actilite. Mytrex members. No trauma to his face or head. Neck nontender. No meningismus. No lymphadenopathy. Back nontender. Lungs clear to auscultation bilaterally. Heart regular rhythm no murmur. Rate about 80. Chest wall ribs nontender. Abdomen soft nondistended normal bowel sounds without peritoneal signs. No obstruction. No right upper or right lower quadrant tenderness. No hernia or mass. Moving all 4 extremities. Normal strength. Normal range of motion. No edema. Nontender. Neurologically he is awake and alert. Answering questions following commands. NIH 0. Very benign exam. Const Vital Signs: 04/03/25 20:43 Temperature 98.2 F Temperature Source Oral Pulse Rate 80 Respiratory Rate 18 Blood Pressure 150/99 H Blood Pressure Mean 116 Pulse Ox 98 Oxygen Delivery Method Room Air Positive well nourished and well developed; Negative for obese, cachectic, contractures or unkempt General Appearance ED: well developed and NAD; Negative for unkempt, cachectic, contractures or pallor Nutritional Appearance: Negative for cachectic or obese HEENT Reports moist mucous membranes normocephalic and atraumatic Eyes PERRL and EOMs intact bilaterally Neck no lymphadenopathy, supple and no JVD Resp normal respiratory effort and clear to auscultation bilaterally Cardio regular rate, regular rhythm, S1 normal heart sound, S2 normal heart sound and no murmurs GI non-tender, non-distended and no masses Inspection: Negative for abdominal distention Auscultation: normoactive bowel sounds Palpation: soft; Negative for tender, guarding, rigid, hernia, mass, pulsatile mass or rebound tenderness present Back/Spine no CVA tenderness Extremity full ROM General Extremety ED: Negative for edema or tenderness General Extremity: Negative for edema Neuro CN's II-XII intact bilaterally and moves all extremities Sensorium / Orientation: alert, oriented to person, oriented to place and oriented to time; Negative for orientation impaired, confused, lethargic or stuporous Motor Exam: strength 5/5 throughout Psych mental status grossly normal and thought process normal Appearance: Negative for unkempt Skin no wounds General Skin Exam: Negative for jaundice or pallor Lesions: no lesions Rashes: no rashes Trauma: Negative for abrasion Nails: Negative for discolored MDM MDM MDM Narrative Medical decision making narrative: 29-year-old male cyclical vomiting with nausea and vomiting. Exam benign. He has had recent workups his labs are basically unremarkable including CAT scan of his abdomen pelvis which was unremarkable. He will be treated with IV fluids. First round of cyclic vomiting meds reassessed. Repeat exam at 10:20 PM patient states he still very nauseated and vomiting. Given this is his third ER visit today. I will speak to the hospitalist about admission. History & Record Review Discussion w/independent historian: Patient and Family Additional record(s) reviewed:: Prior inpatient record, Prior outpatient record, Prior ED visit and Prior labs Lab Data Attestation: I reviewed the patient's lab results. Lab results narrative: CBC shows a white count 8. H&H 14 and 40. Platelets 196. Chemistries show gap of 13. BUN 12 creatinine 1.21 which is consistent with prior. Glucose 96. Labs: Laboratory Results - last 24 hr 04/03/25 21:32 WBC 8.3 RBC 4.72 Hgb 14.4 Hct 40.5 MCV 85.8 MCH 30.5 MCHC 35.6 RDW Std Deviation 33.9 L RDW Coeff of Loulou 10.8 L Plt Count 196 MPV 11.2 Immature Gran % (Auto) 0.200 Neut % (Auto) 71.7 H Lymph % (Auto) 20.3 [place] % (Auto) 7.1 Eos % (Auto) 0.2 Baso % (Auto) 0.5 Absolute Neuts (auto) 6.0 Absolute Lymphs (auto) 1.69 Nucleated RBC % 0 Sodium 135 Potassium 3.8 Chloride 99 Carbon Dioxide 23.2 Anion Gap 13 BUN 12 Creatinine 1.21 H Estim Creat Clear Calc 75.31 Est GFR (MDRD) Non-Af 83 BUN/Creatinine Ratio 10.2 Glucose 96 Calcium 8.9 Discharge Plan Dx/Rx/DC Orders Clinical Impression: Cyclical vomiting, intractable, Marijuana use Disposition Disposition: Acute Care Hospital [facility]
[2025-04-03] MEDS: Lorazepam 2 MG/ML WCH Syringe 0.5 MG IV (21:33)
[2025-04-03] MEDS: 0.9% Normal Saline (1000mL) 1,000 ML 1000 ML IV (21:33)
[2025-04-03] MEDS: Famotidine 200 MG/20 ML MDV 20 MG in 0.9% Normal Saline (Pres. free 8 ML 300 MG IV (21:33)
[2025-04-03 21:50] LABS: Hematocrit 40.5 % (40-54); Hemoglobin 14.4 g/dL (13.0-16.5); Immature Granulocytes Count 0.020 X10^3/uL (0.0-0.0); Mean Corp Hgb Conc 35.6 g/dL (32-36); Mean Corpuscular Volume 85.8 fL (80-94); Mean Platelet Vol. 11.2 fl (6.2-12.0); NRBC Flagged by Analyzer 0 % (0-5); Platelet Count 196 K/mm3 (150-450); RBC Distribution Width CV 10.8 % (11.6-14.6); RBC Distribution Width SD 33.9 fl (35.1-43.9); Red Blood Count 4.72 M/mm3 (4.6-6.2); White Blood Count 8.3 K/mm3 (4.4-11.0)
--- NOTE | 2025-04-03 22:24 | PCM.HP.STD ---
[facility] - General General Date of Admission: 04/03/25 Date of Service: 04/03/25 Chief Complaint: Intractable Nausea and Vomiting. HPI Narrative RD ANG, is a 29 M with a past medical history of tobacco abuse, depression; on desvenlafaxine and cannabis abuse; with cannabis hyperemesis syndrome previously requiring hospitalization who presents to [facility] ER complaining of intractable nausea and vomiting. Mr. Ang reports his symptoms began several days prior to admission with patient stating he last used cannabis on Saturday, March 29, 2025 with subsequent continued nausea and vomiting with nonbloody diarrhea. His diarrhea has resolved and he denies abdominal pain, fever or history of abdominal surgeries. He states he is on no other medications except for antiemetics which are not effective in controlling his symptoms. In the ER he underwent CT scan of the abdomen and pelvis which was essentially unremarkable with corresponding unremarkable laboratory studies and vital signs. He was then admitted to the general medical floor under observation status for a stay that is expected to be less than [address] [facility] Medical History Anxiety Marijuana smoker Home Medications Medication Instructions Recorded Last Taken Type dicyclomine 20 mg tablet 20 mg PO BID #10 tabs 12/19/22 Unknown Rx desvenlafaxine succinate 50 mg 50 mg PO DAILY 04/03/25 03/28/25 History tablet,extended release 24 hr haloperidol 5 mg tablet 5 mg PO TID PRN nausea and 04/03/25 04/03/25 17:30 Rx vomiting 5 days #15 tabs 5 mg potassium chloride 10 mEq 10 meq PO BID 5 days #10 tabs 04/03/25 04/03/25 10:00 Rx tablet,extended release(part/cryst) 10 mEq promethazine 12.5 mg tablet 12.5 mg PO TID PRN nausea and 04/03/25 04/03/25 17:30 Rx vomiting #21 tabs 12.5 mg Allergy/AdvReac Type Severity Reaction Status Date / Time No Known Allergies Allergy Verified 04/03/25 20:43 Social History Smoking Status: Current every day smoker tobacco type: e-cigarettes ROS ROS Narrative Review of Systems: Constitutional: Patient denies fever or chills. Eyes: Patient denies change in vision or discharge from eyes. ENT: Patient denies runny nose, sore throat or ear pain. Resp: Patient denies shortness of breath, wheezing or cough. CV: Patient denies chest pain, palpitations, heart racing or lower extremity edema. GI: Patient admits to nausea and vomiting with bilious emesis and previous nonbloody diarrhea that has since resolved as per HPI. : Patient denies dysuria or hematuria. MSK: Patient denies arthralgias or myalgias. Skin: Patient denies rash, abscess, wounds or jaundice. Psych: Patient admits to anxiety but he denies SI or HI. Neuro: Patient denies headache, paresthesias or focal neurologic deficits. Allergy: Patient denies lip swelling, tongue swelling or urticaria. Hematology: Patient denies easy bleeding or easy bruisability. Endocrinology: Patient denies polyuria, polydipsia, polyphagia or heat/cold intolerance. 14 point ROS otherwise negative except for positives noted above in HPI. Vital Signs Vital Signs Vital Signs: 04/03/25 20:43 Temperature 98.2 F Temperature Source Oral Pulse Rate 80 Respiratory Rate 18 Blood Pressure 150/99 H Blood Pressure Mean 116 Pulse Ox 98 Oxygen Delivery Method Room Air Weight Weight: 131 lb 8 oz Body Mass Index (BMI) 19.4 Physical Exam Const alert, oriented x3, average body habitus and healthy appearing Constitutional Narrative: Mild distress noted with intractable nausea and vomiting. General Appearance: cooperative HEENT normocephalic, head/scalp atraumatic, hearing grossly normal bilaterally and moist oral mucous membranes Eyes PERRL, EOMs intact bilaterally and conjunctivae normal Neck no lymphadenopathy, supple and no JVD Resp normal respiratory effort, no retractions, no use of accessory muscles and clear to auscultation bilaterally Cardio regular rate and regular rhythm GI normal to inspection, nondistended, normoactive bowel sounds, soft to palpation, non-tender and non-distended Extremity normal to inspection, full ROM and no clubbing, cyanosis or edema Skin Skin Narrative: Patient has evidence of rash, abscess, wounds or jaundice. Neuro oriented x3, CN's II-XII intact bilaterally, moves all extremities and no focal motor deficits Sensorium / Orientation: awake, alert, oriented to person, oriented to place and oriented to time Speech: speech normal Psych Mood & Affect: anxious Results Medical Records Data Attestation: I reviewed the patient's medical records Lab / Micro Data Attestation: I reviewed the patient's lab results. 04/03/25 21:32 04/03/25 21:32 Labs: Laboratory Results - last 24 hr 04/03/25 21:32: WBC 8.3, RBC 4.72, Hgb 14.4, Hct 40.5, MCV 85.8, MCH 30.5, MCHC 35.6, RDW Std Deviation 33.9 L, RDW Coeff of Loulou 10.8 L, Plt Count 196, MPV 11.2, Immature Gran % (Auto) 0.200, Neut % (Auto) 71.7 H, Lymph % (Auto) 20.3, [place] % (Auto) 7.1, Eos % (Auto) 0.2, Baso % (Auto) 0.5, Absolute Neuts (auto) 6.0, Absolute Lymphs (auto) 1.69, Nucleated RBC % 0 Assessment & Plan Assessment/Plan (1) Intractable nausea and vomiting: (2) Cannabis hyperemesis syndrome concurrent with and due to cannabis abuse: (3) Marijuana use: (4) Tobacco abuse: PLAN: Plan 1. Intractable Nausea and Vomiting in the setting of previous cannabis abuse with cannabis hyperemesis syndrome - Admit to general medical floor under observation status. Start scopolamine patch 1.5 mg topical every 72 hours. Give Protonix 40 mg IV daily. Give ondansetron IV as needed for nausea vomiting. Give promethazine IM as needed for breakthrough nausea. Cannabis cessation will be strongly encouraged. 2. Tobacco Abuse complicating #1 - Tobacco cessation will be strongly encouraged with nicotine patch offered to control cravings. 3. Depression; on desvenlafaxine - Maintain current therapy. 4. DVT prophylaxis - Enoxaparin 40 mg sq daily plus SCD's. Total time: Approximately (but not less than) 40 minutes. Charges/Coding Visit Charges OBSV E&M: 27681 Observ/hosp same date L1
[2025-04-03 22:44] LABS: Anion Gap 13 (5-15); BUN 12 mg/dL (4-19); BUN/Creat Ratio 10.2 RATIO (10-20); Calcium,Total 8.9 mg/dL (7.6-11.0); Carbon Dioxide 23.2 mmol/L (21.0-32.0); Chloride 99 mmol/L (98-108); Estimated Creatinine Clearance 75.31 ml/min (50-250); Glucose 96 mg/dL (70-99); Potassium 3.8 mmol/L (3.3-5.1)
[2025-04-03 22:45] VITALS: BP 157/99; PULSE 74; RESP 18; TEMP 36.7; O2SAT 98
[2025-04-03 23:01] LABS: Red Blood Cells-Urine 0 SEEN /hpf (0-5); Squamous Epithelial Cells - UA 0 SEEN /hpf (0-5)
[2025-04-03 23:04] LABS: Color, Urine Yellow (Yellow); Glucose, Dipstick Normal (Normal); Ketone-Dipstick 50 mg/dl (Negative); Leukocyte Esterase-Dipstick Negative /ul (Negative); Nitrite-Dipstick Negative (Negative); Occult Blood-Urine Negative /ul (Negative); Protein-Dipstick 15 mg/dl (Negative); Specific Gravity, Urine 1.010 (1.002-1.030); Urine Bilirubin Dipstick Negative (Negative)
[2025-04-03] MEDS: DiphenhydrAMINE 25 MG, ChlorproMAZINE 25 MG in 0.9% Normal Saline (100mL Bag) 100 ML 203 MG IV (23:08)
[2025-04-03] MEDS: Capsaicin 0.025% 1 APPLIC Tube TOPICAL (23:13)
[2025-04-03 23:16] LABS: Magnesium 2.4 mg/dL (1.5-2.2)
--- OUTSIDE RECORDS SUMMARY | 2025-04-03 23:31 | XMS RPT_ITS | CCD ---
Author Organization [facility] Care Team Providers Care Electronics Processing Supervisor Name Role Phone TREVORKACEY Unavailable Unavailable HAYDOUR, QUSAY Unavailable Unavailable Haagen CHILD CARE EDUCATION COORDINATOR.SUPERVISOR DETASSELING CREW, Sallie Primary Care Provider Haagen CHILD CARE EDUCATION COORDINATOR.SUPERVISOR DETASSELING CREW, Sallie Primary Care Provider Haagen CHILD CARE EDUCATION COORDINATOR.SUPERVISOR DETASSELING CREW, Sallie Primary Care Provider Silver Flores Attending Unavailable Haagen DRILLING MACHINE RUNNER, Sallie Primary Care Unavailable Haagen CHILD CARE EDUCATION COORDINATOR.HERMAN, Sallie Primary Care Provider Haagen CHILD CARE EDUCATION COORDINATOR.SUPERVISOR DETASSELING CREW, [facility], [place] Primary Care Provider Suppan CHILD CARE EDUCATION COORDINATOR.HERMAN, Janna A Unavailable [phone] Messi Barry MD Unavailable Suppan CHILD CARE EDUCATION COORDINATOR.HERMAN, Janna A Unavailable Suppan CHILD CARE EDUCATION COORDINATOR.HERMAN, Janna A Unavailable HAAGEN, SALLIE Primary Care Unavailable JANNA EASON Attending Unavailable SALLIE CROWELY Referring Unavailable MESSI BARRY Referring Unavailable HAAGEN, SALLIE Primary Care Unavailable GUILLERMOAGEN, SALLIE Primary Care Unavailable MESSI BARRY Attending Unavailable Haagen DRILLING MACHINE RUNNER-C, [facility], [place] Primary Care Provider Dr. Lyndon Leo DO Emergency Provider Dr. Js Perez DO Emergency Provider Dr. Charlie Harmon DO Emergency Provider Dr. Pancho Negro MD Emergency Provider [phone] Medications Current Medications Medication Drug Class(es) Dates Sig (Normalized) Sig (Original) 24 hr desvenlafaxine succinate 50 mg extended release oral tablet (6 sources) Serotonin and Norepinephrine Reuptake Inhibitor Start: 5 End: 6 take 1 tablet by mouth once daily Desvenlafaxine Succinate 50 mg tablet extended release 24 hr Active 50 mg PO DAILY April 03, 2025 12:00am dicyclomine hydrochloride 20 mg oral tablet (4 sources) Anticholinergic Start: 3 take 1 tablet by mouth twice daily Dicyclomine 20 mg tablet Active 20 mg PO TWICE A DAY 10 0 December 19, 2022 12:00am haloperidol 5 mg oral tablet (2 sources) Typical Antipsychotic Start: 5 take 1 tablet by mouth three times daily as needed for nausea and vomiting Haloperidol 5 mg tablet Active 5 mg PO THREE TIMES A DAY as needed for nausea and vomiting 15 5 0 April 03, 2025 8:04am pantoprazole 40 mg delayed release oral tablet (8 sources) Proton Pump Inhibitor Start: 1 take 1 tablet by mouth once daily, then take 6 tablets by mouth in the morning pantoprazole DR (PROTONIX) 40 mg tablet Take 1 tablet by mouth DAILY (6 AM). 30 tablet 2 12/23/2020 Active Comment on above: Take 1 tablet by carmen th DAILY (6 AM). microencapsulated potassium chloride 10 meq extended release oral tablet (2 sources) Start: 5 take 1 tablet by mouth twice daily Potassium Chloride 10 mEq tablet,ER particles/crystals Active 10 meq PO TWICE A DAY 10 5 0 April 03, 2025 12:00am promethazine hydrochloride 12.5 mg oral tablet (2 sources) Phenothiazine Start: 5 take 1 tablet by mouth three times daily as needed for nausea and vomiting Promethazine 12.5 mg tablet Active 12.5 mg PO THREE TIMES A DAY as needed for nausea and vomiting 21 0 April 03, 2025 8:04am Completed/Discontinued Medications Medication Drug Class(es) Dates Sig [...] Comment on above: Take 1 capsule by [facility] once each week. doxycycline monohydrate 100 mg oral capsule (4 sources) Tetracycline-cla ss Drug Start: 08-27-2020 End: 04-03-2025 take 1 capsule by mouth twice daily Doxycycline Monohydrate 100 MG capsule Discontinued 100 mg PO TWICE A DAY 20 0 August 27, 2020 1:00am April 03, 2025 5:56am FLUoxetine 20 mg oral capsule (12 sources) Serotonin Reuptake Inhibitor Start: 02-11-2020 End: 04-03-2025 take 1 capsule by mouth once daily Fluoxetine 20 MG capsule Discontinued 20 mg PO DAILY February 11, 2020 12:00am April 03, 2025 5:56am Comment on above: Take 1 capsule by [facility] once daily. take 1 capsule by [facility] once daily loperamide hydrochloride 2 mg oral capsule (4 sources) Opioid Agonist Start: 12-19-2022 End: 04-03-2025 take 1 capsule by mouth every six hours as needed Loperamide (Imodium A-D) 2 mg capsule Discontinued 2 mg PO EVERY 6 HOURS as needed for loose stool 10 0 December 19, 2022 12:00am April 03, 2025 5:56am metoclopramide 5 mg oral tablet (3 sources) Dopamine-2 Receptor Antagonist Start: 04-02-2025 End: 04-03-2025 take 1 tablet by mouth every eight hours as needed for nausea and vomiting Metoclopramide Hcl (Reglan) 5 mg tablet Discontinued 5 mg PO Q8H as needed for nausea and vomiting 9 3 0 April 02, 2025 3:02pm April 03, 2025 2:40pm ondansetron 4 mg disintegrating oral tablet (12 sources) Serotonin-3 Receptor Antagonist Start: 11-03-2020 End: 04-02-2025 take 1 tablet by mouth every eight hours as needed for nausea Ondansetron 4 mg tablet,disintegrati ng Discontinued 4 mg PO EVERY 8 HOURS NEEDED as needed for Nausea 12 0 April 01, 2025 9:10pm April 02, 2025 3:04pm Problems Active Problems Problem Classification Problem Date Documented Date Episodic/Chronic Alcohol-related disorders (4 sources) Alcohol intoxication; Translations: [Alcohol use, unspecified [...] type] Onset: 09-15-2005 11-04-2023 Chronic Esophageal disorders (4 sources) Gastroesophageal reflux disease; Translations: [Gastro-esophageal reflux disease without esophagitis] 04-01-2025 Chronic Fluid and electrolyte disorders (20 sources) Hypokalemia; Translations: [Metabolic acidosis, increased anion gap (IAG)] Onset: 07-21-2017 07-21-2017 Episodic Immunizations and screening for infectious disease (1 source) Viral screening status; Translations: [Encounter for screening for other viral diseases] 11-04-2023 Episodic Inflammatory conditions of male genital organs (4 sources) Epididymitis; Translations: [Epididymitis] 08-28-2020 Episodic Miscellaneous mental health disorders (3 sources) Chronic insomnia; Translations: [Psychophysiologic insomnia] Onset: 10-01-2024 10-01-2024 Chronic Nausea and vomiting (20 sources) Intractable nausea and vomiting; Translations: [Nausea with vomiting, unspecified] Onset: 12-19-2020 12-22-2020 Episodic Noninfectious gastroenteritis (4 sources) Gastroenteritis; Translations: [Noninfective gastroenteritis and colitis, unspecified] 12-27-2022 Episodic Nutritional deficiencies (9 sources) Vitamin D deficiency; Translations: [Vitamin D deficiency, unspecified] 10-13-2018 Chronic Other disorders of stomach and duodenum (1 source) Cyclical vomiting syndrome; Translations: [Cyclical vomiting syndrome unrelated to migraine] 04-03-2025 Episodic Other injuries and conditions due to external causes (4 sources) Closed injury of head; Translations: [Unspecified injury of head, initial encounter] 08-10-2021 Episodic Substance-related disorders (3 sources) Cannabis hyperemesis syndrome co-occurrent and due to cannabis abuse; Translations: [Cannabis abuse with other cannabis-induced disorder] 04-02-2025 Chronic Substance-related disorders (4 sources) Marijuana user; Translations: [Cannabis use, unspecified, [...] Range Facility Absolute lymphocyte countOrd ered By: Charlie Harmon on 04-03-2025 Lymphocytes Auto (Unsp spec) [#/Vol] 1.19 10*3/uL 0.83-4.51 [facility] Absolute neutrophil countOrd ered By: Charlie Harmon on 04-03-2025 Neutrophils (Bld) [#/Vol] 9.6 10*3/uL High 2.0-7.7 [facility] Anion gap in Serum or Plasma Ordered By: Charlie Harmon on 04-03-2025 Anion gap [Moles/Vol] 16 mmol/L High 5-15 [place] Automated lymphocyte count a s percentage of total leukocytesOrdered By: Charlie Harmon on 04-03-2025 Lymphocytes/100 WBC Auto (Unsp spec) 10.1 % Low 19-41 [facility] BUN/creatinine ratioOrdered By: Charlie Harmon on 04-03-2025 Urea nitrogen/Creatinine [Mass ratio] 13.3 mg/mg 10-20 [facility] Basophil percentageOrdered B y: Charlie Harmon on 04-03-2025 Basophils/100 WBC (Bld) 0.4 % 0-[address] [facility] Bilirubin directOrdered By: Charlie Harmon on 04-03-2025 Bilirubin.direct [Mass/Vol] 0.74 mg/dL High 0.00-0.30 [facility] Bilirubin, totalOrdered By: Charlie Harmon on 04-03-2025 Bilirubin [Mass/Vol] 2.02 mg/dL High 0.00-1.30 [facility] Carbon dioxide, total [Moles /volume] in Central venous bloodOrdered By: Charlie Harmon on 04-03-2025 CO2 [Moles/Vol] 23.3 mmol/L 21.0-32.0 [facility] Chloride assayOrdered By: Renee Harmon on 04-03-2025 Chloride [Moles/Vol] 92 mmol/L Low 98-108 [facility] Eosinophil percentageOrdered By: Charlie Harmon on 04-03-2025 Eosinophils/100 WBC (Bld) 0.1 % 0-5 [facility] Erythrocyte distribution wid th ratioOrdered By: Charlie Harmon on 04-03-2025 Erythrocyte distribution width (RBC) [Ratio] 10.9 % Low 11.6-14.6 [facility] Erythrocyte distribution wid th standard deviationOrdered By: Charlie Harmon on 04-03-2025 Erythrocyte distribution width (RBC) [Ratio] 33.6 fl Low 35.1-43.9 [facility] Glomerular filtration rate ( GFR) estimation/1.73 sq m using serum, plasma, or whole bOrdered By: Charlie Harmon on 04-03-2025 GFR/1.73 sq M.predicted among non-blacks MDRD (S/P/Bld) [Vol rate/Area] 83 mL/min/{1.73_m2} >60 [facility] Comment on above: mL/min/1.73m2 CKD-EP I Creatinine Equation (2020) Hematocrit Auto (Bld) [Volum e fraction]Ordered By: Charlie Harmon on 04-03-2025 Hematocrit (Bld) [Volume fraction] 44.3 % 40-54 [facility] Hemoglobin measurementOrdere d By: Charlie Harmon on 04-03-2025 Hemoglobin (Bld) [Mass/Vol] 15.8 g/dL 13.0-16.5 [facility] Immature granulocytes/100 WB C Auto (Bld)Ordered By: Charlie Harmon on 04-03-2025 Immature granulocytes/100 WBC (Bld) 0.300 % 0.0-0.9 [facility] Comment on above: IG% - Immature Granu locytes (promyelocytes, myelocytes and metamyelocytes) > 1% indicates that a LEFT SHIFT is Present. Laboratory - Chemistry and C hemistry - challengeOrdered By: Charlie Harmon on 04-03-2025 AST [Catalytic activity/Vol] 13 U/L <38 [facility] Lipase measurementOrdered By : Charlie Harmon on 04-03-2025 Lipase [Catalytic activity/Vol] 58 U/L 13-75 [facility] Comment on above: Please note:LIPASE r evised reference range effective 22. New Lipase methodology. Expected to produce lower values than the previous assay method. NEW Reference Range: 13 - 75 U/L MCV (mean corpuscular volume ) determinationOrdered By: Charlie Harmon on 04-03-2025 MCV (RBC) [Entitic vol] 84.9 fL 80-[address] [facility] Magnesium measurement (mass/ volume)Ordered By: Charlie Harmon on 04-03-2025 Magnesium (Unsp spec) [Mass/Vol] 2.4 mg/dL High 1.5-2.2 [facility] Mean corpuscular hemoglobin (MCH) determinationOrdered By: Charlie Harmon on 04-03-2025 MCH (RBC) [Entitic mass] 30.3 pg 27.0-32.0 [facility] Mean corpuscular hemoglobin concentration (MCHC) determinationOrdered By: Charlie Harmon on 04-03-2025 MCHC (RBC) [Mass/Vol] 35.7 g/dL 32-36 [place] Mean platelet volume determi nationOrdered By: Charlie Harmon on 04-03-2025 Platelet mean volume (Bld) [Entitic vol] 11.1 fL 6.2-12.0 [facility] Monocyte percentageOrdered B y: Charlie Harmon on 04-03-2025 Monocytes/100 WBC (Bld) 7.7 % 0-[address] [facility] Neutrophil percentageOrdered By: Charlie Harmon on 04-03-2025 Neutrophils/100 WBC (Bld) 81.4 % High 47-70 [facility] Nucleated red blood cell per centageOrdered By: Charlie Harmon on 04-03-2025 Nucleated RBC/100 WBC (Bld) [Ratio] 0 % 0-5 [facility] Platelet countOrdered By: Renee Harmon on 04-03-2025 Platelets (Bld) [#/Vol] 212 10*3/uL 150-450 [facility] Potassium measurement (mass/ volume)Ordered By: Charlie Harmon on 04-03-2025 Potassium (Unsp spec) [Mass/Vol] 3.0 mmol/L Low 3.3-5.1 [facility] RBC Auto (Bld) [#/Vol]Ordere d By: Charlie Harmon on 04-03-2025 RBC (Bld) [#/Vol] 5.22 10*6/uL 4.6-6.2 [facility] Serum creatinine measurement (mass/volume)Ordered By: Charlie Harmon on 04-03-2025 Creatinine [Mass/Vol] 1.20 mg/dL 0.70-1.20 [place] Serum globulin measurementOr dered By: Charlie Harmon on 04-03-2025 Globulin (S) [Mass/Vol] 3.0 g/dL 2.2-4.2 [facility] Serum glucose measurement (m ass/volume)Ordered By: Charlie Harmon on 04-03-2025 Glucose [Mass/Vol] 97 mg/dL 70-99 [facility] Serum or plasma alanine vela otransferase (ALT) measurementOrdered By: Charlie Harmon on 04-03-2025 ALT [Catalytic activity/Vol] 14 U/L <47 [facility] Serum or plasma albumin guillermo urement (mass/volume)Ordered By: Charlie Harmon on 04-03-2025 Albumin [Mass/Vol] 4.4 g/dL 3.5-5.0 [facility] Serum or plasma alkaline alan sphatase measurementOrdered By: Charlie Harmon on 04-03-2025 ALP [Catalytic activity/Vol] 44 U/L 40-129 [facility] Serum or plasma calcium guillermo urement (mass/volume)Ordered By: Charlei Harmon on 04-03-2025 Calcium [Mass/Vol] 9.3 mg/dL 7.6-11.0 [facility] Serum or plasma urea nitroge n measurement (mass/volume)Ordered By: Charlie Harmon on 04-03-2025 Urea nitrogen [Mass/Vol] 16 mg/dL 4-19 [facility] Sodium levelOrdered By: Pietro Harmon on 04-03-2025 Sodium [Moles/Vol] 132 mmol/L Low 133-145 [facility] Total proteinOrdered By: Karl Harmon on 04-03-2025 Protein [Mass/Vol] 7.4 g/dL 5.9-8.4 [facility] White blood cell (WBC) count Ordered By: Charlie Harmon on 04-03-2025 WBC (Bld) [#/Vol] 11.8 10*3/uL High 4.4-11.0 [facility] Absolute lymphocyte countOrd ered By: Js Perez on 04-02-2025 Lymphocytes Auto (Unsp spec) [#/Vol] 1.96 10*3/uL 0.83-4.51 [facility] Absolute neutrophil countOrd ered By: Js Perez on 04-02-2025 Neutrophils (Bld) [#/Vol] 7.0 10*3/uL 2.0-7.7 [facility] Amphetamine detection with 1 000 ng/mL as cutoffOrdered By: Js Perez on 04-02-2025 Amphetamines Screen method >1000 ng/mL Ql (U) Negative < 200 ng/mL [facility] Anion gap in Serum or Plasma Ordered By: Js Perez on 04-02-2025 Anion gap [Moles/Vol] 18 mmol/L High 5-15 [place] Automated lymphocyte count a s percentage of total leukocytesOrdered By: Js Perez on 04-02-2025 Lymphocytes/100 WBC Auto (Unsp spec) 19.7 % 19-41 [facility] BUN/creatinine ratioOrdered By: Js Perez on 04-02-2025 Urea nitrogen/Creatinine [Mass ratio] 15.0 mg/mg 10-20 [facility] Basophil percentageOrdered B y: Js Perez on 04-02-2025 Basophils/100 WBC (Bld) 0.3 % 0-[address] [facility] Bilirubin Test strip Ql (U)O rdered By: Js Perez on 04-02-2025 Bilirubin Ql (U) Negative Negative [facility] Bilirubin, totalOrdered By: Js Perez on 04-02-2025 Bilirubin [Mass/Vol] 2.11 mg/dL High 0.00-1.30 [facility] Carbon dioxide, total [Moles /volume] in Central venous bloodOrdered By: Js Perez on 04-02-2025 CO2 [Moles/Vol] 23.3 mmol/L 21.0-32.0 [facility] Chloride assayOrdered By: Sim Perez on 04-02-2025 Chloride [Moles/Vol] 91 mmol/L Low 98-108 [facility] Eosinophil percentageOrdered By: Js Perez on 04-02-2025 Eosinophils/100 WBC (Bld) 0.1 % 0-5 [facility] Erythrocyte distribution wid th ratioOrdered By: Js Perez on 04-02-2025 Erythrocyte distribution width (RBC) [Ratio] 11.0 % Low 11.6-14.6 [facility] Erythrocyte distribution wid th standard deviationOrdered By: Js Carreno on 04-02-2025 Erythrocyte distribution width (RBC) [Ratio] 34.1 fl Low 35.1-43.9 [facility] Glomerular filtration rate ( GFR) estimation/1.73 sq m using serum, plasma, or whole bOrdered By: Js Perez on 04-02-2025 GFR/1.73 sq M.predicted among non-blacks MDRD (S/P/Bld) [Vol rate/Area] 78 mL/min/{1.73_m2} >60 [facility] Comment on above: mL/min/1.73m2 CKD-EP I Creatinine Equation (2020) Hematocrit Auto (Bld) [Volum e fraction]Ordered By: Js Perez on 04-02-2025 Hematocrit (Bld) [Volume fraction] 50.2 % 40-54 [facility] Hemoglobin measurementOrdere d By: Js Perez on 04-02-2025 Hemoglobin (Bld) [Mass/Vol] 17.9 g/dL High 13.0-16.5 [facility] Immature granulocytes/100 WB C Auto (Bld)Ordered By: Js Perez on 04-02-2025 Immature granulocytes/100 WBC (Bld) 0.400 % 0.0-0.9 [facility] Comment on above: IG% - Immature Granu locytes (promyelocytes, myelocytes and metamyelocytes) > 1% indicates that a LEFT SHIFT is Present. Influenza virus A and B and SARS-CoV-2 (COVID-19) and Respiratory syncytial virus RNAOrdered By: Js Perez on 04-02-2025 SARS-CoV-2 (COVID-19) RNA RADHA+probe Ql (Unsp spec) [facility] Ketones Test strip Ql (U)Ord ered By: [facility] on 04-02-2025 Ketones Ql (U) 50 mg/dl High Negative [facility] Laboratory - Chemistry and C hemistry - challengeOrdered By: Js Perez on 04-02-2025 AST [Catalytic activity/Vol] 16 U/L <38 [facility] Lipase measurementOrdered By : Jsvito Perez on 04-02-2025 Lipase [Catalytic activity/Vol] 33 U/L 13-75 [facility] Comment on above: Please note:LIPASE r evised reference range effective 22. New Lipase methodology. Expected to produce lower values than the previous assay method. NEW Reference Range: 13 - 75 U/L MCV (mean corpuscular volume ) determinationOrdered By: Js Perez on 04-02-2025 MCV (RBC) [Entitic vol] 85.2 fL 80-[address] [facility] Magnesium measurement (mass/ volume)Ordered By: Js Perez on 04-02-2025 Magnesium (Unsp spec) [Mass/Vol] 2.9 mg/dL High 1.5-2.2 [facility] Mean corpuscular hemoglobin (MCH) determinationOrdered By: Js Perez on 04-02-2025 MCH (RBC) [Entitic mass] 30.4 pg 27.0-32.0 [facility] Mean corpuscular hemoglobin concentration (MCHC) determinationOrdered By: Js Perez on 04-02-2025 MCHC (RBC) [Mass/Vol] 35.7 g/dL 32-36 [place] Mean platelet volume determi nationOrdered By: Js Perez on 04-02-2025 Platelet mean volume (Bld) [Entitic vol] 11.8 fL 6.2-12.0 [facility] Microscopic analysis of urin e for red blood cells (RBC)Ordered By: Js Perez on 04-02-2025 Microscopic analysis of urine for red blood cells (RBC) 0 SEEN /hpf 0-5 [facility] Monocyte percentageOrdered B y: Js Perez on 04-02-2025 Monocytes/100 WBC (Bld) 9.2 % 0-[address] [facility] Mucus LM Ql (Urine sed)Order ed By: Js Perez on 04-02-2025 Mucus Ql (Urine sed) 0 SEEN /hpf [place] Neutrophil percentageOrdered By: Js Perez on 04-02-2025 Neutrophils/100 WBC (Bld) 70.3 % High 47-70 [facility] Nitrite Test strip Ql (U)Ord ered By: Js Perez on 04-02-2025 Nitrite Ql (U) Negative Negative [facility] No Panel InformationOrdered By: Js Perez on 04-02-2025 Urine Buprenorphine Qualitative Negative < 200 ng/mL [facility] Urine Oxycodone Screen Negative < 100 ng/mL [facility] Nucleated red blood cell per centageOrdered By: Js Perez on 04-02-2025 Nucleated RBC/100 WBC (Bld) [Ratio] 0 % 0-5 [facility] Platelet countOrdered By: Sim Perez on 04-02-2025 Platelets (Bld) [#/Vol] 223 10*3/uL 150-450 [facility] Potassium measurement (mass/ volume)Ordered By: Js Perez on 04-02-2025 Potassium (Unsp spec) [Mass/Vol] 3.2 mmol/L Low 3.3-5.1 [facility] Protein Test strip Ql (U)Ord ered By: Js Perez on 04-02-2025 Protein Ql (U) 30 mg/dl High Negative [facility] Quantitative urine opiates m easurementOrdered By: Js Perez on 04-02-2025 Opiates Ql (U) Negative < 300 ng/mL [facility] RBC Auto (Bld) [#/Vol]Ordere d By: Js Perez on 04-02-2025 RBC (Bld) [#/Vol] 5.89 10*6/uL 4.6-6.2 [facility] Screening urine fentanyl brandy surementOrdered By: Js Perez on 04-02-2025 fentaNYL Screen Ql (U) Negative [facility] Serum creatinine measurement (mass/volume)Ordered By: Js Perez on 04-02-2025 Creatinine [Mass/Vol] 1.27 mg/dL High 0.70-1.20 [place] Serum globulin measurementOr dered By: Js Perez on 04-02-2025 Globulin (S) [Mass/Vol] 3.5 g/dL 2.2-4.[address] [facility] Serum glucose measurement (m ass/volume)Ordered By: Js Perez on 04-02-2025 Glucose [Mass/Vol] 144 mg/dL High 70-99 [facility] Serum or plasma alanine vela otransferase (ALT) measurementOrdered By: Js Perez on 04-02-2025 ALT [Catalytic activity/Vol] 14 U/L <47 [facility] Serum or plasma albumin guillermo urement (mass/volume)Ordered By: Js Carreno on 04-02-2025 Albumin [Mass/Vol] 4.5 g/dL 3.5-5.0 [facility] Serum or plasma albumin/glob ulin mass ratioOrdered By: Js Perez on 04-02-2025 Albumin/Globulin [Mass ratio] 1.3 {ratio} 0.9-2.4 [facility] Serum or plasma alkaline alan sphatase measurementOrdered By: Js Perez on 04-02-2025 ALP [Catalytic activity/Vol] 51 U/L 40-129 [facility] Serum or plasma calcium guillermo urement (mass/volume)Ordered By: Js Carreno on 04-02-2025 Calcium [Mass/Vol] 9.4 mg/dL 7.6-11.0 [facility] Serum or plasma urea nitroge n measurement (mass/volume)Ordered By: Js Perez on 04-02-2025 Urea nitrogen [Mass/Vol] 19 mg/dL 4-19 [facility] Sodium levelOrdered By: Daniel Perez on 04-02-2025 Sodium [Moles/Vol] 132 mmol/L Low 133-145 [facility] Squamous epithelial cells de tection in urine sediment by light microscopyOrdered By: Js Perez on 04-02-2025 Epithelial cells.squamous LM Ql (Urine sed) 0-5 SEEN /hpf 0-5 [facility] Total proteinOrdered By: Rafael Perez on 04-02-2025 Protein [Mass/Vol] 8.0 g/dL 5.9-8.4 [facility] Urine benzodiazepine levelOr dered By: Js Perez on 04-02-2025 Benzodiazepines Ql (U) Negative < 200 ng/mL [facility] Urine clarityOrdered By: Rafael Perez on 04-02-2025 Clarity (U) Clear Clear [facility] Urine cocaine levelOrdered B y: Js Perez on 04-02-2025 Cocaine Ql (U) Negative < 300 ng/mL [facility] Urine color determinationOrd ered By: Js Perez on 04-02-2025 Color (U) Yellow Yellow [facility] Urine [id number] abinol (THC) measurementOrdered By: Js Carreno on 04-02-2025 Cannabinoids Screen Ql (U) Positive < 50 ng/mL [facility] Comment on above: If confirmation test ing is needed, a separate order will be required to send out testing to the reference laboratory. Urine glucose detectionOrder ed By: Js Perez on 04-02-2025 Glucose Ql (U) Normal mg/dl Normal [facility] Urine leukocyte esterase det ection by dipstickOrdered By: Js Perez on 04-02-2025 Leukocyte esterase Test strip Ql (U) 25 /ul High Negative [facility] Urine pHOrdered By: Js Ayoub on 04-02-2025 pH (U) 6.0 [pH] 5.0 - 8.0 [facility] Urine phencyclidine (PCP) de tectionOrdered By: Js Perez on 04-02-2025 Phencyclidine Ql (U) Negative < 25 ng/mL [facility] Urine sediment bacteria coun t by microscopy (number/high power field)Ordered By: Js Perez on 04-02-2025 Bacteria LM.HPF (Urine sed) [#/Area] 0 /[HPF] None Seen [facility] Urine specific gravity measu rementOrdered By: Js Perez on 04-02-2025 Specific gravity (U) [Rel density] 1.015 1.002-1.030 [facility] Urine urobilinogen measureme ntOrdered By: Js Perez on 04-02-2025 Urobilinogen Ql (U) Normal mg/dl Normal [place] White blood cell (WBC) count Ordered By: Js Perez on 04-02-2025 WBC (Bld) [#/Vol] 10.0 10*3/uL 4.4-11.0 [facility] White blood cell countOrdere d By: Js Perez on 04-02-2025 White blood cell count 0-5 SEEN /hpf 0-5 [facility] Absolute lymphocyte countOrd ered By: Lyndon Leo on 04-01-2025 Lymphocytes Auto (Unsp spec) [#/Vol] 1.03 10*3/uL 0.83-4.51 [facility] Absolute neutrophil countOrd ered By: Lyndon Leo on 04-01-2025 Neutrophils (Bld) [#/Vol] 14.4 10*3/uL High 2.0-7.7 [facility] Anion gap in Serum or Plasma Ordered By: Lyndon Leo on 04-01-2025 Anion gap [Moles/Vol] 22 mmol/L High 5-15 [place] Automated lymphocyte count a s percentage of total leukocytesOrdered By: Lyndon Leo on 04-01-2025 Lymphocytes/100 WBC Auto (Unsp spec) 6.2 % Low 19-41 [facility] BUN/creatinine ratioOrdered By: Lyndon Leo on 04-01-2025 Urea nitrogen/Creatinine [Mass ratio] 16.6 mg/mg 10-20 [facility] Basophil percentageOrdered B y: Lyndon Leo on 04-01-2025 Basophils/100 WBC (Bld) 0.2 % 0-[address] [facility] Bilirubin, totalOrdered By: Lyndon Leo on 04-01-2025 Bilirubin [Mass/Vol] 2.59 mg/dL High 0.00-1.30 [facility] Carbon dioxide, total [Moles /volume] in Central venous bloodOrdered By: Lyndon Leo on 04-01-2025 CO2 [Moles/Vol] 25.6 mmol/L 21.0-32.0 [facility] Chloride assayOrdered By: Reyes Leo on 04-01-2025 Chloride [Moles/Vol] 86 mmol/L Low 98-108 [facility] Eosinophil percentageOrdered By: Lyndon Leo on 04-01-2025 Eosinophils/100 WBC (Bld) 0.0 % 0-5 [facility] Erythrocyte distribution wid th ratioOrdered By: Lyndon Leo on 04-01-2025 Erythrocyte distribution width (RBC) [Ratio] 11.0 % Low 11.6-14.6 [facility] Erythrocyte distribution wid th standard deviationOrdered By: Lyndon Leo on 04-01-2025 Erythrocyte distribution width (RBC) [Ratio] 33.9 fl Low 35.1-43.9 [facility] Glomerular filtration rate ( GFR) estimation/1.73 sq m using serum, plasma, or whole bOrdered By: Lyndon Leo on 04-01-2025 GFR/1.73 sq M.predicted among non-blacks MDRD (S/P/Bld) [Vol rate/Area] 72 mL/min/{1.73_m2} >60 [facility] Comment on above: mL/min/1.73m2 CKD-EP I Creatinine Equation (2020) Hematocrit Auto (Bld) [Volum e fraction]Ordered By: Lyndon Leo on 04-01-2025 Hematocrit (Bld) [Volume fraction] 54.0 % 40-54 [facility] Hemoglobin measurementOrdere d By: Lyndon Leo on 04-01-2025 Hemoglobin (Bld) [Mass/Vol] 19.3 g/dL High 13.0-16.5 [facility] Comment on above: CRITICAL VALUE MCMANUS D TO NUVIA CULLEN04/01/25 1827 [place].RESULTS READ BACK BY SAME. Immature granulocytes/100 WB C Auto (Bld)Ordered By: Lyndon Leo on 04-01-2025 Immature granulocytes/100 WBC (Bld) 0.400 % 0.0-0.9 [facility] Comment on above: IG% - Immature Granu locytes (promyelocytes, myelocytes and metamyelocytes) > 1% indicates that a LEFT SHIFT is Present. Laboratory - Chemistry and C hemistry - challengeOrdered By: Lyndon Leo on 04-01-2025 AST [Catalytic activity/Vol] 26 U/L <38 [facility] Comment on above: Hemolysis present, R esults could be affected. Lipase measurementOrdered By : Lyndon Leo on 04-01-2025 Lipase [Catalytic activity/Vol] 41 U/L 13-75 [facility] Comment on above: Please note:LIPASE r evised reference range effective 23. New Lipase methodology. Expected to produce lower values than the previous assay method. NEW Reference Range: 13 - 75 U/L MCV (mean corpuscular volume ) determinationOrdered By: Lyndon Leo on 04-01-2025 MCV (RBC) [Entitic vol] 84.6 fL 80-94 [facility] Mean corpuscular hemoglobin (MCH) determinationOrdered By: Lyndon Leo on 04-01-2025 MCH (RBC) [Entitic mass] 30.3 pg 27.0-32.0 [facility] Mean corpuscular hemoglobin concentration (MCHC) determinationOrdered By: Lyndon Loe on 04-01-2025 MCHC (RBC) [Mass/Vol] 35.7 g/dL 32-36 [place] Mean platelet volume determi nationOrdered By: Lyndon Leo on 04-01-2025 Platelet mean volume (Bld) [Entitic vol] 11.8 fL 6.2-12.0 [facility] Monocyte percentageOrdered B y: Lyndon Leo on 04-01-2025 Monocytes/100 WBC (Bld) 5.9 % 0-[address] [facility] Neutrophil percentageOrdered By: Lyndonkimberlyn Leo on 04-01-2025 Neutrophils/100 WBC (Bld) 87.3 % High 47-70 [facility] Nucleated red blood cell per centageOrdered By: Lyndon Leo on 04-01-2025 Nucleated RBC/100 WBC (Bld) [Ratio] 0 % 0-5 [facility] Platelet countOrdered By: Reyes Leo on 04-01-2025 Platelets (Bld) [#/Vol] 256 10*3/uL 150-450 [facility] Potassium measurement (mass/ volume)Ordered By: Lyndon Leo on 04-01-2025 Potassium (Unsp spec) [Mass/Vol] 3.7 mmol/L 3.3-5.1 [facility] Comment on above: Hemolysis present, R esults could be affected. RBC Auto (Bld) [#/Vol]Ordere d By: Lyndon Leo on 04-01-2025 RBC (Bld) [#/Vol] 6.38 10*6/uL High 4.6-6.2 [facility] Serum creatinine measurement (mass/volume)Ordered By: Lyndon Leo on 04-01-2025 Creatinine [Mass/Vol] 1.35 mg/dL High 0.70-1.20 [place] Serum globulin measurementOr dered By: Lyndon Leo on 04-01-2025 Globulin (S) [Mass/Vol] 4.0 g/dL 2.2-4.[address] [facility] Serum glucose measurement (m ass/volume)Ordered By: Lyndon Leo on 04-01-2025 Glucose [Mass/Vol] 90 mg/dL 70-99 [facility] Serum or plasma alanine vela otransferase (ALT) measurementOrdered By: Lyndon Leo on 04-01-2025 ALT [Catalytic activity/Vol] 25 U/L <47 [facility] Serum or plasma albumin guillermo urement (mass/volume)Ordered By: Lyndon Leo on 04-01-2025 Albumin [Mass/Vol] 5.5 g/dL High 3.5-5.0 [facility] Serum or plasma albumin/glob ulin mass ratioOrdered By: Lyndon Leo on 04-01-2025 Albumin/Globulin [Mass ratio] 1.4 {ratio} 0.9-2.4 [facility] Serum or plasma alkaline alan sphatase measurementOrdered By: Lyndon Leo on 04-01-2025 ALP [Catalytic activity/Vol] 61 U/L 40-129 [facility] Serum or plasma calcium guillermo urement (mass/volume)Ordered By: Lyndon Leo on 04-01-2025 Calcium [Mass/Vol] 10.6 mg/dL 7.6-11.0 [facility] Serum or plasma urea nitroge n measurement (mass/volume)Ordered By: Lyndon Leo on 04-01-2025 Urea nitrogen [Mass/Vol] 22 mg/dL High 4-19 [facility] Sodium levelOrdered By: Lyndon Leo on 04-01-2025 Sodium [Moles/Vol] 133 mmol/L 133-145 [facility] Total proteinOrdered By: Keara Leo on 04-01-2025 Protein [Mass/Vol] 9.5 g/dL High 5.9-8.4 [facility] White blood cell (WBC) count Ordered By: Lyndon Leo on 04-01-2025 WBC (Bld) [#/Vol] 16.6 10*3/uL High 4.4-11.0 [facility] 11-02-2024 CN Office Visit (FAMPWS ) -------- PHUONG GARCIA ([id number]) 1995 M Date Time Provider Department 11/02/24 3:40 PM [facility] During your visit today, we recorded the following information about you: Temperature Pulse Respiration Blood pressure 97.5 degrees 86/minute 16/minute 110/62 Weight 65.3 kg Janna Eason, CHILD CARE EDUCATION COORDINATOR.SUPERVISOR [employer] 11/02/2024 4:33 PM Signed This is a [...] in a year Referring Provider: SALLIE CROWLEY [[id number]] Allergies As of Date: 11/02/2024 (No Known [...] in medicatio (more content not included)... [facility] Telephone (BRISEIDA) -------- PHUONG GARCIA ([id number]) 1995 M Date Time Provider Department 10/05/24 SALLIE CROWLEY During your visit today, we recorded the [...] Status:Closed by SERGO KOHLER on 10/05/24 Normal [facility] CBC W Auto Differential pane l (Bld)on 01-13-2025 Basophils (Bld) [#/Vol] 0.05 10*3/uL [facility] Basophils/100 WBC (Bld) 0.9 % [facility] Differential cell count method Nom (Bld) Auto [facility] Eosinophils (Bld) [#/Vol] 0.17 10*3/uL [facility] Eosinophils/100 WBC (Bld) 2.9 % [facility] Erythrocyte distribution width (RBC) [Ratio] 11.5 % 11.5 - 15.0 % [facility] Hematocrit (Bld) [Volume fraction] 43.5 % 39.0 - 51.0 % [facility] Hemoglobin (Bld) [Mass/Vol] 14.8 g/dL 13.0 - 17.0 g/dL [facility] Immature granulocytes (Bld) [#/Vol] [facility] Immature granulocytes/100 WBC (Bld) 0.3 % [facility] Lymphocytes (Bld) [#/Vol] 1.89 10*3/uL [facility] Lymphocytes/100 WBC (Bld) 32.4 % [facility] MCH (RBC) [Entitic mass] 30.3 pg 26.0 - 34.0 pg [facility] MCHC (RBC) [Mass/Vol] 34.0 g/dL 30.5 - 36.0 g/dL [facility] MCV (RBC) [Entitic vol] 89.0 fL 80.0 - 100.0 fL [facility] Monocytes (Bld) [#/Vol] 0.34 10*3/uL [facility] Monocytes/100 WBC (Bld) 5.8 % [facility] Neutrophils (Bld) [#/Vol] 3.36 10*3/uL [facility] Neutrophils/100 WBC (Bld) 57.7 % [facility] Nucleated RBC (Bld) [#/Vol] [facility] Nucleated RBC/100 WBC (Bld) [Ratio] 0.0 % /100 WBC [facility] Platelet mean volume (Bld) [Entitic vol] 11.3 fL 9.0 - 12.7 fL [facility] Platelets (Bld) [#/Vol] 214 10*3/uL [facility] RBC (Bld) [#/Vol] 4.89 10*6/uL 4.20 - 6.0 0 m/uL [facility] WBC (Bld) [#/Vol] 5.83 10*3/uL [facility] Basophils (Bld) [#/Vol] 0.05 10*3/uL Normal <0.11 [facility] Comment on above: Order Comment: Speci men Type: BLOOD SPECIMEN Ordering Facility: [facility] Address: [address] [place] [address] Performed By: #### 5 7021-8 #### [facility] CLIA [id number] [address] [place] [address] [place] Basophils/100 WBC (Bld) 0.9 % Normal [facility] Comment on above: Order Comment: Speci men Type: BLOOD SPECIMEN Ordering Facility: [facility] Address: [address] [place] [address] Performed By: #### 5 7021-8 #### [facility] CLIA [id number] [address] [place] [address] [place] Differential cell count method Nom (Bld) Auto Normal [facility] Comment on above: Order Comment: Speci men Type: BLOOD SPECIMEN Ordering Facility: [facility] Address: [address] [place] [address] Performed By: #### 5 7021-8 #### [facility] CLIA [id number] [address] [place] [address] [place] Eosinophils (Bld) [#/Vol] 0.17 10*3/uL Normal <0.46 [facility] Comment on above: Order Comment: Speci men Type: BLOOD SPECIMEN Ordering Facility: [facility] Address: [address] [place] [address] Performed By: #### 5 7021-8 #### [facility] CLIA [id number] [address] [place] [address] [place] Eosinophils/100 WBC (Bld) 2.9 % Normal [facility] Comment on above: Order Comment: Speci men Type: BLOOD SPECIMEN Ordering Facility: [facility] Address: [address] [place] [address] Performed By: #### 5 7021-8 #### [facility] CLIA [id number] [address] [place] [address] [place] Erythrocyte distribution width (RBC) [Ratio] 11.5 % Normal 11.5-15.0 [facility] Comment on above: Order Comment: Speci men Type: BLOOD SPECIMEN Ordering Facility: [facility] Address: [address] [place] [address] Performed By: #### 5 7021-8 #### [facility] CLIA [id number] [address] [place] [address] [place] Hematocrit (Bld) [Volume fraction] 43.5 % Normal 39.0-51.0 [facility] Comment on above: Order Comment: Speci men Type: BLOOD SPECIMEN Ordering Facility: [facility] Address: [address] [place] [address] Performed By: #### 5 7021-8 #### [facility] CLIA [id number] [address] [place] [address] [place] Hemoglobin (Bld) [Mass/Vol] 14.8 g/dL Normal 13.0-17.0 [facility] Comment on above: Order Comment: Speci men Type: BLOOD SPECIMEN Ordering Facility: [facility] Address: [address] [place] [address] Performed By: #### 5 7021-8 #### [facility] CLIA [id number] [address] [place] [address] [place] Immature granulocytes (Bld) [#/Vol] 10*3/uL Normal <0.10 [facility] Comment on above: Order Comment: Speci men Type: BLOOD SPECIMEN Ordering Facility: [facility] Address: [address] [place] [address] Performed By: #### 5 7021-8 #### [facility] CLIA [id number] [address] [place] [address] [place] Immature granulocytes/100 WBC (Bld) 0.3 % Normal [facility] Comment on above: Order Comment: Speci men Type: BLOOD SPECIMEN Ordering Facility: [facility] Address: [address] [place] [address] Performed By: #### 5 7021-8 #### [facility] CLIA [id number] [address] [place] [address] [place] Lymphocytes (Bld) [#/Vol] 1.89 10*3/uL Normal 1.00-4.00 [facility] Comment on above: Order Comment: Speci men Type: BLOOD SPECIMEN Ordering Facility: [facility] Address: [address] [place] [address] Performed By: #### 5 7021-8 #### [facility] CLIA [id number] [address] [place] [address] [place] Lymphocytes/100 WBC (Bld) 32.4 % Normal [facility] Comment on above: Order Comment: Speci men Type: BLOOD SPECIMEN Ordering Facility: [facility] Address: [address] [place] [address] Performed By: #### 5 7021-8 #### [facility] CLIA [id number] [address] [place] [address] [place] MCH (RBC) [Entitic mass] 30.3 pg Normal 26.0-34.0 [facility] Comment on above: Order Comment: Speci men Type: BLOOD SPECIMEN Ordering Facility: [facility] Address: [address] [place] [address] Performed By: #### 5 7021-8 #### [facility] CLIA [id number] [address] [place] [address] [place] MCHC (RBC) [Mass/Vol] 34.0 g/dL Normal 30.5-36.0 [facility] Comment on above: Order Comment: Speci men Type: BLOOD SPECIMEN Ordering Facility: [facility] Address: [address] [place] [address] Performed By: #### 5 7021-8 #### [facility] CLIA [id number] [address] [place] [address] [place] MCV (RBC) [Entitic vol] 89.0 fL Normal 80.0-100.0 [facility] Comment on above: Order Comment: Speci men Type: BLOOD SPECIMEN Ordering Facility: [facility] Address: [address] [place] [address] Performed By: #### 5 7021-8 #### [facility] CLIA [id number] [address] [place] [address] [place] Monocytes (Bld) [#/Vol] 0.34 10*3/uL Normal <0.87 [facility] Comment on above: Order Comment: Speci men Type: BLOOD SPECIMEN Ordering Facility: [facility] Address: [address] [place] [address] Performed By: #### 5 7021-8 #### [facility] CLIA [id number] [address] [place] [address] [place] Monocytes/100 WBC (Bld) 5.8 % Normal [facility] Comment on above: Order Comment: Speci men Type: BLOOD SPECIMEN Ordering Facility: [facility] Address: [address] [place] [address] Performed By: #### 5 7021-8 #### [facility] CLIA [id number] [address] [place] [address] [place] Neutrophils (Bld) [#/Vol] 3.36 10*3/uL Normal 1.45-7.50 [facility] Comment on above: Order Comment: Speci men Type: BLOOD SPECIMEN Ordering Facility: [facility] Address: [address] [place] [address] Performed By: #### 5 7021-8 #### [facility] CLIA [id number] [address] [place] [address] [place] Neutrophils/100 WBC (Bld) 57.7 % Normal [facility] Comment on above: Order Comment: Speci men Type: BLOOD SPECIMEN Ordering Facility: [facility] Address: [address] [place] [address] Performed By: #### 5 7021-8 #### [facility] CLIA [id number] [address] [place] [address] [place] Nucleated RBC (Bld) [#/Vol] 10*3/uL Normal <0.01 [facility] Comment on above: Order Comment: Speci men Type: BLOOD SPECIMEN Ordering Facility: [facility] Address: [address] [place] [address] Performed By: #### 5 7021-8 #### [facility] CLIA [id number] [address] [place] [address] [place] Nucleated RBC/100 WBC (Bld) [Ratio] 0.0 /100 WBC Normal [facility] Comment on above: Order Comment: Speci men Type: BLOOD SPECIMEN Ordering Facility: [facility] Address: [address] [place] [address] Performed By: #### 5 7021-8 #### [facility] CLIA [id number] [address] [place] [address] [place] Platelet mean volume (Bld) [Entitic vol] 11.3 fL Normal 9.0-12.7 [facility] Comment on above: Order Comment: Speci men Type: BLOOD SPECIMEN Ordering Facility: [facility] Address: [address] [place] [address] Performed By: #### 5 7021-8 #### [facility] CLIA [id number] [address] [place] [address] [place] Platelets (Bld) [#/Vol] 214 10*3/uL Normal 150-400 [facility] Comment on above: Order Comment: Speci men Type: BLOOD SPECIMEN Ordering Facility: [facility] Address: [address] [place] [address] Performed By: #### 5 7021-8 #### [facility] CLIA [id number] [address] [place] [address] [place] RBC (Bld) [#/Vol] 4.89 10*6/uL Normal 4.20-6.00 [facility] Comment on above: Order Comment: Speci men Type: BLOOD SPECIMEN Ordering Facility: [facility] Address: [address] [place] [address] Performed By: #### 5 7021-8 #### [facility] CLIA [id number] [address] [place] [address] [place] WBC (Bld) [#/Vol] 5.83 10*3/uL Normal 3.70-11.00 [facility] Comment on above: Order Comment: Speci men Type: BLOOD SPECIMEN Ordering Facility: [facility] Address: [address] [place] [address] Performed By: #### 5 7021-8 #### [facility] CLIA [id number] [address] [place] [address] [place] CNOVon 10-01-2024 CNOV Office Visit (FAMPWS ) -------- PHUONG GARCIA ([id number]) 1995 M Date Time Provider Department 10/01/24 2:00 PM MESSI BARRY During your visit today, we recorded the [...] MD RTO in four weeks or prn Messi Barry MD 10/01/2024 2:26 PM Signed Melatonin 3 [...] BLOOD COUNT AND DIFFERENTIAL [SQCBCDIF] Order #: [id number] FUTURE COMPREHENSIVE METABOLIC PANEL [SQCMP] Order #: [id number] FUTURE THYROID STIMULATING HORMONE [SQTSH] Order #: [id number] FUTURE Prescriptions as of 10/01/2024 - de (more content not included)... Normal [facility] CNPNon 10-01-2024 CNPN Telephone (FAMPWS) -------- PHUONG GARCIA ([id number]) 1995 Date Time Provider Department 10/01/24 [facility] During your visit today, we recorded the [...] Status:Closed by NILSON RASMUSSEN on 10/01/24 Normal [facility] Comprehensive metabolic 2000 panelon 10-01-2024 Albumin [Mass/Vol] 4.5 g/dL Normal 3.9-4.9 [facility] Comment on above: Order Comment: Speci men Type: BLOOD SPECIMEN Ordering Facility: [facility] Address: [address] [place] [address] Performed By: #### 3 016-3, 67480-0 #### [facility] CLIA [id number] [address] [place] [address] [place] ALP [Catalytic activity/Vol] 49 U/L Normal 38-113 [facility] Comment on above: Order Comment: Speci men Type: BLOOD SPECIMEN Ordering Facility: [facility] Address: [address] [place] [address] Performed By: #### 3 016-3, 97262-7 #### [facility] CLIA [id number] [address] [place] [address] [place] ALT [Catalytic activity/Vol] 19 U/L Normal 10-54 [facility] Comment on above: Order Comment: Speci men Type: BLOOD SPECIMEN Ordering Facility: [facility] Address: [address] [place] [address] Performed By: #### 3 016-3, 75532-9 #### [facility] CLIA [id number] [address] [place] [address] [place] Anion gap [Moles/Vol] 12 mmol/L Normal 8-15 [facility] Comment on above: Order Comment: Speci men Type: BLOOD SPECIMEN Ordering Facility: [facility] Address: [address] [place] [address] Performed By: #### 3 016-3, 80783-0 #### [facility] CLIA [id number] [address] [place] [address] [place] AST [Catalytic activity/Vol] 17 U/L Normal 14-40 [facility] Comment on above: Order Comment: Speci men Type: BLOOD SPECIMEN Ordering Facility: [facility] Address: [address] [place] [address] Performed By: #### 3 016-3, 22686-9 #### [facility] CLIA [id number] [address] [place] [address] [place] Bilirubin [Mass/Vol] 0.6 mg/dL Normal 0.2-1.3 [facility] Comment on above: Order Comment: Speci men Type: BLOOD SPECIMEN Ordering Facility: [facility] Address: [address] [place] [address] Performed By: #### 3 016-3, 80276-5 #### [facility] CLIA [id number] [address] [place] [address] [place] Calcium [Mass/Vol] 9.4 mg/dL Normal 8.5-10.2 [facility] Comment on above: Order Comment: Speci men Type: BLOOD SPECIMEN Ordering Facility: [facility] Address: [address] [place] [address] Performed By: #### 3 016-3, 90027-9 #### [facility] CLIA [id number] [address] [place] [address] [place] Chloride [Moles/Vol] 106 mmol/L Normal 98-107 [facility] Comment on above: Order Comment: Speci men Type: BLOOD SPECIMEN Ordering Facility: [facility] Address: [address] [place] [address] Performed By: #### 3 016-3, 43486-9 #### [facility] CLIA [id number] [address] [place] [address] [place] CO2 [Moles/Vol] 22 mmol/L Normal 22-30 [facility] Comment on above: Order Comment: Speci men Type: BLOOD SPECIMEN Ordering Facility: [facility] Address: [address] [place] [address] Performed By: #### 3 016-3, 82483-8 #### [facility] CLIA [id number] [address] [place] [address] [place] Creatinine [Mass/Vol] 1.01 mg/dL Normal 0.73-1.22 [facility] Comment on above: Order Comment: Speci men Type: BLOOD SPECIMEN Ordering Facility: [facility] Address: [address] [place] [address] Performed By: #### 3 016-3, 72442-8 #### [facility] CLIA [id number] [address] [place] [address] [place] Creatinine and Glomerular filtration rate.predicted panel (S/P/Bld) 103 mL/min/1.73m??? Normal >=60 [facility] Comment on above: Order Comment: Speci men Type: BLOOD SPECIMEN Ordering Facility: [facility] Address: [address] [place] [address] Result Comment: Thea mated Glomerular Filtration Rate [...] actual GFR. Performed By: #### 3 016-3, 67799-5 #### [facility] CLIA [id number] [address] [place] [id number] [address] [place] Glucose [Mass/Vol] 95 mg/dL Normal 74-99 [facility] Comment on above: Order Comment: [place] nuñez Type: BLOOD SPECIMEN Ordering Facility: [facility] Address: [address] [place] [address] Result Comment: The [place] [employer] (ADA) provides guidance for cutoff [...] Standards of Medical Care in Diabetes 2016, [place] [employer]. Diabetes Care. 2016.39(Suppl 1). Performed By: #### 3 016-3, 25455-0 #### [facility] CLIA [id number] [address] [place] [address] [place] Potassium [Moles/Vol] 4.0 mmol/L Normal 3.7-5.1 [facility] Comment on above: Order Comment: [place] nuñez Type: BLOOD SPECIMEN Ordering Facility: [facility] Address: [address] [place] [address] Performed By: #### 3 016-3, 73190-0 #### [facility] CLIA [id number] [address] [place] [address] [place] Protein [Mass/Vol] 7.3 g/dL Normal 6.3-8.0 [facility] Comment on above: Order Comment: [place] nuñez Type: BLOOD SPECIMEN Ordering Facility: [facility] Address: [address] [place] [address] Performed By: #### 3 016-3, 29461-9 #### [facility] CLIA [id number] [address] [id number] [address] [place] Sodium [Moles/Vol] 140 mmol/L Normal 136-144 [facility] Comment on above: Order Comment: Speci men Type: BLOOD SPECIMEN Ordering Facility: [facility] Address: [address] [place] [address] Performed By: #### 3 016-3, 02623-7 #### [facility] CLIA [id number] [address] [place] [address] [place] Urea nitrogen [Mass/Vol] 6 mg/dL Low 9-24 [facility] Comment on above: Order Comment: Speci men Type: BLOOD SPECIMEN Ordering Facility: [facility] Address: [address] [place] [address] Performed By: #### 3 016-3, 19740-2 #### [facility] CLIA [id number] [address] [place] [address] [place] TSH SerPl-aCncon 10-01-2024 TSH Qn 1.090 m[IU]/L Normal 0.270-4.200 [facility] Comment on above: Order Comment: Speci men Type: BLOOD SPECIMEN Ordering Facility: [facility] Address: [address] [place] [address] Performed By: #### 3 016-3, 69561-6 #### [facility] CLIA [id number] [address] [place] [address] [place] Emergency Department Summary on 12-19-2022 Emergency Department Summary [facility] Medical Records Department [address] [place] [address] Emergency Department Summary 12/19/22 MR#: [id number] Acct: [id number] Name: PHUONG GARCIA DALILA Rep #: [id number] : 1995 27 From: Michelle BURNHAM PCP: [...] hematemesis, urinary symptoms, history of abdominal surgery. [facility] Medical History no medical history Home Medications [...] and was (more content not included)... Normal [facility] CBCon 12-22-2020 Absolute nRBC <0.01 Normal <0.01 [facility] Comment on above: Performed By: #### C BC, CMP, MG1 #### [facility] [address] [facility] [phone] Erythrocyte distribution width (RBC) [Ratio] 11.5 % Normal 11.5-15.0 [facility] Comment on above: Performed By: #### C BC, CMP, MG1 #### [facility] [address] [address] Hematocrit (Bld) [Volume fraction] 39.3 % Normal 39.0-51.0 [facility] Comment on above: Performed By: #### C BC, CMP, MG1 #### [facility] [address] [id number] Hemoglobin (Bld) [Mass/Vol] 13.3 g/dL Normal 13.0-17.0 [facility] Comment on above: Performed By: #### C BC, CMP, MG1 #### [facility] [address] [address] MCH 29.6 pG Normal 26.0-34.0 [facility] Comment on above: Performed By: #### C BC, CMP, MG1 #### [facility] [address] [address] MCHC (RBC) [Mass/Vol] 33.8 g/dL Normal 30.5-36.0 [facility] Comment on above: Performed By: #### C BC, CMP, MG1 #### [facility] [address] [address] MCV (RBC) [Entitic vol] 87.3 fL Normal 80.0-100.0 [facility] Comment on above: Performed By: #### C BC, CMP, MG1 #### [facility] [address] [phone] Platelet mean volume (Bld) [Entitic vol] 11.6 fL Normal 9.0-12.7 [facility] Comment on above: Performed By: #### C BC, CMP, MG1 #### [facility] [address] Platelets (Bld) [#/Vol] 177 10*3/uL Normal 150-400 [facility] Comment on above: Performed By: #### C BC, CMP, MG1 #### [facility] [address] [phone] RBC (Bld) [#/Vol] 4.50 10*6/uL Normal 4.20-6.00 [facility] Comment on above: Performed By: #### C BC, CMP, MG1 #### [facility] [address] [facility] [phone] WBC (Bld) [#/Vol] 8.68 10*3/uL Normal 3.70-11.00 [facility] Comment on above: Performed By: #### C BC, CMP, MG1 #### [facility] [address] [facility] [phone] CNCOon 12-22-2020 CNCO Letter Text Normal [facility] CNDSon 12-22-2020 CNDS HNO ID: [id number] Author: Tess Espino Service: Hospital Medicine Author Type: Nurse Practitioner Type: Discharge Summary Filed: 12/22/2020 3:53 PM Note Text: -------- Attestation signed by Champ Irizarry at 01/06/2021 4:43 PM I reviewed the plan of care and reviewed the note. Plan of care discussed with the DRILLING MACHINE RUNNER in detail and I agree with it. [...] of the summary. Treatment Team: Attending Provider: Champ Irizarry- [facility] medicine Nurse Practitioner: Tess Lino) [facility] medicine Consulting: Aashish Rincon- Gastroenterology REASON [...] (Oral) Resp 18 Ht 175.3 cm (5' 9") Wt 58.9 kg (129 lb 12.8 oz) [...] medications famot (more content not included)... Normal [facility] CONSULT PROGon 12-22-2020 CONSULT PROG HNO ID: [id number] Author: Faye Jain Service: Gastroenterology Author Type: [...] ok. Has been ambulating hallway. Ate 10 Arabic Burns without any abd pain, nausea or vomiting. HIDA scan was normal with EF 92%. Feels wells to go home. Again advised complete THC cessation. F/up in office. Faye Jain MD December 22, 2020 3:17 PM INTERVAL HPI: States is hungry for andorran fries this am. Denies abdominal pain, n/v. [...] CBC, Coags, BMP, Mg, Phos Recent Labs 12/22/20 0512 12/21/20 0524 12/20/20 0642 WBC 8.68 10.98 8.99 HB 13.3 13.0 12.9* HCT 39.3 38.3* 38.1* PLT 177 180 185 NA 141 138 140 K 3.9 3.2* 3.6* CHLOR 106* 104 107* CO2 27 22 24 BUN 7* 8* 11 CREAT 1.12 1.04 1.07 GLUC 89 84 85 CA 8.7 8.7 8.8 MG 1.8 1.7 1.8 Liver Function, Amylase, AND Lipase Recent Labs 12/22/20 0512 12/21/20 0524 12/20/20 0642 TPROT 6.3 6.3 6.5 ALB 4.0 [...] COLONOSCOPY No previous ? SIGNATURE: Chacha Smith APRN.SUPERVISOR DETASSELING CREW DATE: December 22, 2020 TIME: 12:58 PM Normal [facility] Comp Metabolic Panelon 12-22 Albumin [Mass/Vol] 4.0 g/dL Normal 3.9-4.9 [facility] Comment on above: Performed By: #### C BC CMP, MG1 #### [facility] [address] [place] [address] ALP [Catalytic activity/Vol] 38 U/L Normal 38-113 [facility] Comment on above: Performed By: #### C BC CMP, MG1 #### [facility] [address] [place] [address] ALT [Catalytic activity/Vol] 8 U/L Low 10-54 [facility] Comment on above: Performed By: #### C BC CMP, MG1 #### [facility] [address] [place] [address] Anion gap [Moles/Vol] 8 mmol/L Low 9-18 [facility] Comment on above: Performed By: #### C BC, CMP, MG1 #### [facility] [address] [place] [address] AST [Catalytic activity/Vol] 8 U/L Low 14-40 [facility] Comment on above: Performed By: #### C BC, CMP, MG1 #### [facility] [address] [place] [address] Bilirubin [Mass/Vol] 1.3 mg/dL Normal 0.2-1.3 [facility] Comment on above: Performed By: #### C BC, CMP, MG1 #### [facility] [address] [facility] [phone] Calcium [Mass/Vol] 8.7 mg/dL Normal 8.5-10.2 [facility] Comment on above: Performed By: #### C BC, CMP, MG1 #### [facility] [address] [phone] Chloride [Moles/Vol] 106 mmol/L High 97-105 [facility] Comment on above: Performed By: #### C BC, CMP, MG1 #### [facility] [address] CO2 [Moles/Vol] 27 mmol/L Normal 22-30 [facility] Comment on above: Performed By: #### C BC, CMP, MG1 #### [facility] [address] [phone] Creatinine [Mass/Vol] 1.12 mg/dL Normal 0.73-1.22 [facility] Comment on above: Performed By: #### C BC, CMP, MG1 #### [facility] [address] [address] eGFR- Amer. >60 Normal [facility] Comment on above: Performed By: #### C BC, CMP, MG1 #### [facility] [address] [phone] eGFR-All Other Races >60 Normal [facility] Comment on above: Result Comment: eGFR [...] By: #### C BC, CMP, MG1 #### [facility] [address] [facility] [phone] Glucose [Mass/Vol] 89 mg/dL Normal 74-99 [facility] Comment on above: Result Comment: The [place] [employer] (ADA) provides guidance for cutoff [...] Standards of Medical Care in Diabetes 2016, [place] [employer]. Diabetes Care. 2016.39(Suppl 1). Performed By: #### C BC CMP, MG1 #### [facility] [address] [place] [address] Potassium [Moles/Vol] 3.9 mmol/L Normal 3.7-5.1 [facility] Comment on above: Performed By: #### C BC CMP, MG1 #### [facility] [address] [place] [address] Protein [Mass/Vol] 6.3 g/dL Normal 6.3-8.0 [facility] Comment on above: Performed By: #### C BC CMP, MG1 #### [facility] [address] [place] [address] Sodium [Moles/Vol] 141 mmol/L Normal 136-144 [facility] Comment on above: Performed By: #### C BC CMP, MG1 #### [facility] [address] [place], [place] [address] Urea nitrogen [Mass/Vol] 7 mg/dL Low 9-24 [facility] Comment on above: Performed By: #### C BC, CMP, MG1 #### [facility] [address] [place] [address] [id number] Ag +HIV12 Abon 12-22 HIV 12 Ag/Ab Non-Reactive Normal Non Reactive [facility] Comment on above: Performed By: #### C BC, CMP, MG1 #### [facility] [address] [place] [address] HIV-1/2 Antibody Normal [facility] Comment on above: Result Comment: Test Not Indicated Negative No evidence of HIV-1 or HIV-2 infection. Should recent infection be suspected, repeat testing may be considered 2-3 weeks after this draw. HIV Information: Pender Rev. Code 3701.243(E): This information has been [...] results or diagnoses. Performed By: #### C BC, CMP, MG1 #### [facility] [address] [place] [address] Magnesiumon 12-22-2020 Magnesium [Mass/Vol] 1.8 mg/dL Normal 1.7-2.3 [facility] Comment on above: Performed By: #### C BC, CMP, MG1 #### [facility] [address] [place] [address] NM HEPATOBILIARY W EF AND/OR RXon 12-22-2020 NM HEPATOBILIARY W EF AND/OR RX * * *Final Report* * * DATE OF EXAM: Dec 22 2020 12:50PM MALU 0021 - NM HEPATOBILIARY W EF AND/OR [...] cholecystitis. No evidence for duodenogastric biliary reflux. [facility] Transcribe Date/Time: Dec 22 2020 1:53P Dictated by : FLORES HANLEY MD This examination was interpreted and the report reviewed and electronically signed by: FLORES HANLEY MD on Dec 22 2020 1:54PM EST [id number] Normal [facility] CBCon 12-21-2020 Absolute nRBC <0.01 Normal <0.01 [facility] Comment on above: Performed By: #### C BC, CMP, MG1 #### [facility] [address] [place] [address] Erythrocyte distribution width (RBC) [Ratio] 11.5 % Normal 11.5-15.0 [facility] Comment on above: Performed By: #### C BC, CMP, MG1 #### [facility] [address] [place] [address] Hematocrit (Bld) [Volume fraction] 38.3 % Low 39.0-51.0 [facility] Comment on above: Performed By: #### C BC, CMP, MG1 #### [facility] [address] [place] [address] Hemoglobin (Bld) [Mass/Vol] 13.0 g/dL Normal 13.0-17.0 [facility] Comment on above: Performed By: #### C BC, CMP, MG1 #### [facility] [address] [place] [address] MCH 29.6 pG Normal 26.0-34.0 [facility] Comment on above: Performed By: #### C BC, CMP, MG1 #### [facility] [address] [place] [address] MCHC (RBC) [Mass/Vol] 33.9 g/dL Normal 30.5-36.0 [facility] Comment on above: Performed By: #### C BC, CMP, MG1 #### [facility] [address] [place] [address] MCV (RBC) [Entitic vol] 87.2 fL Normal 80.0-100.0 [facility] Comment on above: Performed By: #### C BC, CMP, MG1 #### [facility] [address] [facility] [phone] Platelet mean volume (Bld) [Entitic vol] 11.3 fL Normal 9.0-12.7 [facility] Comment on above: Performed By: #### C BC, CMP, MG1 #### [facility] [address] [facility] [phone] Platelets (Bld) [#/Vol] 180 10*3/uL Normal 150-400 [facility] Comment on above: Performed By: #### C BC, CMP, MG1 #### [facility] [address] [facility] [phone] RBC (Bld) [#/Vol] 4.39 10*6/uL Normal 4.20-6.00 [facility] Comment on above: Performed By: #### C BC, CMP, MG1 #### [facility] [address] [facility] [phone] WBC (Bld) [#/Vol] 10.98 10*3/uL Normal 3.70-11.00 [facility] Comment on above: Performed By: #### C BC, CMP, MG1 #### [facility] [address] [facility] [phone] CONSULT PROGon 12-21-2020 CONSULT PROG HNO ID: [id number] Author: Faye Jain Service: Gastroenterology Author Type: [...] HIV - Await EGD path?from?outpatient?EGD Discussed with [facility] level provider. Walton findings confirmed. Plan as [...] CBC, Coags, BMP, Mg, Phos Recent Labs 12/21/2052312/20/2064112/19/20433 WBC 10.98 8.99 11.68* HB 13.0 12.9* 13.7 HCT 38.3* 38.1* 39.8 PLT 180 185 192 NA 138 140 138 K 3.2* 3.6* 3.6* CHLOR 104 107* 104 CO2 22 24 23 BUN 8* 11 8* CREAT 1.04 1.07 0.99 GLUC 84 85 108* CA 8.7 8.8 8.9 MG 1.7 1.8 1.7 Liver Function, Amylase, AND Lipase Recent Labs 12/21/2052312/20/2064112/19/2043312/18/20 2330 12/18/20 2330 TPROT 6.3 6.5 7.2 < > 8.3* ALB 4.1 4.2 4.5 < > 5.4* ALT 10 11 12 < > 14 AST 10* 12* 11* < > 14 ALKPHOS 33* 36* 40 < > 45 TBILI 1.1 1.0 1.0 < > 1.1 LIPASE -- -- -- -- 23 < > = values in this interval not displayed. [facility] Component Latest Ref Rng AND Units [...] RECENT COLONOSCOPY No previous SIGNATURE: Peggy Mayes, CHILD CARE EDUCATION COORDINATOR DATE: December 21, 2020 TIME: 12:18 PM Normal [facility] CONSULT PROG HNO ID: [id number] Author: Tess Lino) Srinivas Service: Hospital Medicine Author Type: Nurse Practitioner Type: Consult Progress Note Filed: 12/21/2020 10:47 AM Note Text: DEPARTMENT OF HOSPITAL MEDICINE PROGRESS NOTE SERVICE DATE: 12/21/2020 SERVICE TIME: 10:42 AM Hospital Medicine/Primary Attending: Zenia Ch NIGHT AND WEEKEND COVERAGE: SALUDA COVERAGE: Days: [phone], please page attending physician. Nights: [phone], please page [place] [facility] Night coverage pager [phone]. Subjective CC: Intractable nausea and vomiting INTERVAL [...] (Src) 98.4 (Oral) Resp 16 Ht 5' 9" (1.75m) Wt 129 lb 12.8 oz (58.9kg) [...] Medication and Non-Pharmacologic VTE Prophylaxis/Anticoagulan ts 12/19/20 043 pneumatic compression stockings ([place], [place]) 12/19/20 043 activity - mobilize patient ([place]) VTE Prophylaxis: VTE prophylaxis appropriate Disposition: To be determined Plan of care discussed with Provider, RN, Patient, and Dr. Ch Plan communicated to: Documentation from previous visit 12/20 has been copied from myself and pasted. Documentation has been reviewed and edited as necessary for today's visit. SIGNATURE: Tess Espino APRN.CNP PATIENT NAME: Phuong Garcia DATE: December 21, 2020 TIME: 10:47 AM Normal [facility] Comp Metabolic Panelon 12-21 Albumin [Mass/Vol] 4.1 g/dL Normal 3.9-4.9 [facility] Comment on above: Performed By: #### C BC, CMP, MG1 #### [facility] [address] [place] [address] ALP [Catalytic activity/Vol] 33 U/L Low 38-113 [facility] Comment on above: Performed By: #### C BC, CMP, MG1 #### [facility] [address] [facility] [phone] ALT [Catalytic activity/Vol] 10 U/L Normal 10-54 [facility] Comment on above: Performed By: #### C BC, CMP, MG1 #### [facility] [address] [place] [address] Anion gap [Moles/Vol] 12 mmol/L Normal 9-18 [facility] Comment on above: Performed By: #### C BC, CMP, MG1 #### [facility] [address] [address] AST [Catalytic activity/Vol] 10 U/L Low 14-40 [facility] Comment on above: Performed By: #### C BC CMP, MG1 #### [facility] [address] [address] Bilirubin [Mass/Vol] 1.1 mg/dL Normal 0.2-1.3 [facility] Comment on above: Performed By: #### C BC CMP, MG1 #### [facility] [address] [address] Calcium [Mass/Vol] 8.7 mg/dL Normal 8.5-10.2 [facility] Comment on above: Performed By: #### C AMRIK CMP, MG1 #### [facility] [address] [place] [address] Chloride [Moles/Vol] 104 mmol/L Normal 97-105 [facility] Comment on above: Performed By: #### Vargas ROWLEY CMP, MG1 #### [facility] [address] [place] [address] CO2 [Moles/Vol] 22 mmol/L Normal 22-30 [facility] Comment on above: Performed By: #### Vargas BC CMP, MG1 #### [facility] [address] [place] [address] Creatinine [Mass/Vol] 1.04 mg/dL Normal 0.73-1.22 [facility] Comment on above: Performed By: #### Vargas ROWLEY CMP, MG1 #### [facility] [address] [place] [address] eGFR- Amer. >60 Normal [facility] Comment on above: Performed By: #### Vargas BC CMP, MG1 #### [facility] [address] [place] [address] eGFR-All Other Races >60 Normal [facility] Comment on above: Result Comment: eGFR [...] By: #### C SRUTHI ROWLEY, MG1 #### [facility] [address] [place] [address] Glucose [Mass/Vol] 84 mg/dL Normal 74-99 [facility] Comment on above: Result Comment: The [place] [employer] (ADA) provides guidance for cutoff [...] Standards of Medical Care in Diabetes 2016, [place] [employer]. Diabetes Care. 2016.39(Suppl 1). Performed By: #### C SRUTHI ROWLEY, MG1 #### [facility] [address] [place] [address] Potassium [Moles/Vol] 3.2 mmol/L Low 3.7-5.1 [facility] Comment on above: Performed By: #### C AMRIK CMP, MG1 #### [facility] [address] [place], [place] [id number] Protein [Mass/Vol] 6.3 g/dL Normal 6.3-8.0 [facility] Comment on above: Performed By: #### C AMRIK CMP, MG1 #### [facility] [address] [place] [address] Sodium [Moles/Vol] 138 mmol/L Normal 136-144 [facility] Comment on above: Performed By: #### C BC CMP, MG1 #### [facility] [address] [place], [place] [address] Urea nitrogen [Mass/Vol] 8 mg/dL Low 9-24 [facility] Comment on above: Performed By: #### C AMRIK CMP, MG1 #### [facility] [address] [facility] [phone] Magnesiumon 12-21-2020 Magnesium [Mass/Vol] 1.7 mg/dL Normal 1.7-2.3 [facility] Comment on above: Performed By: #### C BC, CMP, MG1 #### [facility] [address] [facility] [phone] CBCon 12-20-2020 Absolute nRBC <0.01 Normal <0.01 [facility] Comment on above: Performed By: #### C BC, CMP, MG1 #### [facility] [address] [phone] Erythrocyte distribution width (RBC) [Ratio] 11.6 % Normal 11.5-15.0 [facility] Comment on above: Performed By: #### C BC, CMP, MG1 #### [facility] [address] Hematocrit (Bld) [Volume fraction] 38.1 % Low 39.0-51.0 [facility] Comment on above: Performed By: #### C BC, CMP, MG1 #### [facility] [address] [phone] Hemoglobin (Bld) [Mass/Vol] 12.9 g/dL Low 13.0-17.0 [facility] Comment on above: Performed By: #### C BC, CMP, MG1 #### [facility] [address] [phone] MCH 30.1 pG Normal 26.0-34.0 [facility] Comment on above: Performed By: #### C BC, CMP, MG1 #### [facility] [address] [phone] MCHC (RBC) [Mass/Vol] 33.9 g/dL Normal 30.5-36.0 [facility] Comment on above: Performed By: #### C BC, CMP, MG1 #### [facility] [phone] MCV (RBC) [Entitic vol] 89.0 fL Normal 80.0-100.0 [facility] Comment on above: Performed By: #### C BC, CMP, MG1 #### [facility] [address] [facility] [phone] Platelet mean volume (Bld) [Entitic vol] 11.1 fL Normal 9.0-12.7 [facility] Comment on above: Performed By: #### C BC, CMP, MG1 #### [facility] 1000 [facility] [phone] Platelets (Bld) [#/Vol] 185 10*3/uL Normal 150-400 [facility] Comment on above: Performed By: #### C BC, CMP, MG1 #### [facility] [address] [facility] [phone] RBC (Bld) [#/Vol] 4.28 10*6/uL Normal 4.20-6.00 [facility] Comment on above: Performed By: #### C BC, CMP, MG1 #### [facility] [address] [facility] [phone] WBC (Bld) [#/Vol] 8.99 10*3/uL Normal 3.70-11.00 [facility] Comment on above: Performed By: #### C BC, CMP, MG1 #### [facility] [address] [facility] [phone] CONSULT PROGon 12-20-2020 CONSULT PROG HNO ID: [id number] Author: Tess Garcíalando Service: Hospital Medicine Author Type: Nurse Practitioner Type: Consult Progress Note Filed: 12/20/2020 3:32 PM Note Text: -------- Attestation signed by Zenia Ch at 12/20/2020 11:01 PM [facility] STAFF PHYSICIAN NOTE OF PERSONAL INVOLVEMENT [...] STAFF SIGNATURE: [place] [phone] 12/20/2020 11:01 PM -------- [facility] OF [facility] MEDICINE PROGRESS NOTE SERVICE DATE: 12/20/2020 SERVICE TIME: 10:58 AM Hospital Medicine/Primary Attending: Zenia Ch NIGHT AND WEEKEND COVERAGE: SALUDA COVERAGE: Days: [phone], please page attending physician. Nights: [phone], please page [place] [facility] Night coverage pager [phone]. Subjective CC: Intractable nausea and vomiting INTERVAL [...] (Src) 98.4 (Oral) Resp 18 Ht 5' 9" (1.75m) Wt 129 lb 12.8 oz (58.9kg) [...] cessation Medication and Non-Pharmacologic VTE Prophylaxis/Anticoagulan ts 12/19/20429 pneumatic compression stockings (pa,az) 12/19/20429 activity - mobilize patient (pa,az) VTE Prophylaxis: VTE prophylaxis appropriate Disposition: To be determined Plan of care discussed with Provider, RN, Patient, Consultants: GI team and Dr. Ch Plan communicated to: You (more content not included)... [facility] CONSULT PROG HNO ID: [id number] Author: Faye Jain Service: Gastroenterology Author Type: [...] BMP, Mg, Phos Recent Labs 12/20/20 0642 12/19/20 0434 12/18/20 [...] Liver Function, Amylase, AND Lipase Recent Labs 12/20/20 0642 12/19/20 0434 12/18/20 2330 TPROT 6.5 7.2 8.3* ALB 4.2 [...] MOST RECENT COLONOSCOPY No previous SIGNATURE: Peggy Mayes APRN DATE: December 20, 2020 TIME: 10:52 AM Normal [facility] Comp Metabolic Panelon 12-20 Albumin [Mass/Vol] 4.2 g/dL Normal 3.9-4.9 [facility] Comment on above: Performed By: #### C BC, CMP, MG1 #### [facility] [address] [address] ALP [Catalytic activity/Vol] 36 U/L Low 38-113 [facility] Comment on above: Performed By: #### C BC, CMP, MG1 #### [facility] [address] [address] ALT [Catalytic activity/Vol] 11 U/L Normal 10-54 [facility] Comment on above: Performed By: #### C BC, CMP, MG1 #### [facility] [address] [address] Anion gap [Moles/Vol] 9 mmol/L Normal 9-18 [facility] Comment on above: Performed By: #### C BC, CMP, MG1 #### [facility] [address] [address] AST [Catalytic activity/Vol] 12 U/L Low 14-40 [facility] Comment on above: Performed By: #### C BC, CMP, MG1 #### [facility] [address] [address] Bilirubin [Mass/Vol] 1.0 mg/dL Normal 0.2-1.3 [facility] Comment on above: Performed By: #### C BC, CMP, MG1 #### [facility] [address] [address] Calcium [Mass/Vol] 8.8 mg/dL Normal 8.5-10.2 [facility] Comment on above: Performed By: #### C BC, CMP, MG1 #### [facility] [address] [address] Chloride [Moles/Vol] 107 mmol/L High 97-105 [facility] Comment on above: Performed By: #### C BC, CMP, MG1 #### [facility] [address] [address] CO2 [Moles/Vol] 24 mmol/L Normal 22-30 [facility] Comment on above: Performed By: #### C BC, CMP, MG1 #### [facility] [address] Creatinine [Mass/Vol] 1.07 mg/dL Normal 0.73-1.22 [facility] Comment on above: Performed By: #### C BC, CMP, MG1 #### [facility] [address] [facility] [phone] eGFR- Amer. >60 Normal [facility] Comment on above: Performed By: #### C SRUTHI ROWLEY MG1 #### [facility] [address] [phone] eGFR-All Other Races >60 Normal [facility] Comment on above: Result Comment: eGFR [...] By: #### C SRUTHI ROWLEY, MG1 #### [facility] [address] [phone] Glucose [Mass/Vol] 85 mg/dL Normal 74-99 [facility] Comment on above: Result Comment: The [place] [employer] (ADA) provides guidance for cutoff [...] Standards of Medical Care in Diabetes 2016, [place] [employer]. Diabetes Care. 2016.39(Suppl 1). Performed By: #### C SRUTHI ROWLEY, MG1 #### [facility] [address] [facility] [phone] Potassium [Moles/Vol] 3.6 mmol/L Low 3.7-5.1 [facility] Comment on above: Performed By: #### C SRUTHI ROWLEY, MG1 #### [facility] [address] [facility] [phone] Protein [Mass/Vol] 6.5 g/dL Normal 6.3-8.0 [facility] Comment on above: Performed By: #### C BC, CMP, MG1 #### [facility] [address] [place] [address] Sodium [Moles/Vol] 140 mmol/L Normal 136-144 [facility] Comment on above: Performed By: #### C BC, CMP, MG1 #### [facility] [address] [address] Urea nitrogen [Mass/Vol] 11 mg/dL Normal 9-24 [facility] Comment on above: Performed By: #### C BC, CMP, MG1 #### [facility] [address] [place] [address] Magnesiumon 12-20-2020 Magnesium [Mass/Vol] 1.8 mg/dL Normal 1.7-2.3 [facility] Comment on above: Performed By: #### C BC, CMP, MG1 #### [facility] [address] [place] [address] Toxicology Screen,Uron 12-20 Amphetamines, Urine Negative Normal Negative [facility] Comment on above: Result Comment: Cuto ff threshold at 1000 ng/mL. Performed By: #### C BC, CMP, MG1 #### [facility] [address] [place] [address] Barbiturates, Urine Negative Normal Negative [facility] Comment on above: Result Comment: Cuto ff threshold at 200 ng/mL. Performed By: #### C BC, CMP, MG1 #### [facility] [address] [place] [address] Benzodiazepines, Ur Negative Normal Negative [facility] Comment on above: Result Comment: Cuto ff threshold at 200 ng/mL. Performed By: #### C BC, CMP, MG1 #### [facility] [address] [place] [address] Cannabinoids, Urine Positive Critically abnormal Negative [facility] Comment on above: Result Comment: Cuto ff threshold at 50 ng/mL. Performed By: #### C BC, CMP, MG1 #### [facility] [address] [place] [address] Cocaine, Urine Negative Normal Negative [facility] Comment on above: Result Comment: Cuto ff threshold at 300 ng/mL. Performed By: #### C BC, CMP, MG1 #### [facility] [address] [place], [place] [phone] Opiates, Urine Negative Normal Negative [facility] Comment on above: Result Comment: Cuto ff threshold at 300 ng/mL. Performed By: #### C BC, CMP, MG1 #### [facility] [address] [place] [address] Oxycodone, Urine Negative Normal Negative [facility] Comment on above: Result Comment: Cuto [...] on the same specimen through Client Services ([phone]) if contacted within 48 hours of initial testing. [1]Substance Abuse and Mental Health Services Administration (2012). Clinical Drug Testing in Primary Care Technical Assistance Publication Series 32. Department of Health and Human Services, [place], p.10. Performed By: #### Vargas ROWLEY CMP, MG1 #### [facility] [address] [place] [address] Phencyclidine, Urine Negative Normal Negative [facility] Comment on above: Result Comment: Cuto ff threshold at 25 ng/mL. Performed By: #### C AMRIK, CMP, MG1 #### [facility] [address] [place], [place] [phone] ALLIED HEALTHon 12-19-2020 ALLIED HEALTH HNO ID: [id number] Author: SORAYA Adamson (Ct) Service: Radiology Author Type: Clinical Nurse Care Manager Type: Allied Health Filed: 12/19/2020 12:02 AM [...] CT; Exam(s) Completed: Chest Abdomen Pelvis SIGNATURE: SORAYA Adamson PATIENT NAME: Phuong Garcia DATE: December 19, 2020 TIME: 12:01 AM [facility] CASE MGT INIT [facility] 2020 CASE MGT INIT [facility] HNO ID: [id number] Author: Shaina Woodruff (Sw) Service: Case Management Author Type: Inward Toll Operator Type: Care Mgt Initial Assessment Filed: 12/19/2020 12:45 PM Note Text: CARE MANAGEMENT: ASSESSMENT AND DISCHARGE PLAN SERVICE DATE: December 19, 2020 SERVICE TIME: 12:44 PM PRIMARY CARE PHYSICIAN: Sallie Crowley APRN.[facility] ADMISSION STATUS: Observation Needs Prior to Discharge: To Be Determined MEDICAL: BLUE CARD 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 Attempted to Assist with AD Completion: Yes [...] None Has the Patient Been in a Fpc Facility in the Past 30 days?: No SOCIAL: Living Arrangements: Home Lives With: Parent(s) Financial Resources: Employed Primary Contact: Extended Emergency Contact Information Primary Emergency Contact: Mell Kebede Address: [address] [place] [address] [address] [place], [place] [id number] [place] [address] Mobile Relation: Grandparent Secondary Emergency Contact: Simran Disla Address: [address] [place] [address] [id number] [place] [address] Mobile Relation: Mother Caregiver AssessmentCaregiver is ready, [...] Completely I feel financially burdened by my [id number] expenses for my prescription medication:: 0 - Disagree Completely Risk Score: 0 Patient is categorized as: Low risk < 2 Are you interested in bedside delivery of your medications? No Is Patient Psychosocially Complex?: Yes, refer to Social Work ASSESSMENT AND PLAN: Medical Needs: Medical Needs: None Psychosocial Needs: Psychosocial Needs: Chemical Dependency Drug of Choice: marijuana FREEDOM OF CHOICE EXPLAINED: Braman of Choice Given: No Reason Not Given: [...] 19, 2020 TIME: 12:44 PM PAGER/CONTACT #: [phone] Normal [facility] CBCon 12-19-2020 Absolute nRBC <0.01 Normal <0.01 [facility] Comment on above: Performed By: #### C BC, CMP, MG1 #### [facility] [address] [place], [place] [phone] Erythrocyte distribution width (RBC) [Ratio] 11.3 % Low 11.5-15.0 [facility] Comment on above: Performed By: #### C BC, CMP, MG1 #### [facility] [address] [place] [phone] Hematocrit (Bld) [Volume fraction] 39.8 % Normal 39.0-51.0 [facility] Comment on above: Performed By: #### C BC, CMP, MG1 #### [facility] [address] [place], [place] [address] Hemoglobin (Bld) [Mass/Vol] 13.7 g/dL Normal 13.0-17.0 [facility] Comment on above: Performed By: #### C BC, CMP, MG1 #### [facility] [address] [place], [place] [phone] MCH 30.0 pG Normal 26.0-34.0 [facility] Comment on above: Performed By: #### C BC, CMP, MG1 #### [facility] [address] [facility] [phone] MCHC (RBC) [Mass/Vol] 34.4 g/dL Normal 30.5-36.0 [facility] Comment on above: Performed By: #### C BC, CMP, MG1 #### [facility] [address] [phone] MCV (RBC) [Entitic vol] 87.1 fL Normal 80.0-100.0 [facility] Comment on above: Performed By: #### C BC, CMP, MG1 #### [facility] [address] [facility] [phone] Platelet mean volume (Bld) [Entitic vol] 11.6 fL Normal 9.0-12.7 [facility] Comment on above: Performed By: #### C BC, CMP, MG1 #### [facility] [address] [phone] Platelets (Bld) [#/Vol] 192 10*3/uL Normal 150-400 [facility] Comment on above: Performed By: #### C BC, CMP, MG1 #### [facility] [address] [phone] RBC (Bld) [#/Vol] 4.57 10*6/uL Normal 4.20-6.00 [facility] Comment on above: Performed By: #### C BC, CMP, MG1 #### [facility] [address] [phone] WBC (Bld) [#/Vol] 11.68 10*3/uL High 3.70-11.00 [facility] Comment on above: Performed By: #### C BC, CMP, MG1 #### [facility] [address] [phone] CBC and Differentialon 12-19 Abs Baso <0.03 Normal <0.11 [facility] Comment on above: Performed By: #### C BC, CMP, MG1 #### [facility] [address] [phone] Abs Eosin <0.03 Normal <0.46 [facility] Comment on above: Performed By: #### Vargas BC, CMP, MG1 #### [facility] [address] [address] Abs [place] 0.39 k/uL Normal <0.87 [facility] Comment on above: Performed By: #### C BC, CMP, MG1 #### [facility] [address] [address] Abs Neut 12.39 k/uL High 1.45-7.50 [facility] Comment on above: Performed By: #### C BC, CMP, MG1 #### [facility] [address] [place] [address] Absolute nRBC <0.01 Normal <0.01 [facility] Comment on above: Performed By: #### C BC, CMP, MG1 #### [facility] [address] [place] [address] Basophils/100 WBC (Bld) 0.1 % Normal [facility] Comment on above: Performed By: #### C BC, CMP, MG1 #### [facility] [address] [place] [address] DTYPE Auto Diff Normal [facility] Comment on above: Performed By: #### C BC, CMP, MG1 #### [facility] [address] [place] [address] Eosinophils/100 WBC (Bld) 0.0 % Normal [facility] Comment on above: Performed By: #### C BC, CMP, MG1 #### [facility] [address] [place] [address] Erythrocyte distribution width (RBC) [Ratio] 11.0 % Low 11.5-15.0 [facility] Comment on above: Performed By: #### C BC, CMP, MG1 #### [facility] [address] [place] [address] Hematocrit (Bld) [Volume fraction] 41.8 % Normal 39.0-51.0 [facility] Comment on above: Performed By: #### C BC, CMP, MG1 #### [facility] [address] [place] [address] Hemoglobin (Bld) [Mass/Vol] 14.7 g/dL Normal 13.0-17.0 [facility] Comment on above: Performed By: #### C BC, CMP, MG1 #### [facility] [address] [address] Lymphocytes (Bld) [#/Vol] 0.65 10*3/uL Low 1.00-4.00 [facility] Comment on above: Performed By: #### C BC CMP, MG1 #### [facility] [address] [address] Lymphocytes/100 WBC (Bld) 4.8 % Normal [facility] Comment on above: Performed By: #### C BC CMP, MG1 #### [facility] [address] [address] MCH 30.2 pG Normal 26.0-34.0 [facility] Comment on above: Performed By: #### C BC CMP, MG1 #### [facility] [address] [address] MCHC (RBC) [Mass/Vol] 35.2 g/dL Normal 30.5-36.0 [facility] Comment on above: Performed By: #### C BC, CMP, MG1 #### [facility] [address] [place] [address] MCV (RBC) [Entitic vol] 86.0 fL Normal 80.0-100.0 [facility] Comment on above: Performed By: #### C BC CMP, MG1 #### [facility] [address] [place] [address] Monocytes/100 WBC (Bld) 2.9 % Normal [facility] Comment on above: Performed By: #### C BC, CMP, MG1 #### [facility] [address] [place] [address] Neutrophils/100 WBC (Bld) 92.2 % Normal [facility] Comment on above: Performed By: #### C BC, CMP, MG1 #### [facility] [address] [place] [address] NRBCs 0.0 /100 WBC Normal 0 [facility] Comment on above: Performed By: #### C BC, CMP, MG1 #### [facility] [address] [place] [address] Platelet mean volume (Bld) [Entitic vol] 11.3 fL Normal 9.0-12.7 [facility] Comment on above: Performed By: #### C BC, CMP, MG1 #### [facility] [address] [facility] [phone] Platelets (Bld) [#/Vol] 212 10*3/uL Normal 150-400 [facility] Comment on above: Performed By: #### C BC, CMP, MG1 #### [facility] [address] [facility] [phone] RBC (Bld) [#/Vol] 4.86 10*6/uL Normal 4.20-6.00 [facility] Comment on above: Performed By: #### C BC, CMP, MG1 #### [facility] [address] [facility] [phone] WBC (Bld) [#/Vol] 13.45 10*3/uL High 3.70-11.00 [facility] Comment on above: Performed By: #### C BC, CMP, MG1 #### [facility] [address] [facility] [phone] CONSULTon 12-19-2020 CONSULT HNO ID: [id number] Author: Faye Jain Service: Gastroenterology Author Type: Physician Type: Consults Filed: 12/19/2020 11:04 AM Note Text: GASTROENTEROLOGY CONSULT NOTE PATIENT NAME: Phuong Garcia SERVICE DATE: December 19, 2020 SERVICE TIME: 8:05 AM PRIMARY CARE PHYSICIAN: Sallie Crowley APRN.SUPERVISOR DETASSELING CREW ATTENDING PHYSICIAN: Roberta Ch MD REASON FOR [...] ? 12/19/20 0354 ? 175.3 cm (5' 9") ? 12/19/20 0345 107/58 36.8 ?C (98.2 [...] Cooperative. NAD EYES: No scleral icterus SKIN: Literberry in color. No jaundice LUNGS: Clear to auscultation posteriorly CARDIAC: RRR ABDOMEN: BS x 4. Abdomen soft, non tender, non distended, no palpable masses or organomegaly. No guarding or rebound tenderness elicited EXTREMITIES: No upper or lower extremity edema LABS: Diagnostic tests reviewed for today's visit: CBC, Coags, BMP, Mg, Phos Recent Labs 12/19/20 0434 12/18/20 2330 12/17/20 1006 WBC 11.68* 13.45* 8.13 HB 13.7 14.7 15.2 HCT 39.8 41.8 45.6 PLT 192 212 214 NA 138 136 140 K 3.6* 3.7 3.8 CHLOR 104 96* 101 CO2 23 22 26 BUN 8* 10 14 CREAT 0.99 0.93 1.06 GLUC 108* 126* 116* CA 8.9 9.8 9.8 MG 1.7 -- -- Liver Function, Amylase, AND Lipase Recent Labs 12/19/20 0434 12/18/20 2330 12/17/20 1006 TPROT 7.2 8.3* 7.9 ALB 4.5 5.4* 5.0* ALT 12 1 (more content not included)... Normal [facility] CT ABD/PEL W IVCONon 021 CT ABD/PEL W IVCON * * *Final Report* * * DATE OF EXAM: Dec 19 2020 12:01AM [facility] 0530 - CT ABD/PEL W [...] No suspicious bone lesions. No acute findings. Fixed Income Trading Vice President (topogram) images: No additional findings. IMPRESSION: No acute abnormality. Wax Pourer: DARLENE Transcribe Date/Time: Dec 19 2020 1:53A Dictated by : ARCENIO DAVIS MD This examination was interpreted and the report reviewed and electronically signed by: ARCENIO DAVIS MD on Dec 19 2020 2:02AM EST [id number] [facility] CT CHEST W IVCONon 1 CT CHEST W IVCON * * *Final Report* * * DATE OF EXAM: Dec 19 2020 12:01AM [facility] [place] 0539 - CT CHEST W [...] abdomen: Please review the concurrent abdominal CT. [employer] Income [employer] Vice President (topogram) images: No additional findings. IMPRESSION: No [...] exam could be obtained in 12 months Wax Pourer: DARLENE Transcribe Date/Time: Dec 19 2020 12:30A Dictated by : JABARI TOUSSAINT MD This examination was interpreted and the report reviewed and electronically signed by: JABARI TOUSSAINT MD on Dec 19 2020 12:36AM EST [id number] Normal [facility] Comp Metabolic Panelon 12-19 Albumin [Mass/Vol] 4.5 g/dL Normal 3.9-4.9 [facility] Comment on above: Performed By: #### C BC, CMP, MG1 #### [facility] [address] [place] [address] ALP [Catalytic activity/Vol] 40 U/L Normal 38-113 [facility] Comment on above: Performed By: #### C BC, CMP, MG1 #### [facility] [address] [place] [address] ALT [Catalytic activity/Vol] 12 U/L Normal 10-54 [facility] Comment on above: Performed By: #### C BC, CMP, MG1 #### [facility] [address] [place] [address] Anion gap [Moles/Vol] 11 mmol/L Normal 9-18 [facility] Comment on above: Performed By: #### C BC, CMP, MG1 #### [facility] [address] [place] [address] AST [Catalytic activity/Vol] 11 U/L Low 14-40 [facility] [facility] Comment on above: Performed By: #### C BC, CMP, MG1 #### [facility] [address] [place] [address] Bilirubin [Mass/Vol] 1.0 mg/dL Normal 0.2-1.3 [facility] Comment on above: Performed By: #### C BC, CMP, MG1 #### [facility] [address] [place], [place] [phone] Calcium [Mass/Vol] 8.9 mg/dL Normal 8.5-10.2 [facility] Comment on above: Performed By: #### C BC CMP, MG1 #### [facility] [address] Chloride [Moles/Vol] 104 mmol/L Normal 97-105 [facility] Comment on above: Performed By: #### C BC, CMP, MG1 #### [facility] [address] CO2 [Moles/Vol] 23 mmol/L Normal 22-30 [facility] Comment on above: Performed By: #### C BC CMP, MG1 #### [facility] [address] [place] [phone] Creatinine [Mass/Vol] 0.99 mg/dL Normal 0.73-1.22 [facility] Comment on above: Performed By: #### C BC CMP, MG1 #### [facility] [address] [place] [address] eGFR- Amer. >60 Normal [facility] Comment on above: Performed By: #### C BC, CMP, MG1 #### [facility] [address] [place] [address] eGFR-All Other Races >60 Normal [facility] Comment on above: Result Comment: eGFR [...] By: #### C BC, CMP, MG1 #### [facility] [address] [place] [phone] Glucose [Mass/Vol] 108 mg/dL High 74-99 [facility] Comment on above: Result Comment: The [place] [employer] (ADA) provides guidance for cutoff [...] Standards of Medical Care in Diabetes 2016, [place] [employer]. Diabetes Care. 2016.39(Suppl 1). Performed By: #### C BC CMP, MG1 #### [facility] [address] [place] [address] Potassium [Moles/Vol] 3.6 mmol/L Low 3.7-5.1 [facility] Comment on above: Performed By: #### C BC CMP, MG1 #### [facility] [address] [place] [address] Protein [Mass/Vol] 7.2 g/dL Normal 6.3-8.0 [facility] Comment on above: Performed By: #### C BC, CMP, MG1 #### [facility] [address] [place] [address] Sodium [Moles/Vol] 138 mmol/L Normal 136-144 [facility] Comment on above: Performed By: #### C BC, CMP, MG1 #### [facility] [address] [place] [address] Urea nitrogen [Mass/Vol] 8 mg/dL Low 9-24 [facility] Comment on above: Performed By: #### C BC, CMP, MG1 #### [facility] [address] [place], [place] [phone] Albumin [Mass/Vol] 5.4 g/dL High 3.9-4.9 [facility] Comment on above: Performed By: #### C BC, CMP, MG1 #### [facility] [address] [place], [place] [phone] ALP [Catalytic activity/Vol] 45 U/L Normal 38-113 [facility] Comment on above: Performed By: #### C BC, CMP, MG1 #### [facility] [address] [place] [address] ALT [Catalytic activity/Vol] 14 U/L Normal 10-54 [facility] Comment on above: Performed By: #### C BC, CMP, MG1 #### [facility] [address] [place] [address] Anion gap [Moles/Vol] 18 mmol/L Normal 9-18 [facility] Comment on above: Performed By: #### C BC, CMP, MG1 #### [facility] [address] [place] [address] AST [Catalytic activity/Vol] 14 U/L Normal 14-40 [facility] Comment on above: Performed By: #### C BC, CMP, MG1 #### [facility] [address] [place] [address] Bilirubin [Mass/Vol] 1.1 mg/dL Normal 0.2-1.3 [facility] Comment on above: Performed By: #### C BC, CMP, MG1 #### [facility] [address] [place] [address] Calcium [Mass/Vol] 9.8 mg/dL Normal 8.5-10.2 [facility] Comment on above: Performed By: #### C BC, CMP, MG1 #### [facility] [address] [place] [address] Chloride [Moles/Vol] 96 mmol/L Low 97-105 [facility] Comment on above: Performed By: #### C BC, CMP, MG1 #### [facility] [address] [place] [address] CO2 [Moles/Vol] 22 mmol/L Normal 22-30 [facility] Comment on above: Performed By: #### C BC, CMP, MG1 #### [facility] [address] Creatinine [Mass/Vol] 0.93 mg/dL Normal 0.73-1.22 [facility] Comment on above: Performed By: #### C BC, CMP, MG1 #### [facility] [address] [place], [place] [phone] eGFR- Amer. >60 Normal [facility] Comment on above: Performed By: #### C BC, CMP, MG1 #### [facility] 1000 [facility] [phone] eGFR-All Other Races >60 Normal [facility] Comment on above: Result Comment: eGFR [...] By: #### C SRUTHI ROWLEY MG1 #### [facility] 1000 [facility] [phone] Glucose [Mass/Vol] 126 mg/dL High 74-99 [facility] Comment on above: Result Comment: The [place] [employer] (ADA) provides guidance for cutoff [...] Standards of Medical Care in Diabetes 2016, [place] [employer]. Diabetes Care. 2016.39(Suppl 1). Performed By: #### C SRUTHI ROWLEY, MG1 #### [facility] 1000 [facility] [phone] Potassium [Moles/Vol] 3.7 mmol/L Normal 3.7-5.1 [facility] Comment on above: Performed By: #### C SRUTHI ROWLEY, MG1 #### [facility] 1000 [facility] [phone] Protein [Mass/Vol] 8.3 g/dL High 6.3-8.0 [facility] Comment on above: Performed By: #### C SRUTHI ROWLEY, MG1 #### [facility] [address] [place] [phone] Sodium [Moles/Vol] 136 mmol/L Normal 136-144 [facility] Comment on above: Performed By: #### C AMRIK CMP, MG1 #### [facility] [address] [place] [phone] Urea nitrogen [Mass/Vol] 10 mg/dL Normal 9-24 [facility] Comment on above: Performed By: #### C BC CMP, MG1 #### [facility] [address] [place] [phone] Coronavirus 2019on SARS-CoV-2 (COVID-19) RNA RADHA+probe Ql (Unsp spec) UPPER RESPIRATORY TRACT SWAB Normal [facility] Comment on above: Performed By: #### C SRUTHI ROWLEY, MG1 #### [facility] [address] SARS-CoV-2 (COVID-19) RNA RADHA+probe Ql (Unsp spec) Negative Normal Negative for COVID19 (SARS CoV2) by PCR. [facility] Comment on above: Result Comment: This test was developed and its performance characteristics determined by [facility] [place]. This test has been authorized by FDA under an Emergency Use Authorization (EUA). This test has been validated in accordance with the FDA's Guidance Document "Policy for Diagnostics Testing in Laboratories Certified to Perform High Complexity Testing under CLIA prior to Emergency use Authorization for Coronavirus Disease 2019 during the Public Health Emergency" issued on November 17, 2019. Test performed by [facility], [facility] [place], [address] [place] [address]. Performed By: #### C SRUTHI ROWLEY, MG1 #### [facility] [address] [place] [phone] ED NOTEon 12-19-2020 ED NOTE HNO ID: [id number] Author: Chacha (Rn) JUDD Overton Service: ? Author Type: Registered Nurse Type: ED Notes Filed: 12/19/2020 2:57 AM Note Text: Covid swab done and sent to lab. Normal [facility] ED NOTE HNO ID: [id number] Author: Chacha CarusoRn) JUDD Overton Service: ? Author Type: Registered Nurse Type: ED Notes Filed: 12/19/2020 2:12 AM Note Text: dr in room to talk with pt. [facility] ED NOTE HNO ID: [id number] Author: Chacha CarusoRn) JUDD Overton Service: ? Author Type: Registered Nurse Type: ED Notes Filed: 12/19/2020 1:46 AM Note Text: pt vomited large amt of yellow bile, bed and sheets changed, dr clark. [facility] ED NOTE HNO ID: [id number] Author: Chacha (Rn) JUDD Overton Service: ? Author Type: Registered Nurse Type: ED Notes Filed: 12/19/2020 1:40 AM Note Text: mom came up to desk saying pt is vomiting.informed her I let the dr know. [facility] ED NOTE HNO ID: [id number] Author: Chacha CarusoRn) JUDD Overton Service: ? Author Type: Registered Nurse Type: ED Notes Filed: 12/19/2020 1:40 AM Note Text: called to room by mom she is concerned about pt feeling nauseated. and she states pt is jumpy in bed. pt laying still in bed. dr LEO clark. [facility] ED NOTE HNO ID: [id number] Author: Martina CarusoRn) Jimmie RN Service: Nursing Author Type: Registered Nurse Type: ED Notes Filed: 12/18/2020 10:55 PM Note Text: Patient has been having abdominal pain since October. 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 Has been vaping THC (last use was last Tuesday) and has been smoking marijuana (last use last night). He had upper GI scope this morning and has been vomiting since. [facility] ED PROV NOTEon 12-19-2020 ED PROV NOTE HNO ID: [id number] Author: Jimbo Choi MD Service: ? Author [...] patients with (more content not included)... Normal [facility] HISTORY PHYSICALon HISTORY PHYSICAL HNO ID: [id number] Author: Sujatha Hylton (Pa) Service: Hospital Medicine Author Type: Physician Lighting Fixture Installer Type: HANDP Filed: 12/19/2020 4:13 AM Note Text: -------- Attestation signed by Champ Irizarry at 12/19/2020 5:22 AM I reviewed the plan of care and reviewed the note. Plan of care discussed with the PA in detail and I agree with it. Champ Irizarry MD -------- DEPARTMENT OF HOSPITAL MEDICINE HISTORY AND PHYSICAL EXAM SERVICE DATE: 12/19/2020 Code Status: Not on file SERVICE TIME: 2:42 AM Primary Care Physician: Sallie Crowley APRN.[facility] NIGHT AND WEEKEND COVERAGE: SALUDA COVERAGE: Days: [phone], please page attending physician. Nights: [phone], please page [place] [facility] Night coverage pager [phone]. Subjective CHIEF COMPLAINT: Nausea and vomiting HPI: [...] had an EGD completed yesterday which was "normal" per the patient and nothing was seen [...] prolonged b (more content not included)... Normal [facility] Lipaseon 12-19-2020 Lipase [Catalytic activity/Vol] 23 U/L Normal 16-61 [facility] Comment on above: Performed By: #### C BC, CMP, MG1 #### [facility] 1000 [facility] [phone] Magnesiumon 12-19-2020 Magnesium [Mass/Vol] 1.7 mg/dL Normal 1.7-2.3 [facility] Comment on above: Performed By: #### C BC, CMP, MG1 #### [facility] 1000 [facility] [phone] NURSING PROGon 12-19-2020 NURSING PROG HNO ID: [id number] Author: Gloria (Rn) JUDD Garg Service: Nursing Author Type: Registered Nurse Type: Nursing Progress Note Filed: 12/19/2020 5:13 AM Note Text: Nursing Progress Note Patient Name: Phuong Garcia Patient Location: [place] [id number] admission/assessment complete and documented. VSS. Pt drowsy but responds to name, drifts back to sleep, denies c/o pain or discomfort. No nausea. Rtn safety/fall risk measures maintained, instructed to call for assist. This note was completed by: Gloria Garg RN [facility] US ABD RIGHT UPPER QUADRANTo n 12-19-2020 US ABD RIGHT UPPER QUADRANT * * *Final Report* * * DATE OF EXAM: Dec 19 2020 9:46AM FCO 1032 - US ABD RIGHT UPPER QUADRANT [...] hydronephrosis. Ascites: None. IMPRESSION: Tiny gallbladder polyp Wax Pourer: PSCEdinson Transcribe Date/Time: Dec 19 2020 10:29A Dictated by : DALILA MORIN MD This examination was interpreted and the report reviewed and electronically signed by: DALILA MORIN MD on Dec 19 2020 10:30AM EST [id number] [facility] CBCon 12-18-2020 Absolute nRBC <0.01 Normal <0.01 [facility] Comment on above: Performed By: #### C MP, CBC #### [facility] Routine Lab [address] [place], [place] [address] Erythrocyte distribution width (RBC) [Ratio] 11.6 % Normal 11.5-15.0 [facility] Comment on above: Performed By: #### C MP, CBC #### [facility] Routine Lab [address] [place], [place] [address] Hematocrit (Bld) [Volume fraction] 45.6 % Normal 39.0-51.0 [facility] Comment on above: Performed By: #### C MP, CBC #### [facility] Lab [address] [place], [place] [address] Hemoglobin (Bld) [Mass/Vol] 15.2 g/dL Normal 13.0-17.0 [facility] Comment on above: Performed By: #### C MP, CBC #### [facility] Routine Lab [facility] [place], [place] [address] MCH (RBC) [Entitic mass] 29.9 pG Normal 26.0-34.0 [facility] Comment on above: Performed By: #### C MP, CBC #### [facility]ine Lab [address] [place], [place] [address] MCHC (RBC) [Mass/Vol] 33.3 g/dL Normal 30.5-36.0 [facility] Comment on above: Performed By: #### C MP, CBC #### [facility] Lab [address] [place], [place] [address] MCV (RBC) [Entitic vol] 89.8 fL Normal 80.0-100.0 [facility] Comment on above: Performed By: #### C MP, CBC #### [facility]ine Lab [address] [place], [place] [address] Platelet mean volume (Bld) [Entitic vol] 12.2 fL Normal 9.0-12.7 [facility] Comment on above: Performed By: #### C MP, CBC #### [facility] Lab [address] [place], [place] [phone] Platelets (Bld) [#/Vol] 214 10*3/uL Normal 150-400 [facility] Comment on above: Performed By: #### C MP, CBC #### [facility] [address] [place], [place] [address] RBC (Bld) [#/Vol] 5.08 10*6/uL Normal 4.20-6.00 [facility] Comment on above: Performed By: #### C MP, CBC #### [facility]ine Lab [address] [place], [place] [address] WBC (Bld) [#/Vol] 8.13 10*3/uL Normal 3.70-11.00 [facility] Comment on above: Performed By: #### C MP, CBC #### [facility]ine Lab [address] [place] [address] Comp Metabolic Panelon 12-18 Albumin [Mass/Vol] 5.0 g/dL High 3.9-4.9 [facility] Comment on above: Performed By: #### C MP, CBC #### [facility] Lab [address] [place] [address] ALP [Catalytic activity/Vol] 39 U/L Normal 38-113 [facility] Comment on above: Performed By: #### C MP, CBC #### [facility]ine Lab [address] [place], [place] [address] ALT [Catalytic activity/Vol] 16 U/L Normal 10-54 [facility] Comment on above: Performed By: #### C MP, CBC #### [facility] [address] [place], [place] [address] Anion gap [Moles/Vol] 13 mmol/L Normal 9-18 [facility] Comment on above: Performed By: #### C MP, CBC #### [facility]ine Lab [address] [place], [place] [address] AST [Catalytic activity/Vol] 19 U/L Normal 14-40 [facility] Comment on above: Performed By: #### C MP, CBC #### [facility]ine Lab [address] [place], [place] [address] Bilirubin Ql (U) 0.8 mg/dL Normal 0.2-1.3 [facility] Reference Lab Comment on above: Performed By: #### C MP, CBC #### [facility]ine Lab [address] [place], [place] [address] Calcium [Mass/Vol] 9.8 mg/dL Normal 8.5-10.2 [facility] Comment on above: Performed By: #### C MP, CBC #### [facility]ine Lab [address] [place], [place] [address] Chloride [Moles/Vol] 101 mmol/L Normal 97-105 [facility] Comment on above: Performed By: #### C MP, CBC #### [facility]ine Lab [address] [place], [place] [address] CO2 [Moles/Vol] 26 mmol/L Normal 22-30 [facility] Comment on above: Performed By: #### C MP, CBC #### [facility]ine Lab [address] [place], [place] [address] Creatinine [Mass/Vol] 1.06 mg/dL Normal 0.73-1.22 [facility] Comment on above: Performed By: #### C MP, CBC #### [facility]ine Lab [address] [place], [place] [address] eGFR- Amer. >60 Normal [facility] Comment on above: Performed By: #### C MP, CBC #### [facility] Routine Lab [address] [place], [place] [address] GFR/1.73 sq M predicted among non-blacks MDRD (S/P/Bld) [Vol rate/Area] mL/min/{1.73_m2} Normal [facility] Comment on above: Performed By: #### C MP, CBC #### [facility]ine Lab [address] [place], [place] [phone] Glucose [Mass/Vol] 116 mg/dL High 74-99 [facility] Comment on above: Performed By: #### C MP, CBC #### [facility] Routine Lab [address] [place] [address] Potassium [Moles/Vol] 3.8 mmol/L Normal 3.7-5.1 [facility] Lab Comment on above: Performed By: #### C MP, CBC #### [facility]ine Lab [address] [place] [address] Protein [Mass/Vol] 7.9 g/dL Normal 6.3-8.0 [facility] Comment on above: Performed By: #### C MP, CBC #### [facility] Lab [address] [place], [place] [address] Sodium [Moles/Vol] 140 mmol/L Normal 136-144 [facility] Comment on above: Performed By: #### C MP, CBC #### [facility]ine Lab [address] [place], [place] [id number] Urea nitrogen [Mass/Vol] 14 mg/dL Normal 9-24 [facility] Comment on above: Performed By: #### C MP, CBC #### [facility] Routine Lab [address] [place] [address] Que 11-07-2020 ANNE MARIE Telephone (CHRIS) -------- PHUONG GARCIA ([id number]) 1995 M Date Time Provider Department 11/07/20 [place] During your visit today, we recorded the following information about you: Marjan Israel 11/07/2020 8:23 AM Signed Patients mom Simran called stating patient was in ER and needs to follow up with you. Please advise where to schedule. [place] Shah MD 11/07/2020 8:33 AM Signed Anytime [...] possibly phleboliths. No mass, ascites or fluid collection." Laurence Clements MD 11/07/2020 10:38 AM Signed Addended by: LAURENCE CLEMENTS MD on: 11/07/2020 10:38 AM Modules accepted: Orders Laurence Clements MD 11/07/2020 10:38 AM Signed Yes, I ordered GORDON Vero Soto RN 11/07/2020 3:14 PM Signed Patient made aware of message. Aware of plan of care. No other questions. Encounter closed. Spoke with patient and let him know that he can get this scheduled at [phone]. 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] Order(s):US SCROTUM AND CONTENTS [3052011] Order #: [id number] FUTURE US DOPPLER COMPLETE [[id number]] Order #: [id number] FUTURE Prescriptions as of 11/07/2020 Sig: ONDANSETRON [...] MARJAN MICHELE on 11/07/20 Normal [facility] Basic Panelon 07-22-2017 Creatinine 1.11 mg/dL Normal 0.67-1.17 [facility] Comment on above: Performed By: #### P 14 ####[address] [address] Calcium 8.7 mg/dL Normal 8.5-10.1 [facility] Comment on above: Performed By: #### P 14 ####[address] [address] Glucose mass conc 94 mg/dL Normal 70-99 [facility] Comment on above: Performed By: #### P 14 ####[address] [address] Urea nitrogen 9 mg/dL Normal 7-18 [facility] Comment on above: Performed By: #### P 14 ####[address] [address] Anion gap 9 mmol/L Normal 8-16 [facility] Comment on above: Performed By: #### P 14 ####[facility] [place] [address] CO2 26 mmol/L Normal 21-32 [facility] Comment on above: Performed By: #### P 14 ####[facility] [place] [address] Chloride 110 mmol/L High 98-107 [facility] Comment on above: Performed By: #### P 14 ####[facility] [place] [address] Potassium molar conc 3.6 mmol/L Normal 3.5-5.1 [facility] Comment on above: Performed By: #### P 14 ####[place] [address] Sodium 141 mmol/L Normal 136-145 [facility] Comment on above: Performed By: #### P 14 ####[place] [address] CPKon 07-22-2017 Creatine kinase (CK) 110 U/L Normal 39-308 [facility] Comment on above: Performed By: #### P 14 ####[place] [address] Hemogramon 07-22-2017 Erythrocyte distribution width Auto Ratio (RBC) 11.8 % Normal 11.6-14.4 [facility] Comment on above: Performed By: #### P 14 ####[place] [address] Erythrocytes (RBC) 4.66 mil/cmm Normal 4.63-6.08 [facility] Comment on above: Performed By: #### P 14 ####[place] [address] Hematocrit (HCT) 40.1 % Normal 40.1-51.0 [facility] Comment on above: Performed By: #### P 14 ####[place] [address] Hemoglobin mass conc (Bld) 13.9 g/dL Normal 13.7-17.5 [facility] Comment on above: Performed By: #### P 14 ####[facility] [place] [address] MCH 29.8 pg Normal 25.7-32.2 [facility] Comment on above: Performed By: #### P 14 ####[place] [address] MCHC mass conc (RBC) 34.7 % Normal 32.3-36.5 [facility] Comment on above: Performed By: #### P 14 ####[place] [address] MCV 86.1 fL Normal 83.2-95.6 [facility] Comment on above: Performed By: #### P 14 ####[place] [address] Platelet mean volume (PMV) 11.1 fL Normal 8.7-12.0 [facility] Comment on above: Performed By: #### P 14 ####[place] [address] Platelets 159 thou/cmm Normal 141-365 [facility] Comment on above: Performed By: #### P 14 ####[place] [address] RDW SD 36.8 fl Normal 36.1-45.8 [facility] Comment on above: Performed By: #### P 14 ####[place] [address] WBC (Leukocytes) 10.66 thou/cmm High 4.23-9.07 [facility] Comment on above: Performed By: #### P 14 ####[place] [address] MDRD GFRon 07-22-2017 eGFR (non-black) mL/min/{1.73_m2} Normal >60mL/m in/1 .73m2 [facility] Comment on above: Result Comment: If t he patient is , multiply the result by 1.210. Performed By: #### L IP ####[place] [address] Magnesium Bloodon 07-22-2017 Magnesium 1.8 mg/dL Normal 1.6-2.6 [facility] Comment on above: Performed By: #### P 14 ####[place] [phone] Procalcitoninon 07-22-2017 Procalcitonin 0.11 ng/mL Normal [facility] Comment on above: Result Comment: Leve ls [...] procalcitonin elevations. Performed By: #### P 14 ####[place] [address] Alcohol, Serumon 07-21-2017 Alcohol, Serum < 3 Normal [facility] Comment on above: Result Comment: TEST CREDITED-DUPLICATE ORDER-SEE DRUG SCREEN Performed By: #### P 14 ####[place] [id number] CHEST 2 VIEWSon 07-21-2017 CHEST 2 VIEWS Performed at [facility] APPROVED BY: Artemio Schuler MD EXAMINATION: CHEST RADIOGRAPH (2 VIEW FRONTAL & LATERAL) Clinical History: Vomiting, leukocytosis.M: XC2_3Comparison: None RESULT: Lines, tubes, and devices: None. Lungs and pleura: No consolidation. No lung mass. No pleural effusion. Cardiomediastinal silhouette: Normal cardiomediastinal silhouette. Other: None IMPRESSION: No acute radiographic abnormality. Normal [facility] CT ABDOMEN AND PELVIS WITH C ONTRASTon 07-21-2017 CT ABDOMEN AND PELVIS WITH CONTRAST Performed at [facility] APPROVED BY: Artemio Schuler MD EXAM [...] examination of the abdomen and pelvis. Normal [facility] Comprehensive Panelon 2016 Alkaline phosphatase (ALP) 48 U/L Normal 46-116 [facility] Comment on above: Performed By: #### P 14 ####[address] [address] Bilirubin Ql (U) 0.7 mg/dL Normal 0.2-1.0 [facility] Comment on above: Performed By: #### P 14 ####[facility] [place], [place] [address] Protein 7.7 g/dL Normal 6.4-8.2 [facility] Comment on above: Performed By: #### P 14 ####[facility] [place], [place] [address] Creatinine 1.02 mg/dL Normal 0.67-1.17 [facility] Comment on above: Performed By: #### P 14 ####[facility] [place], [place] [address] Alanine aminotransferase (ALT) 26 U/L Normal 12-78 [facility] Comment on above: Performed By: #### P 14 ####[facility] [place], [place] [address] Aspartate aminotransferase (AST) 13 U/L Normal 9-37 [facility] Comment on above: Performed By: #### P 14 ####[address] [address] Albumin 4.3 g/dL Normal 3.4-5.0 [facility] Comment on above: Performed By: #### P 14 ####[facility] [place], [place] [address] Glucose mass conc 159 mg/dL High 70-99 [facility] Comment on above: Performed By: #### P 14 ####[facility] [place], [place] [address] Urea nitrogen 11 mg/dL Normal 7-18 [facility] Comment on above: Performed By: #### P 14 ####[facility] [place], [place] [address] Anion gap 18 mmol/L High 8-16 [facility] Comment on above: Performed By: #### P 14 ####[facility] [place], [place] [address] Calcium 9.0 mg/dL Normal 8.5-10.1 [facility] Comment on above: Performed By: #### P 14 ####[address] [address] CO2 19 mmol/L Low 21-32 [facility] Comment on above: Performed By: #### P 14 ####[address] [address] Chloride 105 mmol/L Normal 98-107 [facility] Comment on above: Performed By: #### P 14 ####[address] [address] Potassium molar conc 4.7 mmol/L Normal 3.5-5.1 [facility] Comment on above: Performed By: #### P 14 ####[facility] [place], [place] [address] Sodium 137 mmol/L Normal 136-145 [facility] Comment on above: Performed By: #### P 14 ####[address] [address] Alkaline phosphatase (ALP) 55 U/L Normal 46-116 [facility] Comment on above: Performed By: #### P 14 ####[address] [address] Alanine aminotransferase (ALT) 28 U/L Normal 12-78 [facility] Comment on above: Performed By: #### P 14 ####[facility] [place], [place] [address] Bilirubin Ql (U) 0.6 mg/dL Normal 0.2-1.0 [facility] Comment on above: Performed By: #### P 14 ####[facility] [place], [place] [address] Protein 8.4 g/dL High 6.4-8.2 [facility] Comment on above: Performed By: #### P 14 ####[facility] [place], [place] [address] Aspartate aminotransferase (AST) 19 U/L Normal 9-37 [facility] Comment on above: Performed By: #### P 14 ####[address] [address] Creatinine 1.11 mg/dL Normal 0.67-1.17 [facility] Comment on above: Performed By: #### P 14 ####[address] [address] Albumin 4.8 g/dL Normal 3.4-5.0 [facility] Comment on above: Performed By: #### P 14 ####[address] [address] Anion gap 19 mmol/L High 8-16 [facility] Comment on above: Performed By: #### P 14 ####[place] [address] CO2 22 mmol/L Normal 21-32 [facility] Comment on above: Performed By: #### P 14 ####[facility] [place], [place] [address] Glucose mass conc 158 mg/dL High 70-99 [facility] Comment on above: Performed By: #### P 14 ####[place] [address] Urea nitrogen 12 mg/dL Normal 7-18 [facility] Comment on above: Performed By: #### P 14 ####[place] [address] Calcium 9.5 mg/dL Normal 8.5-10.1 [facility] Comment on above: Performed By: #### P 14 ####[address] [address] Chloride 102 mmol/L Normal 98-107 [facility] Comment on above: Performed By: #### P 14 ####[address] [address] Potassium molar conc 2.8 mmol/L Low 3.5-5.1 [facility] Comment on above: Performed By: #### P 14 ####[place] [address] Sodium 140 mmol/L Normal 136-145 [facility] Comment on above: Performed By: #### P 14 ####[address] [address] Hemogram/Diffon 07-21-2017 Basophils Auto #/vol (Bld) 0.07 thou/cmm Normal 0.01-0.08 [facility] Comment on above: Result Comment: Smea r scanned; tech agrees with automated differential Performed By: #### C BCD1 ####[address] [address] Basophils/100 WBC Auto (Bld) 0.3 % Normal [facility] Comment on above: Performed By: #### C BCD1 ####[address] [address] Eosinophils 0.00 thou/cmm Low 0.04-0.54 [facility] Comment on above: Performed By: #### C BCD1 ####[address] [address] Eosinophils/100 leukocytes 0.0 % Normal [facility] Comment on above: Performed By: #### C BCD1 ####[address] [address] Immature Grans 0.80 % Normal [facility] Comment on above: Performed By: #### C BCD1 ####[address] [address] Immature Grans # 0.18 thou/cmm High 0.00-0.05 [facility] Comment on above: Performed By: #### C BCD1 ####[facility] [place], [place] [address] Lymphocytes 1.51 thou/cmm Normal 0.84-2.85 [facility] Comment on above: Performed By: #### C BCD1 ####[address] [address] Lymphocytes/100 leukocytes 6.7 % Normal [facility] Comment on above: Performed By: #### C BCD1 ####[address] [address] Monocytes 1.28 thou/cmm High 0.30-0.82 [facility] Comment on above: Performed By: #### C BCD1 ####[address] [address] Monocytes/100 leukocytes 5.7 % Normal [facility] Comment on above: Performed By: #### C BCD1 ####[address] [address] Seg Neutrophil 86.5 % Normal [facility] Comment on above: Performed By: #### C BCD1 ####[address] [address] Seg. Neut.# 19.48 thou/cmm High 1.78-5.38 [facility] Comment on above: Performed By: #### C BCD1 ####[address] [address] Erythrocyte distribution width Auto Ratio (RBC) 11.5 % Low 11.6-14.4 [facility] Comment on above: Performed By: #### C BCD1 ####[address] [address] Erythrocytes (RBC) 5.39 mil/cmm Normal 4.63-6.08 [facility] Comment on above: Performed By: #### C BCD1 ####[place] [address] Hematocrit (HCT) 45.2 % Normal 40.1-51.0 [facility] Comment on above: Performed By: #### C BCD1 ####[facility] [place] [address] Hemoglobin mass conc (Bld) 16.2 g/dL Normal 13.7-17.5 [facility] Comment on above: Performed By: #### C BCD1 ####[place] [address] MCH 30.1 pg Normal 25.7-32.2 [facility] Comment on above: Performed By: #### C BCD1 ####[place] [address] MCHC mass conc (RBC) 35.8 % Normal 32.3-36.5 [facility] Comment on above: Performed By: #### C BCD1 ####[place] [address] MCV 83.9 fL Normal 83.2-95.6 [facility] Comment on above: Performed By: #### C BCD1 ####[place] [address] Platelet mean volume (PMV) 11.1 fL Normal 8.7-12.0 [facility] Comment on above: Performed By: #### C BCD1 ####[place] [address] Platelets 247 thou/cmm Normal 141-365 [facility] Comment on above: Performed By: #### C BCD1 ####[place] [address] RDW SD 34.9 fl Low 36.1-45.8 [facility] Comment on above: Performed By: #### C BCD1 ####[place] [address] WBC (Leukocytes) 22.52 thou/cmm High 4.23-9.07 [facility] Comment on above: Performed By: #### C BCD1 ####[place] [address] Lactic Acidon 07-21-2017 Lactate 2.2 mmol/L Critically high 0.4-2.0 [facility] Comment on above: Performed By: #### P 14 ####[place] [address] Lactate 5.8 mmol/L Critically high 0.4-2.0 [facility] Comment on above: Performed By: #### P 14 ####[place] [address] Lactate 7.5 mmol/L Critically high 0.4-2.0 [facility] Comment on above: Performed By: #### L AC ####[place] [address] Lipase Bloodon 07-21-2017 Lipase Blood 175 U/L Normal 73-393 [facility] Comment on above: Performed By: #### L IP ####[place] [address] MDRD GFRon 07-21-2017 eGFR (non-black) mL/min/{1.73_m2} Normal >60mL/m in/1 .73m2 [facility] Comment on above: Result Comment: If t he patient is , multiply the result by 1.210. Performed By: #### G FR ####[place] [address] eGFR (non-black) mL/min/{1.73_m2} Normal >60mL/m in/1 .73m2 [facility] Comment on above: Result Comment: If t he patient is , multiply the result by 1.210. Performed By: #### G FR ####[place] [address] Osmolality Serumon 7 Osmolality 300 mOsm/kg High 276-298 [facility] Comment on above: Performed By: #### P 14 ####[place] [address] Ur/Serum Drug Screenon 07-21 Acetaminophen mass conc <2.0 Low 10.0-30.0 [facility] Comment on above: Performed By: #### P 14 ####[place] [id number] Serum Alcohol < 3 Normal [facility] Comment on above: Performed By: #### P 14 ####[place] [address] Serum Salicylate < 1.7 Low 2.8-20.0 [facility] Comment on above: Performed By: #### P 14 ####[place] [address] Urine Amphetamine Non-detected Normal Non-Detect e d [facility] Comment on above: Performed By: #### P 14 ####[place] [address] Urine Barbiturates Non-detected Normal Non-Detec te d [facility] Comment on above: Performed By: #### P 14 ####[place] [address] Urine Benzodiazepine Non-detected Normal Non-Det ecte d [facility] Comment on above: Performed By: #### P 14 ####[place] [address] Urine Cocaine Metab Non-detected Normal Non-Dete cte d [facility] Comment on above: Performed By: #### P 14 ####[place] [address] Urine Opiate see below Normal Non-Detecte d [facility] Comment on above: Result Comment: Dete cted (unconfirmed) Performed By: #### P 14 ####[place] [address] Urine PCP Non-detected Normal Non-Detecte d [facility] Comment on above: Performed By: #### P 14 ####[place] [address] Urine THC see below Normal Non-Detecte d [facility] Comment on above: Result Comment: Dete cted [...] diagnosticpurposes only. Performed By: #### P 14 ####[place] [address] Urinalysis Routineon 017 Bilirubin Urine Negative Normal Negative [facility] Comment on above: Performed By: #### U RIN2 ####[place] [address] Ep Cells Urine 0.3 /hpf Normal 0.0-5.0 [facility] Comment on above: Performed By: #### U RIN2 ####[place] [address] Hemoglobin,Urine Negative Normal Negative [facility] Comment on above: Performed By: #### U RIN2 ####[place] [address] Hyaline Cast 0.0 /lpf Normal 0.0-1.0 [facility] Comment on above: Performed By: #### U RIN2 ####[place] [address] Ketone Urine 15 mg/dL Abnormal Negative [facility] Comment on above: Performed By: #### U RIN2 ####[place] [address] Nitrites Urine Negative Normal Negative [facility] Comment on above: Performed By: #### U RIN2 ####[place] [address] Protein Urine TRACE Abnormal Negative [facility] Comment on above: Performed By: #### U RIN2 ####[place] [address] Specific [place], Ur >1.045 Abnormal 1.005-1.030 [facility] Comment on above: Performed By: #### U RIN2 ####[address], [place] [address] Urine, appearance CLEAR Normal [facility] Comment on above: Performed By: #### U RIN2 ####[facility] [place] [address] Urine, bacteria in sediment NONE Normal None [facility] Comment on above: Performed By: #### U RIN2 ####[place] [address] Urine, color YELLOW Normal [facility] Comment on above: Performed By: #### U RIN2 ####[place] [address] Urine, erythrocytes in sediment by area 0.5 /[HPF] Normal 0.0-5.0 [facility] Comment on above: Performed By: #### U RIN2 ####[place] [address] Urine, glucose presence 100 mg/dL Abnormal Negative [facility] Comment on above: Performed By: #### U RIN2 ####[place] [address] Urine, leukocytes in sedmiment 1.0 /[HPF] Normal 0.0-5.0 [facility] Comment on above: Performed By: #### U RIN2 ####[place] [address] Urine, pH 7.5 [pH] Normal 5.0-8.0 [facility] Comment on above: Performed By: #### U RIN2 ####[place] [address] Urobilinogen,Ur 0.2 EU/dL Normal 0.0-1.0 [facility] Comment on above: Performed By: #### U RIN2 ####[place] [address] WBC (Leukocytes) Negative Normal Negative [facility] Comment on above: Performed By: #### U RIN2 ####[place] [address] Vital Signs Date Time Vital Sign Value Performing Clinician Jj rosa 04-03-2025 16:05-0400 Body temperature 98.8 [degF] Sallie Haagen [employer]LLING MACHINE [employer]NER[employer] Work Phone: 2(237)987-079937 [place] [address] 04-03-2025 16:05-0400 Diastolic blood pressure 52 mm[Hg] Sallie Haagen [employer]LLING [employer]ACHINE [employer] Work Phone: 4(483)761-230237 [place] [address] 04-03-2025 16:05-0400 Heart rate 66 /min Sallie Haagen [employer]ING [employer]ACH[employer] Work Phone: 1(982)589-174737 [place] [address] 04-03-2025 16:05-0400 Respiratory rate 12 /min Sallie Haagen [employer]LLING MACHINE [employer]NER[employer] Work Phone: 4(259)663-226037 [place] [address] 04-03-2025 16:05-0400 SaO2% (BldA) [Mass fraction] 100 % Sallie Haagen [employer]ING [employer]ACH[employer] Work Phone: 9(544)373-401937 [place] [address] 04-03-2025 16:05-0400 Systolic blood pressure 122 mm[Hg] Sallie Haagen [employer]LLING [employer] Work Phone: 6(054)165-393737 [place] [address] 04-03-2025 13:58-0400 Body height 175.26 cm Sallie Haagen [employer]LLING [employer] Work Phone: 1(801)351-834037 [place] [address] 04-03-2025 13:58-0400 Body mass index (BMI) [Ratio] 19.3 kg/m2 Sallie Haagen [employer]LLING MACHINE [employer] Work Phone: 5(401)170-295937 [place] [address] 04-03-2025 13:58-0400 Body weight 59.42 kg Sallie Haagen [employer]LLING [employer]ACHINE [employer] Work Phone: 4(828)004-313037 [place] [address] 04-03-2025 09:29-0400 Body temperature 97.8 [degF] Sallie Haagen [employer]LLING MACHINE [employer] Work Phone: 7(501)087-251237 [place] [address] 04-03-2025 09:29-0400 Diastolic blood pressure 78 mm[Hg] Sallie Haagen [employer]RILLING MACHINE [employer]NER[employer] Work Phone: 7(472)287-535737 [place] [address] 04-03-2025 09:29-0400 Heart rate 77 /min Sallie Haagen [employer]LLING MACHINE [employer] Work Phone: 6(153)711-230837 [place] [address] 04-03-2025 09:29-0400 Respiratory rate 16 /min Sallie Haagen DRILLING MACHINE [employer]NER[employer]C Work Phone: 1(409)317-528837 [place] [address] 04-03-2025 09:29-0400 SaO2% (BldA) [Mass fraction] 99 % Sallie Haagen [employer]LLING MACHINE [employer]NER[employer]C Work Phone: 8(742)788-645337 [place] [address] 04-03-2025 09:29-0400 Systolic blood pressure 132 mm[Hg] Sallie Haagen [employer]RILLING MACHINE [employer]NER[employer]C Work Phone: 2(192)133-727137 [place] [address] 04-03-2025 05:57-0400 Body height 175.26 cm Sallie Haagen [employer]RILLING MACHINE [employer]NER[employer] Work Phone: 3(903)642-933937 [place] [address] 04-02-2025 17:00-0400 Body temperature 98.3 [degF] Sallie Haagen [employer]RILLING MACHINE [employer]NER[employer] Work Phone: 9(678)514-365537 [place] [address] 04-02-2025 17:00-0400 Diastolic blood pressure 81 mm[Hg] Sallie Solomonagen [employer]RILLING MACHINE [employer]NER[employer] Work Phone: 3(978)301-921637 [place] [address] 04-02-2025 17:00-0400 Heart rate 80 /min Sallie Haagen [employer]LLING M[employer]INE [employer] Work Phone: 2(205)197-176137 [place] [address] 04-02-2025 17:00-0400 Respiratory rate 19 /min Sallie Haagen DRILLING MACHINE [employer]NER[employer]C Work Phone: 7(837)886-702037 [place] [address] 04-02-2025 17:00-0400 SaO2% (BldA) [Mass fraction] 99 % Sallie Haagen DRILLING MACHINE [employer]NER[employer]C Work Phone: 5(326)304-120937 [place] [address] 04-02-2025 17:00-0400 Systolic blood pressure 121 mm[Hg] Sallie Haagen DRILLING MACHINE [employer]NER[employer]C Work Phone: 0(554)775-112337 [place] [address] 04-02-2025 12:05-0400 Body height 175.26 cm Sallie Haagen [employer]RILLING MACHINE [employer]NER[employer]C Work Phone: 6(448)978-452137 [place] [address] 04-02-2025 12:05-0400 Body mass index (BMI) [Ratio] 18.4 kg/m2 Sallie Haagen [employer]RILLING MACHINE [employer]NER[employer]C Work Phone: 8(858)488-133037 [place] [address] 04-02-2025 12:05-0400 Body weight 56.69 kg Sallie Haagen [employer]RILLING MACHINE [employer]NER[employer]C Work Phone: 5(867)798-942437 [place] [address] 04-01-2025 21:25-0400 Body temperature 98.9 [degF] Sallie Haagen DRILLING MACHINE [employer]NER-C Work Phone: 7(491)590-664137 [place] [address] 04-01-2025 21:25-0400 Diastolic blood pressure 74 mm[Hg] Sallie Haagen DRILLING MACHINE RUNNER[employer]C Work Phone: 0(992)770-661137 [place] [address] 04-01-2025 21:25-0400 Heart rate 78 /min Sallie Haagen DRILLING MACHINE [employer]NER[employer]C Work Phone: 2(304)674-125937 [place] [address] 04-01-2025 21:25-0400 Respiratory rate 16 /min Sallie Haagen DRILLING MACHINE [employer]NER-C Work Phone: 9(394)817-715937 [place] [address] 04-01-2025 21:25-0400 SaO2% (BldA) [Mass fraction] 100 % Sallie Haagen DRILLING MACHINE RUNNER-C Work Phone: 2(344)185-132037 [place] [address] 04-01-2025 21:25-0400 Systolic blood pressure 127 mm[Hg] Sallie Haagen [employer]RILLING MACHINE RUNNER[employer]C Work Phone: 8(915)034-198237 [place] [address] 04-01-2025 16:14-0400 Body height 175.26 cm Sallie Haagen DRILLING MACHINE [employer]NER[employer]C Work Phone: 6(107)849-366237 [place] [address] 04-01-2025 16:14-0400 Body mass index (BMI) [Ratio] 18.4 kg/m2 Sallie Haagen [employer]RILLING MACHINE [employer]NER-C Work Phone: 4(790)842-230037 [place] [address] 04-01-2025 16:14-0400 Body weight 56.75 kg Sallie Haagen [employer]RILLING MACHINE [employer]NER-C Work Phone: 7(389)532-394037 [place] [address] 11-02-2024 16:05-0500 Body mass index (BMI) [Ratio] 21.27 kg/m2 Janna Eason CHILD CARE EDUCATION COORDINATOR.SUPERVISOR [employer] Work Phone: 2(879)289-870965 [place] [address] 11-02-2024 16:05-0500 Body temperature 97.5 [degF] Janna Suppan CHILD CARE EDUCATION COORDINATOR.SUPERVISOR [employer] Work Phone: [facility] 11-02-2024 16:05-0500 Body weight 65.32 kg Janna Suppan CHILD CARE EDUCATION COORDINATOR.SUPERVISOR [employer] Work Phone: [facility] 11-02-2024 16:05-0500 Diastolic blood pressure 62 mm[Hg] Janna Suppan CHILD CARE EDUCATION COORDINATOR.SUPERVISOR [employer] Work Phone: [facility] 11-02-2024 16:05-0500 Heart rate 86 /min Janna Suppan CHILD CARE EDUCATION COORDINATOR.SUPERVISOR [employer] Work Phone: [facility] 11-02-2024 16:05-0500 Respiratory rate 16 /min Janna Suppan CHILD CARE EDUCATION COORDINATOR.SUPERVISOR [employer] Work Phone: [facility] 11-02-2024 16:05-0500 SaO2% (BldA) [Mass fraction] 98 % Janna Suppan CHILD CARE EDUCATION COORDINATOR.SUPERVISOR [employer] Work Phone: [facility] 11-02-2024 16:05-0500 Systolic blood pressure 110 mm[Hg] Janna Suppan CHILD CARE EDUCATION COORDINATOR.SUPERVISOR [employer] Work Phone: [facility] 10-01-2024 14:06-0500 Body mass index (BMI) [Ratio] 21.86 kg/m2 Messi Barry MD Work Phone: [facility] 10-01-2024 14:06-0500 Body weight 67.13 kg Messi Barry MD Work Phone: [facility] 10-01-2024 14:06-0500 Diastolic blood pressure 82 mm[Hg] Messi Barry MD Work Phone: [facility] 10-01-2024 14:06-0500 Heart rate 88 /min Messi Barry MD Work Phone: [facility] 10-01-2024 14:06-0500 SaO2% (BldA) [Mass fraction] 97 % Messi Barry MD Work Phone: [facility] 10-01-2024 14:06-0500 Systolic blood pressure 112 mm[Hg] Messi Barry MD Work Phone: [facility] 11-04-2023 13:06-0500 Body weight 62.6 kg Messi Barry MD Work Phone: [facility] 11-04-2023 13:06-0500 Diastolic blood pressure 62 mm[Hg] Messi Barry MD Work Phone: [facility] 11-04-2023 13:06-0500 Heart rate 59 /min Messi Barry MD Work Phone: [facility] 11-04-2023 13:06-0500 SaO2% (BldA) [Mass fraction] 96 % Messi Barry MD Work Phone: [facility] 11-04-2023 13:06-0500 Systolic blood pressure 102 mm[Hg] Messi Barry MD Work Phone: [facility] Encounters Encounter Date Encounter Type Care Provider Facility Start: 04-03-2025 End: 04-03-2025 Emergency department patient visit Sallie Keo DRILLING MACHINE RUNNER-C Work Phone: -Emergency Department Work Phone: Start: 04-03-2025 End: 04-03-2025 Emergency department patient visit Sallie Hamazin DRILLING MACHINE RUNNER-C Work Phone: -Emergency Department Work Phone: Start: 04-02-2025 End: 04-02-2025 Emergency department patient visit Sallie Hamazin DRILLING MACHINE RUNNER-C Work Phone: -Emergency Department Work Phone: Start: 04-01-2025 End: 04-01-2025 Emergency department patient visit Sallie Hamazin DRILLING MACHINE RUNNER-C Work Phone: -Emergency Department Work Phone: Start: 11-02-2024 End: 11-02-2024 ambulatory [facility] Facility:[facility] Start: 11-02-2024 End: 11-02-2024 Office outpatient visit 15 minutes Janna Eason APRN.SUPERVISOR [employer] Work Phone: [facility] Comment on above: Anxiety; Chronic insomnia Start: 10-05-2024 End: 10-05-2024 Telephone encounter Sallie Crowley APRN.SUPERVISOR [employer] Work Phone: [facility] Start: 10-01-2024 End: 10-01-2024 Patient encounter procedure Messi Barry MD Work Phone: [facility] Comment on above: Anxiety (Primary Dx) ; Chronic insomnia Start: 10-01-2024 End: 10-01-2024 Telephone encounter Messi Barry MD Work Phone: [facility] Comment on above: Insurance Authorizat ion Start: 10-01-2024 End: 10-01-2024 ambulatory MESSI BARRY Facility:[facility] Start: 11-04-2023 End: 11-04-2023 Patient encounter procedure Messi Barry MD Work Phone: [facility] Comment on above: Well adult exam ([facility] da Dx); АЛЕКСАНДР (generalized anxiety disorder); Pulmonary nodules; Cannabinoid hyperemesis syndrome; Attention deficit hyperactivity disorder (ADHD), unspecified ADHD type; Vitamin D deficiency; Need for hepatitis C screening test Start: 11-04-2023 End: 11-04-2023 Patient encounter status Messi Barry MD Work Phone: [facility] Work Phone: Start: 12-19-2022 End: 12-19-2022 Emergency department patient visit [facility] Facility:[facility] Start: 08-03-2022 Refill Clayton KLEIN RN.RASHEED SUTTON Work Phone: [facility] Comment on above: Refill Request; Refi ll Request Start: 04-28-2022 Refill Clayton KLEIN RN.RASHEED SUTTON Work Phone: [facility] Comment on above: Refill Request Start: 04-20-2022 Telephone encounter Sallie retana APRN.SUPERVISOR [employer] Work Phone: [facility] Comment on above: COVID question Start: 07-21-2017 End: 07-22-2017 Evaluation and management [facility] Facility:[facility] Procedures Date Procedure Procedure Detail Performing Clinician Start: 04-02-2025 SARS-CoV-2, Influenz a & RSV (PCR) Sallie Crowley DRILLING MACHINE RUNNER-C Work Phone: Start: 04-02-2025 Methadone measuremen t, urine Sallie Crowley DRILLING MACHINE RUNNER-C Work Phone: Start: 04-02-2025 Urnls dip stick/tabl et reagent auto microscopy Sallie Crowley DRILLING MACHINE RUNNER-C Work Phone: Start: 04-02-2025 Estimated creatinine clearance Sallie Crowley DRILLING MACHINE RUNNER-C Work Phone: Start: 04-01-2025 Computed tomography of abdomen and pelvis with intravenous contrast Sallie Crowley DRILLING MACHINE RUNNER-C Work Phone: Start: 04-01-2025 Estimated creatinine clearance Sallie Crowley DRILLING MACHINE RUNNER-C Work Phone: Start: 12-27-2018 Adult depression scr eening assessment Sallie Crowley CHILD CARE EDUCATION COORDINATOR.SUPERVISOR [employer] Work Phone: Plan of Treatment Date Care Activity Detail Author Start: 07-18-2030 Urine microalbumin profile [facility] Start: 11-02-2025 Covid-19 Vaccine ( season) Covid-19 Vaccine ( season) [facility] Comment on above: Postponed from 05/20 (Declined at this time) Start: 11-01-2025 End: 11-01-2025 Patient encounter procedure 11/01/2025 2:20 PM EST Office Visit Family Medicine [facility] [address] [place], [place] [id number] Sallie Crowley APRN.SUPERVISOR DETASSELING CREW [address] [facility] [place] [id number] physical Family Medicine [facility] Comment on above: physical Start: 04-03-2025 [facility] Start: 04-03-2025 [facility] Start: 04-02-2025 [facility] Start: 04-01-2025 End: 04-01-2025 [facility] Start: 03-18-2025 Influenza vaccination Influenza Vacc ine (#1) [facility] Comment on above: Postponed from 05/20 (Declined at this time) Start: 11-04-2024 Covid-19 Vaccine (#1) Covid-19 Vacci ne (#1) [facility] Comment on above: Postponed from 03/26 (Declined at this time) Start: 10-26-2024 End: 10-26-2024 Patient encounter procedure 10/26/2024 1:00 PM EST Office Visit [facility] [address] [facility] [place], [place] [id number] Sallie Crowley, RAMIRO.SUPERVISOR DETASSELING CREW [address] [facility] [place], [place] [id number] 4 week follow up. Insomnia. Started on [facility] Comment on above: 4 week follow up. In somnia. Started on [employer] Start: 10-01-2024 End: 12-31-2024 Comprehensive metabolic 2000 panel - Serum or Plasma [facility] Work Phone: Comment on above: Expected: 10/01/2024 , Expires: 12/31/2024 Start: 10-01-2024 End: 12-31-2024 Thyrotropin [Units/volume] in Serum or Plasma [facility] Comment on above: Expected: 10/01/2024 , Expires: 12/31/2024 Start: 09-18-2024 Depression Assessment Depression Ass essment [facility] Comment on above: Postponed from 09/19 (Declined at this time) Start: 05-20-2024 Covid-19 Vaccine ( season) Covid-19 Vaccine ( season) [facility] Start: 05-20-2024 Influenza vaccination Influenza Vacc ine (#1) [facility] Start: 03-18-2024 Influenza vaccination Influenza Vacc ine (#1) [facility] Comment on above: Postponed from 05/20 (Declined at this time) Start: 11-04-2023 End: 02-03-2024 25-hydroxyvitamin D3 [Mass/volume] in Serum or Plasma VITAMIN D 25 HYDROXY Lab Routine Vitamin D deficiency Expected: 11/04/2023, Expires: 02/03/2024 [facility] Work Phone: Comment on above: Expected: 11/04/2023 , Expires: 02/03/2024 Start: 11-04-2023 End: 02-03-2024 CBC W Auto Differential panel - Blood CBC + DIFF Lab Routine АЛЕКСАНДР (generalized anxiety disorder) Well adult exam Expected: 11/04/2023, Expires: 02/03/2024 [facility] Work Phone: Comment on above: Expected: 11/04/2023 , Expires: 02/03/2024 Start: 11-04-2023 End: 02-03-2024 Comprehensive metabolic 2000 panel - Serum or Plasma COMP METABOLIC PANEL Lab Routine АЛЕКСАНДР (generalized anxiety disorder) Well adult exam Expected: 11/04/2023, Expires: 02/03/2024 [facility] Work Phone: Comment on above: Expected: 11/04/2023 , Expires: 02/03/2024 Start: 11-04-2023 End: 02-03-2024 Hepatitis C virus Ab [Presence] in Serum HEPATITIS C ANTIBODY IA WITH CONFIRMATION Lab Routine Need for hepatitis C screening test Expected: 11/04/2023, Expires: 02/03/2024 [facility] Work Phone: Comment on above: Expected: 11/04/2023 , Expires: 02/03/2024 Start: 11-04-2023 End: 02-03-2024 Lipid 1996 panel - Serum or Plasma LIPID PANEL BASIC Lab Routine Well adult exam Expected: 11/04/2023, Expires: 02/03/2024 [facility] Work Phone: Comment on above: Expected: 11/04/2023 , Expires: 02/03/2024 Start: 05-20-2022 Influenza vaccination INFLUENZA (#1) [facility] Start: 09-19-2021 DEPRESSION ASSESSMENT DEPRESSION ASS ESSMENT [facility] Start: 12-28-2019 Adult depression screening assessment DEPRESSION SCREENING [facility] Start: 2012 Anxiety Screening Anxiety Screening [facility] Start: 2012 Depression Screening Depression Scre ening [facility] Start: 2012 HEPATITIS C SCREENING HEPATITIS C [facility] Start: 2012 Hepatitis C screening Hepatitis C [facility] Start: 03-26-1995 COVID-19 VACCINE (#1) COVID-19 VACCI NE (#1) [facility] Patient Education [facility] Work Phone: Immunizations Immunization Date Immunization Notes Care Provider Jenn more 06-03-2021 influenza, seasonal, injectable Sallie Haagen CHILD CARE EDUCATION COORDINATOR.SUPERVISOR DETASSELING CREW Work Phone: [facility] 06-03-2021 influenza virus vacc ine, unspecified formulation Messi Barry MD Work Phone: [facility] 09-19-2020 influenza, seasonal, injectable Sallie Haagen CHILD CARE EDUCATION COORDINATOR.SUPERVISOR DETASSELING CREW Work Phone: [facility] 07-18-2020 tetanus toxoid, redu maria elena diphtheria toxoid, and acellular pertussis vaccine, adsorbed Sallie Haagen CHILD CARE EDUCATION COORDINATOR.SUPERVISOR DETASSELING CREW Work Phone: [facility] 06-14-2019 influenza, injectabl e, quadrivalent, contains preservative Sallie Haagen CHILD CARE EDUCATION COORDINATOR.SUPERVISOR DETASSELING CREW Work Phone: [facility] 04-12-2019 Human Papillomavirus 9-valent vaccine Sallie Haagen CHILD CARE EDUCATION COORDINATOR.SUPERVISOR DETASSELING CREW Work Phone: [facility] Work Phone: 10-11-2018 human papilloma viru s vaccine, quadrivalent Sallie Haagen CHILD CARE EDUCATION COORDINATOR.SUPERVISOR DETASSELING CREW Work Phone: [facility] 10-11-2018 influenza, injectabl e, quadrivalent, contains preservative Sallie Haagen CHILD CARE EDUCATION COORDINATOR.SUPERVISOR DETASSELING CREW Work Phone: [facility] 10-11-2018 tetanus toxoid, redu maria elena diphtheria toxoid, and acellular pertussis vaccine, adsorbed Sallie Haagen CHILD CARE EDUCATION COORDINATOR.SUPERVISOR DETASSELING CREW Work Phone: [facility] 12-09-2010 hepatitis A vaccine, unspecified formulation Sallie Haagen CHILD CARE EDUCATION COORDINATOR.SUPERVISOR DETASSELING CREW Work Phone: [facility] 12-09-2010 human papilloma viru s vaccine, quadrivalent Sallie Haagen CHILD CARE EDUCATION COORDINATOR.SUPERVISOR DETASSELING CREW Work Phone: [facility] 12-09-2010 Meningococcal, MCV4, unspecified conjugate formulation(groups A, C, Y and W-135) Sallie Crowley CHILD CARE EDUCATION COORDINATOR.SUPERVISOR DETASSELING CREW Work Phone: [facility] 12-09-2010 poliovirus vaccine, inactivated Sallie Solomonagen CHILD CARE EDUCATION COORDINATOR.SUPERVISOR DETASSELING CREW Work Phone: [facility] 05-08-2008 measles, mumps and rubella virus vaccine Sallie Haagen CHILD CARE EDUCATION COORDINATOR.SUPERVISOR DETASSELING CREW Work Phone: [facility] Work Phone: 05-08-2008 tetanus toxoid, redu maria elena diphtheria toxoid, and acellular pertussis vaccine, adsorbed Sallie Haagen CHILD CARE EDUCATION COORDINATOR.SUPERVISOR DETASSELING CREW Work Phone: [facility] Work Phone: 05-19-1998 diphtheria, tetanus toxoids and acellular pertussis vaccine Sallie Haagen CHILD CARE EDUCATION COORDINATOR.SUPERVISOR DETASSELING CREW Work Phone: [facility] 05-19-1998 haemophilus influenz ae type b vaccine, HbOC conjugate Sallie Haagen CHILD CARE EDUCATION COORDINATOR.SUPERVISOR DETASSELING CREW Work Phone: [facility] 01-18-1996 diphtheria, tetanus toxoids and acellular pertussis vaccine Sallie Haagen CHILD CARE EDUCATION COORDINATOR.SUPERVISOR DETASSELING CREW Work Phone: [facility] 01-18-1996 haemophilus influenz ae type b vaccine, HbOC conjugate Sallie Haagen CHILD CARE EDUCATION COORDINATOR.SUPERVISOR DETASSELING CREW Work Phone: [facility] 01-18-1996 measles, mumps and rubella virus vaccine Sallie Haagen CHILD CARE EDUCATION COORDINATOR.SUPERVISOR DETASSELING CREW Work Phone: [facility] 01-18-1996 trivalent poliovirus vaccine, live, oral Sallie Haagen CHILD CARE EDUCATION COORDINATOR.SUPERVISOR DETASSELING CREW Work Phone: [facility] Work Phone: 07-26-1995 diphtheria, tetanus toxoids and pertussis vaccine Sallie Haagen CHILD CARE EDUCATION COORDINATOR.SUPERVISOR DETASSELING CREW Work Phone: [facility] Work Phone: 07-26-1995 haemophilus influenz ae type b vaccine, HbOC conjugate Sallie Haagen CHILD CARE EDUCATION COORDINATOR.SUPERVISOR DETASSELING CREW Work Phone: [facility] 07-26-1995 hepatitis B vaccine, pediatric or pediatric/adolescent dosage Sallie Haagen CHILD CARE EDUCATION COORDINATOR.SUPERVISOR DETASSELING CREW Work Phone: [facility] 07-26-1995 trivalent poliovirus vaccine, live, oral Sallie Haagen CHILD CARE EDUCATION COORDINATOR.SUPERVISOR DETASSELING CREW Work Phone: [facility] Work Phone: 01-24-1995 diphtheria, tetanus toxoids and pertussis vaccine Sallie Haagen CHILD CARE EDUCATION COORDINATOR.SUPERVISOR DETASSELING CREW Work Phone: [facility] Work Phone: 01-24-1995 haemophilus influenz ae type b vaccine, HbOC conjugate Sallie Haagen CHILD CARE EDUCATION COORDINATOR.SUPERVISOR DETASSELING CREW Work Phone: [facility] 01-24-1995 hepatitis B vaccine, pediatric or pediatric/adolescent dosage Sallie Haagen CHILD CARE EDUCATION COORDINATOR.SUPERVISOR DETASSELING CREW Work Phone: [facility] 01-24-1995 trivalent poliovirus vaccine, live, oral Sallie Haagen CHILD CARE EDUCATION COORDINATOR.SUPERVISOR DETASSELING CREW Work Phone: [facility] Work Phone: 1994 hepatitis B vaccine, pediatric or pediatric/adolescent dosage Sallie Haagen CHILD CARE EDUCATION COORDINATOR.SUPERVISOR DETASSELING CREW Work Phone: [facility] Payers Date Payer Category Payer Private Health Insurance MMO SUP ERMED O [id number] 2023 Unknown [id number] 2022 Self-pay 2022 Unknown [id number] 2022 Unknown [id number] 2020 Unknown [employer] BLUE CARD PPO OOS [id number] 2020-Present [phone] [address] [place] [address] PPO [id number] 2020 Unknown [id number] Medicaid [id number] Unknown [id number] Social History Date Type Detail Facility Start: 06-02-2012 End: 04-02-2025 Tobacco smoking status NHIS Never smoked tobacco [facility] Start: 06-02-2012 End: 10-01-2024 Tobacco use and exposure Smokeless tobacco non-user [facility] Start: 09-25-2021 End: 10-01-2024 Alcohol intake Current drinker of alcohol (finding) [facility] Start: 10-11-2018 History SDOH Alcohol Comment rarely [facility] Start: 1995 Sex Assigned At Not on file [facility] Start: 09-25-2021 End: 11-02-2024 History of Social function [facility] Start: 09-25-2021 End: 11-02-2024 Tobacco use panel [facility] PHQ2 Score 0 [facility] Start: 1995 Sex Assigned At Male [facility] Start: 04-03-2025 End: 04-03-2025 Tobacco smoking status NHIS Smokes tobacco daily (finding) [facility] Functional Status Date Assessment Result Facility 12-22-2020 Are you deaf, or do you have serious difficulty hearing No 12/22/2020 3:40 PM Brianna Mccullough RN No [facility] 12-22-2020 Are you blind, or do you have serious difficulty seeing, even when wearing glasses No 12/22/2020 3:40 PM Brianna Mccullough RN No [facility] 12-22-2020 Do you have serious difficulty walking or climbing stairs No 12/22/2020 3:40 PM EDT Brianna Das RN No [facility] 12-22-2020 Do you have difficul ty dressing or bathing No 12/22/2020 3:40 PM EDT Brianna Das RN No [facility] 12-22-2020 Because of a physica l, mental, or emotional condition, do you have difficulty doing errands alone such as visiting a physician's office or shopping No 12/22/2020 3:40 PM EDT Brianna Das RN No [facility] Mental Status Date Assessment Result Facility 12-22-2020 Because of a physica l, mental, or emotional condition, do you have serious difficulty concentrating, remembering, or making decisions No 12/22/2020 3:40 PM EDT Brianna Das RN No [facility] Clinical Notes 12-19-2020 to 04-02-2025 Note Date & Type Note Facility 04-02-2025 Discharge summary [facility] 04-02-2025 Discharge summary Note Date/Time April 02, 2025 4:59pm [facility] Medical Records Department [address] [place] [address] Emergency Department Summary 04/02/25 MR#: [id number] Acct: [id number] Name: PHUONG GARCIA Rep #:[id number] : 1995 29 From: Js khan DO PCP: VIVIANA Loomis Status:REG E R Location: ED ADDENDUM by Dr. Lyndon Leo DO on 04/02/25 at 7019 Care of the patient was turned over [...] the plan. All questions were answered. 04/02/25 1048<Electronically signed by Lyndon Leo DO> Cosigner Signature (if applicable): cc: VIVIANA Crowley ~* Signed HPI History of Present [...] intact Psych: Cooperative, appropriate mood and affect [facility] Home Medications ?Medication ?Instructions ?Recorded ?Last Taken [...] (Auto) 70.3 H Lymph % (Auto) 19.7 [place] % (Auto) 9.2 Eos % (Auto) 0.1 [...] Clarity Clear Urine pH 6.0 Ur Specific [place] 1.015 Urine Protein 30 H Urine Glucose [...] Provider: Sallie Crowley NP Referrals: Sallie Crowley DRILLING MACHINE RUNNER, DRILLING MACHINE RUNNER-C [Primary Care Provider] - 3-5 Days Activity Restrictions/Additional Instructions: Given that you felt that the Zofran was not working. Recommend stop taking Zofran. Will write for Reglan. Refrain from marijuana. Continue your capsaicin cream. Follow-up with your primary care physician. Return back to the ED if symptoms change or worsen. Recommend liquid diet for the next 24 to 48 hours. Print Language: Hungarian Disposition Disposition: Home, Self Care What to do if you have Problems For any increased pain, shortness of breath, bleeding, nausea or vomiting, chestpain, or any unexpected problems, contact your Primary Care Provider. Call [facility] ([phone]) or report to the closest Emergency Room. Call 911 if necessary. 04/02/25 8344 <Electronically signed by Js Perez DO> Cosigner Signature (if applicable): CC: ALFREDO-C Sallie Crowley ~ Signed [facility] Work Phone: 1(122) 778-340307-14-2025 Radiology Diagnostic study note [facility] Imaging Services [address] [place], [place] [address] Abdomen/Pelvis W IV Cont ONLY MR#: [id number] Acct: [id number] Name: PHUONG GARCIA Rep #: [id number] : 1995 M 29 From: Rashid Calix MD PCP: VIVIANA Loomis Status: REG E R Study:Abdomen/Pelvis W IV Cont ONLY Date of E xam: 04/01/25 Exam# [id number] Ordering Dr: Lyndon Leo DO PROCEDURE: ABDOMEN/PELVIS [...] or active inflammatory intra-abdominal pathology. Reading Location: [id number] CC: VIVIANA Crowley; Dr. Lyndon Leo DO ~ Wax Pourer: Signed [facility]02-14-2025 Instructions* Patient Instructions* Janna Eason APRN.CNP - 11/02/2024 4:33 PM EST 1) No change in medications 2) Physical in a year documented in [facility] encounterMem[facility]02-14-2025 NoteHNO ID: [id number] Author: JANNA EASON APRN.CNP Service: ? Author [...] as needed for worsening/no improvement. Janna Eason APRN.[facility]02-14-2025 History of Present illness Narrative* Janna Eason APRN.SUPERVISOR DETASSELING CREW - 11/02/2024 4:27 PM EST This is [...] Resp 16 Wt 65.3 kg (144 lb) RvL157% BMI 21.27 kg/m PHYSICAL EXAM: Physical Exam [...] as needed for worsening/no improvement. Janna Eason APRN.SUPERVISOR DETASSELING CREW documented in this encounterMem[facility] System01-17-2025 Telephone encounter Note * Telephone Encounter - Sergo Kohler LPN - 10/05/2024 9:36 AM EST Patient notified of results, verbalizes understanding of instructions. Sergo Kohler LPN [facility]01-17-2025 Miscellaneous Notes* Telephone Encounter - Sergo Kohler [...] pt. Jennifer Mike LPN documented in this encounterMemorial Health System01-17-2025 Telephone encounter Note * Telephone Encounter - Messi Barry MD - 10/05/2024 9:31 AM EST Make sure taking with food. Usually will go away if continues on it. If continues, can cut in half for one week and then increase. [facility]01-17-2025 Telephone encounter Note* Telephone Encounter - Jennifer [...] medication. Please advise pt. Jennifer Mike LPN [facility]01-13-2025 Telephone encounter Note* Telephone Encounter - Nilson Rasmussen RN - 10/01/2024 3:11 PM EST Patient calls to request PA for [employer]iq. Prior Auth is pending. Nilson Rasmussen RN [facility]01-13-2025 Miscellaneous Notes* Telephone Encounter - Nilson Rasmussen RN - 10/01/2024 3:11 PM EST Patient calls to request PA for Prestiq. Prior Auth is pending. Nilson Rasmussen RN documented in this encounterMemorial Health System01-13-2025 Instructions* Patient Instructions* Messi Barry MD - 10/01/2024 2:26 PM EST Melatonin 3 mg at bedtime as needed for sleep. documented in this encounterMemorial Health System01-13-2025 NoteHNO ID: [id number] Author: MESSI BARRY MD Service: ? Author [...] Barry MD RTO [facility] History of Present illness Narrative* Messi Barry [...] four weeks or prn documented in this encounterMemorial Health System02-16-2024 History of Present illness Narrative* Messi Barry [...] one year. and prn. documented in this encounterMemorial Health System11-16-2022 Miscellaneous Notes* Telephone Encounter - Jennifer Mike [...] none Kary Thompson Ma documented in this encounterMemorial Health System08-11-2022 Miscellaneous Notes* Telephone Encounter - Wendie Gallegos [...] advise. Sandro Kang LPN documented in this encounterMemorial Health System08-02-2022 Miscellaneous Notes* Telephone Encounter - Sandro Kang LPN - 04/20/2022 2:33 PM EDT TC to pt mother, Simran, notified of provider response. She verbalized understanding. Sandro Kang LPN * Telephone Encounter - Sallie Crowley APRN.CNP - 04/20/2022 2:10 PM EDT If the tests are still positive, then he probably is still shedding the virus despite having his symptoms resolve. * Telephone Encounter - Jennifer Mike LPN - 04/20/2022 1:44 PM EDT Pt's mother calling for pt. Ashley states pt tested positive for COVID with [...] mother. Jennifer Mike LPN documented in this encounterMemorial Health System04-05-2021 NoteHNO ID: [id number] Author: María Cuevas (Msw) Service: Care Management Author Type: Inward Toll Operator Type: Care Mgt Progress Note Filed: 12/22/2020 [...] needs identified. Mom is transporting home. SIGNATURE: MARKY Sharma, QUALITY IMPROVEMENT ANALYST, [facility] PATIENT NAME: Phuong Garcia DATE: December 22, 2020 TIME: 3:53 PM PAGER/CONTACT #: [phone] [id number] NoteHNO ID: [id number] Author: Makenzie Lino) Service: Hospital Medicine Author Type: Nurse Practitioner Type: Plan of Care Filed: 12/19/2020 9:21 PM Note Text: SHORT HOSPITALIST PROGRESS NOTE Name: Phuong Garcia SERVICE DATE: 12/19/2020 SERVICE TIME: 9:03 PM Hospital Medicine/Primary Attending: Zenia Ch NIGHT COVERAGE BETWEEN 5.30P-7.30A Page [phone] Patient seen and evaluated. Reviewed orders and HANDP from this AM. ASSESSMENT: Phuong Garcia is a 25 year old male with a PMHx significant for Cannabinoid Hyperemesis Syndrome, GERD, and ADD who presented to [place] ED on 12/18 for evaluation of intractable [...] CM and Dr. Ch SIGNATURE: Makenzie Lange APRN.SUPERVISOR DETASSELING CREW DATE: December 19, 2020 TIME: 9:03 PMC[facility] [id number] NoteHNO ID: [id number] Author: Chacha (Rn) JUDD Overton Service: ? Author Type: Registered Nurse Type: ED Notes Filed: 12/19/2020 1:59 AM Note Text: [facility] mom [facility] Diagnosis АЛЕКСАНДР (generalized anxiety disorder) Generalized anxiety disorder documented [facility]* Diagnosis АЛЕКСАНДР (generalized anxiety disorder) Generalized anxiety disorder documented in this encounter [facility]* Diagnosis Well adult exam- Primary Routine [...] specified viral diseases documented in this encounter [facility] note* Diagnosis Anxiety- Primary Anxiety state, unspecified Chronic insomnia Insomnia, unspecified [facility]* Diagnosis Anxiety Anxiety state, unspecified Chronic insomnia Insomnia, unspecified [facility] noteNo assessment information availableWSt. Charles Hospital Work Phone: Hospital Discharge instructionsAdditional Instructions Given that you felt that the Zofran was not working. Recommend stop taking Zofran. Will write for Reglan. Refrain from marijuana. Continue your capsaicin cream. Follow-up with your primary care physician. Return back to the ED if symptoms change or worsen. Recommend liquid diet for the next 24 to 48 hours.[facility] Work Phone: Hospital Discharge instructionsAdditional Instructions Please stop the Reglan and begin taking the Haldol and add the promethazine if needed for further nausea/vomit control. Add the potassium as directed as well. Please refrain from marijuana use as this could worsen symptoms. Return to the ER should you have any further concernsWSt. Charles Hospital Work Phone: Hospital Discharge instructionsAdditional Instructions Your home Zofran medication for nausea. You can swallow it or let dissolve under your tongue. Plenty of fluids and rest. Slowly increase your diet as tolerated. The most important thing is fluids. Start with water, 7-Up Gatorade and slowly increase as tolerated. Follow-up with your primary care provider if not improving or return if worse. Long-term use to stop using marijuana and/or cannabis. That can cause this which is called cyclic vomiting. It may take weeks or months for it to resolve even though he stopped using on Tuesday.[facility] Work Phone: Reason for referral (narrative)No reason for referral information availableWSt. 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 No April 01, 2025 5:55pm Advance Directive Response Recorded Date/ Time Do you have a Healthcare Power of Doctor Of Nurse Anesthesia? No April 01, 2025 5:55pm Do you have a Healthcare Power of Doctor Of Nurse Anesthesia? No April 02, 2025 12:10pm Advance Directive Response Recorded Date/ Time Do you have a Healthcare Power of Doctor Of Nurse Anesthesia? No April 01, 2025 5:55pm Do you have a Healthcare Power of Doctor Of Nurse Anesthesia? No April 02, 2025 12:10pm Do you have a Healthcare Power of Doctor Of Nurse Anesthesia? No April 03, 2025 5:59am Advance Directive Response Recorded Date/ Time Do you have a Healthcare Power of Doctor Of Nurse Anesthesia? No April 01, 2025 5:55pm Do you have a Healthcare Power of Doctor Of Nurse Anesthesia? No April 02, 2025 12:10pm Do you have a Healthcare Power of Doctor Of Nurse Anesthesia? No April 03, 2025 5:59am Do you have a Healthcare Power of Doctor Of Nurse Anesthesia? No April 03, 2025 2:39pm Reason for Referral Specialty Diagnoses / Procedures Referred By Contmeli t Referred To Contact Diagnoses [id number] (generalized anxiety disorder) Procedures CONSULT TO PRIMARY CARE BEHAVIORAL HEALTH ADULT OFFICE/OUTPATIENT [facility] HIGH MDM 60 MINUTES Messi Barry MD [address] [place] [address] Referral ID Status Reason Start Date Expiration Date Visits Requested Visits Authorized [id number] Pending Review PCP Requested Referral 11/04/2023 02/02/2024 1 1 Specialty Diagnoses / Procedures Referred By Stefan muñoz Referred To Contact Diagnoses Anxiety Chronic insomnia Messi Barry MD [address] [place] [address] Referral ID Status Reason Start Date Expiration Date V isits Requested Visits Authorized [id number] Pending Review 1 1 Chief Complaint and Reason for Visit Chief Complaint Admit Date N/V/D April 01, 2025 4:13 pm Chief Complaint Admit Date N/V/D April 01, 2025 4:13 pm N/V April 02, 2025 12:0 5pm Chief Complaint Admit Date N/V/D April 01, 2025 4:13 pm N/V April 02, 2025 12:0 5pm n/v April 03, 2025 5:55 am Chief Complaint Admit Date N/V/D April 01, 2025 4:13 pm N/V April 02, 2025 12:0 5pm n/v April 03, 2025 5:55 am N/V April 03, 2025 1:58 pm Additional Source Comments (unrecognized sect ion and content) No Status Records FoundNo Status Records FoundNo Status Records FoundNo Status Records FoundNo Status Records FoundNo Status Records Found INFORMATION SOURCE (unrecogn ized section and content) DATE CREATED AUTHOR 03/17/2018 [facility] DATE CREATED AUTHOR AUTHOR'S ORGANIZ ATION 11/09/2020 [facility] DATE CREATED AUTHOR AUTHOR'S ORGANIZ ATION 12/19/2020 [facility] DATE CREATED AUTHOR AUTHOR'S ORGANIZ ATION 12/10/2021 [facility] DATE CREATED AUTHOR AUTHOR'S ORGANIZ ATION 03/29/2023 [facility] DATE CREATED AUTHOR AUTHOR'S RAGHAVENDRA GARY 11/05/2024 [facility] Source Comments (unrecognize d section and content) In the event this informatio n is protected by the Federal Confidentiality of Alcohol and Drug Abuse Patient Records regulations: The Federal rules restrict any use of the information to criminally investigate or prosecute any alcohol or drug abuse patient.[facility] the event this information is protected by the Federal Confidentiality of Alcohol and Drug Abuse Patient Records regulations: The Federal rules restrict any use of the information to criminally investigate or prosecute any alcohol or drug abuse patient.[facility] System[facility] the event this information is protected by the Federal Confidentiality of Alcohol and Drug Abuse Patient Records regulations: The Federal rules restrict any use of the information to criminally investigate or prosecute any alcohol or drug abuse patient.[facility] System[facility] the event this information is protected by the Federal Confidentiality of Alcohol and Drug Abuse Patient Records regulations: The Federal rules restrict any use of the information to criminally investigate or prosecute any alcohol or drug abuse patient.[facility] System[facility] the event this information is protected by the Federal Confidentiality of Alcohol and Drug Abuse Patient Records regulations: The Federal rules restrict any use of the information to criminally investigate or prosecute any alcohol or drug abuse patient.[facility] SystemIn the event this information is protected by the Federal Confidentiality of Alcohol and Drug Abuse Patient Records regulations: The Federal rules restrict any use of the information to criminally investigate or prosecute any alcohol or drug abuse patient.[facility] System[facility] the event this information is protected by the Federal Confidentiality of Alcohol and Drug Abuse Patient Records regulations: The Federal rules restrict any use of the information to criminally investigate or prosecute any alcohol or drug abuse patient.[facility] System[facility] the event this information is protected by the Federal Confidentiality of Alcohol and Drug Abuse Patient Records regulations: The Federal rules restrict any use of the information to criminally investigate or prosecute any alcohol or drug abuse patient.[facility] Reason for Visit (unrecogniz ed section and content) Reason Comments COVID question Reason Comments Refill Request Reason Onset Date Comments Refill Request Refill Request 08/03/2022 Reason Comments Physical Reason Comments Sleep Problem Reason Comments Insurance Authorization Reason Comments Anxiety 4 week medication fo llow up Care Teams (unrecognized sec tion and content) Electronics Processing Supervisor Relationship Specialty Start Date End Date Sallie Crowley, CHILD CARE EDUCATION COORDINATOR.SUPERVISOR DETASSELING CREW [address], [place] [id number] PCP - General Family Practice 12/26/20 Electronics Processing Supervisor Relationship Specialty Start Date End Date Sallie Crowley, CHILD CARE EDUCATION COORDINATOR.SUPERVISOR DETASSELING CREW [address], [place] [id number] PCP - General Family Practice 12/26/20 Electronics Processing Supervisor Relationship Specialty Start Date End Date Sallie Crowley, CHILD CARE EDUCATION COORDINATOR.SUPERVISOR DETASSELING CREW [address], [place] [id number] PCP - General Family Medicine 12/26/20 Electronics Processing Supervisor Relationship Specialty Start Date End Date Sallie Crowley, CHILD CARE EDUCATION COORDINATOR.SUPERVISOR DETASSELING CREW [address], [place] [address] PCP - General Family Medicine 12/26/20 Electronics Processing Supervisor Relationship Specialty Start Date End Date Sallie Crowley, CHILD CARE EDUCATION COORDINATOR.SUPERVISOR DETASSELING CREW [address], [place] [id number] PCP - General Family Medicine 12/26/20 Janna Eason, CHILD CARE EDUCATION COORDINATOR.SUPERVISOR DETASSELING CREW [address], [place] [id number] [facility] 08/26/24 Messi Barry MD [address], [place] [id number] [facility] 08/26/24 Electronics Processing Supervisor Relationship Specialty Start Date End Date Sallie Crowley, CHILD CARE EDUCATION COORDINATOR.SUPERVISOR DETASSELING CREW [address] [place] [address] PCP - General Family Medicine 12/26/20 Janna Eason CHILD CARE EDUCATION COORDINATOR.SUPERVISOR DETASSELING CREW [address] [place] [address] [facility] 08/26/24 Messi Barry MD [address] [place] [address] [facility] 08/26/24 Electronics Processing Supervisor Relationship Specialty Start Date End Date Sallie Crowley, CHILD CARE EDUCATION COORDINATOR.SUPERVISOR DETASSELING CREW [address] [place] [address] PCP - General Family Medicine 12/26/20 Janna Eason CHILD CARE EDUCATION COORDINATOR.SUPERVISOR DETASSELING CREW [address] [place] [address] [facility] 08/26/24 Messi Barry MD [address], [place] [address] [facility] 08/26/24 Team Status: Active Member Role/Relationship Status Dates Sallie Crowley DRILLING MACHINE RUNNER, DRILLING MACHINE RUNNER-C Primary Care Provider Active Team Status: Inactive Member Role/Relationship Status Dates Sallie Crowley DRILLING MACHINE RUNNER, DRILLING MACHINE RUNNER-C Primary Care Provider Active Start: April 01, 2025 End: April 01, 2025 Dr. Lyndon Leo , DO Emergency Provider Active Start: April 01, 2025 End: April 01, 2025 Team Status: Inactive Member Role/Relationship Status Dates Sallie Crowley DRILLING MACHINE RUNNER, DRILLING MACHINE RUNNER-C Primary Care Provider Active Start: April 02, 2025 End: April 02, 2025 Dr. Js Perez , DO Emergency Provider Activ e Start: April 02, 2025 End: April 02, 2025 Team Status: Inactive Member Role/Relationship Status Dates Sallie Crowley DRILLING MACHINE RUNNER, DRILLING MACHINE RUNNER-C Primary Care Provider Active Start: April 03, 2025 End: April 03, 2025 Dr. Charlie Harmon , DO Emergency Provider Active Start: April 03, 2025 End: April 03, 2025 Team Status: Inactive Member Role/Relationship Status Dates Sallie Crowley DRILLING MACHINE RUNNER, DRILLING MACHINE RUNNER-C Primary Care Provider Active Start: April 03, 2025 End: April 03, 2025 Dr. Pancho Negro MD Emergency Provider Active S tart: April 03, 2025 End: April 03, 2025 Goals (unrecognized section and content) Goals may be documented in a n alternate sectionGoals may be documented in an alternate sectionGoals may be documented in an alternate sectionGoals may be documented in an [...] BE BASED ON THE PRIMARY CLINICAL RECORDS. [employer] [facility]. provides no warranty or guarantee of the accuracy or completeness of information in this document.
[2025-04-03 23:37] LABS: Barbiturate Urine NEGATIVE (< 200 ng/mL); Benzodiazepine Urine PRESUMPTIVE POSITIVE (< 200 ng/mL); PCP Urine NEGATIVE (< 25 ng/mL); THC Urine PRESUMPTIVE POSITIVE (< 50 ng/mL)
[2025-04-03] MEDS: Lactated Ringers 1,000 ML 150 ML IV (23:56)
[2025-04-03] MEDS: Scopolamine 1mg/72hr Patch 1 PATCH TD (23:57)
[2025-04-04] LABS: Mucous, Urine RARE /hpf (<or=2+)
[2025-04-04] MEDS: Pantoprazole Sodium 40 MG in 0.9% Normal Saline (100mL MB+) 100 ML 330 MG IV ×2 (00:01→09:28)
[2025-04-04 00:02] VITALS: BMI 19.5
[2025-04-04 00:30] VITALS: BP 150/87; PULSE 81; RESP 18; TEMP 36.8; O2SAT 100
[2025-04-04] MEDS: 0.9% Saline Lock 10 ML Syringe IV ×4 (03:33→17:53)
[2025-04-04 04:19] VITALS: BP 143/86; PULSE 68; RESP 18; TEMP 36.8; O2SAT 100
[2025-04-04 06:20] LABS: Hematocrit 34.4 % (40-54); Hemoglobin 12.3 g/dL (13.0-16.5); Immature Granulocytes Count 0.040 X10^3/uL (0.0-0.0); Mean Corp Hgb Conc 35.8 g/dL (32-36); Mean Corpuscular Volume 84.9 fL (80-94); Mean Platelet Vol. 11.4 fl (6.2-12.0); NRBC Flagged by Analyzer 0 % (0-5); Platelet Count 198 K/mm3 (150-450); RBC Distribution Width CV 10.8 % (11.6-14.6); RBC Distribution Width SD 33.9 fl (35.1-43.9); Red Blood Count 4.05 M/mm3 (4.6-6.2); White Blood Count 7.7 K/mm3 (4.4-11.0)
[2025-04-04] MEDS: Lactated Ringers 1,000 ML 150 ML IV ×2 (06:45→14:31)
[2025-04-04 07:03] LABS: AST(SGOT) 11 U/L (<=37); Alanine Aminotransfer ALT/SGPT 8 U/L (<=46); Albumin, Serum 3.6 g/dL (3.5-5.0); Alkaline Phosphatase 33 U/L (40-129); Anion Gap 10 (5-15); BUN 13 mg/dL (4-19); BUN/Creat Ratio 12.0 RATIO (10-20); Calcium,Total 8.2 mg/dL (7.6-11.0); Carbon Dioxide 23.1 mmol/L (21.0-32.0); Chloride 104 mmol/L (98-108); Estimated Creatinine Clearance 86.48 ml/min (50-250); Globulin 2.0 g/dL (2.2-4.2); Glucose 90 mg/dL (70-99); Potassium 3.5 mmol/L (3.3-5.1)
[2025-04-04 09:35] VITALS: BP 135/111; PULSE 69; RESP 14; TEMP 36.2; O2SAT 100
--- NOTE | 2025-04-04 09:41 | NURSING ---
0935- This RN notified by Dr Burton that pt was vomiting. Into room with PRN antiemetic. While in room, observed pt shoving his fingers down his throat to induce vomiting. Educated on PRN antiemetics and scheduled medications, allowing stomach to rest-NPO, and not inducing vomiting. Pt verbalized understanding.
[2025-04-04] MEDS: proMETHazine 25 MG/ML Syringe 12.5 MG IM ×2 (11:02→15:14)
--- NOTE | 2025-04-04 12:28 | PCM.PN.HOSP ---
Reason for Visit Chief Complaint: Intractable Nausea and Vomiting. Subjective Subjective Still with nausea. States that he has not taken any THC related products since his symptoms began last week. Objective Data Objective Data Vital Signs: Vital Signs Temp Pulse Resp BP Pulse Ox O2 Del Method 36.2 C L 69 14 135/111 H 100 Room Air 04/04/25 09:35 04/04/25 09:35 04/04/25 09:35 04/04/25 09:35 04/04/25 09:35 04/04/25 09:35 Oxygen Delivery Method Room Air Weight: 60 kg Body Mass Index (BMI) 19.5 Intake & Output: Intake and Output for Last 24 Hours 04/02/25 04/03/25 04/04/25 23:59 23:59 23:59 Intake Total 1111.5 / 1111.5 1607.5 / 1607.5 Balance 1111.5 / 1111.5 1607.5 / 1607.5 Lab / Micro Data 04/04/25 05:23 04/04/25 05:23 Labs: Laboratory Results - last 24 hr 04/03/25 21:32: WBC 8.3, RBC 4.72, Hgb 14.4, Hct 40.5, MCV 85.8, MCH 30.5, MCHC 35.6, RDW Std Deviation 33.9 L, RDW Coeff of Loulou 10.8 L, Plt Count 196, MPV 11.2, Immature Gran % (Auto) 0.200, Neut % (Auto) 71.7 H, Lymph % (Auto) 20.3, [place] % (Auto) 7.1, Eos % (Auto) 0.2, Baso % (Auto) 0.5, Absolute Neuts (auto) 6.0, Absolute Lymphs (auto) 1.69, Nucleated RBC % 0, Sodium 135, Potassium 3.8, Chloride 99, Carbon Dioxide 23.2, Anion Gap 13, BUN 12, Creatinine 1.21 H, Estim Creat Clear Calc 75.31, Est GFR (MDRD) Non-Af 83, BUN/Creatinine Ratio 10.2, Glucose 96, Calcium 8.9, Magnesium 2.4 H 04/03/25 22:45: Urine Color Yellow, Urine Clarity Clear, Urine pH 7.0, Ur Specific [place] 1.010, Urine Protein 15 H, Urine Glucose (UA) Normal, Urine Ketones 50 H, Urine Occult Blood Negative, Urine Nitrite Negative, Urine Bilirubin Negative, Urine Urobilinogen Normal, Ur Leukocyte Esterase Negative, Urine RBC 0 SEEN, Urine WBC 0-5 SEEN, Ur Squamous Epith Cells 0 SEEN, Urine Bacteria 1+, Urine Mucus RARE, Urine Opiates Screen NEGATIVE, U Buprenorphine Qual NEGATIVE, Ur Oxycodone Screen NEGATIVE, Urine Methadone Screen NEGATIVE, Urine Fentanyl Screen NEGATIVE, Ur Barbiturates Screen NEGATIVE, Ur Phencyclidine Scrn NEGATIVE, Ur Amphetamines Screen NEGATIVE, U Benzodiazepines Scrn PRESUMPTIVE POSITIVE, Urine Cocaine Screen NEGATIVE, U Cannabinoids Screen PRESUMPTIVE POSITIVE 04/04/25 05:23: WBC 7.7, RBC 4.05 L, Hgb 12.3 L, Hct 34.4 L, MCV 84.9, MCH 30.4, MCHC 35.8, RDW Std Deviation 33.9 L, RDW Coeff of Loulou 10.8 L, Plt Count 198, MPV 11.4, Immature Gran % (Auto) 0.500, Neut % (Auto) 75.5 H, Lymph % (Auto) 16.2 L, [place] % (Auto) 7.2, Eos % (Auto) 0.1, Baso % (Auto) 0.5, Absolute Neuts (auto) 5.8, Absolute Lymphs (auto) 1.24, Nucleated RBC % 0, Sodium 137, Potassium 3.5, Chloride 104, Carbon Dioxide 23.1, Anion Gap 10, BUN 13, Creatinine 1.06, Estim Creat Clear Calc 86.48, Est GFR (MDRD) Non-Af 97, BUN/Creatinine Ratio 12.0, Glucose 90, Calcium 8.2, Phosphorus 2.1 L, Total Bilirubin 1.21, AST 11, ALT 8, Alkaline Phosphatase 33 L, Total Protein 5.5 L, Albumin 3.6, Globulin 2.0 L, Albumin/Globulin Ratio 1.8, TSH 0.864 Physical Exam Const alert Constitutional Narrative: Up walking in his room. Did start retching towards the end of our encounter but no vomiting at that time. HEENT head/scalp atraumatic and moist oral mucous membranes Resp normal respiratory effort and no retractions Cardio regular rate, regular rhythm, S1 normal heart sound and S2 normal heart sound GI normal to inspection, nondistended, normoactive bowel sounds, soft to palpation, non-tender and non-distended Extremity normal to inspection Assessment & Plan Assessment/Plan (1) Intractable nausea and vomiting: PLAN: Suspect due to cannabinoid hyperemesis syndrome. Patient reports that he has not used any THC containing compounds in about a week. Will continue with supportive management at this time. Patient had a CT of the pelvis performed on the that was unremarkable. Would hold off on doing additional testing at this time unless his condition were to worsen. Patient advised to refrain from cannabis containing compounds including vaping, smoking or edibles. Patient states that he would comply as he has had history of this in the past. Continue IVF PLAN: Plan VTE prophylaxis: LMWH. Charges/Coding Visit Charges Inpatient E&M: 48959 Subs Hosp L2
[2025-04-04 15:15] VITALS: BP 160/78; PULSE 76; RESP 18; TEMP 36.6; O2SAT 100
--- NOTE | 2025-04-04 15:16 | CHAPLAIN ---
Type of Pastoral Visit _x__ Initial Visit ___ Follow-up Visit ___ On-call Visit ___ General Patient Visit ___ Spiritual Assessment ___ Family Conference ___ Bereavement ___ Rapid Response ___ Code Blue ___ Other (describe below) Pastoral Care Referral From _x__ Patient ___ Family ___ Nurse ___ Physician ___ Supervisor [employer] ___ Sewing Line Baler ___ Other (describe below) Sacrament/Intervention _x__ Active listening ___ Anointing ___ Episcopal ___ Bereavement ___ Communion _x__ Jessica exploration ___ _x__ Life review _x__ Prayer ___ Reconciliation ___ Sacrament of Sick _x__ Supportive presence ___ Wedding ___ Other (describe below) Pastoral Comments patient is welcoming and open to spiritual care; grandmother of the pt is with him in the room; pt says that "I certainly need a prayer" as he explains several days of [place]; pt gives some life review and speaks of having two young daughters; as pt talks about his life and family it becomes known that this licensed appraiser is acquainted with family members and it opens up more details of his life; pt acknowledges that he needs to be more active in a advent and that he does have a desire to relate to God; this licensed appraiser brings affirmation and encouragement to ideas expressed by the patient; prayer and presence given; grandmother also asks for prayers and she talks about her needs; came into room at this time
[2025-04-04] MEDS: Scopolamine 1mg/72hr Patch 1 PATCH TD (19:00)
[2025-04-04 21:15] VITALS: BP 151/70; PULSE 70; RESP 16; TEMP 36.4; O2SAT 99
[2025-04-05 03:26] VITALS: BMI 19.3
[2025-04-05] MEDS: 0.9% Saline Lock 10 ML Syringe IV ×4 (04:02→14:47)
--- NOTE | 2025-04-05 07:15 | PCM.PN.HOSP ---
Reason for Visit Chief Complaint: Intractable Nausea and Vomiting. Subjective Subjective Patient notes resolution of emesis from the day prior but persistent ongoing nausea but willingness to trial clear liquids this morning. 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 Strongly discussed complete cannabis cessation including any THC vaping products. Patient denies fevers, chills, abdominal pain, chest pain or dyspnea. Objective Data Objective Data Vital Signs: Vital Signs Temp Pulse Resp BP Pulse Ox O2 Del Method 97.6 F L 70 16 151/70 H 99 Room Air 04/04/25 21:15 04/04/25 21:15 04/04/25 21:15 04/04/25 21:15 04/04/25 21:15 04/04/25 22:00 Oxygen Delivery Method Room Air Weight: 131 lb 6.328 oz Body Mass Index (BMI) 19.3 Intake & Output: Intake and Output for Last 24 Hours 04/03/25 04/04/25 04/05/25 23:59 23:59 23:59 Intake Total 1111.5 / 1111.5 3200.0 / 3200.0 0 / 0 Balance 1111.5 / 1111.5 3200.0 / 3200.0 0 / 0 Lab / Micro Data 04/05/25 09:15 04/05/25 09:15 Labs: Laboratory Results - last 24 hr 04/05/25 05:27: Phosphorus 3.0 Physical Exam Narrative Physical Examination: General: Awake, alert, oriented x 3 and cooperative, seated upright in PCU bedside chair, fatigued otherwise no acute distress. Skin: Normal color, normal turgor, no icterus, no cyanosis. HEENT: AT/NC, EOMI, PERRLA, moderately dry MM. Lungs: CTA bilaterally, moderate effort, mild decrease BL bases, no rales, ronchi or wheezing. Heart: Regular rate and rhythm; no gallop, rub audible. Abdomen: Soft, NTTP, ND, hyperactive BS. Extremities: No cyanosis, clubbing, or edema. Neurological: Patient awake, alert, oriented as noted, 3, cognitive function intact; pupils equally reactive to light and accommodation, cranial nerves grossly normal, moving all 4 extremities, no focal deficits, strength mildly to moderately global decrease. Psychiatric: Affect appears fatigued otherwise normal, no acute evidence of depressive or anxiety feelings. Assessment & Plan Assessment/Plan (1) Intractable nausea and vomiting: PLAN: Plan The patient is a 29 y/o M w/ PMHx: Chronic cannabis usage, Tobacco use, Anxiety and Depression who presents to the [facility] ED on 04/03/25 with history of onset intractable nausea and emesis with ongoing chronic cannabis usage with known previous episodes of cannabis associated hyperemesis syndrome prompting ED evaluation. #1. Intractable nausea and emesis secondary to chronic cannabis usage consistent with cannabis hyperemesis syndrome with associated electrolyte disturbances given GI losses #2: Admitted to medical surgical floor, initially as needed Zofran with breakthrough IM Phenergan in addition to scopolamine patch, maintained on IV PPI, although improving emesis patient with persistent ongoing nausea, 04/05/2020 5 AM evaluation with planned initiation of scheduled low-dose Haldol and attempt to transition to liquids, if clinically continues to improve then will advance to a full liquid diet and could consider transitioning to oral Haldol, strongly encouraged complete cannabis cessation, continue IV fluids given #2, repeat BMP in AM. #2. Acute hyponatremia, hypochloremia secondary to hypovolemic presentation with GI losses: 04/01/2025 sodium 133, administered IV fluids with improvement with 04/04/2025 sodium up to 137 however poor oral intake with fluid de-escalated off, repeat 04/05/2025 sodium 131, chloride 96, will resume IV hydration and strongly encourage oral clear liquid intake given improvement on Haldol, repeat level in AM. #3. Acute renal insufficiency secondary to GI losses: 04/01/2025 admission BUN/creatinine 22/1.35, GFR 72, IV fluids administered given GI losses, 04/05/2025 BUN/creatinine 15/1.01, GFR 103, continue to trend. #4. Hypokalemia: 04/02/2025 potassium 3.2, repeat 04/03/2025 potassium 3.0, supplemented, resolved, 04/05/2025 potassium 3.7. #5. Tobacco Abuse: Encouraged cessation, inpatient consultation per RT, NR if desired. #6. Anxiety and depression: Will continue does affect Lovaxin, encourage continued outpatient follow-up and evaluation as previously arranged. #7. DVT prophylaxis: Lovenox. Charges/Coding Visit Charges Inpatient E&M: 82507 Subs Hosp L3
[2025-04-05 09:28] LABS: Hematocrit 37.9 % (40-54); Hemoglobin 13.5 g/dL (13.0-16.5); Immature Granulocytes Count 0.060 X10^3/uL (0.0-0.0); Mean Corp Hgb Conc 35.6 g/dL (32-36); Mean Corpuscular Volume 85.0 fL (80-94); Mean Platelet Vol. 10.9 fl (6.2-12.0); NRBC Flagged by Analyzer 0 % (0-5); Platelet Count 201 K/mm3 (150-450); RBC Distribution Width CV 10.9 % (11.6-14.6); RBC Distribution Width SD 33.8 fl (35.1-43.9); Red Blood Count 4.46 M/mm3 (4.6-6.2); White Blood Count 9.9 K/mm3 (4.4-11.0)
[2025-04-05 09:46] LABS: AST(SGOT) 28 U/L (<=37); Alanine Aminotransfer ALT/SGPT 13 U/L (<=46); Albumin, Serum 4.1 g/dL (3.5-5.0); Alkaline Phosphatase 38 U/L (40-129); Anion Gap 14 (5-15); BUN 15 mg/dL (4-19); BUN/Creat Ratio 14.5 RATIO (10-20); Calcium,Total 8.6 mg/dL (7.6-11.0); Carbon Dioxide 21.0 mmol/L (21.0-32.0); Chloride 96 mmol/L (98-108); Estimated Creatinine Clearance 90.15 ml/min (50-250); Globulin 2.5 g/dL (2.2-4.2); Glucose 83 mg/dL (70-99); Potassium 3.7 mmol/L (3.3-5.1)
[2025-04-05] MEDS: Pantoprazole Sodium 40 MG in 0.9% Normal Saline (100mL MB+) 100 ML 330 MG IV (10:19)
[2025-04-05] MEDS: 0.9% Normal Saline (250mL Bag) 250 ML 15 ML IV (10:20)
[2025-04-05 10:30] VITALS: BP 138/89; PULSE 61; RESP 14; TEMP 36.9; O2SAT 100
--- NOTE | 2025-04-05 16:17 | CHAPLAIN ---
Type of Pastoral Visit ___ Initial Visit _x__ Follow-up Visit ___ On-call Visit ___ General Patient Visit ___ Spiritual Assessment ___ Family Conference ___ Bereavement ___ Rapid Response ___ Code Blue ___ Other (describe below) Pastoral Care Referral From ___ Patient _x__ Family ___ Nurse ___ Physician ___ Advertising Copy Writer ___ Propagator Laborer ___ Other (describe below) Sacrament/Intervention _x__ Active listening ___ Anointing ___ Mandaen ___ Bereavement ___ Communion ___ Jessica exploration ___ ___ Life review _x__ Prayer ___ Reconciliation ___ Sacrament of Sick _x__ Supportive presence ___ Wedding ___ Other (describe below) Pastoral Comments patient seeks company and someone to talk with; pt welcomes prayer; pt has seen just slight improvement and talks about his hope to get better soon;
[2025-04-05 16:54] VITALS: BP 122/91; PULSE 68; RESP 14; TEMP 36.8; O2SAT 98
[2025-04-05 21:30] VITALS: BP 134/88; PULSE 80; RESP 12; TEMP 36.3; O2SAT 98
[2025-04-06 05:00] VITALS: BP 151/100; PULSE 55; PULSE 57; RESP 12; TEMP 35.8; O2SAT 100
[2025-04-06 06:56] LABS: Hematocrit 38.2 % (40-54); Hemoglobin 13.8 g/dL (13.0-16.5); Immature Granulocytes Count 0.060 X10^3/uL (0.0-0.0); Mean Corp Hgb Conc 36.1 g/dL (32-36); Mean Corpuscular Volume 84.9 fL (80-94); Mean Platelet Vol. 11.4 fl (6.2-12.0); NRBC Flagged by Analyzer 0 % (0-5); Platelet Count 207 K/mm3 (150-450); RBC Distribution Width CV 10.7 % (11.6-14.6); RBC Distribution Width SD 33.3 fl (35.1-43.9); Red Blood Count 4.50 M/mm3 (4.6-6.2); White Blood Count 9.7 K/mm3 (4.4-11.0)
[2025-04-06 07:32] LABS: AST(SGOT) 22 U/L (<=37); Alanine Aminotransfer ALT/SGPT 11 U/L (<=46); Albumin, Serum 4.2 g/dL (3.5-5.0); Alkaline Phosphatase 41 U/L (40-129); Anion Gap 14 (5-15); BUN 12 mg/dL (4-19); BUN/Creat Ratio 11.4 RATIO (10-20); Calcium,Total 8.7 mg/dL (7.6-11.0); Carbon Dioxide 22.6 mmol/L (21.0-32.0); Chloride 94 mmol/L (98-108); Estimated Creatinine Clearance 90.15 ml/min (50-250); Globulin 2.5 g/dL (2.2-4.2); Glucose 86 mg/dL (70-99); Potassium 3.4 mmol/L (3.3-5.1)
--- NOTE | 2025-04-06 08:15 | PN.HOSP_ITS ---
Reason for Visit Chief Complaint: Intractable Nausea and Vomiting. Subjective Subjective Patient with no acute events overnight per self and per nursing report. Patient nausea has abated and he is transition to oral nausea regimen. He has been walking the halls with no recurrent episodes of emesis. He is hesitant but currently tolerating full liquid diet. Discussed plan of care which included transition to outpatient with ongoing oral Haldol if needed, scopolamine for a short course with supplemental potassium for the next couple days given his predisposition with follow-up outpatient with primary care physician with repeat basic metabolic panel and potentially gastroenterology referral in case of recurrent if he is truly off cannabis at that time and has recurrent cyclic emesis to which patient is amenable. Patient and mother did have several questions regarding return to work and FMLA which was discussed with social work/case management and patient was instructed that he would be given a note for an excuse for the days that he is missed from his work but recommended any FMLA paperwork be reviewed with primary care physician. Patient denies fevers, chills, significant recurrent nausea, significant recurrent emesis, abdominal pain, chest pain or dyspnea. Objective Data Objective Data Vital Signs: Vital Signs Temp Pulse Resp BP Pulse Ox O2 Del Method 96.5 F L 55 L 12 151/100 H 100 Room Air 04/06/25 05:00 04/06/25 05:00 04/06/25 05:00 04/06/25 05:00 04/06/25 05:00 04/06/25 05:00 Oxygen Delivery Method Room Air Weight: 131 lb 6.328 oz Body Mass Index (BMI) 19.3 Intake & Output: Intake and Output for Last 24 Hours 04/04/25 04/05/25 04/06/25 23:59 23:59 23:59 Intake Total 3200.0 / 3200.0 131.75 / 131.75 0 / 0 Balance 3200.0 / 3200.0 131.75 / 131.75 0 / 0 Lab / Micro Data 04/06/25 05:43 04/06/25 05:43 Labs: Laboratory Results - last 24 hr 04/05/25 09:15: WBC 9.9, RBC 4.46 L, Hgb 13.5, Hct 37.9 L, MCV 85.0, MCH 30.3, MCHC 35.6, RDW Std Deviation 33.8 L, RDW Coeff of Loulou 10.9 L, Plt Count 201, MPV 10.9, Immature Gran % (Auto) 0.600, Neut % (Auto) 85.2 H, Lymph % (Auto) 10.0 L, [place] % (Auto) 3.9, Eos % (Auto) 0.0, Baso % (Auto) 0.3, Absolute Neuts (auto) 8.5 H, Absolute Lymphs (auto) 0.99, Nucleated RBC % 0, Sodium 131 L, Potassium 3.7, Chloride 96 L, Carbon Dioxide 21.0, Anion Gap 14, BUN 15, Creatinine 1.01, Estim Creat Clear Calc 90.15, Est GFR (MDRD) Non-Af 103, BUN/Creatinine Ratio 14.5, Glucose 83, Calcium 8.6, Total Bilirubin 1.04, AST 28, ALT 13, Alkaline Phosphatase 38 L, Total Protein 6.6, Albumin 4.1, Globulin 2.5, Albumin/Globulin Ratio 1.6 04/06/25 05:43: WBC 9.7, RBC 4.50 L, Hgb 13.8, Hct 38.2 L, MCV 84.9, MCH 30.7, M CHC 36.1 H, RDW Std Deviation 33.3 L, RDW Coeff of Loulou 10.7 L, Plt Count 207, MPV 11.4, Immature Gran % (Auto) 0.600, Neut % (Auto) 83.3 H, Lymph % (Auto) 9.7 L, [place] % (Auto) 6.0, Eos % (Auto) 0.2, Baso % (Auto) 0.2, Absolute Neuts (auto) 8.0 H, Absolute Lymphs (auto) 0.94, Nucleated RBC % 0, Sodium 131 L, Potassium 3.4, Chloride 94 L, Carbon Dioxide 22.6, Anion Gap 14, BUN 12, Creatinine 1.01, Estim Creat Clear Calc 90.15, Est GFR (MDRD) Non-Af 103, BUN/Creatinine Ratio 11.4, Glucose 86, Calcium 8.7, Total Bilirubin 1.17, AST 22, ALT 11, Alkaline Phosphatase 41, Total Protein 6.6, Albumin 4.2, Globulin 2.5, Albumin/Globulin Ratio 1.7 Physical Exam Narrative Physical Examination: General: Awake, alert, oriented x 3 and cooperative, walking in his room, appears well, notes he is hesitant to eat but nausea/emesis abated still. Skin: Normal color, normal turgor, no icterus, no cyanosis. HEENT: AT/NC, EOMI, PERRLA, improved MMM. Lungs: CTA bilaterally, moderate effort, mild decrease BL bases, no rales, ronchi or wheezing. Heart: Regular rate and rhythm; no gallop, rub audible. Abdomen: Soft, NTTP, ND, mildly hyperactive BS. Extremities: No cyanosis, clubbing, or edema. Neurological: Patient awake, alert, oriented as noted, 3, cognitive function intact; pupils equally reactive to light and accommodation, cranial nerves grossly normal, moving all 4 extremities, no focal deficits, strength improved, preserved. Psychiatric: Affect appears more normal, less fatigued, no acute evidence of depressive or anxiety feelings. Assessment & Plan Assessment/Plan (1) Intractable nausea and vomiting: PLAN: Plan The patient is a 29 y/o M w/ PMHx: Chronic cannabis usage, Tobacco use, Anxiety and Depression who presents to the [facility] ED on 04/03/25 with history of onset intractable nausea and emesis with ongoing chronic cannabis usage with known previous episodes of cannabis associated hyperemesis syndrome prompting ED evaluation. #1. Intractable nausea and emesis secondary to chronic cannabis usage consistent with cannabis hyperemesis syndrome with associated electrolyte disturbances given GI losses #2: Admitted to medical surgical floor, initially as needed Zofran with breakthrough IM Phenergan in addition to scopolamine patch, maintained on IV PPI, although resolved emesis patient with persistent ongoing nausea, 04/05/25 AM evaluation with initiation scheduled low-dose Haldol. 04/05/25 morning allowance of clears with then transition to fulls 04/05/25 evening. 04/06/2025 transition completely to oral Haldol. 04/06/2025 patient tolerated full liquid diet on only oral antiemetic therapy therefore plan to discharge to home with continued as needed regimen and short course of scopolamine with recommended 100% avoidance of cannabis to which patient and family were amenable. #2. Acute hyponatremia, hypochloremia secondary to hypovolemic presentation with GI losses: 04/01/2025 sodium 133, administered IV fluids with improvement with 04/04/2025 sodium up to 137 however poor oral intake with fluid de-escalated off, repeat 04/05/2025 sodium 131, chloride 96. 04/04/25 resumed IVFs. Strongly encouraged oral intake. 04/06/2025 sodium 131, chloride 94. Given patient is now tolerating diet and hydrating we will plan repeat basic metabolic panel at follow-up outpatient with primary care physician. #3. Elevated BP without hypertensive diagnosis: Patient with significantly elevated blood pressure, potentially related with nausea, medications, unclear if any other substance usage with potentially withdrawal, continue to monitor with as needed IV hydralazine. Likely would be better for repeat assessment outpatient with addition of regimen if remains elevated in the outpatient heading. #4. Acute renal insufficiency secondary to GI losses: 04/01/2025 admission BUN/creatinine 22/1.35, GFR 72, IV fluids administered given GI losses, 04/05/2025 BUN/creatinine 15/1.01, GFR 103--> 04/06/2025 BUN/creatinine 12/1.01, GFR 103, improved. Given patient is now tolerating diet and hydrating we will plan repeat basic metabolic panel at follow-up outpatient with primary care physician. #5. Hypokalemia: 04/02/2025 potassium 3.2, repeat 04/03/2025 potassium 3.0, supplemented, resolved, 04/05/2025 potassium 3.7-> 04/06/2025 potassium 3.4. At discharge patient initiated on a short course of potassium supplementation with recommendation for repeat basic metabolic panel and follow-up with primary care physician. #6. Tobacco Abuse: Encouraged cessation, inpatient consultation per RT, NR if desired. #7. Anxiety and depression: Will continue does affect Lovaxin, encourage continued outpatient follow-up and evaluation as previously arranged. #8. DVT prophylaxis: Lovenox. Charges/Coding Visit Charges Inpatient E&M: 95326 Subs Hosp L2
[2025-04-06] MEDS: Potassium Chloride Oral Tablet 20 MEQ 40 MEQ PO (09:35)
--- NOTE | 2025-04-06 10:40 | CASEMGMT ---
Social Work Pt had asked about having FMLA papers completed. SW explained to pt and his mother that he needs to follow up w/his PCP for this. SW did provide to pt a letter stating pt's admit date and dates that pt visited the ED, to give to his employer. CATARINO Panda
[2025-04-06] MEDS: Pantoprazole Sodium 40 MG in 0.9% Normal Saline (100mL MB+) 100 ML 330 MG IV (11:04)
[2025-04-06 11:09] VITALS: BP 144/80; PULSE 72; RESP 16; TEMP 36.8; O2SAT 100
--- NOTE | 2025-04-06 11:21 | PCM.DC.SUM ---
Providers Date of Admission: 04/03/25 Date of Discharge: 04/06/25 Primary Care Physician: VIVIANA Loomis Reason For Visit: INTRACTABLE NAUSEA AND VOMITIN 2/2 CANNABIS Diagnosis Discharge Diagnosis (1) Intractable nausea and vomiting: Status: Acute Code(s): R11.2 - Nausea with vomiting, unspecified Plan: DISCHARGE DIAGNOSES: #1. Intractable nausea and emesis secondary to chronic cannabis usage consistent with cannabis hyperemesis syndrome with associated electrolyte disturbances given GI losses #2 #2. Acute hyponatremia, hypochloremia, hypokalemia secondary to hypovolemic presentation with GI losses #3. Elevated BP without hypertensive diagnosis #4. Acute renal insufficiency secondary to GI losses #5. Tobacco Abuse #6. Anxiety and depression Medications at Discharge Home Medications desvenlafaxine succinate 50 mg tablet,extended release 24 hr 50 mg PO DAILY 04/03/25 dicyclomine 20 mg tablet 20 mg PO TID 14 days #42 tabs 04/06/25 haloperidol 5 mg tablet 5 mg PO TID PRN nausea and vomiting 14 days #42 tabs 04/06/25 potassium chloride 10 mEq tablet,extended release(part/cryst) 10 meq PO BID 5 days #10 tabs 04/06/25 promethazine 12.5 mg tablet 12.5 mg PO TID PRN nausea and vomiting #21 tabs 04/06/25 scopolamine base 1 mg over 3 days transdermal patch 1 patch transdermal Q3D@2200 14 days #4 ea 04/06/25 Hospital Course Operations None Procedures EKG Summary of Care Provided Minutes Spent on Discharge: 35 Hospital Course: The patient is a 29 y/o M w/ PMHx: Chronic cannabis usage, Tobacco use, Anxiety and Depression who presented to the [facility] ED on 04/03/25 with history of onset intractable nausea and emesis with ongoing chronic cannabis usage with known previous episodes of cannabis associated hyperemesis syndrome prompting ED evaluation. Admitted to medical surgical floor, initially as needed Zofran with breakthrough IM Phenergan in addition to scopolamine patch, maintained on IV PPI, although resolved emesis patient with persistent ongoing nausea, 04/05/25 AM evaluation with initiation scheduled low-dose Haldol. 04/05/25 morning allowance of clears with then transition to fulls 04/05/25 evening. 04/06/2025 transition completely to oral Haldol. 04/06/2025 patient tolerated full liquid diet on only oral antiemetic therapy therefore plan to discharge to home with continued as needed regimen and short course of scopolamine with recommended 100% avoidance of cannabis to which patient and family were amenable. 04/01/2025 sodium 133, administered IV fluids with improvement with 04/04/2025 sodium up to 137 however poor oral intake with fluid de-escalated off, repeat 04/05/2025 sodium 131, chloride 96. 04/04/25 resumed IVFs. Strongly encouraged oral intake. 04/06/2025 sodium 131, chloride 94. Given patient at discharge tolerating diet, encourage continued aggressive oral intake and hydration with plan repeat BMP outpatient with PCP. Upon presentation patient with significantly elevated blood pressure, potentially related with nausea and emesis thus recommended continued outpatient evaluation with primary care physician and repeat BP assessment. 04/01/2025 admission BUN/creatinine 22/1.35, GFR 72, IV fluids administered given GI losses, 04/05/2025 BUN/creatinine 15/1.01, GFR 103--> 04/06/2025 BUN/creatinine 12/1.01, GFR 103, improved with again recommended basic metabolic panel repeat with primary care physician. Additionally patient potassium also decreased during presentation with supplementation ordered and also upon discharge short course of scheduled with recommended again repeat basic metabolic panel at follow-up with primary care physician. Strongly encouraged complete cessation of cannabis to avoid recurrent hyperemesis syndrome. Upon discharge recommended follow-up with primary care physician but also recommended follow-up potentially with gastroenterology if any recurrent issues and patient is 100% off cannabis and with reoccurrence of symptoms. Weight / BMI Weight Weight: 131 lb 6.328 oz Body Mass Index (BMI) 19.3 ABG / Lab / Microbiology Data 04/06/25 05:43 04/06/25 05:43 Laboratory: Laboratory Results - last 24 hr 04/06/25 05:43: WBC 9.7, RBC 4.50 L, Hgb 13.8, Hct 38.2 L, MCV 84.9, MCH 30.7, MCHC 36.1 H, RDW Std Deviation 33.3 L, RDW Coeff of Loulou 10.7 L, Plt Count 207, MPV 11.4, Immature Gran % (Auto) 0.600, Neut % (Auto) 83.3 H, Lymph % (Auto) 9.7 L, [place] % (Auto) 6.0, Eos % (Auto) 0.2, Baso % (Auto) 0.2, Absolute Neuts (auto) 8.0 H, Absolute Lymphs (auto) 0.94, Nucleated RBC % 0, Sodium 131 L, Potassium 3.4, Chloride 94 L, Carbon Dioxide 22.6, Anion Gap 14, BUN 12, Creatinine 1.01, Estim Creat Clear Calc 90.15, Est GFR (MDRD) Non-Af 103, BUN/Creatinine Ratio 11.4, Glucose 86, Calcium 8.7, Total Bilirubin 1.17, AST 22, ALT 11, Alkaline Phosphatase 41, Total Protein 6.6, Albumin 4.2, Globulin 2.5, Albumin/Globulin Ratio 1.7 D/C Instructions May resume sexual activity in: 10-14 days Weight Bearing Status: Weight bearing as tolerated Call your doctor if you observe: Fever of 101 or Higher, Shortness of breath, Dizziness, Swelling in the ankles, Chest pain, Increased palpitations (irregular heartbeat), Calf discomfort and Uncontrolled pain DC O2, CPAP, BIPAP Needs Home O2 Discharge instructions: No Meaningful Use Info Meaningful Use Meaningful Use Diagnoses (Choose all that apply): None applicable Discharge Plan Admission Admit Date/Time: 04/03/25 22:35 Primary Reason for Your Visit: Intractable nausea, emesis, possible Cannabis associated hyperemesis Attending Provider: Arabella Palacios Primary Care Provider: Sallie Crowley NP Consulting Providers: Konrad Horvath; Lyndon Burton Instructions Patient Instructions: Cannabis Hyperemesis Syndrome, ED Vomiting (Adult) Additional Instructions / Restrictions: ADDITIONAL INFORMATION/DISCHARGE INSTRUCTIONS: --Please continue Haldol for control of nausea and emesis however we strongly recommend that you begin to taper off and only use this as needed. --A small short regimen of also scopolamine patch has been prescribed. --A refill on Bentyl has also been given for an abdominal cramping associated. --We have also refilled your potassium with planned repeat level outpatient upon re-evaluation with your primary care physician. --We strongly recommend that you continue appropriate oral intake including water hydration and at least a little bit of each meal although you may choose to slowly transition from full liquids over the next several days to a regular diet. We recommend avoiding very greasy and fatty items. --We have also prescribed a short course of famotidine to be taken over the next several days until clinically improving. --Please have a repeat basic metabolic panel at follow-up with primary care physician to assure electrolytes continue to improve. --Although it is believed that your bouts of nausea and emesis are related with cannabis usage we would recommend also outpatient follow-up with Gastroenterology to assure no other alternate etiology. --We strongly encourage avoidance of any cannabis item. Discharge Orders/Prescriptions Prescriptions: New scopolamine base 1 mg over 3 days Patch 3 Day 1 patch transdermal Q3D@2200 14 Days Qty: 4 0RF Rx Instructions: Please stop using once nausea/emesis resolves. Continued desvenlafaxine succinate 50 mg tablet extended release 24 hr 50 mg PO DAILY promethazine 12.5 mg tablet 12.5 mg PO TID PRN (Reason: nausea and vomiting) Qty: 21 0RF potassium chloride 10 mEq tablet,ER particles/crystals 10 meq PO BID 5 Days Qty: 10 0RF haloperidol 5 mg tablet 5 mg PO TID PRN (Reason: nausea and vomiting) 14 Days Qty: 42 0RF Changed dicyclomine 20 mg tablet 20 mg PO TID 14 Days Qty: 42 0RF Referrals / Follow Up: Jeromy Wheatley DO [Med Staff - Active Staff] - (Please contact office to establish and have follow-up evaluation for recurrent episodes intractable nausea/emesis. May see CLINICAL ASSESSMENT MANAGER or PA.) Sallie Crowley NP, CLINICAL ASSESSMENT MANAGER-C [Primary Care Provider] - (Follow-up within 3-5 days to review admission.) Disposition Disposition (needs filled in before D/C Order can be placed): Home, Self Care Charges/Coding Visit Charges Inpatient E&M: 58716 Disch Hosp >30min
[2025-04-06 11:51] VITALS: BP 132/78; PULSE 70; RESP 16; TEMP 36.8; O2SAT 100
== END 2025-04-06 11:11 | disposition home or self-care (01) ==
LOC: ED 22:21 → PCU 22:51
PROVIDERS: Admitting Provider Internal Medicine; Emergency Provider Emergency Medicine; PCP Registered Nurse; Visit Provider Family Medicine
DX: R11.15 Cyclical vomiting syndrome unrelated to migraine (principal); F12.10 Cannabis abuse, uncomplicated; E87.1 Hypo-osmolality and hyponatremia; E87.6 Hypokalemia; R03.0 Elevated blood-pressure reading, without diagnosis of hypertension; R19.7 Diarrhea, unspecified; E87.8 Other disorders of electrolyte and fluid balance, not elsewhere classified; F32.A Depression, unspecified; F41.9 Anxiety disorder, unspecified; N28.9 Disorder of kidney and ureter, unspecified; Z79.899 Other long term (current) drug therapy; F17.290 Nicotine dependence, other tobacco product, uncomplicated; E86.0 Dehydration
CPT/HCPCS: 36415; 80048; 80053; 80076; 80307; 81001; 83690; 83735; 84100; 84443; 85025; 94668; 96361; 96365; 96366; 96367; 96372; 96375; 96376; 99221; 99282; 99285; A4216; G0378; J2405

== ENCOUNTER 2025-04-11 07:19 | Emergency (ER) | payer OTHER, SELFPAY ==
[2025-04-11 07:19] VITALS: BP 140/100; PULSE 73; RESP 16; TEMP 37; O2SAT 100; BMI 18.2
--- NOTE | 2025-04-11 07:45 | EX.ED.DYSGE1 ---
HPI History of Present Illness Chief Complaint: Nausea/Vomiting Informant: patient Narrative Narrative: Patient is a 29-year-old male with history of cannabis hyperemesis syndrome with recent admission for intractable nausea/vomiting as well as hypokalemia. He is presenting with nausea vomiting epigastric abdominal pain. Patient was discharged from the hospital on 04/06/2025 (5 days ago). He states he is actually been doing well with his oral Haldol, Phenergan and dicyclomine. He took his medications at 6 AM. About 30 minutes later he vomited. He states he vomited multiple times. Denies any black or blood in his vomit. States this feels like his prior episodes. He adamantly denies any THC use since discharge from the hospital. He states overall he is been doing well and been slowly advancing his diet. He states he drank a new Gatorade with extra Electrolyte strength this morning and that is what caused him to throw up. States last bowel movement was 2 days ago was diarrhea. Denies any history of any abdominal surgeries. Denies any fever or chills. Denies any radiation of his pain. Denies any chest pain or shortness of breath. No other complaints or concerns reported at this time. [facility] Medical History Tobacco abuse Cannabis hyperemesis syndrome concurrent with and due to cannabis abuse Marijuana use Anxiety Marijuana smoker Home Medications Medication Instructions Recorded Last Taken Type desvenlafaxine succinate 50 mg 50 mg PO DAILY 04/03/25 03/28/25 History tablet,extended release 24 hr dicyclomine 20 mg tablet 20 mg PO TID 14 days #42 tabs 04/06/25 Unknown Rx haloperidol 5 mg tablet 5 mg PO TID PRN nausea and 04/06/25 Unknown Rx vomiting 14 days #42 tabs potassium chloride 10 mEq 10 meq PO BID 5 days #10 tabs 04/06/25 Unknown Rx tablet,extended release(part/cryst) promethazine 12.5 mg tablet 12.5 mg PO TID PRN nausea and 04/06/25 Unknown Rx vomiting #21 tabs scopolamine base 1 mg over 3 days 1 patch transdermal Q3D@2200 14 04/06/25 Unknown Rx transdermal patch days #4 ea famotidine 20 mg tablet (Pepcid) 20 mg PO BID #20 tabs 04/11/25 Unknown Rx Allergy/AdvReac Type Severity Reaction Status Date / Time No Known Allergies Allergy Verified 04/11/25 07:20 Social History Smoking Status: Current every day smoker tobacco type: e-cigarettes ROS ROS ED Constitutional Constitutional ED: Denies chills or fever(s) Cardiovascular Cardiovascular: Denies chest pain or palpitations Respiratory/Chest Respiratory/Chest: Denies cough Gastrointestinal Gastrointestinal: Reports abdominal pain, diarrhea, nausea and vomiting Musculoskeletal Musculoskeletal: Denies arthralgias or myalgias Neurologic Neurologic: Denies weakness EXAM Physical Exam Const Vital Signs: 04/11/25 07:19 04/11/25 09:46 04/11/25 09:46 Temperature 98.6 F 98.6 F Temperature Source Oral Pulse Rate 73 88 88 Respiratory Rate 16 16 16 Blood Pressure 140/100 H 130/74 H 130/74 H Blood Pressure Mean 113 92 92 Pulse Ox 100 96 96 Oxygen Delivery Method Room Air Positive well nourished and well developed General Appearance ED: well developed and NAD; Negative for pallor HEENT Reports moist mucous membranes Eyes EOMs intact bilaterally General Eye ED: Negative for scleral icterus Neck supple Chest Wall inspection of chest normal and palpation of chest normal Resp normal respiratory effort and clear to auscultation bilaterally Cardio regular rate, regular rhythm and no murmurs GI non-distended GI Narrative: Negative Morales sign Inspection: Negative for abdominal distention Auscultation: normoactive bowel sounds Palpation: soft and tender epigastric Extremity normal to inspection General Extremety ED: Negative for edema General Extremity: Negative for edema Neuro oriented x3 Sensorium / Orientation: alert Psych mental status grossly normal Skin no rashes or lesions noted General Skin Exam: Negative for jaundice or pallor MDM MDM MDM Narrative Medical decision making narrative: Patient evaluated for recurrent epigastric abdominal pain, nausea and vomiting. Differential includes flareup of cyclic vomiting/cannabis hyperemesis syndrome, gastritis, pancreatitis, biliary colic (lower suspicion as pain is more epigastric) as well as dehydration and Electrolyte abnormality. Patient is nontoxic-appearing. He is not actively retching. Will start with IV fluids, Pepcid and Zofran. Will check labs. Patient is mild leukocytosis of 16.2. Suspect this is reactive. CMP normal. Lipase is normal. I do not think he needs abdominal imaging. Repeat evaluation is of improvement of but does have continued nausea. Is given IV Haldol with further improvement of his symptoms. Remains hemodynamically stable. Able to tolerate p.o. challenge. States he is feeling better would like to be discharged home. Will be started on on H2 so in addition to his previously prescribed medications. Given return precautions. Discharged home in stable condition. Encouraged continued abstinence from THC. Lab Data Attestation: I reviewed the patient's lab results. Labs: Laboratory Results - last 24 hr 04/11/25 08:09 WBC 16.2 H RBC 4.90 Hgb 14.9 Hct 41.1 MCV 83.9 MCH 30.4 MCHC 36.3 H RDW Std Deviation 33.7 L RDW Coeff of Loulou 11.0 L Plt Count 355 MPV 9.9 Immature Gran % (Auto) 0.800 Neut % (Auto) 86.1 H Lymph % (Auto) 7.8 L [place] % (Auto) 4.7 Eos % (Auto) 0.2 Baso % (Auto) 0.4 Absolute Neuts (auto) 13.9 H Absolute Lymphs (auto) 1.26 Nucleated RBC % 0 Sodium 134 Potassium 3.3 Chloride 94 L Carbon Dioxide 25.6 Anion Gap 15 BUN 10 Creatinine 1.15 Estim Creat Clear Calc 74.48 Est GFR (MDRD) Non-Af 88 BUN/Creatinine Ratio 8.5 L Glucose 118 H Calcium 9.4 Total Bilirubin 1.05 AST 12 ALT 11 Alkaline Phosphatase 45 Total Protein 7.7 Albumin 4.7 Globulin 3.0 Albumin/Globulin Ratio 1.6 Lipase 39 Discharge Plan Triage Chief Complaint: Nausea/Vomiting ED Provider: Rivka Fairchild Dx/Rx/DC Orders Clinical Impression: Cyclical vomiting Instructions: ED Cyclic Vomiting Syndrome, ED Vomiting (Adult) Prescriptions: New famotidine [Pepcid] 20 mg tablet 20 mg PO BID Qty: 20 0RF No Action desvenlafaxine succinate 50 mg tablet extended release 24 hr 50 mg PO DAILY scopolamine base 1 mg over 3 days Patch 3 Day 1 patch transdermal Q3D@2200 14 Days Qty: 4 0RF Rx Instructions: Please stop using once nausea/emesis resolves. promethazine 12.5 mg tablet 12.5 mg PO TID PRN (Reason: nausea and vomiting) Qty: 21 0RF dicyclomine 20 mg tablet 20 mg PO TID 14 Days Qty: 42 0RF potassium chloride 10 mEq tablet,ER particles/crystals 10 meq PO BID 5 Days Qty: 10 0RF haloperidol 5 mg tablet 5 mg PO TID PRN (Reason: nausea and vomiting) 14 Days Qty: 42 0RF Primary Care Provider: Sallie Crowley NP Referrals: Sallie Crowley NP, SHOT HOLE SHOOTER-C [Primary Care Provider] - Activity Restrictions/Additional Instructions: Continue to abstain from any THC/marijuana products. Continue take your previously prescribed medication. He feels been given a new prescription for an antacid for your stomach. It is okay to take [id number] Tums as well for breakthrough symptoms. Print Language: [place] Disposition Disposition: Home, Self Care
[2025-04-11] MEDS: 0.9% Normal Saline (1000mL) 1,000 ML 999 ML IV (07:47)
[2025-04-11 08:19] LABS: Hematocrit 41.1 % (40-54); Hemoglobin 14.9 g/dL (13.0-16.5); Immature Granulocytes Count 0.130 X10^3/uL (0.0-0.0); Mean Corp Hgb Conc 36.3 g/dL (32-36); Mean Corpuscular Volume 83.9 fL (80-94); Mean Platelet Vol. 9.9 fl (6.2-12.0); NRBC Flagged by Analyzer 0 % (0-5); Platelet Count 355 K/mm3 (150-450); RBC Distribution Width CV 11.0 % (11.6-14.6); RBC Distribution Width SD 33.7 fl (35.1-43.9); Red Blood Count 4.90 M/mm3 (4.6-6.2); White Blood Count 16.2 K/mm3 (4.4-11.0)
[2025-04-11] MEDS: Famotidine 200 MG/20 ML MDV 20 MG in 0.9% Normal Saline (Pres. free 8 ML 300 MG IV (08:36)
[2025-04-11 08:43] LABS: AST(SGOT) 12 U/L (<=37); Alanine Aminotransfer ALT/SGPT 11 U/L (<=46); Albumin, Serum 4.7 g/dL (3.5-5.0); Alkaline Phosphatase 45 U/L (40-129); Anion Gap 15 (5-15); BUN 10 mg/dL (4-19); BUN/Creat Ratio 8.5 RATIO (10-20); Calcium,Total 9.4 mg/dL (7.6-11.0); Carbon Dioxide 25.6 mmol/L (21.0-32.0); Chloride 94 mmol/L (98-108); Estimated Creatinine Clearance 74.48 ml/min (50-250); Globulin 3.0 g/dL (2.2-4.2); Glucose 118 mg/dL (70-99); Lipase 39 U/L (13-75); Potassium 3.3 mmol/L (3.3-5.1)
[2025-04-11 09:46] VITALS: BP 130/74; PULSE 88; RESP 16; TEMP 37; O2SAT 96
== END 2025-04-11 09:54 | disposition home or self-care (01) ==
PROVIDERS: Emergency Provider Emergency Medicine; PCP Registered Nurse; Visit Provider Emergency Medicine
DX: R11.15 Cyclical vomiting syndrome unrelated to migraine (principal); R10.13 Epigastric pain; R19.7 Diarrhea, unspecified; F17.290 Nicotine dependence, other tobacco product, uncomplicated; Z79.899 Other long term (current) drug therapy
CPT/HCPCS: 36415; 80053; 83690; 85025; 96361; 96374; 96375; 99282; A4216; J2405